=== PATIENT | female | born 1995 | race Caucasian/White ===

== ENCOUNTER → 2017-11-05 | Outpatient (CLI) | payer BC ==
[~2017-11-05] MED LIST: L-NO1TBD PO; OXYC-202 PO
--- NOTE | 2017-11-05 14:59 | Diagnostic Imaging Report ---
Left forearm at 206h. INDICATION: Fell arm pain AP and lateral views were obtained. There are no prior studies available for comparison. There is no fracture, dislocation or acute bony abnormality evident. There is ulnar minus variance of the wrist joint. The soft tissues are unremarkable. IMPRESSION: There is no evidence for an acute bony abnormality. Dictated by: Dictated on workstation # [id number]
== END ==
LOC: RAD 14:25
PROVIDERS: ATTEND Nurse Practitioner Family
DX: M79.602 Pain in left arm (principal)
CPT/HCPCS: 73090

== ENCOUNTER 2018-03-03 10:28 | Emergency (ER) | payer OTHER, BC ==
[~2018-03-03] VITALS: Ht 177.8 cm; Wt 127.0 kg
--- OUTSIDE RECORDS SUMMARY | 2018-03-03 10:34 | XMS REPORT ---
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 Problem list No authorized problems tracked for continuity of care are available for this visit. Encounters No authorized problems tracked for encounter diagnoses are available for this visit. Medications No medications recorded for this patient visit Allergies, adverse reactions, alerts Allergen Category Ingredient Status Reaction Severity Onset Azithromycin Drug Allergy Azithromycin Confirmed or Verified Amoxicillin Drug Allergy Amoxicillin Confirmed or Verified Sulfa (Sulfonamide Antibiotics) Drug Allergy Sulfa (Sulfonamide Antibiotics) Confirmed or Verified clams Food Allergy clams Confirmed or Verified Immunizations No immunizations recorded for this patient visit Relevant diagnostic tests and/or laboratory data No authorized results are available for this patient visit History of procedures No procedures recorded for this patient visit. Functional status No functional or cognitive status observations are available for this visit. Vital signs No authorized vital signs are available for this visit. Social history No Social History or smoking status observations were recorded for this visit. ( Unknown if ever smoked.) Treatment Plan No treatment plan text is available for this visit. Hospital discharge instructions No discharge instruction text is available for this visit.
--- OUTSIDE RECORDS SUMMARY | 2018-03-03 10:35 | XMS REPORT | Clinical Summary ---
Author Author Admin, PRABHA Organization [facility] Address Unknown Phone Unavailable Allergies, Adverse Reactions, Alerts Allergy Name Reaction Description Start Date Severity Status Provider ZITHROMAX Critical Active Keara Blum MD BACTRIM Critical Active Keara Blum MD AMOXICILLIN Critical Active Keara Blum MD PENICILLIN Critical Active Keara Blum MD Conditions or Problems Problem Name Problem Code Onset Date Status Entry Date Provider Comment Standard Description Annotate FAMILY HISTORY OF DIABETES V18.0 Active Keara Blum MD Family history of diabetes mellitus FAMILY HISTORY OF MIGRAINE V17.2 Active Keara Blum MD Family history of other neurological diseases COMMON MIGRAINE 346.10 Active Keara Blum MD Migraine without aura, without mention of intractable migraine, without mention of status migrainosus FAMILY HISTORY OF MELANOMA V16.8 Active Keara Blum MD Family history of other specified malignant neoplasm COUGH 786.2 Inactive Keara Blum MD Cough OTHER ABNORMAL GLUCOSE 790.29 Resolved Keara Blum MD Other abnormal glucose ALLERGIC RHINITIS 477.9 Active Keara Blum MD Allergic rhinitis, cause unspecified COUGH 786.2 Inactive Keara Blum MD Cough G E REFLUX 530.81 Resolved Keara Blum MD Esophageal reflux Sinusitis-Acute 461.9 Resolved Keara Blum MD Acute sinusitis, unspecified Other unspecified back disorders 724.9 Resolved Keara Blum MD Other unspecified back disorders UTI 599.0 Resolved Keara Blum MD Urinary tract infection, site not specified Otitis media, left 382.9 Resolved Keara Blum MD Unspecified otitis media Sinusitis-Acute 461.9 Inactive Keara Blum MD Acute sinusitis, unspecified Flank pain, right 789.09 Active Keara Blum MD Abdominal pain, other specified site; multiple sites Melena 578.1 Active Keara Blum MD Blood in stool Ovarian cyst 620.2 Active Hortensia Marr MD Other and unspecified ovarian cyst Acne 706.1 Active Hortensia Marr MD Other acne Contraceptive management V25.09 Active Hortensia Marr MD Encounter for other general counseling and advice on contraceptive management Dysuria 788.1 Active Keara Blum MD Dysuria COUGH ICD-786.2 Inactive Keara Blum MD 03/19 OTHER ABNORMAL GLUCOSE ICD-790.29 Inactive Keara Blum MD COUGH ICD-786.2 Inactive Keara Blum MD 05/16 G E REFLUX ICD-530.81 Inactive Keara Blum MD Sinusitis-Acute ICD-461.9 Inactive Keara Blum MD Other unspecified back disorders ICD-724.9 Inactive Keara Blum MD UTI ICD-599.0 Inactive Keara Blum MD Otitis media, left ICD-382.9 Inactive Keara Blum MD Sinusitis-Acute ICD-461.9 Inactive Keara Blum MD Medication List Medication Instructions Start Date Stop Date Generic Name NDC Status Provider Patient Instruction SEASONIQUE 0.15-0.03 &0.01 MG ORAL TABS one tab PO daily LEVONORGEST-ETH ESTRAD - 57273202629 Active Hortensia Marr MD Active TRI-SPRINTEC 0.18/0.215/0.25 MG-35 MCG TABS 1 po qd as directed NORGESTIM-ETH ESTRAD TRIPHASIC 71899839641 No Longer Active Hortensia Marr MD Active ACZONE 5 % EXT GEL DAPSONE 55862708554 Active Hortensia Marr MD Active FLUTICASONE PROPIONATE 50 MCG/ACT SUSP 1 puff in each nostril daily FLUTICASONE PROPIONATE 66078593664 No Longer Active Hortensia Marr MD Active PRILOSEC 20 MG CPDR 1 daily OMEPRAZOLE 40650583596 No Longer Active Hortensia Marr MD Active CEFTIN 500 MG TABS 1 bid CEFUROXIME AXETIL 73193479665 No Longer Active Keara Blum MD Active ONDANSETRON HCL 8 MG TABS 1 q 8 hours ONDANSETRON HCL 48189829756 No Longer Active Keara Blum MD Active ZIANA 1.2-0.025 % GEL apply pea size daily CLINDAMYCIN- TRETINOIN 17500687802 No Longer Active Keara Blum MD Active CEFTIN 500 MG TAB 1 po bid 10 days CEFUROXIME AXETIL 79215481093 No Longer Active Keara Blum MD Active FLUTICASONE PROPIONATE 50 MCG/ACT SUSP 1 puff in each nostril daily FLUTICASONE PROPIONATE 19108599162 No Longer Active Dawson Gresham DO Active CEFDINIR 300 MG CAPS 1 daily CEFDINIR 63928280678 No Longer Active Dawson Gresham DO Active CEFDINIR 300 MG CAPS 1 daily CEFDINIR 86293211356 No Longer Active Keara Blum MD Active ONDANSETRON HCL 8 MG TABS 1 every8 hrs prn vomiting ONDANSETRON HCL 34713716380 No Longer Active Keara Blum MD Active CLARITIN-D 24 HOUR 10-240 MG [id number] 1 po qd PRN Allergies 2013 LORATADINE-PSEUDOEPHEDRINE 30629094610 No Longer Active Keara Blum MD Active PROPRANOLOL HCL 20 MG TABS 1 bid PROPRANOLOL HCL 42514885786 No Longer Active Keara Blum MD Active PROAIR HFA 108 (90 BASE) MCG/ACT AERS 1-2 puffs 2-4 times a day as needed ALBUTEROL SULFATE 21143722989 No Longer Active Keara Blum MD Active FLOVENT HFA 110 MCG/ACT AERO 1 puff bid, rinse and spit FLUTICASONE PROPIONATE HFA 13921367352 No Longer Active Keara Blum MD Active FLUTICASONE PROPIONATE 50 MCG/ACT SUSP 1 puff in each nostril daily FLUTICASONE PROPIONATE 52617587916 No Longer Active Keara Blum MD Active ZYRTEC ALLERGY 10 MG TABS 1 tablet po daily CETIRIZINE HCL 16898668664 No Longer Active Keara Blum MD Active AZITHROMYCIN 250 MG TABS 2 pills day 1,1 pill day 2-5 AZITHROMYCIN 13826091776 No Longer Active Keara Blum MD Active ZYRTEC ALLERGY 10 MG TABS 1 tablet po daily ZYRTEC ALLERGY 10 MG TABS 2069116 CETIRIZINE HCL Inactive FLOVENT HFA 110 MCG/ACT AERO 1 puff bid, rinse and spit FLOVENT HFA 110 MCG/ACT AERO FLUTICASONE PROPIONATE HFA Inactive PROAIR HFA 108 (90 BASE) MCG/ACT AERS 1-2 puffs 2-4 times a day as needed PROAIR HFA 108 (90 BASE) MCG/ACT AERS ALBUTEROL SULFATE Inactive PROPRANOLOL HCL 20 MG TABS 1 bid PROPRANOLOL HCL 20 MG TABS 749957 PROPRANOLOL HCL Inactive CLARITIN-D 24 HOUR 10-240 MG [id number] 1 po qd PRN Allergies 2013 CLARITIN-D 24 HOUR 10-240 MG [id number] LORATADINE-PSEUDOEPHEDRINE Inactive ONDANSETRON HCL 8 MG TABS 1 every8 hrs prn vomiting ONDANSETRON HCL 8 MG TABS 988023 ONDANSETRON HCL Inactive CEFDINIR 300 MG CAPS 1 daily CEFDINIR 300 MG CAPS 952620 CEFDINIR Inactive CEFDINIR 300 MG CAPS 1 daily CEFDINIR 300 MG CAPS 804473 CEFDINIR Inactive FLUTICASONE PROPIONATE 50 MCG/ACT SUSP 1 puff in each nostril daily FLUTICASONE PROPIONATE 50 MCG/ACT SUSP 928450 FLUTICASONE PROPIONATE Inactive CEFTIN 500 MG TAB 1 po bid 10 days CEFTIN 500 MG TAB 897378 CEFUROXIME AXETIL Inactive ZIANA 1.2-0.025 % GEL apply pea size daily ZIANA 1.2-0.025 % GEL CLINDAMYCIN-TRETINOIN Inactive ONDANSETRON HCL 8 MG TABS 1 q 8 hours ONDANSETRON HCL 8 MG TABS 600676 ONDANSETRON HCL Inactive CEFTIN 500 MG TABS 1 bid CEFTIN 500 MG TABS 867956 CEFUROXIME AXETIL Inactive PRILOSEC 20 MG CPDR 1 daily PRILOSEC 20 MG CPDR 628370 OMEPRAZOLE Inactive FLUTICASONE PROPIONATE 50 MCG/ACT SUSP 1 puff in each nostril daily FLUTICASONE PROPIONATE 50 MCG/ACT SUSP 453108 FLUTICASONE PROPIONATE Inactive TRI-SPRINTEC 0.18/0.215/0.25 MG-35 MCG TABS 1 po qd as directed TRI-SPRINTEC 0.18/0.215/0.25 MG-35 MCG TABS 253897 NORGESTIM-ETH ESTRAD TRIPHASIC Inactive AZITHROMYCIN 250 MG TABS 2 pills day 1,1 pill day 2-5 AZITHROMYCIN 250 MG TABS 1544349 AZITHROMYCIN Inactive FLUTICASONE PROPIONATE 50 MCG/ACT SUSP 1 puff in each nostril daily FLUTICASONE PROPIONATE 50 MCG/ACT SUSP 623747 FLUTICASONE PROPIONATE Inactive Immunizations Vaccine Administration Date Value Standard Description influenza immunization (Flu Vax) has been administered Historical influenza virus vaccine, unspecified formulation hepatitis A immunization #2 Historical hepatitis A vaccine, unspecified formulation Human Papillomavirus vaccine (Gardasil) #3, (HPV #3) Gardasil human papilloma virus vaccine, quadrivalent Human Papillomavirus vaccine (Gardasil) #2, (HPV #2) Gardasil human papilloma virus vaccine, quadrivalent hepatitis A immunization #1 Historical hepatitis A vaccine, unspecified formulation MPSV4 (meningococcal polysaccharide vaccination) Historical meningococcal polysaccharide vaccine (MPSV4) Adacel (Tetanus, reduced Diphtheria, and acellular Pertussis Immunization) Adacel [[id number]] tetanus toxoid, reduced diphtheria toxoid, and acellular pertussis vaccine, adsorbed chicken pox immunization #2 Varicella Vax varicella virus vaccine DPT immunization #5 DTaP oral polio vaccine (OPV) #4 IPV poliovirus vaccine, unspecified formulation MMR (measles, mumps, rubella) virus immunization #2 MMR DPT immunization #4 DTaP Hemophilus influenza B immunization #4 Historical Haemophilus influenzae type b vaccine, conjugate unspecified formulation oral polio vaccine (OPV) #3 IPV poliovirus vaccine, unspecified formulation MMR (measles, mumps, rubella) virus immunization #1 MMR chicken pox immunization #1 Varicella Vax varicella virus vaccine Hemophilus influenza B immunization #3 Historical Haemophilus influenzae type b vaccine, conjugate unspecified formulation DPT immunization #3 DTaP hepatitis B vaccine #3 Historical hepatitis B vaccine, unspecified formulation Hemophilus influenza B immunization #2 Historical Haemophilus influenzae type b vaccine, conjugate unspecified formulation oral polio vaccine (OPV) #2 IPV poliovirus vaccine, unspecified formulation DPT immunization #2 DTaP Hemophilus influenza B immunization #1 Historical Haemophilus influenzae type b vaccine, conjugate unspecified formulation oral polio vaccine (OPV) #1 IPV poliovirus vaccine, unspecified formulation DPT immunization #1 DTaP hepatitis B vaccine #2 given Historical hepatitis B vaccine, unspecified formulation hepatitis B vaccine #1 given Historical hepatitis B vaccine, unspecified formulation Vital Signs Date Name Value Unit Range Description blood pressure, diastolic - 8462-4 67 mm[Hg] BP horner blood pressure, systolic - 8480-6 101 mm[Hg] BP sys pulse rate E&M - 8867-4 89 /min Heart rate temperature E&M 97.9 [degF] Body temperature weight E&M - 3141-9 233 [lb_av] Weight Measured blood pressure, diastolic - 8462-4 85 mm[Hg] BP horner blood pressure, systolic - 8480-6 126 mm[Hg] BP sys pulse rate E&M - 8867-4 93 /min Heart rate temperature E&M 98.5 [degF] Body temperature weight E&M - 3141-9 240 [lb_av] Weight Measured blood pressure, diastolic - 8462-4 68 mm[Hg] BP horner blood pressure, systolic - 8480-6 110 mm[Hg] BP sys height E&M - 8302-2 69 [in_us] Bdy height temperature E&M 99.0 [degF] Body temperature weight E&M - 3141-9 234 [lb_av] Weight Measured blood pressure, diastolic - 8462-4 60 mm[Hg] BP horner blood pressure, systolic - 8480-6 120 mm[Hg] BP sys height E&M - 8302-2 69.25 [in_us] Bdy height temperature E&M 99.7 [degF] Body temperature weight E&M - 3141-9 241.38 [lb_av] Weight Measured blood pressure, diastolic - 8462-4 83 mm[Hg] BP horner blood pressure, systolic - 8480-6 137 mm[Hg] BP sys pulse rate E&M - 8867-4 81 /min Heart rate temperature E&M 99.6 [degF] Body temperature weight E&M - 3141-9 233 [lb_av] Weight Measured Diagnostic Results Date Name Value Unit Range Description Lab Report: CBC W/DIFF, Comp. Metabolic Panel - Chemistry sodium, serum 141 mmol/L 358-447 3096/11/19 potassium, serum 4.4 mmol/L 3.5-5.2 chloride, serum 103 mmol/L 98-107 carbon dioxide, venous blood 30.5 mmol/L 21.0-32.0 blood glucose 86 mg/dL 65-110 urea nitrogen, blood 8 mg/dL 7-18 creatinine, serum 0.80 mg/dL 0.60-1.30 alanine aminotransferase (SGPT), serum 24 U/L 12-78 aspartate aminotransferase (SGOT), serum 22 U/L 15-37 calcium, serum 9.6 mg/dL 8.5-10.1 bilirubin, serum, total 0.30 mg/dL 0.00-1.00 Lab Report: CBC W/DIFF, Comp. Metabolic Panel - Hematology leukocyte count, blood 8.1 10^3/MM^3 10*3/mm3 4.6-10.2 neutrophils as percent of blood leukocytes 63.1 % 42.2-75.2 monocytes as percent of blood leukocytes 6.8 % 1.7-9.3 lymphocytes as percent of blood leukocytes 26.6 % 20.5-51.1 erythrocyte (RBC) count 4.52 10^6/MM^3 10*6/mm3 4.04-5.48 hemoglobin, blood 12.5 g/dL 12.0-16.0 hematocrit, blood 37.7 % 36.0-46.0 mean corpuscular volume, RBC 83 fL 80-97 mean corpuscular hemoglobin, RBC 27.6 pg 27.0-31.2 mean corpuscular hemoglobin concentration, RBC 33.1 G/DL % 31.8- 35.4 red blood cell distribution width 17.1 % 11.6-14.8 platelet count 239 10^3/MM^3 10*3/mm3 142-424 Lab Report: UADIP W/MICRO, AUTO - Chemistry protein, total urine random Negative mg/dL Negative RBC, urine, dipstick Negative Negative protein, total urine random Negative mg/dL Negative RBC, urine, dipstick 1+ Negative Lab Report: UADIP W/MICRO, AUTO - Urinalysis urobilinogen, urine, semiquantitative (dipstick) 0.2 Normal leukocyte esterase, urine, by dipstick Negative Negative nitrite, urine, semiquantitative Negative Negative glucose, urine, semiquantitative Negative Negative ketones, urine, by test strip Negative Negative bilirubin, urine Negative Negative bilirubin, urine Negative Negative ketones, urine, by test strip Negative Negative glucose, urine, semiquantitative Negative Negative appearance, urine Clear Clear specific gravity, urine >=1.030 1.000-1.030 pH, urine, semiquantitative 6.0 5.0-8.5 pH, urine, semiquantitative 8.0 5.0-8.5 specific gravity, urine 1.020 1.000-1.030 appearance, urine Clear Clear urine color Yellow Colorless;Lightyellow;Straw;Yellow urobilinogen, urine, semiquantitative (dipstick) 0.2 Normal leukocyte esterase, urine, by dipstick Negative Negative nitrite, urine, semiquantitative Negative Negative urate crystals, amorphous, urine, semiquantitative Large None seen urine color Yellow Colorless;Lightyellow;Straw;Yellow Lab Report: [facility] - Chemistry human chorionic gonadotropin, urine, qualitative (urine test) Negative Negative Encounters Code Encounter Date Provider Facility CPT-07788 Level 3 Est. Patient 09:47:44 SENIOR PROJECT ENGINEER Keara Blum MD [facility] CPT-12250 Level 3 Est. Patient 16:33:46 CDT Keara Blum MD [facility] CPT-54460 Level 3 Est. Patient 16:38:32 CDT Dawson Gresham DO [facility] CPT-29602 Level 3 Est. Patient 15:58:59 SENIOR PROJECT ENGINEER Keara Blum MD [facility] CPT-86525 Level 3 Est. Patient 10:44:39 SENIOR PROJECT ENGINEER Keara Blum MD [facility] CPT-02896 Level 3 Est. Patient 10:09:23 CDT Keara Blum MD [facility] CPT-95037 Level 3 Est. Patient 13:46:54 SENIOR PROJECT ENGINEER Keara Blum MD [facility] CPT-41446 Level 3 Est. Patient 16:25:27 CDT Keara Blum MD [facility] CPT-97101 Level 3 Est. Patient 10:22:54 CDT Keara Blum MD [facility] CPT-19037 Level 3 Est. Patient 16:02:28 SENIOR PROJECT ENGINEER Keara Blum MD [facility] Procedures Code Procedure Name Date Entry Date Standard Description CPT-78699 Sono pelvis non OB uterus ovaries cervix 15:52:59 CDT CPT-OV Office Visit 14:04:10 SENIOR PROJECT ENGINEER CPT-OV Office Visit 16:48:59 SENIOR PROJECT ENGINEER CPT-31070 Sono pelvis non OB uterus ovaries cervix 09:06:48 SENIOR PROJECT ENGINEER CPT-21319 Sono retroperitoneal complete kidneys and bladder 09:06: 48 SENIOR PROJECT ENGINEER CPT-50697 Abd compl w upright 15:32:02 SENIOR PROJECT ENGINEER CPT-30142 Fluzone Quadrivalent Intramuscular Suspension 0.5 ML 16: 49:56 SENIOR PROJECT ENGINEER CPT-18329 Breathing Tx 11:04:54 CDT CPT-05231 Chest 2V Frontal and Lat 10:32:02 CDT CPT-85087 Breathing Tx 10:23:54 CDT CPT-48576 EKG Trac and Interp 16:18:28 SENIOR PROJECT ENGINEER
--- OUTSIDE RECORDS SUMMARY | 2018-03-03 10:36 | XMS REPORT | Clinical Summary ---
Author Author Admin, PRABHA Organization [facility] Address Unknown Phone Unavailable Allergies, Adverse Reactions, [...] COUGH ICD-786.2 Inactive Keara Blum MD 03/19 COUGH ICD-786.2 Inactive Keara Blum MD 05/16 G E REFLUX ICD-530.81 Inactive Keara Blum MD OTHER ABNORMAL GLUCOSE ICD-790.29 Inactive Keara Blum MD Other unspecified back disorders ICD-724.9 Inactive Keara Blum MD UTI ICD-599.0 Inactive Keara Blum MD Otitis media, left ICD-382.9 Inactive Keara Blum MD Sinusitis-Acute ICD-461.9 Inactive Keara Blum MD Sinusitis-Acute ICD-461.9 Inactive Keara Blum MD Medication List Medication Instructions Start Date Stop Date Generic Name ND Status Provider Patient Instruction CEFDINIR 300 MG ORAL CAPS 1 daily CEFDINIR 67196280139 Active Keara Blum MD Active SEASONIQUE 0.15-0.03 &0.01 MG ORAL TABS one tab PO daily LEVONORGEST-ETH ESTRAD -DAY 75125726342 Active Hortensia Marr MD Active TRI-SPRINTEC 0.18/0.215/0.25 MG-35 MCG TABS 1 po qd as directed NORGESTIM-ETH ESTRAD TRIPHASIC 47337363350 No Longer Active Hortensia Marr MD Active ACZONE 5 % EXT GEL DAPSONE 65167087479 Active Hortensia Marr MD Active FLUTICASONE PROPIONATE 50 MCG/ACT SUSP 1 puff in each nostril daily FLUTICASONE PROPIONATE 91551034949 No Longer Active Hortensia Marr MD Active PRILOSEC 20 MG CPDR 1 daily OMEPRAZOLE 31037055147 No Longer Active Hortensia Marr MD Active CEFTIN 500 MG TABS 1 bid CEFUROXIME AXETIL 67563197755 No Longer Active Keara Blum MD Active ONDANSETRON HCL 8 MG TABS 1 q 8 hours ONDANSETRON HCL 47787512116 No Longer Active Keara Blum MD Active ZIANA 1.2-0.025 % GEL apply pea size daily CLINDAMYCIN- TRETINOIN 72128990890 No Longer Active Keara Blum MD Active CEFTIN 500 MG TAB 1 po bid 10 days CEFUROXIME AXETIL 83089750574 No Longer Active Keara Blum MD Active FLUTICASONE PROPIONATE 50 MCG/ACT SUSP 1 puff in each nostril daily FLUTICASONE PROPIONATE 15702494178 No Longer Active Dawson Gresham DO Active CEFDINIR 300 MG CAPS 1 daily CEFDINIR 03599443909 No Longer Active Dawson Gresham DO Active CEFDINIR 300 MG CAPS 1 daily CEFDINIR 28696284296 No Longer Active Keara Blum MD Active ONDANSETRON HCL 8 MG TABS 1 every8 hrs prn vomiting ONDANSETRON HCL 29027338353 No Longer Active Keara Blum MD Active CLARITIN-D 24 HOUR 10-240 MG [id number] 1 po qd PRN Allergies 2013 LORATADINE-PSEUDOEPHEDRINE 28510300482 No Longer Active Keara Blum MD Active PROPRANOLOL HCL 20 MG TABS 1 bid PROPRANOLOL HCL 28509611235 No Longer Active Keara Blum MD Active PROAIR HFA 108 (90 BASE) MCG/ACT AERS 1-2 puffs 2-4 times a day as needed ALBUTEROL SULFATE 99063370301 No Longer Active Keara Blum MD Active FLOVENT HFA 110 MCG/ACT AERO 1 puff bid, rinse and spit FLUTICASONE PROPIONATE HFA 76756928117 No Longer Active Keara Blum MD Active FLUTICASONE PROPIONATE 50 MCG/ACT SUSP 1 puff in each nostril daily FLUTICASONE PROPIONATE 19521926663 No Longer Active Keara Blum MD Active ZYRTEC ALLERGY 10 MG TABS 1 tablet po daily CETIRIZINE HCL 69497024072 No Longer Active Keara Blum MD Active AZITHROMYCIN 250 MG TABS 2 pills day 1,1 pill day 2-5 AZITHROMYCIN 41100854924 No Longer Active Keara Blum MD Active ZYRTEC ALLERGY 10 MG TABS 1 tablet po daily ZYRTEC ALLERGY 10 MG TABS 6081390 CETIRIZINE HCL Inactive FLOVENT HFA 110 MCG/ACT AERO 1 puff bid, rinse and spit FLOVENT HFA 110 MCG/ACT AERO FLUTICASONE PROPIONATE HFA Inactive PROAIR HFA 108 (90 BASE) MCG/ACT AERS 1-2 puffs 2-4 times a day as needed PROAIR HFA 108 (90 BASE) MCG/ACT AERS ALBUTEROL SULFATE Inactive PROPRANOLOL HCL 20 MG TABS 1 bid PROPRANOLOL HCL 20 MG TABS 549837 PROPRANOLOL HCL Inactive CLARITIN-D 24 HOUR 10-240 MG [id number] 1 po qd PRN Allergies 2013 CLARITIN-D 24 HOUR 10-240 MG [id number] LORATADINE-PSEUDOEPHEDRINE Inactive ONDANSETRON HCL 8 MG TABS 1 every8 hrs prn vomiting ONDANSETRON HCL 8 MG TABS 910135 ONDANSETRON HCL Inactive CEFDINIR 300 MG CAPS 1 daily CEFDINIR 300 MG CAPS 243522 CEFDINIR Inactive CEFDINIR 300 MG CAPS 1 daily CEFDINIR 300 MG CAPS 372457 CEFDINIR Inactive FLUTICASONE PROPIONATE 50 MCG/ACT SUSP 1 puff in each nostril daily FLUTICASONE PROPIONATE 50 MCG/ACT SUSP 859377 FLUTICASONE PROPIONATE Inactive CEFTIN 500 MG TAB 1 po bid 10 days CEFTIN 500 MG TAB 350145 CEFUROXIME AXETIL Inactive ZIANA 1.2-0.025 % GEL apply pea size daily ZIANA 1.2-0.025 % GEL CLINDAMYCIN-TRETINOIN Inactive ONDANSETRON HCL 8 MG TABS 1 q 8 hours ONDANSETRON HCL 8 MG TABS 623133 ONDANSETRON HCL Inactive CEFTIN 500 MG TABS 1 bid CEFTIN 500 MG TABS 678242 CEFUROXIME AXETIL Inactive PRILOSEC 20 MG CPDR 1 daily PRILOSEC 20 MG CPDR 888525 OMEPRAZOLE Inactive FLUTICASONE PROPIONATE 50 MCG/ACT SUSP 1 puff in each nostril daily FLUTICASONE PROPIONATE 50 MCG/ACT SUSP 834536 FLUTICASONE PROPIONATE Inactive TRI-SPRINTEC 0.18/0.215/0.25 MG-35 MCG TABS 1 po qd as directed TRI-SPRINTEC 0.18/0.215/0.25 MG-35 MCG TABS 663465 NORGESTIM-ETH ESTRAD TRIPHASIC Inactive AZITHROMYCIN 250 MG TABS 2 pills day 1,1 pill day 2-5 AZITHROMYCIN 250 MG TABS 0280627 AZITHROMYCIN Inactive FLUTICASONE PROPIONATE 50 MCG/ACT SUSP 1 puff in each nostril daily FLUTICASONE PROPIONATE 50 MCG/ACT SUSP 115809 FLUTICASONE PROPIONATE Inactive Immunizations Vaccine Administration Date [...] reduced Diphtheria, and acellular Pertussis Immunization) Adacel [[id number]] tetanus toxoid, reduced diphtheria toxoid, and acellular [...] Range Description blood pressure, diastolic - 8462-4 72 mm[Hg] BP horner blood pressure, systolic - 8480-6 118 mm[Hg] BP sys temperature E&M 98.1 [degF] Body temperature weight E&M - 3141-9 231 [lb_av] Weight Measured blood pressure, diastolic - 8462-4 67 mm[Hg] [...] Panel - Chemistry sodium, serum 141 mmol/L 774-256 6567/11/19 potassium, serum 4.4 mmol/L 3.5-5.2 chloride, serum [...] strip Negative Negative bilirubin, urine Negative Negative glucose, urine, semiquantitative Negative Negative ketones, urine, by test strip Negative Negative bilirubin, urine Negative Negative urobilinogen, urine, semiquantitative (dipstick) 0.2 Normal leukocyte esterase, urine, by dipstick Negative Negative nitrite, urine, semiquantitative Negative Negative urate crystals, amorphous, urine, semiquantitative Large None seen pH, urine, semiquantitative 8.0 5.0-8.5 specific gravity, urine 1.020 1.000-1.030 appearance, urine Clear Clear urine color Yellow Colorless;Lightyellow;Straw;Yellow appearance, urine Clear Clear specific gravity, urine >=1.030 1.000-1.030 pH, urine, semiquantitative 6.0 5.0-8.5 urine color Yellow Colorless;Lightyellow;Straw;Yellow Lab Report: [facility] [place] - Chemistry human chorionic gonadotropin, urine, qualitative (urine test) Negative Negative Encounters Code Encounter Date Provider Facility CPT-49999 Level 3 Est. Patient 15:37:57 CDT Keara Blum MD [facility] CPT-35760 Level 3 Est. Patient 09:47:44 [employer] Keara Blum MD [facility] CPT-61054 Level 3 Est. Patient 16:33:46 CDT Keara Blum MD [facility] CPT-82625 Level 3 Est. Patient 16:38:32 CDT Dawson Gresham DO [facility] CPT-56075 Level 3 Est. Patient 15:58:59 [employer]INTENANCE DIRECTOR Keara Blum MD [facility] CPT-90192 Level 3 Est. Patient 10:44:39 [employer] MAINTENANCE DIRECTOR Keara Blum MD [facility] CPT-62735 Level 3 Est. Patient 10:09:23 CDT Keara Blum MD [facility] CPT-95629 Level 3 Est. Patient 13:46:54 [employer] MAINTENANCE DIRECTOR Keara Blum MD [facility] CPT-81177 Level 3 Est. Patient 16:25:27 CDT Keara Blum MD [facility] CPT-03945 Level 3 Est. Patient 10:22:54 CDT Keara Blum MD [facility] CPT-27717 Level 3 Est. Patient 16:02:28 [employer]INTENANCE DIRECTOR Keara Blum MD [facility] Procedures Code Procedure Name Date Entry Date Standard Description CPT-22546 Sono pelvis non OB uterus ovaries cervix 15:52:59 CDT CPT-OV Office Visit 14:04:10 [employer]TE[employer] DIRECTOR CPT-OV Office Visit 16:48:59 [employer]INTENA[employer]CE DIRECTOR CPT-76160 Sono pelvis non OB uterus ovaries cervix 09:06:48 [employer]INTENA[employer]CE DIRECTOR CPT-41392 Sono retroperitoneal complete kidneys and bladder 09:06: 48 [employer] MAINTENANCE DIRECTOR CPT-68371 Abd compl w upright 15:32:02 [employer]FT MAINTENANCE DIRECTOR CPT-91335 Fluzone Quadrivalent Intramuscular Suspension 0.5 ML 16: 49:56 [employer]INTENA[employer]CE DIRECTOR CPT-70679 Breathing Tx 11:04:54 CDT CPT-40598 Chest 2V Frontal and Lat 10:32:02 CDT CPT-31528 Breathing Tx 10:23:54 CDT CPT-15980 EKG Trac and Interp 16:18:28 [employer]INTENA[employer]CE DIRECTOR
--- OUTSIDE RECORDS SUMMARY | 2018-03-03 10:37 | XMS REPORT | Clinical Summary ---
Author Author Admin, PRABHA Organization [facility] Address Unknown Phone Unavailable Allergies, Adverse [...] Inactive Keara Blum MD COUGH ICD-786.2 Inactive Keaar Blum MD 05/16 G E REFLUX ICD-530.81 Inactive Keara Blum MD Sinusitis-Acute ICD-461.9 Inactive Keara Blum MD Other unspecified back disorders ICD-724.9 Inactive Keara Blum MD UTI ICD-599.0 Inactive Keara Blum MD Otitis media, left ICD-382.9 Inactive Keara Blum MD Sinusitis-Acute ICD-461.9 Inactive Keara Blum MD Medication List Medication Instructions Start Date Stop Date Generic Name NDC Status Provider Patient Instruction CEFDINIR 300 MG ORAL CAPS 1 daily CEFDINIR 72199665207 Active Keara Blum MD Active SEASONIQUE 0.15-0.03 &0.01 MG ORAL TABS one tab PO daily LEVONORGEST-ETH ESTRAD -DAY 04778274394 Active Hortensia Marr MD Active TRI-SPRINTEC 0.18/0.215/0.25 MG-35 MCG TABS 1 po qd as directed NORGESTIM-ETH ESTRAD TRIPHASIC 77705935353 No Longer Active Hortensia Marr MD Active ACZONE 5 % EXT GEL DAPSONE 00615417451 Active Hortensia Marr MD Active FLUTICASONE PROPIONATE 50 MCG/ACT SUSP 1 puff in each nostril daily FLUTICASONE PROPIONATE 37954065992 No Longer Active Hortensia Marr MD Active PRILOSEC 20 MG CPDR 1 daily OMEPRAZOLE 48379867325 No Longer Active Hortensia Marr MD Active CEFTIN 500 MG TABS 1 bid CEFUROXIME AXETIL 78197277323 No Longer Active Keara Blum MD Active ONDANSETRON HCL 8 MG TABS 1 q 8 hours ONDANSETRON HCL 17576528341 No Longer Active Keara Blum MD Active ZIANA 1.2-0.025 % GEL apply pea size daily CLINDAMYCIN- TRETINOIN 35791858558 No Longer Active Keara Blum MD Active CEFTIN 500 MG TAB 1 po bid 10 days CEFUROXIME AXETIL 79694122565 No Longer Active eKara Blum MD Active FLUTICASONE PROPIONATE 50 MCG/ACT SUSP 1 puff in each nostril daily FLUTICASONE PROPIONATE 17194662186 No Longer Active Dawson Gresham DO Active CEFDINIR 300 MG CAPS 1 daily CEFDINIR 14948537950 No Longer Active Dawson Gresham DO Active CEFDINIR 300 MG CAPS 1 daily CEFDINIR 04062719725 No Longer Active Keara Blum MD Active ONDANSETRON HCL 8 MG TABS 1 every8 hrs prn vomiting ONDANSETRON HCL 56805606749 No Longer Active Keara Blum MD Active CLARITIN-D 24 HOUR 10-240 MG [id number] 1 po qd PRN Allergies 2013 LORATADINE-PSEUDOEPHEDRINE 55216686240 No Longer Active Keara Blum MD Active PROPRANOLOL HCL 20 MG TABS 1 bid PROPRANOLOL HCL 03919451934 No Longer Active Keara Blum MD Active PROAIR HFA 108 (90 BASE) MCG/ACT AERS 1-2 puffs 2-4 times a day as needed ALBUTEROL SULFATE 35859367213 No Longer Active Keara Blum MD Active FLOVENT HFA 110 MCG/ACT AERO 1 puff bid, rinse and spit FLUTICASONE PROPIONATE HFA 83104620546 No Longer Active Keara lBum MD Active FLUTICASONE PROPIONATE 50 MCG/ACT SUSP 1 puff in each nostril daily FLUTICASONE PROPIONATE 19790769831 No Longer Active Keara Blum MD Active ZYRTEC ALLERGY 10 MG TABS 1 tablet po daily CETIRIZINE HCL 41628346849 No Longer Active Keara Blum MD Active AZITHROMYCIN 250 MG TABS 2 pills day 1,1 pill day 2-5 AZITHROMYCIN 51344124772 No Longer Active Keara Blum MD Active ZYRTEC ALLERGY 10 MG TABS 1 tablet po daily ZYRTEC ALLERGY 10 MG TABS 7278376 CETIRIZINE HCL Inactive FLOVENT HFA 110 MCG/ACT AERO 1 puff bid, rinse and spit FLOVENT HFA 110 MCG/ACT AERO FLUTICASONE PROPIONATE HFA Inactive PROAIR HFA 108 (90 BASE) MCG/ACT AERS 1-2 puffs 2-4 times a day as needed PROAIR HFA 108 (90 BASE) MCG/ACT AERS ALBUTEROL SULFATE Inactive PROPRANOLOL HCL 20 MG TABS 1 bid PROPRANOLOL HCL 20 MG TABS 459570 PROPRANOLOL HCL Inactive CLARITIN-D 24 HOUR 10-240 MG [id number] 1 po qd PRN Allergies 2013 CLARITIN-D 24 HOUR 10-240 MG [id number] LORATADINE-PSEUDOEPHEDRINE Inactive ONDANSETRON HCL 8 MG TABS 1 every8 hrs prn vomiting ONDANSETRON HCL 8 MG TABS 979558 ONDANSETRON HCL Inactive CEFDINIR 300 MG CAPS 1 daily CEFDINIR 300 MG CAPS 439784 CEFDINIR Inactive CEFDINIR 300 MG CAPS 1 daily CEFDINIR 300 MG CAPS 256323 CEFDINIR Inactive FLUTICASONE PROPIONATE 50 MCG/ACT SUSP 1 puff in each nostril daily FLUTICASONE PROPIONATE 50 MCG/ACT SUSP 773334 FLUTICASONE PROPIONATE Inactive CEFTIN 500 MG TAB 1 po bid 10 days CEFTIN 500 MG TAB 607926 CEFUROXIME AXETIL Inactive ZIANA 1.2-0.025 % GEL apply pea size daily ZIANA 1.2-0.025 % GEL CLINDAMYCIN-TRETINOIN Inactive ONDANSETRON HCL 8 MG TABS 1 q 8 hours ONDANSETRON HCL 8 MG TABS 776341 ONDANSETRON HCL Inactive CEFTIN 500 MG TABS 1 bid CEFTIN 500 MG TABS 400234 CEFUROXIME AXETIL Inactive PRILOSEC 20 MG CPDR 1 daily PRILOSEC 20 MG CPDR 172724 OMEPRAZOLE Inactive FLUTICASONE PROPIONATE 50 MCG/ACT SUSP 1 puff in each nostril daily FLUTICASONE PROPIONATE 50 MCG/ACT SUSP 494514 FLUTICASONE PROPIONATE Inactive TRI-SPRINTEC 0.18/0.215/0.25 MG-35 MCG TABS 1 po qd as directed TRI-SPRINTEC 0.18/0.215/0.25 MG-35 MCG TABS 873745 NORGESTIM-ETH ESTRAD TRIPHASIC Inactive AZITHROMYCIN 250 MG TABS 2 pills day 1,1 pill day 2-5 AZITHROMYCIN 250 MG TABS 5223687 AZITHROMYCIN Inactive FLUTICASONE PROPIONATE 50 MCG/ACT SUSP 1 puff in each nostril daily FLUTICASONE PROPIONATE 50 MCG/ACT SUSP 089410 FLUTICASONE PROPIONATE Inactive Immunizations Vaccine Administration Date [...] reduced Diphtheria, and acellular Pertussis Immunization) Adacel [APC716] tetanus toxoid, reduced diphtheria toxoid, and acellular [...] Panel - Chemistry sodium, serum 141 mmol/L 012-768 1644/11/19 potassium, serum 4.4 mmol/L 3.5-5.2 chloride, serum [...] Large None seen urine color Yellow Colorless;Lightyellow;Straw;Yellow appearance, urine Clear Clear specific gravity, urine >=1.030 1.000-1.030 pH, urine, semiquantitative 6.0 5.0-8.5 glucose, urine, semiquantitative Negative Negative ketones, urine, by test strip Negative Negative bilirubin, urine Negative Negative urine color Yellow Colorless;Lightyellow;Straw;Yellow appearance, urine Clear Clear specific gravity, urine 1.020 1.000-1.030 pH, urine, semiquantitative 8.0 5.0-8.5 Lab Report: [facility] [place] Chemistry human chorionic gonadotropin, urine, qualitative (urine test) Negative Negative Encounters Code Encounter Date Provider Facility CPT-56586 Level 3 Est. Patient 15:37:57 CDT Keara Blum MD [facility] CPT-09179 Level 3 Est. Patient 09:47:44 [employer] Keara Blum MD [facility] CPT-51617 Level 3 Est. Patient 16:33:46 CDT Keara Blum MD [facility] CPT-48032 Level 3 Est. Patient 16:38:32 CDT Dawson Gresham DO [facility] CPT-48235 Level 3 Est. Patient 15:58:59 [employer] Keara Blum MD [facility] CPT-80063 Level 3 Est. Patient 10:44:39 [employer] Keara Blum MD [facility] CPT-65758 Level 3 Est. Patient 10:09:23 CDT Keara Blum MD [facility] CPT-98622 Level 3 Est. Patient 13:46:54 [employer] Keara Blum MD [facility] CPT-99362 Level 3 Est. Patient 16:25:27 CDT Keara Blum MD [facility] CPT-19304 Level 3 Est. Patient 10:22:54 CDT Keara Blum MD [facility] CPT-82194 Level 3 Est. Patient 16:02:28 [employer] Keara Blum MD [facility] Procedures Code Procedure Name Date Entry Date Standard Description CPT-75601 Sono pelvis non OB uterus ovaries cervix 15:52:59 CDT CPT-OV Office Visit 14:04:10 [employer] CPT-OV Office Visit 16:48:59 [employer] CPT-36066 Sono pelvis non OB uterus ovaries cervix 09:06:48 [employer] CPT-64040 Sono retroperitoneal complete kidneys and bladder 09:06: 48 [employer] CPT-77666 Abd compl w upright 15:32:02 [employer] CPT-78525 Fluzone Quadrivalent Intramuscular Suspension 0.5 ML 16: 49:56 [employer] CPT-43020 Breathing Tx 11:04:54 CDT CPT-04757 Chest 2V Frontal and Lat 10:32:02 CDT CPT-88392 Breathing Tx 10:23:54 CDT CPT-79288 EKG Trac and Interp 16:18:28 [employer]
--- OUTSIDE RECORDS SUMMARY | 2018-03-03 10:37 | XMS REPORT | Clinical Summary ---
Author Author Admin, PRABHA Organization [facility] Address Unknown Phone Unavailable Allergies, Adverse [...] Acute sinusitis, unspecified Flank pain, right 789.09 Resolved Keara Blum MD Abdominal pain, other specified site; multiple sites Melena 578.1 Active Keara Blum MD Blood in stool Ovarian cyst 620.2 Active Hortensia Marr MD Other and unspecified ovarian cyst Acne 706.1 Active Hortensia Marr MD Other acne Contraceptive management V25.09 Active Hortensia Marr MD Encounter for other general counseling and advice on contraceptive management Dysuria 788.1 Resolved Keara Blum MD Dysuria COUGH ICD-786.2 Inactive [...] MD Sinusitis-Acute ICD-461.9 Inactive Keara Blum MD Flank pain, right ICD-789.09 Inactive Keara Blum MD Dysuria ICD-788.1 Inactive Keara Blum MD Medication List Medication Instructions Start Date Stop Date Generic Name NDC Status Provider Patient Instruction ALLERGY RELIEF D 10-240 MG ORAL [id number] 1 daily LORATADINE- PSEUDOEPHEDRINE 05333093986 Active Keara Blum MD Active CEFDINIR 300 MG ORAL CAPS 1 daily CEFDINIR 85127749608 No Longer Active Keara Blum MD Active ONDANSETRON HCL 8 MG TABS 1 q 8 hours prn vomiting ONDANSETRON HCL 94096882667 Active Keara Blum MD Active SEASONIQUE 0.15-0.03 &0.01 MG ORAL TABS one tab PO daily LEVONORGEST-ETH ESTRAD -DAY 59655329580 Active Hortensia Marr MD Active TRI-SPRINTEC 0.18/0.215/0.25 MG-35 MCG TABS 1 po qd as directed NORGESTIM-ETH ESTRAD TRIPHASIC 55234829403 No Longer Active Hortensia Marr MD Active ACZONE 5 % EXT GEL DAPSONE 98319592826 Active Hortensia Marr MD Active FLUTICASONE PROPIONATE 50 MCG/ACT SUSP 1 puff in each nostril daily FLUTICASONE PROPIONATE 27335099512 No Longer Active Hortensia Marr MD Active PRILOSEC 20 MG CPDR 1 daily OMEPRAZOLE 91611744850 No Longer Active Hortensia Marr MD Active CEFTIN 500 MG TABS 1 bid CEFUROXIME AXETIL 86932726965 No Longer Active Keara Blum MD Active ONDANSETRON HCL 8 MG TABS 1 q 8 hours ONDANSETRON HCL 94050845100 No Longer Active Keara Blum MD Active ZIANA 1.2-0.025 % GEL apply pea size daily CLINDAMYCIN- TRETINOIN 42272553505 No Longer Active Keara Blum MD Active CEFTIN 500 MG TAB 1 po bid 10 days CEFUROXIME AXETIL 71172386777 No Longer Active Keara Blum MD Active FLUTICASONE PROPIONATE 50 MCG/ACT SUSP 1 puff in each nostril daily FLUTICASONE PROPIONATE 75953995958 No Longer Active Dawson Gresham DO Active CEFDINIR 300 MG CAPS 1 daily CEFDINIR 38649127635 No Longer Active Dawson Gresham DO Active CEFDINIR 300 MG CAPS 1 daily CEFDINIR 22732534934 No Longer Active Keara Blum MD Active ONDANSETRON HCL 8 MG TABS 1 every8 hrs prn vomiting ONDANSETRON HCL 49693297705 No Longer Active Keara Blum MD Active CLARITIN-D 24 HOUR 10-240 MG [id number] 1 po qd PRN Allergies 2013 LORATADINE-PSEUDOEPHEDRINE 95773319814 No Longer Active Keara Blum MD Active PROPRANOLOL HCL 20 MG TABS 1 bid PROPRANOLOL HCL 92990504483 No Longer Active Keara Blum MD Active PROAIR HFA 108 (90 BASE) MCG/ACT AERS 1-2 puffs 2-4 times a day as needed ALBUTEROL SULFATE 60534995926 No Longer Active Keara Blum MD Active FLOVENT HFA 110 MCG/ACT AERO 1 puff bid, rinse and spit FLUTICASONE PROPIONATE HFA 22603638635 No Longer Active Keara Blum MD Active FLUTICASONE PROPIONATE 50 MCG/ACT SUSP 1 puff in each nostril daily FLUTICASONE PROPIONATE 64935852573 No Longer Active Keara Blum MD Active ZYRTEC ALLERGY 10 MG TABS 1 tablet po daily CETIRIZINE HCL 57686117169 No Longer Active Keara Blum MD Active AZITHROMYCIN 250 MG TABS 2 pills day 1,1 pill day 2-5 AZITHROMYCIN 73656269066 No Longer Active Keara Blum MD Active ZYRTEC ALLERGY 10 MG TABS 1 tablet po daily ZYRTEC ALLERGY 10 MG TABS 7463754 CETIRIZINE HCL Inactive FLOVENT HFA 110 MCG/ACT AERO 1 puff bid, rinse and spit FLOVENT HFA 110 MCG/ACT AERO FLUTICASONE PROPIONATE HFA Inactive PROAIR HFA 108 (90 BASE) MCG/ACT AERS 1-2 puffs 2-4 times a day as needed PROAIR HFA 108 (90 BASE) MCG/ACT AERS ALBUTEROL SULFATE Inactive PROPRANOLOL HCL 20 MG TABS 1 bid PROPRANOLOL HCL 20 MG TABS 493028 PROPRANOLOL HCL Inactive CLARITIN-D 24 HOUR 10-240 MG [id number] 1 po qd PRN Allergies 2013 CLARITIN-D 24 HOUR 10-240 MG [id number] LORATADINE-PSEUDOEPHEDRINE Inactive ONDANSETRON HCL 8 MG TABS 1 every8 hrs prn vomiting ONDANSETRON HCL 8 MG TABS 714982 ONDANSETRON HCL Inactive CEFDINIR 300 MG CAPS 1 daily CEFDINIR 300 MG CAPS 20021229 CEFDINIR Inactive CEFDINIR 300 MG CAPS 1 daily CEFDINIR 300 MG CAPS 20021229 CEFDINIR Inactive FLUTICASONE PROPIONATE 50 MCG/ACT SUSP 1 puff in each nostril daily FLUTICASONE PROPIONATE 50 MCG/ACT SUSP 472560 FLUTICASONE PROPIONATE Inactive CEFTIN 500 MG TAB 1 po bid 10 days CEFTIN 500 MG TAB 355673 CEFUROXIME AXETIL Inactive ZIANA 1.2-0.025 % GEL apply pea size daily ZIANA 1.2-0.025 % GEL CLINDAMYCIN-TRETINOIN Inactive ONDANSETRON HCL 8 MG TABS 1 q 8 hours ONDANSETRON HCL 8 MG TABS 124288 ONDANSETRON HCL Inactive CEFTIN 500 MG TABS 1 bid CEFTIN 500 MG TABS 761769 CEFUROXIME AXETIL Inactive PRILOSEC 20 MG CPDR 1 daily PRILOSEC 20 MG CPDR 915717 OMEPRAZOLE Inactive FLUTICASONE PROPIONATE 50 MCG/ACT SUSP 1 puff in each nostril daily FLUTICASONE PROPIONATE 50 MCG/ACT SUSP 218502 FLUTICASONE PROPIONATE Inactive TRI-SPRINTEC 0.18/0.215/0.25 MG-35 MCG TABS 1 po qd as directed TRI-SPRINTEC 0.18/0.215/0.25 MG-35 MCG TABS 148430 NORGESTIM-ETH ESTRAD TRIPHASIC Inactive CEFDINIR 300 MG ORAL CAPS 1 daily CEFDINIR 300 MG ORAL CAPS 415396 CEFDINIR Inactive AZITHROMYCIN 250 MG TABS 2 pills day 1,1 pill day 2-5 AZITHROMYCIN 250 MG TABS 9555162 AZITHROMYCIN Inactive FLUTICASONE PROPIONATE 50 MCG/ACT SUSP 1 puff in each nostril daily FLUTICASONE PROPIONATE 50 MCG/ACT SUSP 149834 FLUTICASONE PROPIONATE Inactive Immunizations Vaccine Administration Date [...] reduced Diphtheria, and acellular Pertussis Immunization) Adacel [LIV367] tetanus toxoid, reduced diphtheria toxoid, and acellular [...] Range Description blood pressure, diastolic - 8462-4 70 mm[Hg] BP horner blood pressure, systolic - 8480-6 125 mm[Hg] BP sys temperature E&M 97.8 [degF] Body temperature weight E&M - 3141-9 231 [lb_av] Weight Measured blood pressure, diastolic - 8462-4 72 mm[Hg] [...] E&M - 3141-9 241.38 [lb_av] Weight Measured Diagnostic Results Date Name Value Unit Range Description Lab Report: CBC W/DIFF, Comp. Metabolic Panel - Chemistry sodium, serum 141 mmol/L 977-964 4296/11/19 potassium, serum 4.4 mmol/L 3.5-5.2 chloride, serum [...] pH, urine, semiquantitative 8.0 5.0-8.5 [facility] Report: [facility] - Chemistry human chorionic gonadotropin, urine, qualitative (urine test) Negative Negative Encounters Code Encounter Date Provider Facility CPT-76346 Level 3 Est. Patient 14:18:37 CDT Keara Blum MD [facility]-79637 Level 3 Est. Patient 15:37:57 CDT Keara Blum MD [facility]-83652 Level 3 Est. Patient 09:47:44 ASSISTANT PLANT CONTROL OPERATOR Keara Blum MD [facility]-47394 Level 3 Est. Patient 16:33:46 CDT Keara Blum MD [facility] CPT-58603 Level 3 Est. Patient 16:38:32 CDT Dawson Gresham DO [facility] CPT-17247 Level 3 Est. Patient 15:58:59 ASSISTANT PLANT CONTROL OPERATOR Keara Blum MD [facility]-63598 Level 3 Est. Patient 10:44:39 ASSISTANT PLANT CONTROL OPERATOR Keara Blum MD [facility] CPT-32853 Level 3 Est. Patient 10:09:23 CDT Keara Blum MD [facility]-27974 Level 3 Est. Patient 13:46:54 ASSISTANT PLANT CONTROL OPERATOR Keara Blum MD [facility] CPT-03790 Level 3 Est. Patient 16:25:27 CDT Keara Blum MD [facility] CPT-24835 Level 3 Est. Patient 10:22:54 CDT Keara Blum MD [facility] CPT-41084 Level 3 Est. Patient 16:02:28 ASSISTANT PLANT CONTROL OPERATOR Keara Blum MD [facility] Procedures Code Procedure Name Date Entry Date Standard Description CPT-56186 Sono pelvis non OB uterus ovaries cervix 15:52:59 CDT CPT-OV Office Visit 14:04:10 ASSISTANT PLANT CONTROL OPERATOR CPT-OV Office Visit 16:48:59 ASSISTANT PLANT CONTROL OPERATOR CPT-50869 Sono pelvis non OB uterus ovaries cervix 09:06:48 ASSISTANT PLANT CONTROL OPERATOR CPT-70536 Sono retroperitoneal complete kidneys and bladder 09:06: 48 ASSISTANT PLANT CONTROL OPERATOR CPT-75785 Abd compl w upright 15:32:02 ASSISTANT PLANT CONTROL OPERATOR CPT-85687 Fluzone Quadrivalent Intramuscular Suspension 0.5 ML 16: 49:56 ASSISTANT PLANT CONTROL OPERATOR CPT-53295 Breathing Tx 11:04:54 CDT CPT-34971 Chest 2V Frontal and Lat 10:32:02 CDT CPT-60606 Breathing Tx 10:23:54 CDT CPT-35446 EKG Trac and Interp 16:18:28 ASSISTANT PLANT CONTROL OPERATOR
--- OUTSIDE RECORDS SUMMARY | 2018-03-03 10:38 | XMS REPORT ---
Author Author [facility] Medical Staff Organization [facility] Address [address], [place] [address] Phone [phone] Care Team Providers Care Batch Unit Treater Name Role Phone REILLY PARRA, RAMON PP [phone] Summary purpose TRANSITION OF CARE AUTO GENERATION [...]
--- OUTSIDE RECORDS SUMMARY | 2018-03-03 10:38 | XMS REPORT | Clinical Summary ---
Author Author Admin, PRABHA Organization [facility] Address Unknown Phone Unavailable Allergies, Adverse [...] E REFLUX ICD-530.81 Inactive Keara Blum MD Other unspecified back [...] one tab PO daily LEVONORGEST-ETH ESTRAD - 17011045104 Active Hortensia Marr MD Active TRI-SPRINTEC 0.18/0.215/0.25 MG-35 MCG TABS 1 po qd as directed NORGESTIM-ETH ESTRAD TRIPHASIC 05250816494 No Longer Active Hortensia Marr MD Active ACZONE 5 % EXT GEL DAPSONE 94788665582 Active Hortensia Marr MD Active FLUTICASONE PROPIONATE 50 MCG/ACT SUSP 1 puff in each nostril daily FLUTICASONE PROPIONATE 76535014160 No Longer Active Hortensia Marr MD Active PRILOSEC 20 MG CPDR 1 daily OMEPRAZOLE 49173099025 No Longer Active Hortensia Marr MD Active CEFTIN 500 MG TABS 1 bid CEFUROXIME AXETIL 49045531661 No Longer Active Keara Blum MD Active ONDANSETRON HCL 8 MG TABS 1 q 8 hours ONDANSETRON HCL 82557204919 No Longer Active Keara Blum MD Active ZIANA 1.2-0.025 % GEL apply pea size daily CLINDAMYCIN- TRETINOIN 43701569169 No Longer Active Keara Blum MD Active CEFTIN 500 MG TAB 1 po bid 10 days CEFUROXIME AXETIL 71797541854 No Longer Active Keara Blum MD Active FLUTICASONE PROPIONATE 50 MCG/ACT SUSP 1 puff in each nostril daily FLUTICASONE PROPIONATE 08963833237 No Longer Active Dawson Gresham DO Active CEFDINIR 300 MG CAPS 1 daily CEFDINIR 64372739230 No Longer Active Dawson Gresham DO Active CEFDINIR 300 MG CAPS 1 daily CEFDINIR 45259399161 No Longer Active Keara Blum MD Active ONDANSETRON HCL 8 MG TABS 1 every8 hrs prn vomiting ONDANSETRON HCL 39823650035 No Longer Active Keara Blum MD Active CLARITIN-D 24 HOUR 10-240 MG [id number] 1 po qd PRN Allergies 2013 LORATADINE-PSEUDOEPHEDRINE 83712261202 No Longer Active Keara Blum MD Active PROPRANOLOL HCL 20 MG TABS 1 bid PROPRANOLOL HCL 52182297783 No Longer Active Keara Blum MD Active PROAIR HFA 108 (90 BASE) MCG/ACT AERS 1-2 puffs 2-4 times a day as needed ALBUTEROL SULFATE 95886466544 No Longer Active Keara Blum MD Active FLOVENT HFA 110 MCG/ACT AERO 1 puff bid, rinse and spit FLUTICASONE PROPIONATE HFA 45045558819 No Longer Active Keara Blum MD Active FLUTICASONE PROPIONATE 50 MCG/ACT SUSP 1 puff in each nostril daily FLUTICASONE PROPIONATE 32279550666 No Longer Active Keara Blum MD Active ZYRTEC ALLERGY 10 MG TABS 1 tablet po daily CETIRIZINE HCL 97044487532 No Longer Active Keara Blum MD Active AZITHROMYCIN 250 MG TABS 2 pills day 1,1 pill day 2-5 AZITHROMYCIN 72351792271 No Longer Active Keara Blum MD Active ZYRTEC ALLERGY 10 MG TABS 1 tablet po daily ZYRTEC ALLERGY 10 MG TABS 4133036 CETIRIZINE HCL Inactive FLOVENT HFA 110 MCG/ACT AERO 1 puff bid, rinse and spit FLOVENT HFA 110 MCG/ACT AERO FLUTICASONE PROPIONATE HFA Inactive PROAIR HFA 108 (90 BASE) MCG/ACT AERS 1-2 puffs 2-4 times a day as needed PROAIR HFA 108 (90 BASE) MCG/ACT AERS ALBUTEROL SULFATE Inactive PROPRANOLOL HCL 20 MG TABS 1 bid PROPRANOLOL HCL 20 MG TABS 419281 PROPRANOLOL HCL Inactive CLARITIN-D 24 HOUR 10-240 MG [id number] 1 po qd PRN Allergies 2013 CLARITIN-D 24 HOUR 10-240 MG [id number] LORATADINE-PSEUDOEPHEDRINE Inactive ONDANSETRON HCL 8 MG TABS 1 every8 hrs prn vomiting ONDANSETRON HCL 8 MG TABS 890878 ONDANSETRON HCL Inactive CEFDINIR 300 MG CAPS 1 daily CEFDINIR 300 MG CAPS 300634 CEFDINIR Inactive CEFDINIR 300 MG CAPS 1 daily CEFDINIR 300 MG CAPS 940422 CEFDINIR Inactive FLUTICASONE PROPIONATE 50 MCG/ACT SUSP 1 puff in each nostril daily FLUTICASONE PROPIONATE 50 MCG/ACT SUSP 042873 FLUTICASONE PROPIONATE Inactive CEFTIN 500 MG TAB 1 po bid 10 days CEFTIN 500 MG TAB 354277 CEFUROXIME AXETIL Inactive ZIANA 1.2-0.025 % GEL apply pea size daily ZIANA 1.2-0.025 % GEL CLINDAMYCIN-TRETINOIN Inactive ONDANSETRON HCL 8 MG TABS 1 q 8 hours ONDANSETRON HCL 8 MG TABS 865172 ONDANSETRON HCL Inactive CEFTIN 500 MG TABS 1 bid CEFTIN 500 MG TABS 333922 CEFUROXIME AXETIL Inactive PRILOSEC 20 MG CPDR 1 daily PRILOSEC 20 MG CPDR 552851 OMEPRAZOLE Inactive FLUTICASONE PROPIONATE 50 MCG/ACT SUSP 1 puff in each nostril daily FLUTICASONE PROPIONATE 50 MCG/ACT SUSP 580271 FLUTICASONE PROPIONATE Inactive TRI-SPRINTEC 0.18/0.215/0.25 MG-35 MCG TABS 1 po qd as directed TRI-SPRINTEC 0.18/0.215/0.25 MG-35 MCG TABS 350398 NORGESTIM-ETH ESTRAD TRIPHASIC Inactive AZITHROMYCIN 250 MG TABS 2 pills day 1,1 pill day 2-5 AZITHROMYCIN 250 MG TABS 8283671 AZITHROMYCIN Inactive FLUTICASONE PROPIONATE 50 MCG/ACT SUSP 1 puff in each nostril daily FLUTICASONE PROPIONATE 50 MCG/ACT SUSP 539057 FLUTICASONE PROPIONATE Inactive Immunizations Vaccine Administration Date [...] reduced Diphtheria, and acellular Pertussis Immunization) Adacel [BRT830] tetanus toxoid, reduced diphtheria toxoid, and acellular [...] Panel - Chemistry sodium, serum 141 mmol/L 280-208 6945/11/19 potassium, serum 4.4 mmol/L 3.5-5.2 chloride, serum [...] CBC W/DIFF, Comp. Metabolic Panel - Hematology neutrophils as percent of blood leukocytes 63.1 % 42.2-75.2 monocytes as percent of blood leukocytes 6.8 % 1.7-9.3 lymphocytes as percent of blood leukocytes 26.6 % 20.5-51.1 erythrocyte (RBC) count 4.52 10^6/MM^3 10*6/mm3 4.04-5.48 hemoglobin, blood 12.5 g/dL 12.0-16.0 leukocyte count, blood 8.1 10^3/MM^3 10*3/mm3 4.6-10.2 hematocrit, blood 37.7 % 36.0-46.0 mean corpuscular volume, RBC 83 fL 80-97 mean corpuscular hemoglobin, RBC 27.6 pg 27.0-31.2 mean corpuscular hemoglobin concentration, RBC 33.1 G/DL % 31.8- 35.4 red blood cell distribution width 17.1 % 11.6-14.8 platelet count 239 10^3/MM^3 10*3/mm3 142-424 Lab Report: [facility] W/MICRO, AUTO - Chemistry protein, total urine random Negative mg/dL Negative RBC, urine, dipstick 1+ Negative protein, total urine random Negative mg/dL Negative RBC, urine, dipstick Negative Negative Lab Report: [facility] W/MICRO, AUTO - Urinalysis bilirubin, urine Negative Negative ketones, urine, by test strip Negative Negative glucose, urine, semiquantitative Negative Negative urine color Yellow Colorless;Lightyellow;Straw;Yellow nitrite, urine, semiquantitative Negative Negative appearance, urine Clear Clear specific gravity, urine >=1.030 1.000-1.030 pH, urine, semiquantitative 6.0 5.0-8.5 pH, urine, semiquantitative 8.0 5.0-8.5 specific gravity, urine 1.020 1.000-1.030 appearance, urine Clear Clear urine color Yellow Colorless;Lightyellow;Straw;Yellow leukocyte esterase, urine, by dipstick Negative Negative nitrite, urine, semiquantitative Negative Negative urate crystals, amorphous, urine, semiquantitative Large None seen urobilinogen, urine, semiquantitative (dipstick) 0.2 Normal urobilinogen, urine, semiquantitative (dipstick) 0.2 Normal leukocyte esterase, urine, by dipstick Negative Negative glucose, urine, semiquantitative Negative Negative ketones, urine, by test strip Negative Negative bilirubin, urine Negative Negative Lab Report: [facility] [place] - Chemistry human chorionic gonadotropin, urine, qualitative (urine test) Negative Negative Encounters Code Encounter Date Provider Facility CPT-64623 Level 3 Est. Patient 09:47:44 KNITTER HELPER Keara Blum MD [facility] CPT-02537 Level 3 Est. Patient 16:33:46 CDT Keara Blum MD [facility] CPT-24928 Level 3 Est. Patient 16:38:32 CDT Dawson Gresham DO [facility] CPT-73477 Level 3 Est. Patient 15:58:59 DILIA Blum MD [facility] CPT-04665 Level 3 Est. Patient 10:44:39 DILIA Blum MD [facility] CPT-79422 Level 3 Est. Patient 10:09:23 CDT Keara Blum MD [facility] CPT-76577 Level 3 Est. Patient 13:46:54 KNITTER HELPER eKara Blum MD [facility] CPT-44964 Level 3 Est. Patient 16:25:27 CDT Keara Blum MD [facility] CPT-75231 Level 3 Est. Patient 10:22:54 CDT Keara Blum MD [facility] CPT-62452 Level 3 Est. Patient 16:02:28 KNITTER HELPER Keara Blum MD [facility] Procedures Code Procedure Name Date Entry Date Standard Description CPT-90382 Sono pelvis non OB uterus ovaries cervix 15:52:59 CDT CPT-OV Office Visit 14:04:10 KNITTER HELPER CPT-OV Office Visit 16:48:59 KNITTER HELPER CPT-38215 Sono pelvis non OB uterus ovaries cervix 09:06:48 KNITTER HELPER CPT-36659 Sono retroperitoneal complete kidneys and bladder 09:06: 48 KNITTER HELPER CPT-39211 Abd compl w upright 15:32:02 KNITTER HELPER CPT-24619 Fluzone Quadrivalent Intramuscular Suspension 0.5 ML 16: 49:56 KNITTER HELPER CPT-80988 Breathing Tx 11:04:54 CDT CPT-25713 Chest 2V Frontal and Lat 10:32:02 CDT CPT-42613 Breathing Tx 10:23:54 CDT CPT-28148 EKG Trac and Interp 16:18:28 KNITTER HELPER
--- OUTSIDE RECORDS SUMMARY | 2018-03-03 10:39 | XMS REPORT ---
Author Author Olivia Rajan [facility] Address [address] [place], [place] [address] Care Team Providers Care Coverer Name Role Phone Olivia Rajan PCP Unavailable Allergies and Adverse Reactions Name Reaction Notes Bactrim PENICILLINS Zithromax Plan of Treatment Planned Activity Comments Planned Date Planned Time Plan/Goal URINE CULTURE/COLONY COUNT 12/10/2015 12:00 AM Medications Active Name Start Date Estimated Completion Date SIG Comments Seasonique 0.15 mg-30 mcg (84)/10 mcg (7) oral tablets,dose pack,3 month take 1 tablet by oral route once daily Problem List Not available. Vital Signs Date Time BP-Sys(mm[Hg] BP-Katherin(mm[Hg]) HR(bpm) RR(rpm) Temp WT HT HC BMI BSA BMI Percentile O2 Sat(%) 12/10/2015 6:43:00 PM 120 mmHg 68 mmHg 80 bpm 99.3 F 246 lbs 69 in 36.33 kg/m2 2.33 m2 98.1 % 100 % Social History Name Description Comments Tobacco Never smoker History of Procedures Not available. Results Summary Data and Description Results 12/10/2015 7:04 PM Appearance Ur clear Bilirub Ur Ql Strip negative Color Ur yellow Glucose SerPl-mCnc 0.0 mg/dLHgb Ur Ql Strip negative Ketones Ur Ql Strip negative Nitrite Ur Ql Strip negative pH SerPl-LsCnc 6.0 Prot Ur Ql Strip negative Sp Gr Ur Qn 1.020 WBC Est Ur Ql Strip negative History Of Immunizations Not available. History of Past Illness Name Date of Onset Comments endometriosis Dysuria Dec 10 2015 6:51PM Urinary Frequency Dec 10 2015 6:51PM Payers Insurance Name Company Name Plan Name Plan Number Policy Number Policy Group Number Start Date [employer]BS [employer] [facility] [id number] N/A History of Encounters Visit Date Visit Type Provider 12/10/2015 Office visit Olivia Rajan [employer]
--- OUTSIDE RECORDS SUMMARY | 2018-03-03 10:39 | XMS REPORT | Clinical Summary ---
Author Author Admin, PRABHA Organization [facility] Address Unknown Phone Unavailable Allergies, Adverse Reactions, [...] sinusitis, unspecified Flank pain, right 789.09 Active eKara Blum MD Abdominal pain, other specified site; [...] 300 MG ORAL CAPS 1 daily CEFDINIR 69252807206 Active Keara Blum MD Active SEASONIQUE 0.15-0.03 &0.01 MG ORAL TABS one tab PO daily LEVONORGEST-ETH ESTRAD -DAY 73897063723 Active Hortensia Marr MD Active TRI-SPRINTEC 0.18/0.215/0.25 MG-35 MCG TABS 1 po qd as directed NORGESTIM-ETH ESTRAD TRIPHASIC 54937511629 No Longer Active Hortensia Marr MD Active ACZONE 5 % EXT GEL DAPSONE 11266374203 Active Hortensia Marr MD Active FLUTICASONE PROPIONATE 50 MCG/ACT SUSP 1 puff in each nostril daily FLUTICASONE PROPIONATE 42653809593 No Longer Active Hortensia Marr MD Active PRILOSEC 20 MG CPDR 1 daily OMEPRAZOLE 28032274093 No Longer Active Hortensia Marr MD Active CEFTIN 500 MG TABS 1 bid CEFUROXIME AXETIL 94037556606 No Longer Active Keara Blum MD Active ONDANSETRON HCL 8 MG TABS 1 q 8 hours ONDANSETRON HCL 79579739726 No Longer Active Keara Blum MD Active ZIANA 1.2-0.025 % GEL apply pea size daily CLINDAMYCIN- TRETINOIN 23160123322 No Longer Active Keara Blum MD Active CEFTIN 500 MG TAB 1 po bid 10 days CEFUROXIME AXETIL 01210931904 No Longer Active Keara Blum MD Active FLUTICASONE PROPIONATE 50 MCG/ACT SUSP 1 puff in each nostril daily FLUTICASONE PROPIONATE 60125300089 No Longer Active Dawson Gresham DO Active CEFDINIR 300 MG CAPS 1 daily CEFDINIR 20371813868 No Longer Active Dawson Gresham DO Active CEFDINIR 300 MG CAPS 1 daily CEFDINIR 72716662815 No Longer Active Keara Blum MD Active ONDANSETRON HCL 8 MG TABS 1 every8 hrs prn vomiting ONDANSETRON HCL 87354793618 No Longer Active Keara Blum MD Active CLARITIN-D 24 HOUR 10-240 MG [id number] 1 po qd PRN Allergies 2013 LORATADINE-PSEUDOEPHEDRINE 18639700100 No Longer Active Keara Blum MD Active PROPRANOLOL HCL 20 MG TABS 1 bid PROPRANOLOL HCL 13582450374 No Longer Active Keara Blum MD Active PROAIR HFA 108 (90 BASE) MCG/ACT AERS 1-2 puffs 2-4 times a day as needed ALBUTEROL SULFATE 99468163700 No Longer Active Keara Blum MD Active FLOVENT HFA 110 MCG/ACT AERO 1 puff bid, rinse and spit FLUTICASONE PROPIONATE HFA 75661681306 No Longer Active Keara Blum MD Active FLUTICASONE PROPIONATE 50 MCG/ACT SUSP 1 puff in each nostril daily FLUTICASONE PROPIONATE 58449059568 No Longer Active Keara Blum MD Active ZYRTEC ALLERGY 10 MG TABS 1 tablet po daily CETIRIZINE HCL 46391347253 No Longer Active Keara Blum MD Active AZITHROMYCIN 250 MG TABS 2 pills day 1,1 pill day 2-5 AZITHROMYCIN 63732324745 No Longer Active Keara Blum MD Active ZYRTEC ALLERGY 10 MG TABS 1 tablet po daily ZYRTEC ALLERGY 10 MG TABS 4243305 CETIRIZINE HCL Inactive FLOVENT HFA 110 MCG/ACT AERO 1 puff bid, rinse and spit FLOVENT HFA 110 MCG/ACT AERO FLUTICASONE PROPIONATE HFA Inactive PROAIR HFA 108 (90 BASE) MCG/ACT AERS 1-2 puffs 2-4 times a day as needed PROAIR HFA 108 (90 BASE) MCG/ACT AERS ALBUTEROL SULFATE Inactive PROPRANOLOL HCL 20 MG TABS 1 bid PROPRANOLOL HCL 20 MG TABS 246637 PROPRANOLOL HCL Inactive CLARITIN-D 24 HOUR 10-240 MG [id number] 1 po qd PRN Allergies 2013 CLARITIN-D 24 HOUR 10-240 MG [id number] LORATADINE-PSEUDOEPHEDRINE Inactive ONDANSETRON HCL 8 MG TABS 1 every8 hrs prn vomiting ONDANSETRON HCL 8 MG TABS 823758 ONDANSETRON HCL Inactive CEFDINIR 300 MG CAPS 1 daily CEFDINIR 300 MG CAPS 679333 CEFDINIR Inactive CEFDINIR 300 MG CAPS 1 daily CEFDINIR 300 MG CAPS 598328 CEFDINIR Inactive FLUTICASONE PROPIONATE 50 MCG/ACT SUSP 1 puff in each nostril daily FLUTICASONE PROPIONATE 50 MCG/ACT SUSP 699582 FLUTICASONE PROPIONATE Inactive CEFTIN 500 MG TAB 1 po bid 10 days CEFTIN 500 MG TAB 332326 CEFUROXIME AXETIL Inactive ZIANA 1.2-0.025 % GEL apply pea size daily ZIANA 1.2-0.025 % GEL CLINDAMYCIN-TRETINOIN Inactive ONDANSETRON HCL 8 MG TABS 1 q 8 hours ONDANSETRON HCL 8 MG TABS 943505 ONDANSETRON HCL Inactive CEFTIN 500 MG TABS 1 bid CEFTIN 500 MG TABS 766601 CEFUROXIME AXETIL Inactive PRILOSEC 20 MG CPDR 1 daily PRILOSEC 20 MG CPDR 205221 OMEPRAZOLE Inactive FLUTICASONE PROPIONATE 50 MCG/ACT SUSP 1 puff in each nostril daily FLUTICASONE PROPIONATE 50 MCG/ACT SUSP 444535 FLUTICASONE PROPIONATE Inactive TRI-SPRINTEC 0.18/0.215/0.25 MG-35 MCG TABS 1 po qd as directed TRI-SPRINTEC 0.18/0.215/0.25 MG-35 MCG TABS 794762 NORGESTIM-ETH ESTRAD TRIPHASIC Inactive AZITHROMYCIN 250 MG TABS 2 pills day 1,1 pill day 2-5 AZITHROMYCIN 250 MG TABS 7768074 AZITHROMYCIN Inactive FLUTICASONE PROPIONATE 50 MCG/ACT SUSP 1 puff in each nostril daily FLUTICASONE PROPIONATE 50 MCG/ACT SUSP 659941 FLUTICASONE PROPIONATE Inactive Immunizations Vaccine Administration Date [...] reduced Diphtheria, and acellular Pertussis Immunization) Adacel [[id number]] tetanus toxoid, reduced diphtheria toxoid, and acellular [...] Panel - Chemistry sodium, serum 141 mmol/L 283-101 0203/11/19 potassium, serum 4.4 mmol/L 3.5-5.2 chloride, serum [...] pH, urine, semiquantitative 8.0 5.0-8.5 Lab Report: [facility] – [place] - Chemistry human chorionic gonadotropin, urine, qualitative (urine test) Negative Negative Encounters Code Encounter Date Provider Facility CPT-37199 Level 3 Est. Patient 15:37:57 CDT Keara Blum MD [facility] CPT-74114 Level 3 Est. Patient 09:47:44 SUSTAINABLE DEVELOPMENT POLICY ANALYST Keara Blum MD [facility] CPT-88610 Level 3 Est. Patient 16:33:46 CDT Keara Blum MD [facility] CPT-38960 Level 3 Est. Patient 16:38:32 CDT Dawson Gresham DO [facility] CPT-09094 Level 3 Est. Patient 15:58:59 SUSTAINABLE DEVELOPMENT POLICY ANALYST Keara Blum MD [facility] CPT-18989 Level 3 Est. Patient 10:44:39 SUSTAINABLE DEVELOPMENT POLICY ANALYST Keara Blum MD [facility] CPT-85388 Level 3 Est. Patient 10:09:23 CDT Keara Blum MD [facility] CPT-21886 Level 3 Est. Patient 13:46:54 SUSTAINABLE DEVELOPMENT POLICY ANALYST Keara Blum MD [facility] CPT-15755 Level 3 Est. Patient 16:25:27 CDT Keara Blum MD [facility] CPT-96743 Level 3 Est. Patient 10:22:54 CDT Keara Blum MD [facility] CPT-79300 Level 3 Est. Patient 16:02:28 SUSTAINABLE DEVELOPMENT POLICY ANALYST Keara Blum MD [facility] Procedures Code Procedure Name Date Entry Date Standard Description CPT-56241 Sono pelvis non OB uterus ovaries cervix 15:52:59 CDT CPT-OV Office Visit 14:04:10 SUSTAINABLE DEVELOPMENT POLICY ANALYST CPT-OV Office Visit 16:48:59 SUSTAINABLE DEVELOPMENT POLICY ANALYST CPT-97676 Sono pelvis non OB uterus ovaries cervix 09:06:48 SUSTAINABLE DEVELOPMENT POLICY ANALYST CPT-20956 Sono retroperitoneal complete kidneys and bladder 09:06: 48 SUSTAINABLE DEVELOPMENT POLICY ANALYST CPT-51940 Abd compl w upright 15:32:02 SUSTAINABLE DEVELOPMENT POLICY ANALYST CPT-60595 Fluzone Quadrivalent Intramuscular Suspension 0.5 ML 16: 49:56 SUSTAINABLE DEVELOPMENT POLICY ANALYST CPT-07742 Breathing Tx 11:04:54 CDT CPT-68468 Chest 2V Frontal and Lat 10:32:02 CDT CPT-19969 Breathing Tx 10:23:54 CDT CPT-87991 EKG Trac and Interp 16:18:28 SUSTAINABLE DEVELOPMENT POLICY ANALYST
--- OUTSIDE RECORDS SUMMARY | 2018-03-03 10:40 | XMS REPORT | Clinical Summary ---
Author Author Admin, PRABHA Organization [facility] Address Unknown Phone Unavailable Allergies, Adverse Reactions, [...] one tab PO daily LEVONORGEST-ETH ESTRAD - 69279989102 Active Hortensia Marr MD Active TRI-SPRINTEC 0.18/0.215/0.25 MG-35 MCG TABS 1 po qd as directed NORGESTIM-ETH ESTRAD TRIPHASIC 00256044952 No Longer Active Hortensia Marr MD Active ACZONE 5 % EXT GEL DAPSONE 60357669688 Active Hortensia Marr MD Active FLUTICASONE PROPIONATE 50 MCG/ACT SUSP 1 puff in each nostril daily FLUTICASONE PROPIONATE 04755444137 No Longer Active Hortensia Marr MD Active PRILOSEC 20 MG CPDR 1 daily OMEPRAZOLE 66762953644 No Longer Active Hortensia Marr MD Active CEFTIN 500 MG TABS 1 bid CEFUROXIME AXETIL 17979909500 No Longer Active Keara Blum MD Active ONDANSETRON HCL 8 MG TABS 1 q 8 hours ONDANSETRON HCL 85494537724 No Longer Active Keara Blum MD Active ZIANA 1.2-0.025 % GEL apply pea size daily CLINDAMYCIN- TRETINOIN 31494782754 No Longer Active Keara Blum MD Active CEFTIN 500 MG TAB 1 po bid 10 days CEFUROXIME AXETIL 04061236222 No Longer Active Keara Blum MD Active FLUTICASONE PROPIONATE 50 MCG/ACT SUSP 1 puff in each nostril daily FLUTICASONE PROPIONATE 77660877123 No Longer Active Dawson Gresham DO Active CEFDINIR 300 MG CAPS 1 daily CEFDINIR 32773209744 No Longer Active Dawson Gresham DO Active CEFDINIR 300 MG CAPS 1 daily CEFDINIR 69678038347 No Longer Active Keara Blum MD Active ONDANSETRON HCL 8 MG TABS 1 every8 hrs prn vomiting ONDANSETRON HCL 66269406957 No Longer Active Keara Blum MD Active CLARITIN-D 24 HOUR 10-240 MG [id number] 1 po qd PRN Allergies 2013 LORATADINE-PSEUDOEPHEDRINE 47514302609 No Longer Active Keara Blum MD Active PROPRANOLOL HCL 20 MG TABS 1 bid PROPRANOLOL HCL 14228063542 No Longer Active Keara Blum MD Active PROAIR HFA 108 (90 BASE) MCG/ACT AERS 1-2 puffs 2-4 times a day as needed ALBUTEROL SULFATE 85474503887 No Longer Active Keara Blum MD Active FLOVENT HFA 110 MCG/ACT AERO 1 puff bid, rinse and spit FLUTICASONE PROPIONATE HFA 96568369816 No Longer Active Keara Blum MD Active FLUTICASONE PROPIONATE 50 MCG/ACT SUSP 1 puff in each nostril daily FLUTICASONE PROPIONATE 40469859009 No Longer Active Keara Blum MD Active ZYRTEC ALLERGY 10 MG TABS 1 tablet po daily CETIRIZINE HCL 08389570417 No Longer Active Keara Blum MD Active AZITHROMYCIN 250 MG TABS 2 pills day 1,1 pill day 2-5 AZITHROMYCIN 57349373438 No Longer Active Keara Blum MD Active ZYRTEC ALLERGY 10 MG TABS 1 tablet po daily ZYRTEC ALLERGY 10 MG TABS 8607937 CETIRIZINE HCL Inactive FLOVENT HFA 110 MCG/ACT AERO 1 puff bid, rinse and spit FLOVENT HFA 110 MCG/ACT AERO FLUTICASONE PROPIONATE HFA Inactive PROAIR HFA 108 (90 BASE) MCG/ACT AERS 1-2 puffs 2-4 times a day as needed PROAIR HFA 108 (90 BASE) MCG/ACT AERS ALBUTEROL SULFATE Inactive PROPRANOLOL HCL 20 MG TABS 1 bid PROPRANOLOL HCL 20 MG TABS 055018 PROPRANOLOL HCL Inactive CLARITIN-D 24 HOUR 10-240 MG [id number] 1 po qd PRN Allergies 2013 CLARITIN-D 24 HOUR 10-240 MG [id number] LORATADINE-PSEUDOEPHEDRINE Inactive ONDANSETRON HCL 8 MG TABS 1 every8 hrs prn vomiting ONDANSETRON HCL 8 MG TABS 466206 ONDANSETRON HCL Inactive CEFDINIR 300 MG CAPS 1 daily CEFDINIR 300 MG CAPS 947917 CEFDINIR Inactive CEFDINIR 300 MG CAPS 1 daily CEFDINIR 300 MG CAPS 938547 CEFDINIR Inactive FLUTICASONE PROPIONATE 50 MCG/ACT SUSP 1 puff in each nostril daily FLUTICASONE PROPIONATE 50 MCG/ACT SUSP 283694 FLUTICASONE PROPIONATE Inactive CEFTIN 500 MG TAB 1 po bid 10 days CEFTIN 500 MG TAB 612817 CEFUROXIME AXETIL Inactive ZIANA 1.2-0.025 % GEL apply pea size daily ZIANA 1.2-0.025 % GEL CLINDAMYCIN-TRETINOIN Inactive ONDANSETRON HCL 8 MG TABS 1 q 8 hours ONDANSETRON HCL 8 MG TABS 675916 ONDANSETRON HCL Inactive CEFTIN 500 MG TABS 1 bid CEFTIN 500 MG TABS 048784 CEFUROXIME AXETIL Inactive PRILOSEC 20 MG CPDR 1 daily PRILOSEC 20 MG CPDR 343166 OMEPRAZOLE Inactive FLUTICASONE PROPIONATE 50 MCG/ACT SUSP 1 puff in each nostril daily FLUTICASONE PROPIONATE 50 MCG/ACT SUSP 598651 FLUTICASONE PROPIONATE Inactive TRI-SPRINTEC 0.18/0.215/0.25 MG-35 MCG TABS 1 po qd as directed TRI-SPRINTEC 0.18/0.215/0.25 MG-35 MCG TABS 075843 NORGESTIM-ETH ESTRAD TRIPHASIC Inactive AZITHROMYCIN 250 MG TABS 2 pills day 1,1 pill day 2-5 AZITHROMYCIN 250 MG TABS 8217673 AZITHROMYCIN Inactive FLUTICASONE PROPIONATE 50 MCG/ACT SUSP 1 puff in each nostril daily FLUTICASONE PROPIONATE 50 MCG/ACT SUSP 320203 FLUTICASONE PROPIONATE Inactive Immunizations Vaccine Administration Date [...] reduced Diphtheria, and acellular Pertussis Immunization) Adacel [[id number]] tetanus toxoid, reduced diphtheria toxoid, and acellular [...] Panel - Chemistry sodium, serum 141 mmol/L 656-050 4474/11/19 potassium, serum 4.4 mmol/L 3.5-5.2 chloride, serum [...] pH, urine, semiquantitative 8.0 5.0-8.5 Lab Report: [facility] [place] - Chemistry human chorionic gonadotropin, urine, qualitative (urine test) Negative Negative Encounters Code Encounter Date Provider Facility CPT-41792 Level 3 Est. Patient 15:37:57 CDT Keara Blum MD [facility] CPT-54360 Level 3 Est. Patient 09:47:44 HORSE BUYER Keara Blum MD [facility] CPT-25030 Level 3 Est. Patient 16:33:46 CDT Keara Blum MD [facility] CPT-81104 Level 3 Est. Patient 16:38:32 CDT Dawson Gresham DO [facility] CPT-46923 Level 3 Est. Patient 15:58:59 HORSE BUYER Keara Blum MD [facility] CPT-29463 Level 3 Est. Patient 10:44:39 HORSE BUYER Keara Blum MD [facility] CPT-44592 Level 3 Est. Patient 10:09:23 CDT Keara Blum MD [facility] CPT-48564 Level 3 Est. Patient 13:46:54 HORSE BUYER Keara Blum MD [facility] CPT-15296 Level 3 Est. Patient 16:25:27 CDT Keara Blum MD [facility] CPT-73536 Level 3 Est. Patient 10:22:54 CDT Keara Blum MD [facility] CPT-87067 Level 3 Est. Patient 16:02:28 HORSE BUYER Keara Blum MD [facility] Procedures Code Procedure Name Date Entry Date Standard Description CPT-26272 Sono pelvis non OB uterus ovaries cervix 15:52:59 CDT CPT-OV Office Visit 14:04:10 HORSE BUYER CPT-OV Office Visit 16:48:59 HORSE BUYER CPT-05959 Sono pelvis non OB uterus ovaries cervix 09:06:48 HORSE BUYER CPT-08813 Sono retroperitoneal complete kidneys and bladder 09:06: 48 HORSE BUYER CPT-30328 Abd compl w upright 15:32:02 HORSE BUYER CPT-22678 Fluzone Quadrivalent Intramuscular Suspension 0.5 ML 16: 49:56 HORSE BUYER CPT-69890 Breathing Tx 11:04:54 CDT CPT-26499 Chest 2V Frontal and Lat 10:32:02 CDT CPT-18776 Breathing Tx 10:23:54 CDT CPT-62119 EKG Trac and Interp 16:18:28 HORSE BUYER
--- OUTSIDE RECORDS SUMMARY | 2018-03-03 10:40 | XMS REPORT | Clinical Summary ---
Author Author Admin, PRABHA Organization [facility] Address Unknown Phone Unavailable Allergies, Adverse [...] 300 MG ORAL CAPS 1 daily CEFDINIR 20460295947 Active Keara Blum MD Active SEASONIQUE 0.15-0.03 &0.01 MG ORAL TABS one tab PO daily LEVONORGEST-ETH ESTRAD -DAY 24627703633 Active Hortensia Marr MD Active TRI-SPRINTEC 0.18/0.215/0.25 MG-35 MCG TABS 1 po qd as directed NORGESTIM-ETH ESTRAD TRIPHASIC 14179058430 No Longer Active Hortensia Marr MD Active ACZONE 5 % EXT GEL DAPSONE 76769764228 Active Hortensia Marr MD Active FLUTICASONE PROPIONATE 50 MCG/ACT SUSP 1 puff in each nostril daily FLUTICASONE PROPIONATE 89734022397 No Longer Active Hortensia Marr MD Active PRILOSEC 20 MG CPDR 1 daily OMEPRAZOLE 19575211356 No Longer Active Hortensia Marr MD Active CEFTIN 500 MG TABS 1 bid CEFUROXIME AXETIL 03527422702 No Longer Active Keara Blum MD Active ONDANSETRON HCL 8 MG TABS 1 q 8 hours ONDANSETRON HCL 92952426149 No Longer Active Keara Blum MD Active ZIANA 1.2-0.025 % GEL apply pea size daily CLINDAMYCIN- TRETINOIN 27687774497 No Longer Active Keara Blum MD Active CEFTIN 500 MG TAB 1 po bid 10 days CEFUROXIME AXETIL 60251542790 No Longer Active Keara Blum MD Active FLUTICASONE PROPIONATE 50 MCG/ACT SUSP 1 puff in each nostril daily FLUTICASONE PROPIONATE 34020120520 No Longer Active Dawson Gresham DO Active CEFDINIR 300 MG CAPS 1 daily CEFDINIR 74029748513 No Longer Active Dawson Gresham DO Active CEFDINIR 300 MG CAPS 1 daily CEFDINIR 96498270144 No Longer Active Keara Bulm MD Active ONDANSETRON HCL 8 MG TABS 1 every8 hrs prn vomiting ONDANSETRON HCL 09993537009 No Longer Active Keara Blum MD Active CLARITIN-D 24 HOUR 10-240 MG [id number] 1 po qd PRN Allergies 2013 LORATADINE-PSEUDOEPHEDRINE 77086541359 No Longer Active Keara Blum MD Active PROPRANOLOL HCL 20 MG TABS 1 bid PROPRANOLOL HCL 54346533649 No Longer Active Keara Blum MD Active PROAIR HFA 108 (90 BASE) MCG/ACT AERS 1-2 puffs 2-4 times a day as needed ALBUTEROL SULFATE 52863977300 No Longer Active Keara Blum MD Active FLOVENT HFA 110 MCG/ACT AERO 1 puff bid, rinse and spit FLUTICASONE PROPIONATE HFA 93200091051 No Longer Active Keara Blum MD Active FLUTICASONE PROPIONATE 50 MCG/ACT SUSP 1 puff in each nostril daily FLUTICASONE PROPIONATE 60751233789 No Longer Active Keara Blum MD Active ZYRTEC ALLERGY 10 MG TABS 1 tablet po daily CETIRIZINE HCL 33693002940 No Longer Active Keara Blum MD Active AZITHROMYCIN 250 MG TABS 2 pills day 1,1 pill day 2-5 AZITHROMYCIN 58527202371 No Longer Active Keara Blum MD Active ZYRTEC ALLERGY 10 MG TABS 1 tablet po daily ZYRTEC ALLERGY 10 MG TABS 6152605 CETIRIZINE HCL Inactive FLOVENT HFA 110 MCG/ACT AERO 1 puff bid, rinse and spit FLOVENT HFA 110 MCG/ACT AERO FLUTICASONE PROPIONATE HFA Inactive PROAIR HFA 108 (90 BASE) MCG/ACT AERS 1-2 puffs 2-4 times a day as needed PROAIR HFA 108 (90 BASE) MCG/ACT AERS ALBUTEROL SULFATE Inactive PROPRANOLOL HCL 20 MG TABS 1 bid PROPRANOLOL HCL 20 MG TABS 479419 PROPRANOLOL HCL Inactive CLARITIN-D 24 HOUR 10-240 MG [id number] 1 po qd PRN Allergies 2013 CLARITIN-D 24 HOUR 10-240 MG [id number] LORATADINE-PSEUDOEPHEDRINE Inactive ONDANSETRON HCL 8 MG TABS 1 every8 hrs prn vomiting ONDANSETRON HCL 8 MG TABS 761052 ONDANSETRON HCL Inactive CEFDINIR 300 MG CAPS 1 daily CEFDINIR 300 MG CAPS 534259 CEFDINIR Inactive CEFDINIR 300 MG CAPS 1 daily CEFDINIR 300 MG CAPS 084104 CEFDINIR Inactive FLUTICASONE PROPIONATE 50 MCG/ACT SUSP 1 puff in each nostril daily FLUTICASONE PROPIONATE 50 MCG/ACT SUSP 833347 FLUTICASONE PROPIONATE Inactive CEFTIN 500 MG TAB 1 po bid 10 days CEFTIN 500 MG TAB 768230 CEFUROXIME AXETIL Inactive ZIANA 1.2-0.025 % GEL apply pea size daily ZIANA 1.2-0.025 % GEL CLINDAMYCIN-TRETINOIN Inactive ONDANSETRON HCL 8 MG TABS 1 q 8 hours ONDANSETRON HCL 8 MG TABS 278110 ONDANSETRON HCL Inactive CEFTIN 500 MG TABS 1 bid CEFTIN 500 MG TABS 521788 CEFUROXIME AXETIL Inactive PRILOSEC 20 MG CPDR 1 daily PRILOSEC 20 MG CPDR 560390 OMEPRAZOLE Inactive FLUTICASONE PROPIONATE 50 MCG/ACT SUSP 1 puff in each nostril daily FLUTICASONE PROPIONATE 50 MCG/ACT SUSP 202341 FLUTICASONE PROPIONATE Inactive TRI-SPRINTEC 0.18/0.215/0.25 MG-35 MCG TABS 1 po qd as directed TRI-SPRINTEC 0.18/0.215/0.25 MG-35 MCG TABS 567060 NORGESTIM-ETH ESTRAD TRIPHASIC Inactive AZITHROMYCIN 250 MG TABS 2 pills day 1,1 pill day 2-5 AZITHROMYCIN 250 MG TABS 6650119 AZITHROMYCIN Inactive FLUTICASONE PROPIONATE 50 MCG/ACT SUSP 1 puff in each nostril daily FLUTICASONE PROPIONATE 50 MCG/ACT SUSP 314007 FLUTICASONE PROPIONATE Inactive Immunizations Vaccine Administration Date [...] reduced Diphtheria, and acellular Pertussis Immunization) Adacel [[id number]] tetanus toxoid, reduced diphtheria toxoid, and acellular [...] immunization #1 Varicella Vax varicella virus vaccine hepatitis B vaccine #3 Historical hepatitis B vaccine, unspecified formulation DPT immunization #3 DTaP Hemophilus influenza B immunization #3 Historical Haemophilus influenzae type b vaccine, conjugate unspecified formulation DPT immunization #2 DTaP Hemophilus influenza B immunization #2 Historical Haemophilus influenzae type b vaccine, conjugate unspecified formulation oral polio vaccine (OPV) #2 IPV poliovirus vaccine, unspecified formulation hepatitis B vaccine #2 given Historical hepatitis B vaccine, unspecified formulation DPT immunization #1 DTaP Hemophilus influenza B immunization #1 Historical Haemophilus influenzae type b vaccine, conjugate unspecified formulation oral polio vaccine (OPV) #1 IPV poliovirus vaccine, unspecified formulation hepatitis B vaccine #1 [...] Panel - Chemistry sodium, serum 141 mmol/L 143-782 6869/11/19 potassium, serum 4.4 mmol/L 3.5-5.2 chloride, serum [...] pH, urine, semiquantitative 8.0 5.0-8.5 Lab Report: [facility] [place] - Chemistry human chorionic gonadotropin, urine, qualitative (urine test) Negative Negative Encounters Code Encounter Date Provider Facility CPT-97584 Level 3 Est. Patient 15:37:57 CDT Keara Blum MD [facility] CPT-60756 Level 3 Est. Patient 09:47:44 CASHIER TICKET SELLING Keara Blum MD [facility] CPT-56456 Level 3 Est. Patient 16:33:46 CDT Keara Blum MD [facility] CPT-38839 Level 3 Est. Patient 16:38:32 CDT Dawson Gresham DO [facility] CPT-87324 Level 3 Est. Patient 15:58:59 CASHIER TICKET SELLING Keara Blum MD [facility] CPT-80384 Level 3 Est. Patient 10:44:39 CASHIER TICKET SELLING Keara Blum MD [facility] CPT-95045 Level 3 Est. Patient 10:09:23 CDT Keara Blum MD [facility] CPT-39118 Level 3 Est. Patient 13:46:54 CASHIER TICKET SELLING Keara Blum MD [facility] CPT-25404 Level 3 Est. Patient 16:25:27 CDT Keara Blum MD [facility] CPT-93513 Level 3 Est. Patient 10:22:54 CDT Keara Blum MD [facility] CPT-48833 Level 3 Est. Patient 16:02:28 CASHIER TICKET SELLING Keara Blum MD [facility] Procedures Code Procedure Name Date Entry Date Standard Description CPT-22215 Sono pelvis non OB uterus ovaries cervix 15:52:59 CDT CPT-OV Office Visit 14:04:10 CASHIER TICKET SELLING CPT-OV Office Visit 16:48:59 CASHIER TICKET SELLING CPT-55979 Sono pelvis non OB uterus ovaries cervix 09:06:48 CASHIER TICKET SELLING CPT-94174 Sono retroperitoneal complete kidneys and bladder 09:06: 48 CASHIER [employer]ICKET SE[employer]ING CPT-09191 Abd compl w upright 15:32:02 CASHIER TICKET SELLING CPT-80103 Fluzone Quadrivalent Intramuscular Suspension 0.5 ML 16: 49:56 CASHIER TICKET SELLING CPT-12300 Breathing Tx 11:04:54 CDT CPT-57754 Chest 2V Frontal and Lat 10:32:02 CDT CPT-43862 Breathing Tx 10:23:54 CDT CPT-08975 EKG Trac and Interp 16:18:28 CASHIER TICKET SELLING
--- OUTSIDE RECORDS SUMMARY | 2018-03-03 10:41 | XMS REPORT | Clinical Summary ---
Author Author Admin, PRABHA Organization [facility] Address Unknown Phone Unavailable Allergies, Adverse [...] Dysuria 788.1 Resolved Keara Blum MD Dysuria Back pain 724.5 Active Keara Blum MD Backache, unspecified COUGH ICD-786.2 Inactive Keara Blum MD 03/19 [...] Instruction ALLERGY RELIEF D 10-240 MG ORAL [id number] 1 daily LORATADINE- PSEUDOEPHEDRINE 62406483831 Active Keara Blum MD Active CEFDINIR 300 MG ORAL CAPS 1 daily CEFDINIR 50528781728 No Longer Active Keara Blum MD Active ONDANSETRON HCL 8 MG TABS 1 q 8 hours prn vomiting ONDANSETRON HCL 60182880374 Active Keara Blum MD Active SEASONIQUE 0.15-0.03 &0.01 MG ORAL TABS one tab PO daily LEVONORGEST-ETH ESTRAD - 61583531015 Active Hortensia Marr MD Active TRI-SPRINTEC 0.18/0.215/0.25 MG-35 MCG TABS 1 po qd as directed NORGESTIM-ETH ESTRAD TRIPHASIC 95431406917 No Longer Active Hortensia Marr MD Active ACZONE 5 % EXT GEL DAPSONE 64347365796 Active Hortensia Marr MD Active FLUTICASONE PROPIONATE 50 MCG/ACT SUSP 1 puff in each nostril daily FLUTICASONE PROPIONATE 87366586023 No Longer Active Hortensia Marr MD Active PRILOSEC 20 MG CPDR 1 daily OMEPRAZOLE 93838914171 No Longer Active Hortensia Marr MD Active CEFTIN 500 MG TABS 1 bid CEFUROXIME AXETIL 35050377631 No Longer Active Keara Blum MD Active ONDANSETRON HCL 8 MG TABS 1 q 8 hours ONDANSETRON HCL 54653947595 No Longer Active Keara Blum MD Active ZIANA 1.2-0.025 % GEL apply pea size daily CLINDAMYCIN- TRETINOIN 99194309654 No Longer Active Keara Blum MD Active CEFTIN 500 MG TAB 1 po bid 10 days CEFUROXIME AXETIL 01360798159 No Longer Active Keara Blum MD Active FLUTICASONE PROPIONATE 50 MCG/ACT SUSP 1 puff in each nostril daily FLUTICASONE PROPIONATE 75419385233 No Longer Active Dawson Gresham DO Active CEFDINIR 300 MG CAPS 1 daily CEFDINIR 22734996841 No Longer Active Dawson Gresham DO Active CEFDINIR 300 MG CAPS 1 daily CEFDINIR 30604526915 No Longer Active Keara Blum MD Active ONDANSETRON HCL 8 MG TABS 1 every8 hrs prn vomiting ONDANSETRON HCL 93391948972 No Longer Active Keara Blum MD Active CLARITIN-D 24 HOUR 10-240 MG [id number] 1 po qd PRN Allergies 2013 LORATADINE-PSEUDOEPHEDRINE 10643636107 No Longer Active Keara Blum MD Active PROPRANOLOL HCL 20 MG TABS 1 bid PROPRANOLOL HCL 60252631851 No Longer Active Keara Blum MD Active PROAIR HFA 108 (90 BASE) MCG/ACT AERS 1-2 puffs 2-4 times a day as needed ALBUTEROL SULFATE 34885852482 No Longer Active Keara Blum MD Active FLOVENT HFA 110 MCG/ACT AERO 1 puff bid, rinse and spit FLUTICASONE PROPIONATE HFA 06817604841 No Longer Active Keara Blum MD Active FLUTICASONE PROPIONATE 50 MCG/ACT SUSP 1 puff in each nostril daily FLUTICASONE PROPIONATE 38476789653 No Longer Active Keara Blum MD Active ZYRTEC ALLERGY 10 MG TABS 1 tablet po daily CETIRIZINE HCL 60112367087 No Longer Active Keara Blum MD Active AZITHROMYCIN 250 MG TABS 2 pills day 1,1 pill day 2-5 AZITHROMYCIN 15995645647 No Longer Active Keara Blum MD Active ZYRTEC ALLERGY 10 MG TABS 1 tablet po daily ZYRTEC ALLERGY 10 MG TABS 3190406 CETIRIZINE HCL Inactive FLOVENT HFA 110 MCG/ACT AERO 1 puff bid, rinse and spit FLOVENT HFA 110 MCG/ACT AERO FLUTICASONE PROPIONATE HFA Inactive PROAIR HFA 108 (90 BASE) MCG/ACT AERS 1-2 puffs 2-4 times a day as needed PROAIR HFA 108 (90 BASE) MCG/ACT AERS ALBUTEROL SULFATE Inactive PROPRANOLOL HCL 20 MG TABS 1 bid PROPRANOLOL HCL 20 MG TABS 471340 PROPRANOLOL HCL Inactive CLARITIN-D 24 HOUR 10-240 MG [id number] 1 po qd PRN Allergies 2013 CLARITIN-D 24 HOUR 10-240 MG [id number] LORATADINE-PSEUDOEPHEDRINE Inactive ONDANSETRON HCL 8 MG TABS 1 every8 hrs prn vomiting ONDANSETRON HCL 8 MG TABS 386250 ONDANSETRON HCL Inactive CEFDINIR 300 MG CAPS 1 daily CEFDINIR 300 MG CAPS 20021229 CEFDINIR Inactive CEFDINIR 300 MG CAPS 1 daily CEFDINIR 300 MG CAPS 20021229 CEFDINIR Inactive FLUTICASONE PROPIONATE 50 MCG/ACT SUSP 1 puff in each nostril daily FLUTICASONE PROPIONATE 50 MCG/ACT SUSP 675111 FLUTICASONE PROPIONATE Inactive CEFTIN 500 MG TAB 1 po bid 10 days CEFTIN 500 MG TAB 967013 CEFUROXIME AXETIL Inactive ZIANA 1.2-0.025 % GEL apply pea size daily ZIANA 1.2-0.025 % GEL CLINDAMYCIN-TRETINOIN Inactive ONDANSETRON HCL 8 MG TABS 1 q 8 hours ONDANSETRON HCL 8 MG TABS 905469 ONDANSETRON HCL Inactive CEFTIN 500 MG TABS 1 bid CEFTIN 500 MG TABS 281916 CEFUROXIME AXETIL Inactive PRILOSEC 20 MG CPDR 1 daily PRILOSEC 20 MG CPDR 110115 OMEPRAZOLE Inactive FLUTICASONE PROPIONATE 50 MCG/ACT SUSP 1 puff in each nostril daily FLUTICASONE PROPIONATE 50 MCG/ACT SUSP 843705 FLUTICASONE PROPIONATE Inactive TRI-SPRINTEC 0.18/0.215/0.25 MG-35 MCG TABS 1 po qd as directed TRI-SPRINTEC 0.18/0.215/0.25 MG-35 MCG TABS 914467 NORGESTIM-ETH ESTRAD TRIPHASIC Inactive CEFDINIR 300 MG ORAL CAPS 1 daily CEFDINIR 300 MG ORAL CAPS 920789 CEFDINIR Inactive AZITHROMYCIN 250 MG TABS 2 pills day 1,1 pill day 2-5 AZITHROMYCIN 250 MG TABS 4638148 AZITHROMYCIN Inactive FLUTICASONE PROPIONATE 50 MCG/ACT SUSP 1 puff in each nostril daily FLUTICASONE PROPIONATE 50 MCG/ACT SUSP 457900 FLUTICASONE PROPIONATE Inactive Immunizations Vaccine Administration Date [...] reduced Diphtheria, and acellular Pertussis Immunization) Adacel [[id number]] tetanus toxoid, reduced diphtheria toxoid, and acellular [...] BP horner blood pressure, systolic - 8480-6 114 mm[Hg] BP sys temperature E&M 98.7 [degF] Body temperature weight E&M - 3141-9 232 [lb_av] Weight Measured blood pressure, diastolic - 8462-4 70 mm[Hg] [...] E&M - 3141-9 240 [lb_av] Weight Measured Diagnostic Results Date Name Value Unit Range Description Lab Report: UADIP W/MICRO, AUTO - Chemistry [...] >=1.030 1.000-1.030 pH, urine, semiquantitative 6.0 5.0-8.5 Encounters Code Encounter Date Provider Facility CPT-70965 Level 3 Est. Patient 14:18:37 CDT Keara Blum MD [facility] CPT-30192 Level 3 Est. Patient 15:37:57 CDT Keara Blum MD [facility] CPT-56684 Level 3 Est. Patient 09:47:44 DAY TREATMENT CLINICIAN/ART THERAPIST Keara Blum MD [facility] CPT-40208 Level 3 Est. Patient 16:33:46 CDT Keara Blum MD [facility] CPT-19034 Level 3 Est. Patient 16:38:32 CDT Dawson Gresham DO [facility] CPT-59302 Level 3 Est. Patient 15:58:59 DAY TREATMENT CLINICIAN/ART THERAPIST Keara Blum MD [facility] CPT-70850 Level 3 Est. Patient 10:44:39 DILIA Blum MD [facility] CPT-68866 Level 3 Est. Patient 10:09:23 CDT Keara Blum MD [facility] CPT-06786 Level 3 Est. Patient 13:46:54 DAY TREATMENT CLINICIAN/ART THERAPIST Keara Blum MD [facility] CPT-70464 Level 3 Est. Patient 16:25:27 CDT Keara Blum MD [facility] CPT-98244 Level 3 Est. Patient 10:22:54 CDT Keara Blum MD [facility] CPT-32709 Level 3 Est. Patient 16:02:28 DAY TREATMENT CLINICIAN/ART THERAPIST Keara Blum MD [facility] Procedures Code Procedure Name Date Entry Date Standard Description CPT-83094 No Charge Offi Visit 11:22:56 DAY TREATMENT CLINICIAN/ART THERAPIST CPT-57228 Sono pelvis non OB uterus ovaries cervix 15:52:59 CDT CPT-OV Office Visit 14:04:10 DAY TREATMENT CLINICIAN/ART THERAPIST CPT-OV Office Visit 16:48:59 DAY TREATMENT CLINICIAN/ART THERAPIST CPT-48561 Sono pelvis non OB uterus ovaries cervix 09:06:48 DAY TREATMENT CLINICIAN/ART THERAPIST CPT-38982 Sono retroperitoneal complete kidneys and bladder 09:06: 48 DAY TREATMENT CLINICIAN/ART THERAPIST CPT-80249 Abd compl w upright 15:32:02 DAY TREATMENT CLINICIAN/ART THERAPIST CPT-91528 Fluzone Quadrivalent Intramuscular Suspension 0.5 ML 16: 49:56 DAY TREATMENT CLINICIAN/ART THERAPIST CPT-88214 Breathing Tx 11:04:54 CDT CPT-00017 Chest 2V Frontal and Lat 10:32:02 CDT CPT-44450 Breathing Tx 10:23:54 CDT CPT-72463 EKG Trac and Interp 16:18:28 DAY TREATMENT CLINICIAN/ART THERAPIST
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
[2018-03-03] MEDS ORDERED: BUSP10TA95 (12:08)
[2018-03-03] MEDS ORDERED: CEFD300C3 (12:08)
[2018-03-03] MEDS ORDERED: SERT100T8 (12:08)
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
[2018-03-03 13:10] VITALS: BP 140/82
[2018-03-03] MEDS ORDERED: METH-313 PO (13:12)
== END 2018-03-03 13:10 | disposition home or self-care (01) ==
LOC: EDUNIT# 10:28 → ER 10:31
DX: S16.1XXA Strain of muscle, fascia and tendon at neck level, initial encounter (principal); S43.402A Unspecified sprain of left shoulder joint, initial encounter; R40.2142 Coma scale, eyes open, spontaneous, at arrival to emergency department; R40.2252 Coma scale, best verbal response, oriented, at arrival to emergency department; R40.2362 Coma scale, best motor response, obeys commands, at arrival to emergency department; Z87.42 Personal history of other diseases of the female genital tract; Z88.0 Allergy status to penicillin; Z88.1 Allergy status to other antibiotic agents; Z88.2 Allergy status to sulfonamides; V43.62XA Car passenger injured in collision with other type car in traffic accident, initial encounter; Y92.411 Interstate highway as the place of occurrence of the external cause
CPT/HCPCS: 72040; 73030; 84703

== ENCOUNTER → 2018-04-10 | Outpatient (CLI) | payer OTHER, BC ==
[~2018-04-10] MED LIST changes: +BUSP10TA95; +CEFD300C3; +METH-313 PO; +SERT100T8
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
== END ==
LOC: RAD 07:38
PROVIDERS: ATTEND Orthopaedic Surgery
DX: M25.512 Pain in left shoulder (principal); V89.2XXA Person injured in unspecified motor-vehicle accident, traffic, initial encounter
CPT/HCPCS: 73221

== ENCOUNTER 2018-12-19 13:43 | Outpatient (RCR) | payer BC, OTHER ==
[~2018-12-19 13:43] MED LIST changes: -OXYC-202 PO; +OXYC1TAB12 PO
== END 2019-01-21 11:41 | disposition home or self-care (01) ==
DX: Z47.89 Encounter for other orthopedic aftercare (principal); Z98.890 Other specified postprocedural states

== ENCOUNTER → 2020-04-29 | Outpatient (CLI) | payer BC | LOC: LABNPT 06:46 | PROVIDERS: ATTEND Family Medicine | DX: R50.9 Fever, unspecified (principal); R05 Cough; Z53.8 Procedure and treatment not carried out for other reasons ==

== ENCOUNTER → 2020-05-01 | Outpatient (CLI) | payer BC ==
[~2020-05-01] MED LIST changes: +DOXY100T2; +LEVO500T80
[2020-05-01 14:34] LABS: HEMOGLOBIN 14.2 G/DL (11.5-16.0); MEAN PLATELET VOLUME 12.1 FL (7.4-10.4); RED CELL DISTRIBUTION WIDTH 15.7 % (10.0-14.5); WHITE BLOOD COUNT 22.2 10^3/uL (4.3-11.0)
[2020-05-01 14:56] LABS: ALANINE AMINOTRANSFERASE 28 U/L (0-55); ALBUMIN 4.7 GM/DL (3.2-4.5); ALKALINE PHOSPHATASE 125 U/L (40-136); BILIRUBIN,TOTAL 0.3 MG/DL (0.1-1.0); BUN/CREATININE RATIO 16; CALCIUM 10.1 MG/DL (8.5-10.1); CARBON DIOXIDE 18 MMOL/L (21-32); CHLORIDE 106 MMOL/L (98-107); CREATININE SERUM 0.81 MG/DL (0.60-1.30); GFR ESTIMATED > 60; GLUCOSE 88 MG/DL (70-105); POTASSIUM 3.5 MMOL/L (3.6-5.0); SODIUM 142 MMOL/L (135-145); TOTAL PROTEIN 8.1 GM/DL (6.4-8.2)
--- NOTE | 2020-05-01 15:17 | Diagnostic Imaging Report ---
INDICATION: Cough and fever. EXAMINATION: Two views of the chest were obtained. TIME OF EXAM: 2:37 p.m. COMPARISON: No prior studies are available for comparison. FINDINGS: The heart size is normal. The pulmonary vascularity is unremarkable. The lungs are clear. No infiltrate, effusion or pneumothorax is detected. IMPRESSION: No acute cardiopulmonary process is detected. Dictated by: Dictated on workstation # [id number]
== END ==
LOC: RAD 13:38
PROVIDERS: ATTEND Nurse Practitioner Family
DX: R05 Cough (principal); R50.9 Fever, unspecified; R10.9 Unspecified abdominal pain; Z20.828 Contact with and (suspected) exposure to other viral communicable diseases
CPT/HCPCS: 36415; 71046; 80053; 85027; 86769

== ENCOUNTER 2020-05-02 15:36 | Emergency (ER) | payer BC ==
[~2020-05-02] VITALS: Ht 180 cm; Wt 153.0 kg
[~2020-05-02 15:36] MED LIST changes: -DOXY100T2; -LEVO500T80
--- OUTSIDE RECORDS SUMMARY | 2020-05-02 15:42 | XMS REPORT | Encounter Summary ---
Author Author [facility] Organization [facility] Address Unknown Phone Unavailable Care Team Providers Care Auto Refinisher Name Role Phone No Pcp, Na PCP Unavailable Encounter Details Care Team Description Date Type Department Maday Diallo MD [address] [place], [place] [id number] 11/11/2019 [facility] [address] [id number] Social History Date Tobacco Use Types Packs/Day Years Used Never Smoker 0 0 Smokeless Tobacco: Never Used Comments: Never used Drinks/Week oz/Week Comments Alcohol Use I don t drink because it makes nerve pain worse. Not Currently Alcohol Habits Answer Date Recorded How often do you have a drink containing alcohol? Never 11/30/2018 How many drinks containing alcohol do you have on No t asked a typical day when you are drinking? How often do you have six or more drinks on one Not asked occasion? Sex Assigned at Date Recorded Female Industry Job Start Date Occupation Not on file Not on file Not on file Travel End Travel History Travel Start No recent travel history available. documented as of this encounter Functional Status Date of Assessment Functional Status Response 11/11/2019 Does the patient have a hearing impairment: No 11/11/2019 Does the patient have a visual impairment: No 08/28/2019 Does the patient have impaired ambulation: No 08/28/2019 Does the patient have an activity of daily living Ye s (ADL) impairment: 08/28/2019 Does the patient have an instrumental activity of No daily living (IADL) impairment: Date of Assessment Cognitive Status Response 08/28/2019 Does the patient have a cognitive impairment: No documented as of this encounter Medications at Time of Discharge Start Date End Date Medication Sig Dispensed Refills cetirizine (ZYRTEC) 10 mg 10 mg daily. 0 tablet medroxyPROGESTERone Inject 150 mg 0 (contraceptive) into the (DEPO-PROVERA) syringe muscle every 90 days. 11/18/2018 04/22/2020 buPROPion (WELLBUTRIN) 75 TK 1 T PO QAM 1 mg tablet 04/22/2020 fluticasone (FLONASE) 50 daily. 0 mcg/actuation nasal spray 03/04/2019 01/22/2020 meloxicam (MOBIC) 15 mg Take one 30 tablet 1 tablet tablet by mouth daily. 04/22/2020 sertraline HCl (ZOLOFT Take 150 mg 0 PO) by mouth. 06/24/2019 01/22/2020 traMADol (ULTRAM) 50 mg Take one 15 tablet 0 tablet tablet by mouth every 6 hours as needed for Pain. documented as of this encounter Plan of Treatment Not on filedocumented as of this encounter Procedures Comments Procedure Name Priority Date/Time Associated Diag nosis C SPINE 3 VIEWS OR LESS Routine 11/11/2019 Cervic al spine pain 3:13 PM LICENSED AUDIOLOGIST documented in this encounter Results * C SPINE 3 VIEWS OR LESS (11/11/2019 3:13 PM LICENSED AUDIOLOGIST) Specimen Impressions Performed At Findings/impression: [facility] 1. Normal cervical spine however bradley ot evaluate alignment of C7-T1 on the lateral view due to the overlying shoul ders. 2. No acute vertebral body fracture i s seen. 3. Disc spaces are maintained. The fa cet and uncovertebral joints are well-maintained. Approved by Sharif Walker MD on 2019 4:20 PM By my electronic signature, I attest th at I have personally reviewed the images for this examination and formulated the interpretations and opinions expressed in this report Finalized by Mainor Valencia M.D. on 2019 6:03 PM. Dictated by Sharif Walker MD on 11/11/2019 3:33 PM. Narrative Performed At C SPINE 3 VIEWS OR LESS [facility] CLINICAL HISTORY: Female, 23 years old. Cervical spine pain. COMPARISON: None Procedure Note Interface, Radiant Results - 11/11/2019 6:06 PM LICENSED AUDIOLOGIST C SPINE 3 VIEWS OR LESS CLINICAL HISTORY: Female, 23 years old. Cervical spine pain. COMPARISON: None IMPRESSION Findings/impression: 1. Normal cervical spine however cannot evaluate alignment of C7-T1 on the lateral view due to the overlying shoulders. 2. No acute vertebral body fracture is seen. 3. Disc spaces are maintained. The face t and uncovertebral joints are well-maintained. Approved by Sharif Walker MD on 11/11/2019 4:20 PM By my electronic signature, I attest that I have personally reviewed the images for this examination and formulated the interpretations and opinions expressed in this report Finalized by Mainor Valencia M.D. on 11/11/2019 6:03 PM. Dictated by Sharif Walker MD on 11/11/2019 3:33 PM. Performing Organization Address City/State/Zipcode Ph one Number [facility] documented in this encounter Visit Diagnoses Diagnosis Cervical spine pain Cervicalgia documented in this encounter
--- OUTSIDE RECORDS SUMMARY | 2020-05-02 15:42 | XMS REPORT | Encounter Summary ---
Author Author [facility] Organization [facility] Address Unknown Phone Unavailable Care Team Providers Care Screener Operator Name Role Phone No Pcp, Na PCP Unavailable Encounter Details Care Team Description Date Type Department Maday Diallo MD [address] [facility] [place] [address] Cervical spine pain (Primary Dx) 11/06/2019 Orders Only [facility] [address] [id number] Social History Date Tobacco Use Types Packs/Day Years Used Never Smoker Smokeless Tobacco: Never Used Drinks/Week oz/Week Comments Alcohol Use occasionally Yes Alcohol Habits Answer Date Recorded How often [...] Status Date of Assessment Functional Status Response 08/28/2019 Does the patient have a hearing impairment: No 08/28/2019 Does the patient have a visual impairment: [...] impairment: No documented as of this encounter Plan of Treatment Not on filedocumented as of this encounter Results * C SPINE 3 VIEWS OR LESS (11/11/2019 3:13 PM SHOE LASTER) Specimen Impressions Performed At Findings/impression: [facility] [...] Interface, Radiant Results - 11/11/2019 6:06 PM SHOE LASTER C SPINE 3 VIEWS OR LESS CLINICAL [...]
--- OUTSIDE RECORDS SUMMARY | 2020-05-02 15:42 | XMS REPORT | Encounter Summary ---
Author Author [facility] Organization [facility] Address Unknown Phone Unavailable Care Team Providers Care Survey And Mapping Technician Name Role Phone No Pcp, Na PCP Unavailable Encounter Details Care Team Description Date Type Department 12/12/2019 Travel Social History Date Tobacco Use Types Packs/Day [...] occasion? Sex Assigned at Date Recorded Female 12/12/2019 8:56 AM CDT Industry Job Start Date Occupation Not on file Not on file Not on file Travel End Travel History Travel Start No recent travel history available. Date Recorded COVID-19 Exposure Response 12/12/2019 8:36 AM CDT In the last month, have you been in contact with No / Unsure someone who was confirmed or suspected to have Coronavirus / COVID-19? documented as of this encounter Functional Status [...] Not on filedocumented as of this encounter Visit Diagnoses Not on filedocumented in this encounter
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
--- OUTSIDE RECORDS SUMMARY | 2020-05-02 15:42 | XMS REPORT | Encounter Summary ---
Author Author [facility] Organization [facility] Address Unknown Phone Unavailable Care Team Providers Care Retail Area Manager Name Role Phone No Pcp, Na PCP Unavailable Reason for Visit * Reason Comments Follow Up Encounter Details Care Team Description Date Type Department Lolita Darling MD [address] [facility] [address] [place] [address] [phone] Injury of brachial plexus, subsequent en counter (Primary Dx) 04/22/2020 Office Visit [facility] [address] [facility] [address] [place] [address] Social History Date Tobacco Use Types Packs/Day [...] impairment: No documented as of this encounter Progress Notes * Lolita Darling MD - 04/22/2020 11:00 AM CDT Obtained patient's verbal consent to treat them and their agreement to [facility] policy and NPP via this telehealth visit during the Coronavirus [facility] Emergency SUBJECTIVE: Valerie Little is seen today via telehealth. Valerie has had some unusua l symptoms of numbness on her face in addition to numbness on the left side of h er body. She had the brachial plexus injury back in 2018. We did a release of the ulnar nerve around her elbow with the thought that there was some compressio n there as demonstrated in the electrodiagnostic studies. Unfortunately, at thi s point it does not seem like this has changed her overall outcome at this point . PHYSICAL EXAMINATION: On remote examination, there is no evidence of any clawi ng. She has good musculature, good intrinsic function. It did not appear to me that there was any type of atrophy in her intrinsic muscles. PLAN: I am not sure there is anything further to offer with respect to peripher al nerve procedures. She has some symptoms which are probably consistent with a significant stretch injury back in 2018. She can return to see us p.r.n. Total time 15 minutes. Estimated counseling time 15 minutes. Counseled patient regarding symptoms. Dictated by Lolita Darling MD and transcribed via [employer] Therapist. Copied and p asted into O2 by Tashi Link, 04/27/2020 2:43 PM documented in this encounter Plan of Treatment Not on filedocumented as of this encounter Visit Diagnoses Diagnosis Injury of brachial plexus, subsequent e ncounter documented in this encounter
--- OUTSIDE RECORDS SUMMARY | 2020-05-02 15:42 | XMS REPORT | Encounter Summary ---
Author Author [facility] Organization [facility] Address Unknown Phone Unavailable Care Team Providers Care Chemistry Teacher Name Role Phone No Pcp, Na PCP Unavailable Reason for Visit * Reason Comments Follow-up Phone Call Encounter Details Care Team Description Date Type Department Lolita Darling MD [address] [facility] [address] [place], [place] [id number] Follow-up Phone Call 04/28/2020 Telephone [facility] [address] [place] [address] Social History Date Tobacco Use Types [...] impairment: No documented as of this encounter Miscellaneous Notes * Telephone Encounter - Cait Thibodeaux RN - 04/28/2020 11:55 AM CDT Received message from patient regarding "caving in" area on top of left shoulder and neck which she just noticed after her tele health appointment with Dr. Darling. She was worried about neurological problem or atrophy of that muscle. Lizeth JIMENEZ reviewed pictures, she stated atrophy after 7 days would be almost unheard of, and recommended patient watch it over the next couple months. Patient verbal ized understanding. documented in this encounter Plan of Treatment Not on filedocumented as of this encounter Visit Diagnoses Not on filedocumented in this encounter
--- OUTSIDE RECORDS SUMMARY | 2020-05-02 15:42 | XMS REPORT | Encounter Summary ---
Author Author [facility] Organization [facility] Address Unknown Phone Unavailable Care Team Providers Care Building Maintenance Custodian Name Role Phone No Pcp, Na PCP Unavailable Reason for Referral * Radiology Services (Routine) Referred By Contact Referred To Contact Status Reason Specialty Diagnoses / Procedures Maday Diallo MD [address] [place] [address] Wp Mri [address] [place] [address] No Auth Needed Radiology Diagnoses Neck pain P rocedures MRI C-SPINE WO CONTRAST Reason for Visit * Radiology Services (Routine) Referred By Contact Referred To Contact Status Reason Specialty Diagnoses / Procedures Maday Diallo MD [address] [place] [address] Wp Mri [address] [place] [address] No Auth Needed Radiology Diagnoses Neck pain P rocedures MRI C-SPINE WO CONTRAST Encounter Details Care Team Description Date Type Department Maday Diallo MD [address] [place] [address] [phone] 12/12/2019 [facility] [address] [place] [address] Social History Date Tobacco Use Types Packs/Day [...] / COVID-19? documented as of this encounter Last Filed Vital Signs Reading Time Taken Comments Vital Sign - - Blood Pressure - - Pulse 36.6 C (97.8 F) 12/12/2019 8:00 AM CDT Temperature - - Respiratory Rate - - Oxygen Saturation - - Inhaled Oxygen Concentration - - Weight - - Height - - Body Mass Index documented in this encounter Functional Status Date of Assessment [...] Procedure Name Priority Date/Time Associated Diag nosis MRI C-SPINE WO CONTRAST Routine 12/12/2019 Neck p ain 11:20 AM CDT documented in this encounter Results * MRI C-SPINE WO CONTRAST (12/12/2019 11:20 AM CDT) Specimen Impressions Performed At 1. Ofwa-cu-ivrgppnc narrowing of left C7-T1 neural foramen. The MRI of the [facility] cervical spine is otherwise unremarkabl e. There are no extruded discs. 2. 1 cm right-sided and 8 mm left-rasheeda ed thyroid cyst or nodule. Thyroid ultrasound examination could be perform ed for further characterization if clinically warranted. Finalized by Mainor Valencia M.D. on 2019 11:31 AM. Dictated by Mainor Valencia M.D. on 12/12/2019 10:50 AM. Narrative Performed At MRI of the cervical spine without contrast. [facility] Clinical Indication: Neck pain 6 weeks or more.. Technique: Sagittal T1-weighted, T2-frederick ghted and STIR images were acquired through the cervical spine. Axial T2 st ar weighted gradient recall and axial thin section 3-D T2-weighted images wer e acquired through the cervical spine. Comparison: X-ray November 11, 2019. There is normal alignment of the cervic al spine which is similar to prior upright x-ray. The intervertebral discs are unremarkable. The craniocervical junction is unremarkable. The facet arleen nts are unremarkable. The cervical spinal cord is normal. The central spinal canal and bilateral neural foramen are patent from C2-C3 through the C6-C7 level. C7-T1: There is obir-sz-rjyouaov left n eural foraminal stenosis from mild degenerative changes. The right neural foramen is patent. The central spinal canal is patent. There is prominent/thickened normal osmani earing adipose tissue posterior to the cervical spine. Soft tissues about the cervical spine are unremarkable. There is a 1 cm right-sided thyroid cys t or nodule and an 8 mm diameter left-sided thyroid cyst or nodule. Thyr oid ultrasound examination could be performed for further characterization if clinically warranted. Procedure Note Interface, Radiant Results - 12/12/2019 11:34 AM CDT MRI of the cervical spine without contrast. Clinical Indication: Neck pain 6 weeks or more.. Technique: Sagittal T1-weighted, T2-weighted and STIR images were acquired through the cervical spine. Axial T2 star weighted gradient recall and axial thin section 3-D T2-weighted images were acquired through the cervical spine. Comparison: X-ray November 11, 2019. There is normal alignment of the cervical spine which is similar to prior upright x-ray. The intervertebral discs are unremarkable. The craniocervical junction is unremarkable. The facet joints are unremarkable. The cervical spinal cord is normal. The central spinal canal and bilateral neural foramen are patent from C2-C3 through the C6-C7 level. C7-T1: There is stce-px-xkiqbnxb left neural foraminal stenosis from mild degenerative changes. The right neural foramen is patent. The central spinal canal is patent. There is prominent/thickened normal appearing adipose tissue posterior to the cervical spine. Soft tissues about the cervical spine are unremarkable. There is a 1 cm right-sided thyroid cyst or nodule and an 8 mm diameter left- sided thyroid cyst or nodule. Thyroid ultrasound examination could be performed for further characterization if clinically warranted. IMPRESSION 1. Maqi-gw-edflzurg narrowing of left C 7-T1 neural foramen. The MRI of the cervical spine is otherwise unremarkable. There are no extruded discs. 2. 1 cm right-sided and 8 mm left-sided thyroid cyst or nodule. Thyroid ultrasound examination could be performed for further characterization if clinically warranted. Finalized by Mainor Valencia M.D. on 12/12/2019 11:31 AM. Dictated by Mainor Valencia M.D. on 12/12/2019 10:50 AM. Performing Organization Address City/State/Zipcode Ph one Number [facility] documented in this encounter Visit Diagnoses Diagnosis Neck pain Cervicalgia documented in this encounter
--- OUTSIDE RECORDS SUMMARY | 2020-05-02 15:42 | XMS REPORT | Encounter Summary ---
Author Author [facility] Organization [facility] Address Unknown Phone Unavailable Care Team Providers Care Roving Weight Gauger Name Role Phone No Pcp, Na PCP Unavailable Reason for Visit * Reason Comments Pre-Visit Planning Encounter Details Care Team Description Date Type Department Maday Diallo MD [address] [place] [address] Pre-Visit Planning 11/06/2019 Telephone [facility] [address] [address] Social History Date Tobacco Use [...] encounter Miscellaneous Notes * Telephone Encounter - Jasmin Eli - 11/06/2019 10:12 AM AIRPORT CONTROL OPERATOR Pre Visit Planning- New Patient Records received: No Orders have been NA Patient active in [id number]. No appointment reminder sent. . Completed questionnai re online Left voicemail message. to inform patient the date and time of upcoming appoint ment and also ask to arrived 30 minutes early prior to their appointment time. A sked to bring images that was done and taken outside [facility] to their appointment. In form patient that there will be an X-ray taken on the day of their appointment. Updated chart: Not assessed ORT CONTROL OPERATOR documented in this encounter Plan of Treatment Not on filedocumented as of this encounter Visit Diagnoses Not on filedocumented in this encounter
--- OUTSIDE RECORDS SUMMARY | 2020-05-02 15:42 | XMS REPORT | Encounter Summary ---
Author Author [facility] Organization [facility] Address Unknown Phone Unavailable Care Team Providers Care Restoration Officer Name Role Phone No Pcp, Na PCP Unavailable Reason for Visit * Reason Comments Follow-up Phone Call Encounter Details Care Team Description Date Type Department Lolita Darling MD [address] [facility] [address] [place], [place] [id number] Follow-up Phone Call 12/18/2019 Telephone [facility] [address] [place] [address] Social History Date Tobacco Use [...] Telephone Encounter - Cait Thibodeaux RN - 12/18/2019 2:58 PM CDT Received message from patient stating she is still having shoulder pain and ulna r nerve symptoms such as clawing of little and ring finger. Discussed with jenaro vasquez that she may come to clinic for follow up appointment with Dr. Darling as she is concerned she still has a brachial plexus injury. Unfortunately at this time on ly emergent appointments are being scheduled due to COVID-19. Patient will be co ntacted when appointments are allowed to be made in the future. Valerie verbalized understanding. documented in this encounter Plan of Treatment Not on filedocumented as of this encounter Visit Diagnoses Not on filedocumented in this encounter
--- OUTSIDE RECORDS SUMMARY | 2020-05-02 15:42 | XMS REPORT | Encounter Summary ---
Author Author [facility] Organization [facility] Address Unknown Phone Unavailable Care Team Providers Care Quality Systems Engineer Name Role Phone No Pcp, Na PCP Unavailable Reason for Visit * Reason Comments Follow Up pt here for MRI follow up Pain Pain Pain Encounter Details Care Team Description Date Type Department Maday Diallo MD [address] [facility] [place] [address] Neck pain (Primary Dx); Left arm pain 12/12/2019 Office Visit [facility] [address] [address] Social History Date Tobacco Use [...] Signs Reading Time Taken Comments Vital Sign 147/80 12/12/2019 11:34 AM CDT Blood Pressure 99 12/12/2019 11:34 AM CDT Pulse - - Temperature - - Respiratory Rate 98% 12/12/2019 11:34 AM CDT Oxygen Saturation - - Inhaled Oxygen Concentration 154.7 kg (341 lb) 12/12/2019 11:34 AM CDT Weight 176.9 cm (5' 9.65") 12/12/2019 11:34 AM CDT Height 49.42 12/12/2019 11:34 AM CDT Body Mass Index documented in this encounter [...] as of this encounter Progress Notes * Maday Diallo MD - 12/12/2019 11:45 AM CDT SPINE CENTER CLINIC NOTE HISTORY: She returns today in follow up of her neck and left arm pain. In the interim she has had an MRI completed and presents today to review those results. She feels her arm pain has not changed. She feels she has lost dexterity in h er left hand. PHYSICAL EXAMINATION: Motor examination of the upper extremities is full includ ing deltoids, triceps, biceps, wrist extensors, and hand intrinsics. Sensation diminished distally in the ulnar distribution of the left hand, intact distally on the right. No pain with manipulation of the elbow joint. Palpable radial pu lses. Reflexes normal and reactive at the triceps, biceps, and radialis. Negat verona Burke's sign. Negative Spurling's sign. DIAGNOSTIC STUDIES: MRI scan of the cervical spine reveals well hydrated discs. No area of central stenosis or disc protrusion. IMPRESSION: Neck and left arm pain. PLAN: I have reviewed her MRI results with her. She was reassured that she leahy s not show a disc protrusion or any significant bulging. There is not a surgery that I would have to offer her based on her findings. She could follow up with Dr. Darling for guidance regarding her brachial plexus. She was encouraged to leidy ashantiin an exercise program as instructed in therapy. She will follow up with any changes, problems, concerns or questions. Review of Systems Current Outpatient Medications: buPROPion (WELLBUTRIN) 75 mg tablet, TK 1 T PO QAM, Disp: , Rfl: 1 cetirizine (ZYRTEC) 10 mg tablet, 10 mg daily., Disp: , Rfl: fluticasone (FLONASE) 50 mcg/actuation nasal spray, daily., Disp: , Rfl: medroxyPROGESTERone (contraceptive) (DEPO-PROVERA) syringe, Inject 150 mg i nto the muscle every 90 days., Disp: , Rfl: meloxicam (MOBIC) 15 mg tablet, Take one tablet by mouth daily., Disp: 30 t ablet, Rfl: 1 sertraline HCl (ZOLOFT PO), Take 150 mg by mouth., Disp: , Rfl: traMADol (ULTRAM) 50 mg tablet, Take one tablet by mouth every 6 hours as n eeded for Pain., Disp: 15 tablet, Rfl: 0 Current Facility-Administered Medications: promethazine (PHENERGAN) injection 6.25 mg, 6.25 mg, Intravenous, Q10 MIN P RN, Vivek Max MD, 6.25 mg at 04/25/19 1105 Allergies Allergen Reactions Hydrocodone-Acetaminophen RASH, ITCHING and HALLUCINATIONS Pcn [Penicillins] HIVES Sulfa (Sulfonamide Antibiotics) HIVES Zithromax [Azithromycin] HIVES Cortisone ITCHING Physical Exam Vitals: 12/12/19 1134 BP: (!) 147/80 Pulse: 99 SpO2: 98% Weight: (!) 154.7 kg (341 lb) Height: 176.9 cm (69.65") PainSc: Six Oswestry Total Score:: (P) 20 Pain Score: Six Body mass index is 49.42 kg/m. In the presence of Dr. Diallo, I am taking down these notes, berna Lau. 12/12/19 @ 11:50 am documented in this encounter Plan of Treatment Not on filedocumented as of this encounter Visit Diagnoses Diagnosis Neck pain Cervicalgia Left arm pain Pain in limb documented in this encounter
--- OUTSIDE RECORDS SUMMARY | 2020-05-02 15:42 | XMS REPORT | Clinical Summary ---
Author Author [facility] Organization [facility] Address Unknown Phone Unavailable Care Team Providers Care Digital Marketing Executive Name Role Phone No Pcp, Na PCP Unavailable Source Comments Some departments are not documenting in the electronic medical record. If you d o not see the information that you expected, contact Release of Information in [facility] Health Information Management department at [phone] for further assistan ce in locating additional records.[facility] Allergies Comments Active Allergy Reactions Severity Noted Date Cortisone ITCHING Low 11/14/2018 Hydrocodone-Acetaminophen RASH, High 03/26 ITCHING, HALLUCINATION S Penicillins HIVES Medium 05/16/2018 Sulfa (Sulfonamide HIVES Medium 05/16/2018 Antibiotics) Azithromycin HIVES Medium 04/25/2019 Medications End Date Status Medication Sig Dispensed Refills Start Date Active cetirizine (ZYRTEC) 10 mg 10 mg daily. 0 tablet Active medroxyPROGESTERone Inject 150 mg 0 (contraceptive) into the (DEPO-PROVERA) syringe muscle every 90 days. 04/22/2020 Discontinued sertraline HCl (ZOLOFT Take 150 mg 0 PO) by mouth. 04/22/2020 Discontinued fluticasone (FLONASE) 50 daily. 0 mcg/actuation nasal spray 04/22/2020 Discontinued buPROPion (WELLBUTRIN) 75 TK 1 T PO QAM 1 10/27 4/201 mg tablet 9 Status Hospital, Clinic, or Ordered Dose Route Frequency Start End Date Other Facility Date Administered Medication Discontinued promethazine (PHENERGAN) 6.25 mg IV EVERY 10 MIN PRN injection 6.25 mg 19 0 Active Problems Problem Noted Date S/P shoulder surgery 07/17/2019 Brachial plexus injury 03/12/2019 Left facial numbness 11/30/2018 Cubital tunnel syndrome on left 09/24/2018 Bicipital tendonitis of left shoulder 05/18/2018 Encounters Care Team Description Date Type Specialty Lolita Darling MD Follow-up Phone Call 04/28/2020 Telephone Orthopedic Surgery Lolita Darling MD Injury of brachial plexus, subsequent en counter (Primary Dx) 04/22/2020 Office Visit Sports Medicine Telehealth from Last 3 Months Family History Medical History Relation Name Comments Cancer Maternal Grandfather Cancer Maternal Grandma Breast cancer Grandmother Cancer Mother Hue Melanoma Diabetes Mother Hue Type 2 Relation Name Status Comments Father Alive Maternal Grandfather Maternal Grandmother Grandma Mother Hue Alive Social History Date Tobacco Use Types Packs/Day [...] Travel Start No recent travel history available. Last Filed Vital Signs Reading Time Taken Comments Vital Sign 147/80 12/12/2019 11:34 AM CDT Blood Pressure 99 12/12/2019 11:34 AM CDT Pulse 36.6 C (97.8 F) 12/12/2019 8:00 AM CDT Temperature 16 08/28/2019 11:04 AM CHEF CONCIERGE Respiratory Rate 98% 12/12/2019 11:34 AM CDT Oxygen Saturation - - Inhaled Oxygen Concentration 154.7 kg (341 lb) 12/12/2019 11:34 AM CDT Weight 176.9 cm (5' 9.65") 12/12/2019 11:34 AM CDT Height 49.42 12/12/2019 11:34 AM CDT Body Mass Index Plan of Treatment Health Maintenance Due Date Last Done Comments HIV SCREENING 2012 DTAP/TDAP VACCINES (1 - 12/18/2015 Tdap) HEPATITIS C SCREENING 12/18/2015 PHYSICAL (COMPREHENSIVE) 12/18/2015 EXAM CERVICAL CANCER SCREENING 2018 INFLUENZA VACCINE 06/25/2020 06/20/2019, 07/12/2013, 07/10/2012, Additional history exists HPV VACCINES Completed 07/10/2012, 12/29/2011, 11/11/2011 MENINGOCOCCAL VACCINE Aged Out No longer eligib le based on patient's age to (ACWY,Menactra) complete this topic Implants Device Identifier Shelf Expiration Date Model / Serial / L ot Implanted Type Area Manufactur er 11/22/2020 / [id number] / [id number] Suture [employer], [employer], Biocomposite Implanted: Qty: 1 on 04/25/2019 by Sharif Cancino MD at [facility] C Results Not on filefrom Last 3 Months Insurance Type Payer Benefit Subscriber ID Effective Phone Address Plan / Dates Group PPO BCBS [facility] xxxxxxxxxxxx 2017-P [facility] resent BLUE [id number] Valerie Little Third Self [address] [employer] (Home) [place] [address] Liability Advance Directives Patient Supervisor Operations Explanation Type Date Recorded Advance Directive/DPOA
--- OUTSIDE RECORDS SUMMARY | 2020-05-02 15:42 | XMS REPORT ---
Discharge Summary 2.1 Created on: OSMAR DODD : 1995 Sex: Female Author Author [facility] Organization Unknown Address [address] [place], [place] [id number] Care Team Providers Care Gravity Prospecting Operator Helper Name Role Phone ROGER MORENO MD Attending MARSHALL ZULUAGA DO [employer] Functional Status No Data Found Immunization Immunization Date Status Additional Notes Cod e Code System OPV 04/02/1999 Completed 02 CVX MMR 12/18/1998 Completed 03 CVX MMR 01/15/2003 Completed 03 CVX Hep B, adolescent or pediatric 1997 Completed 08 CVX IPV 02/20/1998 Completed 10 CVX IPV 05/01/1998 Completed 10 CVX IPV 01/15/2003 Completed 10 CVX influenza, split (incl. purified surface antigen) 07/27 Completed 15 CVX influenza, whole 07/08/2011 Completed 16 CVX influenza, whole 07/10/2012 Completed 16 CVX influenza, whole 07/12/2013 Completed 16 CVX DTaP 02/20/1998 Completed 20 CVX DTaP 05/01/1998 Completed 20 CVX DTaP 06/19/1998 Completed 20 CVX DTaP 04/02/1999 Completed 20 CVX DTaP 01/15/2003 Completed 20 CVX varicella 12/18/1998 Completed 21 CVX varicella 05/07/2015 Completed 21 CVX Hep B, adolescent/high risk infant 05/01/1998 Comple roberto 42 CVX Hep B, adolescent/high risk infant 04/02/1999 Comple roberto 42 CVX Hib (PRP-OMP) 05/01/1998 Completed 49 CVX Hib (PRP-OMP) 04/02/1999 Completed 49 CVX Hib-Hep B 02/20/1998 Completed 51 CVX Hib-Hep B 06/19/1998 Completed 51 CVX HPV, quadrivalent 11/11/2011 Completed 6 2 CVX HPV, quadrivalent 12/29/2011 Completed 6 2 CVX HPV, quadrivalent 07/10/2012 Completed 6 2 CVX Hep A, ped/adol, 2 dose 12/29/2011 Completed 83 CVX Hep A, ped/adol, 2 dose 07/10/2012 Completed 83 CVX Tdap 05/07/2009 Completed 115 CVX Meningococcal MCV4O 11/11/2011 Completed 136 CVX Influenza, seasonal, injectable 06/23/2010 Completed 141 CVX influenza, injectable, quadrivalent 06/15/2016 Compl eted 158 CVX Mental Status No Data Found Results FOOT 3 VIEWS - Completed: 08/19/2017 19: 45 LOINC: EXAMINATION:FOOT 3 VIEWSREASON FOR EXAM: fell off steps, felt "pop" metatarsals;Pain COMPARISON:None available.TECHNIQUE: AP, oblique and lateral views of the right foot were obtained. FINDINGS:No fracture, dislocation or acute bony abnormality is seen. The bony mineralization and alignment are normal. The joint spaces are well preserved. This is a skeletally immature patient..IMPRESSION:Negative three view right foot.Reviewed and Electronically Signed by: Vipin Gore MD DABRSigned Date/Time: 08/21/2017 8:27 AMJob ID#: [id number] Social History Type Status Start Date End Date Code Co de System Smoking History Never smoker (Never Smoked) [id number] SNOMED-CT Vital Signs No Data Found Assessment No Data Found Hospital Discharge Instructions Should you have any questions prior to discharge, please contact a member of your healthcare team. If you have left the hospital and have any questions, please contact your primary care physician. Reason For Referral No Data Found Hospital Course You were admitted to [facility] on 08/19/2017 18:18 with a principal diagnosis of Pain in right ankle and joints of right foot You were discharged from [facility] on 08/19/2017 20:10 Medications No Data Found Procedures No Data Found Implants No Data Found Problems No Data Found Allergies No Data Found Plan of Treatment No Data Found Encounters No Data Found Goals No Data Found Discharge Medications No Data Found Discharge Diagnosis Discharge Diagnosis Diagnosis Code Start Date Pain in right ankle and joints of right foot [id number] 08/19/2017 Health Concerns Section No Data Found
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
--- OUTSIDE RECORDS SUMMARY | 2020-05-02 15:42 | XMS REPORT | Encounter Summary ---
Author Author [facility] Organization [facility] Address Unknown Phone Unavailable Care Team Providers Care Maintenance Electrician Name Role Phone No Pcp, Na PCP Unavailable Encounter Details Care Team Description Date Type Department 01/22/2020 Travel Social History Date Tobacco Use Types [...]
--- OUTSIDE RECORDS SUMMARY | 2020-05-02 15:43 | XMS REPORT | Clinical Summary ---
Author Author Mario, Valerie Villegas Organization [facility] Address Unknown Phone Unavailable Allergies, Adverse Reactions, Alerts Allergy Name Reaction Description Start Date Severity Status Pr ovider ZITHROMAX Critical Active Keara Mireles and BACTRIM Critical Active Keara Mireles and AMOXICILLIN Critical Active Keara almonte MD PENICILLIN Critical Active Keara Mireles and Conditions or Problems Problem Name Problem Code Onset Date Status Entry Date Provider Comment Standard Description Annotate FAMILY HISTORY OF DIABETES V18.0 Active Keara Rivera MD Family history of diabetes mellitus FAMILY HISTORY OF MIGRAINE V17.2 Active Keara Rivera MD Family history of other neurological diseases COMMON MIGRAINE 346.10 Active Keara Blum MD Migraine without aura, without mention of intractable migraine, without mention of status migrainosus FAMILY HISTORY OF MELANOMA V16.8 Active Keara Rivera MD Family history of other specified malignant neoplasm COUGH 786.2 Inactive Keara Blum MD Cough OTHER ABNORMAL GLUCOSE 790.29 Resolved Agusto Blum MD Other abnormal glucose ALLERGIC RHINITIS 477.9 Active Keara kelly MD Allergic rhinitis, cause unspecified COUGH 786.2 Inactive Keara Blum MD Cough G E REFLUX 530.81 Resolved Keara Blum MD Esophageal reflux Sinusitis-Acute 461.9 Resolved Keara Blum MD Acute sinusitis, unspecified Other unspecified back disorders 724.9 Resolved 201 01/02/08 Keara Blum MD Other unspecified back disorders UTI 599.0 Resolved Keara Blum MD Urinary tract infection, site not specified Otitis media, left 382.9 Resolved Keara Campa Unspecified otitis media Sinusitis-Acute 461.9 Inactive Keara Blum MD Acute sinusitis, unspecified Flank pain, right 789.09 Active Keara kelly MD Abdominal pain, other specified site; multiple sites COUGH ICD-786.2 Inactive Keara Blum MD 20 08/30/25 OTHER ABNORMAL GLUCOSE ICD-790.29 Inactive Agusto Blum MD COUGH ICD-786.2 Inactive Keara Blum MD 20 09/01/22 G E REFLUX ICD-530.81 Inactive Keara kelly MD Sinusitis-Acute ICD-461.9 Inactive Keara kumar MD Other unspecified back disorders ICD-724.9 [place] [facility]ive Keara Blum MD UTI ICD-599.0 Inactive Keara Blum MD 20 08/06/08 Otitis media, left ICD-382.9 Inactive Keara Blum MD Sinusitis-Acute ICD-461.9 Inactive Keara kumar MD Medication List Medication Instructions Start Date Stop Date Generic Name NDC Status Provider Patient Instruction CEFTIN 500 MG TABS 1 bid CEFUROXIME AXETIL 5 9941067380 No Longer Active Keara Blum MD Active FLUTICASONE PROPIONATE 50 MCG/ACT SUSP 1 puff in each nostril [place] FLUTICASONE PROPIONATE 24467651312 Active Keara Blum MD Active ONDANSETRON HCL 8 MG TABS 1 q 8 hours ONDANSETR ON HCL 12431356883 No Longer Active Keara Blum MD Active ZIANA 1.2-0.025 % GEL apply pea size daily CLIN DAMYCIN-TRETINOIN 94793088373 No Longer Active Keara Blum MD Active CEFTIN 500 MG TAB 1 po bid 10 days CEFUROXIME A XETIL 57194081199 No Longer Active Keara Blum MD Active FLUTICASONE PROPIONATE 50 MCG/ACT SUSP 1 puff in each nostril [place] FLUTICASONE PROPIONATE 86878406217 No Longer Active Dawson Gresham DO Active CEFDINIR 300 MG CAPS 1 daily CEFDINIR 6683486 3010 No Longer Active Dawson Gresham DO Active CEFDINIR 300 MG CAPS 1 daily CEFDINIR 2335266 3010 No Longer Active Keara Blum MD Active ONDANSETRON HCL 8 MG TABS 1 every8 hrs prn vomiting 20 08/10/08 ONDANSETRON HCL 64586810036 No Longer Active Keara Blum MD Active CLARITIN-D 24 HOUR 10-240 MG [id number] 1 po qd PRN Allergies 201 12/01/26 LORATADINE-PSEUDOEPHEDRINE 89725435894 No Longer Active Danielle Blum MD Active PROPRANOLOL HCL 20 MG TABS 1 bid PROPRANOL OL HCL 10830680255 No Longer Active Keara Blum MD Active PROAIR HFA 108 (90 BASE) MCG/ACT AERS 1-2 puffs 2-4 times a day as needed ALBUTEROL SULFATE 87027797776 No Longer Active Keara Blum MD Active PRILOSEC 20 MG CPDR 1 daily OMEPRAZOLE 23082445234 Ac tive Keara Blum MD Active FLOVENT HFA 110 MCG/ACT AERO 1 puff bid, rinse and spit FLUTICASONE PROPIONATE HFA 78145205210 No Longer Active Keara Blum MD Active FLUTICASONE PROPIONATE 50 MCG/ACT SUSP 1 puff in each nostril [place] FLUTICASONE PROPIONATE 31412305350 No Longer Active Keara Blum MD Active ZYRTEC ALLERGY 10 MG TABS 1 tablet po daily CET IRIZINE HCL 45159151858 No Longer Active Keara Blum MD Active AZITHROMYCIN 250 MG TABS 2 pills day 1,1 pill day 2-5 AZITHROMYCIN 18602187055 No Longer Active Keara Blum MD Act [place] ZYRTEC ALLERGY 10 MG TABS 1 tablet po daily ZYRTEC ALLERGY 10 MG TABS 5456388 CETIRIZINE HCL Inactive FLOVENT HFA 110 MCG/ACT AERO 1 puff bid, rinse and spit FLOVENT HFA 110 MCG/ACT AERO FLUTICASONE PROPIONATE HFA [place] ctive PROAIR HFA 108 (90 BASE) MCG/ACT AERS 1-2 puffs 2-4 times a day as needed PROAIR HFA 108 (90 BASE) MCG/ACT AERS ALB UTEROL SULFATE Inactive PROPRANOLOL HCL 20 MG TABS 1 bid P ROPRANOLOL HCL 20 MG TABS 449514 PROPRANOLOL HCL Inactive CLARITIN-D 24 HOUR 10-240 MG [id number] 1 po qd PRN Allergies 201 12/01/26 CLARITIN-D 24 HOUR 10-240 MG [id number] LORATADIN E-PSEUDOEPHEDRINE Inactive ONDANSETRON HCL 8 MG TABS 1 every8 hrs prn vomiting 20 08/10/08 ONDANSETRON HCL 8 MG TABS 617064 ONDANSETRON HCL Inactive CEFDINIR 300 MG CAPS 1 daily CEFDINIR 300 MG C APS 20021229 CEFDINIR Inactive CEFDINIR 300 MG CAPS 1 daily CEFDINIR 300 MG C APS 20021229 CEFDINIR Inactive FLUTICASONE PROPIONATE 50 MCG/ACT SUSP 1 puff in each nostril [place] FLUTICASONE PROPIONATE 50 MCG/ACT SUSP 639178 FLUTICASO NE PROPIONATE Inactive CEFTIN 500 MG TAB 1 po bid 10 days CEFTIN 500 M G TAB 615048 CEFUROXIME AXETIL Inactive ZIANA 1.2-0.025 % GEL apply pea size daily ZIANA 1.2-0.025 % GEL CLINDAMYCIN-TRETINOIN Inactive ONDANSETRON HCL 8 MG TABS 1 q 8 hours ON DANSETRON HCL 8 MG TABS 509562 ONDANSETRON HCL Inactive CEFTIN 500 MG TABS 1 bid CEFTIN 500 MG TABS 667493 CEFUROXIME AXETIL Inactive AZITHROMYCIN 250 MG TABS 2 pills day 1,1 pill day 2-5 AZITHROMYCIN 250 MG TABS 2014972 AZITHROMYCIN Inactive FLUTICASONE PROPIONATE 50 MCG/ACT SUSP 1 puff in each nostril [place] FLUTICASONE PROPIONATE 50 MCG/ACT SUSP 187343 FLUTICASO NE PROPIONATE Inactive Immunizations Vaccine Administration Date Value Standard George cription influenza immunization (Flu Vax) has been administered 6 Historical influenza virus vaccine, unspecified formulation hepatitis A immunization #2 Historical hepa titis A vaccine, unspecified formulation Human Papillomavirus vaccine (Gardasil) #3, (HPV #3) Gardasil human papilloma virus vaccine, quadrivalent Human Papillomavirus vaccine (Gardasil) #2, (HPV #2) Gardasil human papilloma virus vaccine, quadrivalent hepatitis A immunization #1 Historical hepa titis A vaccine, unspecified formulation MPSV4 (meningococcal polysaccharide vaccination) Historical meningococcal polysaccharide vaccine (MPSV4) Adacel immunization Adacel [NLE794] tetanus toxo id, reduced diphtheria toxoid, and acellular pertussis vaccine, adsorbed chicken pox immunization #2 Varicella Vax vari kathy virus vaccine DPT immunization #5 DTaP oral polio vaccine (OPV) #4 IPV garcia ovirus vaccine, unspecified formulation MMR virus immunization #2 MMR DPT immunization #4 DTaP Hemophilus influenza B immunization #4 Historica l Haemophilus influenzae type b vaccine, conjugate unspecified formulation oral polio vaccine (OPV) #3 IPV garcia ovirus vaccine, unspecified formulation MMR virus immunization #1 MMR chicken pox immunization #1 Varicella Vax vari kathy virus vaccine Hemophilus influenza B immunization #3 Historica l Haemophilus influenzae type b vaccine, conjugate unspecified formulation DPT immunization #3 DTaP hepatitis B vaccine #3 Historical hepatitis B vaccine, unspecified formulation Hemophilus influenza B immunization #2 Historica l Haemophilus influenzae type b vaccine, conjugate unspecified formulation oral polio vaccine (OPV) #2 IPV garcia ovirus vaccine, unspecified formulation DPT immunization #2 DTaP Hemophilus influenza B immunization #1 Historica l Haemophilus influenzae type b vaccine, conjugate unspecified formulation oral polio vaccine (OPV) #1 IPV garcia ovirus vaccine, unspecified formulation DPT immunization #1 DTaP hepatitis B vaccine #2 Historical hepatitis B vaccine, unspecified formulation hepatitis B vaccine #1 Historical hepatitis B vaccine, unspecified formulation Vital Signs Date Name Value Unit Range Description blood pressure, diastolic 68 mm[Hg] BP horner blood pressure, systolic 110 mm[Hg] BP sys height E&M 69 [in_us] Bdy height temperature E&M 99.0 [degF] Body temp erature weight E&M 234 [lb_av] Weight Measure d blood pressure, diastolic 60 mm[Hg] BP horner blood pressure, systolic 120 mm[Hg] BP sys height E&M 69.25 [in_us] Bdy height temperature E&M 99.7 [degF] Body temp erature weight E&M 241.38 [lb_av] Weight Measure d blood pressure, diastolic 83 mm[Hg] BP horner blood pressure, systolic 137 mm[Hg] BP sys pulse rate E&M 81 /min Heart rate temperature E&M 99.6 [degF] Body temp erature weight E&M 233 [lb_av] Weight Measure d blood pressure, diastolic 78 mm[Hg] BP horner blood pressure, systolic 120 mm[Hg] BP sys temperature E&M 98.6 [degF] Body temp erature weight E&M 209 [lb_av] Weight Measure d blood pressure, diastolic 72 mm[Hg] BP horner blood pressure, systolic 122 mm[Hg] BP sys height E&M 69.25 [in_us] Bdy height temperature E&M 96.5 [degF] Body temp erature weight E&M 212 [lb_av] Weight Measure d Diagnostic Results Date Name Value Unit Range Description Lab Report: CBC W/DIFF, Comp. Metabolic Panel - Chemistry sodium, serum 141 mmol/L 053-593 6364/11/19 potassium, serum 4.4 mmol/L 3.5-5.2 chloride, serum 103 mmol/L 98-107 carbon dioxide, venous blood 30.5 mmol/L 21.0-32 .0 blood glucose 86 mg/dL 65-110 urea nitrogen, blood 8 mg/dL 7-18 creatinine, serum 0.80 mg/dL 0.60-1.30 alanine aminotransferase (SGPT), serum 24 U/L 12-78 aspartate aminotransferase (SGOT), serum 22 U/L 15-37 calcium, serum 9.6 mg/dL 8.5-10.1 bilirubin, serum, total 0.30 mg/dL 0.00-1.00 Lab Report: CBC W/DIFF, Comp. Metabolic Panel - Hematology platelet count 239 10^3/MM^3 10*3/mm3 398-964 9872/11/19 leukocyte count, blood 8.1 10^3/MM^3 10*3/mm3 4.6-10.2 neutrophils as percent of blood leukocytes 63.1 % 42.2-75.2 monocytes as percent of blood leukocytes 6.8 % 1.7-9.3 lymphocytes as percent of blood leukocytes 26.6 % 20.5-51.1 erythrocyte (RBC) count 4.52 10^6/MM^3 10*6/mm3 4.04-5.4 8 hemoglobin, blood 12.5 g/dL 12.0-16.0 hematocrit, blood 37.7 % 36.0-46.0 mean corpuscular volume, RBC 83 fL 80-97 mean corpuscular hemoglobin, RBC 27.6 pg 27. 0-31.2 mean corpuscular hemoglobin concentration, RBC 33.1 G/DL % 31.8-35.4 red blood cell distribution width 17.1 % 11 .6-14.8 Lab Report: UADIP W/MICRO, AUTO - Chemis try protein, total urine random Trace mg/dL Negative RBC, urine, dipstick Negative Negative protein, total urine random Negative mg/dL Negative RBC, urine, dipstick Negative Negative Lab Report: UADIP W/MICRO, AUTO - Urinal ysis urobilinogen, urine, semiquantitative (dipstick) 0.2 Normal leukocyte esterase, urine, by dipstick Negative Negative nitrite, urine, semiquantitative Negative Neg ative urate crystals, amorphous, urine, semiquantitative Large None seen glucose, urine, semiquantitative Negative Neg ative bilirubin, urine Negative Negative ketones, urine, by test strip Trace Negati ve glucose, urine, semiquantitative Negative Neg ative urine color Yellow Colorless;Lightyellow;St raw;Yellow ketones, urine, by test strip Negative Negati ve bilirubin, urine Negative Negative leukocyte esterase, urine, by dipstick Negative Negative nitrite, urine, semiquantitative Negative Neg ative urate crystals, amorphous, urine, semiquantitative Few None seen urobilinogen, urine, semiquantitative (dipstick) 0.2 Normal appearance, urine Clear Clear specific gravity, urine 1.020 1.000-1.030 pH, urine, semiquantitative 8.0 5.0-8.5 pH, urine, semiquantitative 6.5 5.0-8.5 specific gravity, urine 1.025 1.000-1.030 appearance, urine Clear Clear urine color Yellow Colorless;Lightyellow;St raw;Yellow Lab Report: [facility] [place] Chemistry human chorionic gonadotropin , urine, qualitative (urine test) Negative Negative Encounters Code Encounter Date Provider Facility CPT-69447 Level 3 Est. Patient 09:47:44 WEB SITE DEVELOPER Keara Abreu MD [facility] CPT-24981 Level 3 Est. Patient 16:33:46 CDT Keara Abreu MD [facility] CPT-84987 Level 3 Est. Patient 16:38:32 CDT Dawson breen DO [facility] CPT-37439 Level 3 Est. Patient 15:58:59 WEB SITE DEVELOPER Keara Abreu MD [facility] CPT-15432 Level 3 Est. Patient 10:44:39 WEB SITE DEVELOPER Keara Abreu MD [facility] CPT-03673 Level 3 Est. Patient 10:09:23 CDT Keara Abreu MD [facility] CPT-61483 Level 3 Est. Patient 13:46:54 WEB SITE DEVELOPER Keara Abreu MD [facility] CPT-86290 Level 3 Est. Patient 16:25:27 CDT Keara Abreu MD [facility] CPT-80668 Level 3 Est. Patient 10:22:54 CDT Keara Abreu MD [facility] CPT-85326 Level 3 Est. Patient 16:02:28 WEB SITE DEVELOPER Keara Abreu MD [facility] Procedures Code Procedure Name Date Entry Date Standard Desc ription CPT-85177 Sono pelvis non OB uterus ovaries cervix 09:06:48 WEB SITE DEVELOPER CPT-34084 Sono retroperitoneal complete kidneys an d bladder 09:06:48 WEB SITE DEVELOPER CPT-94391 Abd compl w upright 15:32:02 WEB SITE DEVELOPER CPT-48929 Fluzone Quadrivalent Intramuscular Suspe nsion 0.5 ML 16:49:56 WEB SITE DEVELOPER CPT-18897 Breathing Tx 11:04:54 CDT CPT-77344 Chest 2V Frontal and Lat 10:32:02 CDT 03/19 CPT-70247 Breathing Tx 10:23:54 CDT CPT-72383 EKG Trac and Interp 16:18:28 WEB SITE DEVELOPER
--- OUTSIDE RECORDS SUMMARY | 2020-05-02 15:44 | XMS REPORT | Clinical Summary ---
Author Author Mario, Valerie Villegas Organization [facility] Address Unknown Phone Unavailable Allergies, Adverse Reactions, [...] Active Keara Blum MD Blood in stool COUGH ICD-786.2 Inactive Keara Blum MD 20 08/30/25 OTHER ABNORMAL GLUCOSE ICD-790.29 Inactive Agusto Blum MD COUGH ICD-786.2 Inactive eKara Blum MD 20 09/01/22 G E REFLUX ICD-530.81 Inactive Keara kelly MD Sinusitis-Acute ICD-461.9 Inactive Keara kumar MD Other unspecified back disorders ICD-724.9 [place] ctive Keara Blum MD UTI ICD-599.0 Inactive Keara Blum MD 20 08/06/08 Otitis media, left ICD-382.9 Inactive Keara Blum MD Sinusitis-Acute ICD-461.9 Inactive Keara kumar MD Medication List Medication Instructions Start Date Stop Date Generic Name NDC Status Provider Patient Instruction CEFTIN 500 MG TABS 1 bid CEFUROXIME AXETIL 5 9688758639 No Longer Active Keara Blum MD Active FLUTICASONE PROPIONATE 50 MCG/ACT SUSP 1 puff in each nostril [place] FLUTICASONE PROPIONATE 04094977814 Active Keara Blum MD Active ONDANSETRON HCL 8 MG TABS 1 q 8 hours ONDANSETR ON HCL 61044745810 No Longer Active Keara Blum MD Active ZIANA 1.2-0.025 % GEL apply pea size daily CLIN DAMYCIN-TRETINOIN 13756649671 No Longer Active Keara Blum MD Active CEFTIN 500 MG TAB 1 po bid 10 days CEFUROXIME A XETIL 40242824612 No Longer Active Keara Blum MD Active FLUTICASONE PROPIONATE 50 MCG/ACT SUSP 1 puff in each nostril da [facility] FLUTICASONE PROPIONATE 26683840380 No Longer Active Dawson Gresham DO Active CEFDINIR 300 MG CAPS 1 daily CEFDINIR 2232491 3010 No Longer Active Dawson Gresham DO Active CEFDINIR 300 MG CAPS 1 daily CEFDINIR 9970534 3010 No Longer Active Keara Blum MD Active ONDANSETRON HCL 8 MG TABS 1 every8 hrs prn vomiting 20 08/10/08 ONDANSETRON HCL 78727574356 No Longer Active Keara Blum MD Active CLARITIN-D 24 HOUR 10-240 MG [id number] 1 po qd PRN Allergies 201 12/01/26 LORATADINE-PSEUDOEPHEDRINE 08030996662 No Longer Active Danielle Blum MD Active PROPRANOLOL HCL 20 MG TABS 1 bid PROPRANOL OL HCL 79728084145 No Longer Active Keara Blum MD Active PROAIR HFA 108 (90 BASE) MCG/ACT AERS 1-2 puffs 2-4 times a day as needed ALBUTEROL SULFATE 49395144691 No Longer Active Keara Blum MD Active PRILOSEC 20 MG CPDR 1 daily OMEPRAZOLE 55636772763 Ac tive Keara Blum MD Active FLOVENT HFA 110 MCG/ACT AERO 1 puff bid, rinse and spit FLUTICASONE PROPIONATE HFA 64874109097 No Longer Active Keara Blum MD Active FLUTICASONE PROPIONATE 50 MCG/ACT SUSP 1 puff in each nostril [place] FLUTICASONE PROPIONATE 42506021322 No Longer Active Keara Blum MD Active ZYRTEC ALLERGY 10 MG TABS 1 tablet po daily CET IRIZINE HCL 70419828253 No Longer Active Keara Blum MD Active AZITHROMYCIN 250 MG TABS 2 pills day 1,1 pill day 2-5 AZITHROMYCIN 87280287055 No Longer Active Keara Blum MD Act [place] ZYRTEC ALLERGY 10 MG TABS 1 tablet po daily ZYRTEC ALLERGY 10 MG TABS 3407521 CETIRIZINE HCL Inactive FLOVENT HFA 110 MCG/ACT AERO 1 puff bid, rinse and spit FLOVENT HFA 110 MCG/ACT AERO FLUTICASONE PROPIONATE HFA [place] ctive PROAIR HFA 108 (90 BASE) MCG/ACT AERS 1-2 puffs 2-4 times a day as needed PROAIR HFA 108 (90 BASE) MCG/ACT AERS ALB UTEROL SULFATE Inactive PROPRANOLOL HCL 20 MG TABS 1 bid P ROPRANOLOL HCL 20 MG TABS 411007 PROPRANOLOL HCL Inactive CLARITIN-D 24 HOUR 10-240 MG [id number] 1 po qd PRN Allergies 201 12/01/26 CLARITIN-D 24 HOUR 10-240 MG [id number] LORATADIN E-PSEUDOEPHEDRINE Inactive ONDANSETRON HCL 8 MG TABS 1 every8 hrs prn vomiting 20 08/10/08 ONDANSETRON HCL 8 MG TABS 855898 ONDANSETRON HCL Inactive CEFDINIR 300 MG CAPS 1 daily CEFDINIR 300 MG C APS 20021229 CEFDINIR Inactive CEFDINIR 300 MG CAPS 1 daily CEFDINIR 300 MG C APS 20021229 CEFDINIR Inactive FLUTICASONE PROPIONATE 50 MCG/ACT SUSP 1 puff in each nostril [place] FLUTICASONE PROPIONATE 50 MCG/ACT SUSP 839499 FLUTICASO NE PROPIONATE Inactive CEFTIN 500 MG TAB 1 po bid 10 days CEFTIN 500 M G TAB 843715 CEFUROXIME AXETIL Inactive ZIANA 1.2-0.025 % GEL apply pea size daily ZIANA 1.2-0.025 % GEL CLINDAMYCIN-TRETINOIN Inactive ONDANSETRON HCL 8 MG TABS 1 q 8 hours ON DANSETRON HCL 8 MG TABS 921239 ONDANSETRON HCL Inactive CEFTIN 500 MG TABS 1 bid CEFTIN 500 MG TABS 804736 CEFUROXIME AXETIL Inactive AZITHROMYCIN 250 MG TABS 2 pills day 1,1 pill day 2-5 AZITHROMYCIN 250 MG TABS 1541044 AZITHROMYCIN Inactive FLUTICASONE PROPIONATE 50 MCG/ACT SUSP 1 puff in each nostril [place] FLUTICASONE PROPIONATE 50 MCG/ACT SUSP 109970 FLUTICASO NE PROPIONATE Inactive Immunizations Vaccine Administration [...] meningococcal polysaccharide vaccine (MPSV4) Adacel immunization Adacel [[id number]] tetanus toxo id, reduced diphtheria toxoid, and [...] #1 Varicella Vax vari kathy virus vaccine hepatitis B vaccine #3 Historical hepatitis B vaccine, unspecified formulation DPT immunization #3 DTaP Hemophilus influenza B immunization #3 Historica l Haemophilus influenzae type b vaccine, conjugate unspecified formulation DPT immunization #2 DTaP Hemophilus influenza B immunization #2 Historica l Haemophilus influenzae type b vaccine, conjugate unspecified formulation oral polio vaccine (OPV) #2 IPV garcia ovirus vaccine, unspecified formulation hepatitis B vaccine #2 Historical hepatitis B vaccine, unspecified formulation DPT immunization #1 DTaP Hemophilus influenza B immunization #1 Historica l Haemophilus influenzae type b vaccine, conjugate unspecified formulation oral polio vaccine (OPV) #1 IPV garcia ovirus vaccine, unspecified formulation hepatitis B vaccine #1 [...] Panel - Chemistry sodium, serum 141 mmol/L 270-426 3962/11/19 potassium, serum 4.4 mmol/L 3.5-5.2 chloride, serum [...] cell distribution width 17.1 % 11 .6-14.8 platelet count 239 10^3/MM^3 10*3/mm3 142-424 Lab Report: UADIP W/MICRO, AUTO - Chemis try protein, total urine random Negative mg/dL Negative RBC, urine, dipstick Negative Negative protein, total urine random Trace mg/dL Negative RBC, urine, dipstick Negative Negative Lab Report: UADIP W/MICRO, AUTO - Urinal ysis urobilinogen, urine, semiquantitative (dipstick) 0.2 Normal leukocyte esterase, urine, by dipstick Negative Negative nitrite, urine, semiquantitative Negative Neg ative urate crystals, amorphous, urine, semiquantitative Few None seen urine color Yellow Colorless;Lightyellow;St raw;Yellow appearance, urine Clear Clear specific gravity, urine 1.020 1.000-1.030 pH, urine, semiquantitative 8.0 5.0-8.5 glucose, urine, semiquantitative Negative Neg ative ketones, urine, by test strip Trace Negati ve bilirubin, urine Negative Negative urine color Yellow Colorless;Lightyellow;St raw;Yellow appearance, urine Clear Clear specific gravity, urine 1.025 1.000-1.030 pH, urine, semiquantitative 6.5 5.0-8.5 urobilinogen, urine, semiquantitative (dipstick) 0.2 Normal leukocyte esterase, urine, by dipstick Negative Negative nitrite, urine, semiquantitative Negative Neg ative urate crystals, amorphous, urine, semiquantitative Large None seen glucose, urine, semiquantitative Negative Neg ative ketones, urine, by test strip Negative Negati ve bilirubin, urine Negative Negative Lab Report: [facility] - Chemistry human chorionic gonadotropin , urine, qualitative (urine test) Negative Negative Encounters Code Encounter Date Provider Facility CPT-48803 Level 3 Est. Patient 09:47:44 [employer] Keara Abreu MD [facility] CPT-98890 Level 3 Est. Patient 16:33:46 CDT Keara Abreu MD [facility] CPT-21781 Level 3 Est. Patient 16:38:32 CDT Dawson breen DO [facility] CPT-47084 Level 3 Est. Patient 15:58:59 [employer] Keara Abreu MD [facility] CPT-07055 Level 3 Est. Patient 10:44:39 [employer] Keara Abreu MD [facility] CPT-16541 Level 3 Est. Patient 10:09:23 CDT Keara Abreu MD [facility] CPT-41142 Level 3 Est. Patient 13:46:54 [employer] Keara Abreu MD [facility] CPT-21312 Level 3 Est. Patient 16:25:27 CDT Keara Abreu MD [facility] CPT-53148 Level 3 Est. Patient 10:22:54 CDT Keara Abreu MD [facility] CPT-69686 Level 3 Est. Patient 16:02:28 [employer] Keraa Abreu MD [facility] Procedures Code Procedure Name Date Entry Date Standard Desc ription CPT-21608 Sono pelvis non OB uterus ovaries cervix 09:06:48 [employer] CPT-96478 Sono retroperitoneal complete kidneys an d bladder 09:06:48 [employer] CPT-69792 Abd compl w upright 15:32:02 [employer] CPT-04826 Fluzone Quadrivalent Intramuscular Suspe nsion 0.5 ML 16:49:56 [employer] CPT-94748 Breathing Tx 11:04:54 CDT CPT-66248 Chest 2V Frontal and Lat 10:32:02 CDT 03/19 CPT-77312 Breathing Tx 10:23:54 CDT CPT-06041 EKG Trac and Interp 16:18:28 [employer]
--- OUTSIDE RECORDS SUMMARY | 2020-05-02 15:44 | XMS REPORT | Clinical Summary ---
Author Author Mario, Valerie Villegas Organization [facility] Address Unknown Phone Unavailable Allergies, Adverse [...] Blum MD Cough OTHER ABNORMAL GLUCOSE 790.29 Active Keara Blum MD Other abnormal glucose ALLERGIC RHINITIS 477.9 Active Keara kelly MD Allergic rhinitis, cause unspecified COUGH 786.2 Inactive Keara Blum MD Cough G E REFLUX 530.81 Active Keara Blum MD Esophageal reflux Sinusitis-Acute 461.9 Resolved Keara Blum MD Acute sinusitis, unspecified Other unspecified back disorders 724.9 Active 201 12/24/26 Keara Blum MD Other unspecified back disorders UTI 599.0 Active Keara Blum MD Urinary tract infection, site not specified Otitis media, left 382.9 Active Dawson Gresham DO Unspecified otitis media COUGH ICD-786.2 Inactive Keara Blum MD 20 08/30/25 COUGH ICD-786.2 Inactive Keara Blum MD 20 09/01/22 Sinusitis-Acute ICD-461.9 Inactive Keara kumar MD Medication List Medication Instructions Start Date Stop Date Generic Name NDC Status Provider Patient Instruction CEFTIN 500 MG TAB 1 po bid 10 days CEFUROXIME AXE TIL 51082566369 Active Dawson Gresham DO Active FLUTICASONE PROPIONATE 50 MCG/ACT SUSP 1 puff in each nostril [place] FLUTICASONE PROPIONATE 47901333441 No Longer Active Dawson Gresham DO Active CEFDINIR 300 MG CAPS 1 daily CEFDINIR 5406126 3010 No Longer Active Dawson Gresham DO Active ONDANSETRON HCL 8 MG TABS 1 q 8 hours ONDANSETRON HCL 74870049016 Active Keara Blum MD Active ZIANA 1.2-0.025 % GEL apply pea size daily CLIN DAMYCIN-TRETINOIN 26222297049 Active Keara Blum MD Active CEFDINIR 300 MG CAPS 1 daily CEFDINIR 8395193 3010 No Longer Active Keara Blum MD Active ONDANSETRON HCL 8 MG TABS 1 every8 hrs prn vomiting 20 08/10/08 ONDANSETRON HCL 52217055362 No Longer Active Keara Blum MD Active CLARITIN-D 24 HOUR 10-240 MG [id number] 1 po qd PRN Allergies 201 12/01/26 LORATADINE-PSEUDOEPHEDRINE 05531751833 No Longer Active Danielle Blum MD Active PROPRANOLOL HCL 20 MG TABS 1 bid PROPRANOL OL HCL 32986444113 No Longer Active Keara Blum MD Active PROAIR HFA 108 (90 BASE) MCG/ACT AERS 1-2 puffs 2-4 times a day as needed ALBUTEROL SULFATE 85471205593 No Longer Active Keara Blum MD Active PRILOSEC 20 MG CPDR 1 daily OMEPRAZOLE 75546679211 Ac tive Keara Blum MD Active FLOVENT HFA 110 MCG/ACT AERO 1 puff bid, rinse and spit FLUTICASONE PROPIONATE HFA 24119786619 No Longer Active Keara Blum MD Active FLUTICASONE PROPIONATE 50 MCG/ACT SUSP 1 puff in each nostril [place] FLUTICASONE PROPIONATE 67928584296 No Longer Active Keara Blum MD Active ZYRTEC ALLERGY 10 MG TABS 1 tablet po daily CET IRIZINE HCL 16801104005 No Longer Active Keara Blum MD Active AZITHROMYCIN 250 MG TABS 2 pills day 1,1 pill day 2-5 AZITHROMYCIN 38651921824 No Longer Active Keara Blum MD Act [place] ZYRTEC ALLERGY 10 MG TABS 1 tablet po daily ZYRTEC ALLERGY 10 MG TABS 5072758 CETIRIZINE HCL Inactive FLOVENT HFA 110 MCG/ACT AERO 1 puff bid, rinse and spit FLOVENT HFA 110 MCG/ACT AERO FLUTICASONE PROPIONATE HFA [place] ctive PROAIR HFA 108 (90 BASE) MCG/ACT AERS 1-2 puffs 2-4 times a day as needed PROAIR HFA 108 (90 BASE) MCG/ACT AERS ALB UTEROL SULFATE Inactive PROPRANOLOL HCL 20 MG TABS 1 bid P ROPRANOLOL HCL 20 MG TABS 146539 PROPRANOLOL HCL Inactive CLARITIN-D 24 HOUR 10-240 MG [id number] 1 po qd PRN Allergies 201 12/01/26 CLARITIN-D 24 HOUR 10-240 MG [id number] LORATADIN E-PSEUDOEPHEDRINE Inactive ONDANSETRON HCL 8 MG TABS 1 every8 hrs prn vomiting 20 08/10/08 ONDANSETRON HCL 8 MG TABS 905621 ONDANSETRON HCL Inactive CEFDINIR 300 MG CAPS 1 daily CEFDINIR 300 MG C APS 20021229 CEFDINIR Inactive CEFDINIR 300 MG CAPS 1 daily CEFDINIR 300 MG C APS 20021229 CEFDINIR Inactive FLUTICASONE PROPIONATE 50 MCG/ACT SUSP 1 puff in each nostril [place] FLUTICASONE PROPIONATE 50 MCG/ACT SUSP 753432 FLUTICASO NE PROPIONATE Inactive AZITHROMYCIN 250 MG TABS 2 pills day 1,1 pill day 2-5 AZITHROMYCIN 250 MG TABS 8397197 AZITHROMYCIN Inactive FLUTICASONE PROPIONATE 50 MCG/ACT SUSP 1 puff in each nostril [place] FLUTICASONE PROPIONATE 50 MCG/ACT SUSP 570031 FLUTICASO NE PROPIONATE Inactive Immunizations Vaccine Administration [...] (MPSV4) Adacel (Tetanus, reduced Diphtheria, and acellular Per tussis Immunization) Adacel [SOR125] tetanus toxoid, reduced diph theria toxoid, and acellular pertussis vaccine, adsorbed chicken pox immunization #2 Varicella Vax vari kathy virus vaccine DPT immunization #5 DTaP oral polio vaccine (OPV) #4 IPV garcia ovirus vaccine, unspecified formulation MMR (measles, mumps, rubella) virus immunization #2 MMR DPT immunization #4 DTaP Hemophilus influenza B immunization #4 Historica l Haemophilus influenzae type b vaccine, conjugate unspecified formulation oral polio vaccine (OPV) #3 IPV garcia ovirus vaccine, unspecified formulation MMR (measles, mumps, rubella) [...] formulation hepatitis B vaccine #2 given Historical hep atitis B vaccine, unspecified formulation DPT immunization #1 DTaP Hemophilus influenza B immunization #1 Historica l Haemophilus influenzae type b vaccine, conjugate unspecified formulation oral polio vaccine (OPV) #1 IPV garcia ovirus vaccine, unspecified formulation hepatitis B vaccine #1 given Historical hep atitis B vaccine, unspecified formulation Vital Signs Date Name Value Unit Range Description blood pressure, diastolic - 8462-4 83 mm[Hg] BP horner blood pressure, systolic - 8480-6 137 mm[Hg] BP sys pulse rate E&M - 8867-4 81 /min H eart rate temperature E&M 99.6 [degF] Body temp erature weight E&M - 3141-9 233 [lb_av] Weigh t Measured blood pressure, diastolic - 8462-4 78 mm[Hg] BP horner blood pressure, systolic - 8480-6 120 mm[Hg] BP sys temperature E&M 98.6 [degF] Body temp erature weight E&M - 3141-9 209 [lb_av] Weigh t Measured blood pressure, diastolic - 8462-4 72 mm[Hg] BP horner blood pressure, systolic - 8480-6 122 mm[Hg] BP sys height E&M - 8302-2 69.25 [in_us] Bdy h eight temperature E&M 96.5 [degF] Body temp erature weight E&M - 3141-9 212 [lb_av] Weigh t Measured blood pressure, diastolic - 8462-4 70 mm[Hg] BP horner blood pressure, systolic - 8480-6 112 mm[Hg] BP sys height E&M - 8302-2 69.25 [in_us] Bdy h eight temperature E&M 98.9 [degF] Body temp erature weight E&M - 3141-9 218 [lb_av] Weigh t Measured Diagnostic Results Date Name Value Unit Range Description Lab Report: UADIP W/MICRO, AUTO - Chemis try protein, total urine random Trace mg/dL Negative RBC, urine, dipstick Negative Negative Lab Report: UADIP W/MICRO, AUTO - Urinal ysis urobilinogen, urine, semiquantitative (dipstick) 0.2 Normal leukocyte esterase, urine, by dipstick Negative Negative nitrite, urine, semiquantitative Negative Neg ative urate crystals, amorphous, urine, semiquantitative Few None seen glucose, urine, semiquantitative Negative Neg ative ketones, urine, by test strip Trace Negati ve bilirubin, urine Negative Negative urine color Yellow Colorless;Lightyellow;St raw;Yellow appearance, urine Clear Clear specific gravity, urine 1.025 1.000-1.030 pH, urine, semiquantitative 6.5 5.0-8.5 Encounters Code Encounter Date Provider Facility CPT-04138 Level 3 Est. Patient 16:38:32 CDT Dawson breen DO [facility] CPT-99758 Level 3 Est. Patient 15:58:59 [employer] Keara Abreu MD [facility] CPT-11315 Level 3 Est. Patient 10:44:39 [employer] Keara Abreu MD [facility] CPT-14962 Level 3 Est. Patient 10:09:23 CDT Keara Abreu MD [facility] CPT-20738 Level 3 Est. Patient 13:46:54 [employer] TENDER Keara Abreu MD [facility] CPT-03908 Level 3 Est. Patient 16:25:27 CDT Keara Abreu MD [facility] CPT-70184 Level 3 Est. Patient 10:22:54 CDT Keara Abreu MD [facility] CPT-22567 Level 3 Est. Patient 16:02:28 [employer]ER Keara Abreu MD [facility] Procedures Code Procedure Name Date Entry Date Standard Desc ription CPT-85485 Breathing Tx 11:04:54 CDT CPT-10246 Chest 2V Frontal and Lat 10:32:02 CDT 03/19 CPT-99597 Breathing Tx 10:23:54 CDT CPT-45537 EKG Trac and Interp 16:18:28 [employer]
--- OUTSIDE RECORDS SUMMARY | 2020-05-02 15:44 | XMS REPORT | Clinical Summary ---
Author Author Mario, Valerie Villegas Organization [facility] Address Unknown Phone Unavailable Allergies, Adverse [...] unspecified Flank pain, right 789.09 Active Keara klely MD Abdominal pain, other specified site; multiple sites COUGH ICD-786.2 Inactive Keara Blum MD 20 08/30/25 OTHER ABNORMAL GLUCOSE ICD-790.29 Inactive Agusto Blum MD COUGH ICD-786.2 Inactive Keara Blum MD 20 09/01/22 G E REFLUX ICD-530.81 Inactive Keara kelly MD Sinusitis-Acute ICD-461.9 Inactive Keara kumar MD Other unspecified back disorders ICD-724.9 [place] ctive Keara Blum MD UTI ICD-599.0 Inactive Keara Blum MD 20 08/06/08 Otitis media, left ICD-382.9 Inactive Keara Blum MD Sinusitis-Acute ICD-461.9 Inactive Keara kumar MD Medication List Medication Instructions Start Date Stop Date Generic Name NDC Status Provider Patient Instruction CEFTIN 500 MG TABS 1 bid CEFUROXIME AXETIL 5 3292739039 No Longer Active Keara Blum MD Active FLUTICASONE PROPIONATE 50 MCG/ACT SUSP 1 puff in each nostril [place] FLUTICASONE PROPIONATE 67866575308 Active Keara Blum MD Active ONDANSETRON HCL 8 MG TABS 1 q 8 hours ONDANSETR ON HCL 16736270994 No Longer Active Keara Blum MD Active ZIANA 1.2-0.025 % GEL apply pea size daily CLIN DAMYCIN-TRETINOIN 76011010202 No Longer Active Keara Blum MD Active CEFTIN 500 MG TAB 1 po bid 10 days CEFUROXIME A XETIL 33445838255 No Longer Active Keara Blum MD Active FLUTICASONE PROPIONATE 50 MCG/ACT SUSP 1 puff in each nostril [place] FLUTICASONE PROPIONATE 72942670104 No Longer Active Dawson Gresham DO Active CEFDINIR 300 MG CAPS 1 daily CEFDINIR 0222372 3010 No Longer Active Dawson Gresham DO Active CEFDINIR 300 MG CAPS 1 daily CEFDINIR 2402176 3010 No Longer Active Keara Blum MD Active ONDANSETRON HCL 8 MG TABS 1 every8 hrs prn vomiting 20 08/10/08 ONDANSETRON HCL 00840628381 No Longer Active Keara Blum MD Active CLARITIN-D 24 HOUR 10-240 MG [id number] 1 po qd PRN Allergies 201 12/01/26 LORATADINE-PSEUDOEPHEDRINE 48325459052 No Longer Active Danielle Blum MD Active PROPRANOLOL HCL 20 MG TABS 1 bid PROPRANOL OL HCL 88672057451 No Longer Active Keara Blum MD Active PROAIR HFA 108 (90 BASE) MCG/ACT AERS 1-2 puffs 2-4 times a day as needed ALBUTEROL SULFATE 27419175026 No Longer Active Keara Blum MD Active PRILOSEC 20 MG CPDR 1 daily OMEPRAZOLE 08006350116 Ac tive Keara Blum MD Active FLOVENT HFA 110 MCG/ACT AERO 1 puff bid, rinse and spit FLUTICASONE PROPIONATE HFA 96761841005 No Longer Active Keara Blum MD Active FLUTICASONE PROPIONATE 50 MCG/ACT SUSP 1 puff in each nostril [place] FLUTICASONE PROPIONATE 37188108705 No Longer Active Keara Blum MD Active ZYRTEC ALLERGY 10 MG TABS 1 tablet po daily CET IRIZINE HCL 51774320634 No Longer Active Keara Blum MD Active AZITHROMYCIN 250 MG TABS 2 pills day 1,1 pill day 2-5 AZITHROMYCIN 74508192532 No Longer Active Keara Blum MD Act [place] ZYRTEC ALLERGY 10 MG TABS 1 tablet po daily ZYRTEC ALLERGY 10 MG TABS 0303885 CETIRIZINE HCL Inactive FLOVENT HFA 110 MCG/ACT AERO 1 puff bid, rinse and spit FLOVENT HFA 110 MCG/ACT AERO FLUTICASONE PROPIONATE HFA [place] ctive PROAIR HFA 108 (90 BASE) MCG/ACT AERS 1-2 puffs 2-4 times a day as needed PROAIR HFA 108 (90 BASE) MCG/ACT AERS ALB UTEROL SULFATE Inactive PROPRANOLOL HCL 20 MG TABS 1 bid P ROPRANOLOL HCL 20 MG TABS 673679 PROPRANOLOL HCL Inactive CLARITIN-D 24 HOUR 10-240 MG [id number] 1 po qd PRN Allergies 201 12/01/26 CLARITIN-D 24 HOUR 10-240 MG [id number] LORATADIN E-PSEUDOEPHEDRINE Inactive ONDANSETRON HCL 8 MG TABS 1 every8 hrs prn vomiting 20 08/10/08 ONDANSETRON HCL 8 MG TABS 560634 ONDANSETRON HCL Inactive CEFDINIR 300 MG CAPS 1 daily CEFDINIR 300 MG C APS 20021229 CEFDINIR Inactive CEFDINIR 300 MG CAPS 1 daily CEFDINIR 300 MG C APS 20021229 CEFDINIR Inactive FLUTICASONE PROPIONATE 50 MCG/ACT SUSP 1 puff in each nostril [place] FLUTICASONE PROPIONATE 50 MCG/ACT SUSP 156204 FLUTICASO NE PROPIONATE Inactive CEFTIN 500 MG TAB 1 po bid 10 days CEFTIN 500 M G TAB 375348 CEFUROXIME AXETIL Inactive ZIANA 1.2-0.025 % GEL apply pea size daily ZIANA 1.2-0.025 % GEL CLINDAMYCIN-TRETINOIN Inactive ONDANSETRON HCL 8 MG TABS 1 q 8 hours ON DANSETRON HCL 8 MG TABS 122745 ONDANSETRON HCL Inactive CEFTIN 500 MG TABS 1 bid CEFTIN 500 MG TABS 073534 CEFUROXIME AXETIL Inactive AZITHROMYCIN 250 MG TABS 2 pills day 1,1 pill day 2-5 AZITHROMYCIN 250 MG TABS 9239304 AZITHROMYCIN Inactive FLUTICASONE PROPIONATE 50 MCG/ACT SUSP 1 puff in each nostril [place] FLUTICASONE PROPIONATE 50 MCG/ACT SUSP 152082 FLUTICASO NE PROPIONATE Inactive Immunizations Vaccine Administration [...] meningococcal polysaccharide vaccine (MPSV4) Adacel immunization Adacel [ZJR450] tetanus toxo id, reduced diphtheria toxoid, and [...] Panel - Chemistry sodium, serum 141 mmol/L 698-687 2507/11/19 potassium, serum 4.4 mmol/L 3.5-5.2 chloride, serum [...] ve bilirubin, urine Negative Negative Lab Report: [facility] [place] Chemistry human chorionic gonadotropin , urine, qualitative (urine test) Negative Negative Encounters Code Encounter Date Provider Facility CPT-64789 Level 3 Est. 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 Patient 16:33:46 CDT Keara Abreu MD [facility] CPT-25500 Level 3 Est. Patient 16:38:32 CDT Dawson breen DO [facility] CPT-17216 Level 3 Est. Patient 15:58:59 TRACK LINER OPERATOR Keara Abreu MD [facility] CPT-57579 Level 3 Est. Patient 10:44:39 TRACK LINER OPERATOR Keara Abreu MD [facility] CPT-80817 Level 3 Est. Patient 10:09:23 CDT Keara Abreu MD [facility] CPT-11726 Level 3 Est. Patient 13:46:54 TRACK LINER OPERATOR Keara Abreu MD [facility] CPT-67406 Level 3 Est. Patient 16:25:27 CDT Keara Abreu MD [facility] CPT-73548 Level 3 Est. Patient 10:22:54 CDT Keara Abreu MD [facility] CPT-65395 Level 3 Est. Patient 16:02:28 TRACK LINER OPERATOR Keara Abreu MD [facility] Procedures Code Procedure Name Date Entry Date Standard Desc ription CPT-94682 Breathing Tx 11:04:54 CDT CPT-78898 Chest 2V Frontal and Lat 10:32:02 CDT 03/19 CPT-10321 Breathing Tx 10:23:54 CDT CPT-32247 EKG Trac and Interp 16:18:28 TRACK LINER OPERATOR
--- OUTSIDE RECORDS SUMMARY | 2020-05-02 15:44 | XMS REPORT | Clinical Summary ---
Author Author Mario, Valerie Villegas Organization [facility] Address Unknown Phone Unavailable Allergies, Adverse Reactions, [...] Agusto Blum MD COUGH ICD-786.2 Inactive Keara Bulm MD 20 09/01/22 G E REFLUX ICD-530.81 Inactive Keara kelly MD Sinusitis-Acute ICD-461.9 Inactive Keara kumar MD Other unspecified back disorders ICD-724.9 [place] [address]ive Keara Blum MD UTI ICD-599.0 Inactive Keara Blum MD 20 08/06/08 Otitis media, left ICD-382.9 Inactive Keara Blum MD Sinusitis-Acute ICD-461.9 Inactive Keara kumar MD Medication List Medication Instructions Start Date Stop Date Generic Name NDC Status Provider Patient Instruction CEFTIN 500 MG TABS 1 bid CEFUROXIME AXETIL 5 [id number] No Longer Active Keara Blum MD Active FLUTICASONE PROPIONATE 50 MCG/ACT SUSP 1 puff in each nostril da blaine FLUTICASONE PROPIONATE 55664987245 Active Keara Blum MD Active ONDANSETRON HCL 8 MG TABS 1 q 8 hours ONDANSETR ON HCL 77621702618 No Longer Active Keara Blum MD Active ZIANA 1.2-0.025 % GEL apply pea size daily CLIN DAMYCIN-TRETINOIN 09950907061 No Longer Active Keara Blum MD Active CEFTIN 500 MG TAB 1 po bid 10 days CEFUROXIME A XETIL 87337299331 No Longer Active Keara Blum MD Active FLUTICASONE PROPIONATE 50 MCG/ACT SUSP 1 puff in each nostril [place] blaine FLUTICASONE PROPIONATE 91594261180 No Longer Active Dawson Gresham DO Active CEFDINIR 300 MG CAPS 1 daily CEFDINIR 9189041 3010 No Longer Active Dawson Gresham DO Active CEFDINIR 300 MG CAPS 1 daily CEFDINIR 5965630 3010 No Longer Active Keara Blum MD Active ONDANSETRON HCL 8 MG TABS 1 every8 hrs prn vomiting 20 08/10/08 ONDANSETRON HCL 02039808084 No Longer Active Keara Blum MD Active CLARITIN-D 24 HOUR 10-240 MG [id number] 1 po qd PRN Allergies 201 12/01/26 LORATADINE-PSEUDOEPHEDRINE 03135374862 No Longer Active Danielle Blum MD Active PROPRANOLOL HCL 20 MG TABS 1 bid PROPRANOL OL HCL 41221654769 No Longer Active Keara Blum MD Active PROAIR HFA 108 (90 BASE) MCG/ACT AERS 1-2 puffs 2-4 times a day as needed ALBUTEROL SULFATE 54390928582 No Longer Active Keara Blum MD Active PRILOSEC 20 MG CPDR 1 daily OMEPRAZOLE 14768458899 Ac tive Keara Blum MD Active FLOVENT HFA 110 MCG/ACT AERO 1 puff bid, rinse and spit FLUTICASONE PROPIONATE HFA 51844152226 No Longer Active Keara Blum MD Active FLUTICASONE PROPIONATE 50 MCG/ACT SUSP 1 puff in each nostril [place] FLUTICASONE PROPIONATE 89978322714 No Longer Active Keara Blum MD Active ZYRTEC ALLERGY 10 MG TABS 1 tablet po daily CET IRIZINE HCL 77103520333 No Longer Active Keara Blum MD Active AZITHROMYCIN 250 MG TABS 2 pills day 1,1 pill day 2-5 AZITHROMYCIN 00001809250 No Longer Active Keara Blum MD Act verona ZYRTEC ALLERGY 10 MG TABS 1 tablet po daily ZYRTEC ALLERGY 10 MG TABS 0816540 CETIRIZINE HCL Inactive FLOVENT HFA 110 MCG/ACT AERO 1 puff bid, rinse and spit FLOVENT HFA 110 MCG/ACT AERO FLUTICASONE PROPIONATE HFA [place] ctive PROAIR HFA 108 (90 BASE) MCG/ACT AERS 1-2 puffs 2-4 times a day as needed PROAIR HFA 108 (90 BASE) MCG/ACT AERS ALB UTEROL SULFATE Inactive PROPRANOLOL HCL 20 MG TABS 1 bid P ROPRANOLOL HCL 20 MG TABS 916458 PROPRANOLOL HCL Inactive CLARITIN-D 24 HOUR 10-240 MG [id number] 1 po qd PRN Allergies 201 12/01/26 CLARITIN-D 24 HOUR 10-240 MG [id number] LORATADIN E-PSEUDOEPHEDRINE Inactive ONDANSETRON HCL 8 MG TABS 1 every8 hrs prn vomiting 20 08/10/08 ONDANSETRON HCL 8 MG TABS 596418 ONDANSETRON HCL Inactive CEFDINIR 300 MG CAPS 1 daily CEFDINIR 300 MG C APS 20021229 CEFDINIR Inactive CEFDINIR 300 MG CAPS 1 daily CEFDINIR 300 MG C APS 20021229 CEFDINIR Inactive FLUTICASONE PROPIONATE 50 MCG/ACT SUSP 1 puff in each nostril [place] FLUTICASONE PROPIONATE 50 MCG/ACT SUSP 694820 FLUTICASO NE PROPIONATE Inactive CEFTIN 500 MG TAB 1 po bid 10 days CEFTIN 500 M G TAB 151268 CEFUROXIME AXETIL Inactive ZIANA 1.2-0.025 % GEL apply pea size daily ZIANA 1.2-0.025 % GEL CLINDAMYCIN-TRETINOIN Inactive ONDANSETRON HCL 8 MG TABS 1 q 8 hours ON DANSETRON HCL 8 MG TABS 038904 ONDANSETRON HCL Inactive CEFTIN 500 MG TABS 1 bid CEFTIN 500 MG TABS 313402 CEFUROXIME AXETIL Inactive AZITHROMYCIN 250 MG TABS 2 pills day 1,1 pill day 2-5 AZITHROMYCIN 250 MG TABS 9481342 AZITHROMYCIN Inactive FLUTICASONE PROPIONATE 50 MCG/ACT SUSP 1 puff in each nostril [place] FLUTICASONE PROPIONATE 50 MCG/ACT SUSP 991626 FLUTICASO NE PROPIONATE Inactive Immunizations Vaccine Administration [...] meningococcal polysaccharide vaccine (MPSV4) Adacel immunization Adacel [[id number]] tetanus toxo id, reduced diphtheria toxoid, and [...] Panel - Chemistry sodium, serum 141 mmol/L 329-259 3877/11/19 potassium, serum 4.4 mmol/L 3.5-5.2 chloride, serum [...] ve bilirubin, urine Negative Negative Lab Report: [facility] [place] human chorionic gonadotropin , urine, qualitative (urine test) Negative Negative Encounters Code Encounter Date Provider Facility CPT-83280 Level 3 Est. Patient 09:47:44 OXIDIZED FINISH PLATER Keara Abreu MD [facility] CPT-99931 Level 3 Est. Patient 16:33:46 CDT Keara Abreu MD [facility] CPT-46660 Level 3 Est. Patient 16:38:32 CDT Dawson breen DO [facility] CPT-99707 Level 3 Est. Patient 15:58:59 OXIDIZED FINISH PLATER Keara Abreu MD [facility] CPT-89172 Level 3 Est. Patient 10:44:39 OXIDIZED FINISH PLATER Keara Abreu MD [facility] CPT-83305 Level 3 Est. Patient 10:09:23 CDT Keara Abreu MD [facility] CPT-57490 Level 3 Est. Patient 13:46:54 OXIDIZED FINISH PLATER Keara Abreu MD [facility] CPT-74424 Level 3 Est. Patient 16:25:27 CDT Keara Abreu MD [facility] CPT-97778 Level 3 Est. Patient 10:22:54 CDT Keara Abreu MD [facility] CPT-63697 Level 3 Est. Patient 16:02:28 OXIDIZED FINISH PLATER Keara Abreu MD [facility] Procedures Code Procedure Name Date Entry Date Standard Desc ription CPT-51477 Fluzone Quadrivalent Intramuscular Suspe nsion 0.5 ML 16:49:56 OXIDIZED FINISH PLATER CPT-00740 Breathing Tx 11:04:54 CDT CPT-39927 Chest 2V Frontal and Lat 10:32:02 CDT 03/19 CPT-76984 Breathing Tx 10:23:54 CDT CPT-70121 EKG Trac and Interp 16:18:28 OXIDIZED FINISH PLATER
--- OUTSIDE RECORDS SUMMARY | 2020-05-02 15:44 | XMS REPORT | Clinical Summary ---
Author Author Mario, Valerie Villegas Organization [facility] Address Unknown Phone Unavailable Allergies, Adverse Reactions, [...] kumar MD Other unspecified back disorders ICD-724.9 [place] ctive Keara Blum MD UTI ICD-599.0 Inactive Keara Blum MD 20 08/06/08 Otitis media, left ICD-382.9 Inactive Keara Blum MD Sinusitis-Acute ICD-461.9 Inactive Keara kumar MD Medication List Medication Instructions Start Date Stop Date Generic Name NDC Status Provider Patient Instruction CEFTIN 500 MG TABS 1 bid CEFUROXIME AXETIL 5 9563374771 No Longer Active Keara Blum MD Active FLUTICASONE PROPIONATE 50 MCG/ACT SUSP 1 puff in each nostril [place] FLUTICASONE PROPIONATE 40995386748 Active Keara Blum MD Active ONDANSETRON HCL 8 MG TABS 1 q 8 hours ONDANSETR ON HCL 74060948415 No Longer Active Keara Blum MD Active ZIANA 1.2-0.025 % GEL apply pea size daily CLIN DAMYCIN-TRETINOIN 16607709024 No Longer Active Keara Blum MD Active CEFTIN 500 MG TAB 1 po bid 10 days CEFUROXIME A XETIL 59940317069 No Longer Active Keara Blum MD Active FLUTICASONE PROPIONATE 50 MCG/ACT SUSP 1 puff in each nostril [place] FLUTICASONE PROPIONATE 27865100708 No Longer Active Dawson Gresham DO Active CEFDINIR 300 MG CAPS 1 daily CEFDINIR 0050337 3010 No Longer Active Dawson Gresham DO Active CEFDINIR 300 MG CAPS 1 daily CEFDINIR 2345290 3010 No Longer Active Keara Blum MD Active ONDANSETRON HCL 8 MG TABS 1 every8 hrs prn vomiting 20 08/10/08 ONDANSETRON HCL 13790364788 No Longer Active Keara Blum MD Active CLARITIN-D 24 HOUR 10-240 MG [id number] 1 po qd PRN Allergies 201 12/01/26 LORATADINE-PSEUDOEPHEDRINE 18049001495 No Longer Active Danielle Blum MD Active PROPRANOLOL HCL 20 MG TABS 1 bid PROPRANOL OL HCL 27493954558 No Longer Active Keara Blum MD Active PROAIR HFA 108 (90 BASE) MCG/ACT AERS 1-2 puffs 2-4 times a day as needed ALBUTEROL SULFATE 62106395502 No Longer Active Keara Blum MD Active PRILOSEC 20 MG CPDR 1 daily OMEPRAZOLE 32994276720 Ac tive Keara Blum MD Active FLOVENT HFA 110 MCG/ACT AERO 1 puff bid, rinse and spit FLUTICASONE PROPIONATE HFA 45728610528 No Longer Active Keara Blum MD Active FLUTICASONE PROPIONATE 50 MCG/ACT SUSP 1 puff in each nostril [place] FLUTICASONE PROPIONATE 12280749368 No Longer Active Keara Blum MD Active ZYRTEC ALLERGY 10 MG TABS 1 tablet po daily CET IRIZINE HCL 98035751529 No Longer Active Keara Blum MD Active AZITHROMYCIN 250 MG TABS 2 pills day 1,1 pill day 2-5 AZITHROMYCIN 32958969440 No Longer Active Keara Blum MD Act [place] ZYRTEC ALLERGY 10 MG TABS 1 tablet po daily ZYRTEC ALLERGY 10 MG TABS 5987710 CETIRIZINE HCL Inactive FLOVENT HFA 110 MCG/ACT AERO 1 puff bid, rinse and spit FLOVENT HFA 110 MCG/ACT AERO FLUTICASONE PROPIONATE HFA [place] ctive PROAIR HFA 108 (90 BASE) MCG/ACT AERS 1-2 puffs 2-4 times a day as needed PROAIR HFA 108 (90 BASE) MCG/ACT AERS ALB UTEROL SULFATE Inactive PROPRANOLOL HCL 20 MG TABS 1 bid P ROPRANOLOL HCL 20 MG TABS 581871 PROPRANOLOL HCL Inactive CLARITIN-D 24 HOUR 10-240 MG [id number] 1 po qd PRN Allergies 201 12/01/26 CLARITIN-D 24 HOUR 10-240 MG [id number] LORATADIN E-PSEUDOEPHEDRINE Inactive ONDANSETRON HCL 8 MG TABS 1 every8 hrs prn vomiting 20 08/10/08 ONDANSETRON HCL 8 MG TABS 635001 ONDANSETRON HCL Inactive CEFDINIR 300 MG CAPS 1 daily CEFDINIR 300 MG C APS 20021229 CEFDINIR Inactive CEFDINIR 300 MG CAPS 1 daily CEFDINIR 300 MG C APS 20021229 CEFDINIR Inactive FLUTICASONE PROPIONATE 50 MCG/ACT SUSP 1 puff in each nostril [place] FLUTICASONE PROPIONATE 50 MCG/ACT SUSP 819322 FLUTICASO NE PROPIONATE Inactive CEFTIN 500 MG TAB 1 po bid 10 days CEFTIN 500 M G TAB 746684 CEFUROXIME AXETIL Inactive ZIANA 1.2-0.025 % GEL apply pea size daily ZIANA 1.2-0.025 % GEL CLINDAMYCIN-TRETINOIN Inactive ONDANSETRON HCL 8 MG TABS 1 q 8 hours ON DANSETRON HCL 8 MG TABS 407345 ONDANSETRON HCL Inactive CEFTIN 500 MG TABS 1 bid CEFTIN 500 MG TABS 730263 CEFUROXIME AXETIL Inactive AZITHROMYCIN 250 MG TABS 2 pills day 1,1 pill day 2-5 AZITHROMYCIN 250 MG TABS 7547881 AZITHROMYCIN Inactive FLUTICASONE PROPIONATE 50 MCG/ACT SUSP 1 puff in each nostril [place] FLUTICASONE PROPIONATE 50 MCG/ACT SUSP 301446 FLUTICASO NE PROPIONATE Inactive Immunizations Vaccine Administration [...] meningococcal polysaccharide vaccine (MPSV4) Adacel immunization Adacel [[id number]] tetanus toxo id, reduced diphtheria toxoid, and [...] Panel - Chemistry sodium, serum 141 mmol/L 578-836 4639/11/19 potassium, serum 4.4 mmol/L 3.5-5.2 chloride, serum [...] ve bilirubin, urine Negative Negative Lab Report: [facility] [place] Chemistry human chorionic gonadotropin , urine, qualitative (urine test) Negative Negative Encounters Code Encounter Date Provider Facility CPT-35567 Level 3 Est. Patient 09:47:44 HANGERSMITH Keara Abreu MD [facility] CPT-47049 Level 3 Est. Patient 16:33:46 CDT Keara Abreu MD [facility] CPT-97099 Level 3 Est. Patient 16:38:32 CDT Dawson breen DO [facility] CPT-92453 Level 3 Est. Patient 15:58:59 HANGERSMITH Keara Abreu MD [facility] CPT-12863 Level 3 Est. Patient 10:44:39 HANGERSMITH Keara Abreu MD [facility] CPT-67819 Level 3 Est. Patient 10:09:23 CDT Keara Abreu MD [facility] CPT-22996 Level 3 Est. Patient 13:46:54 HANGERSMITH Keara Abreu MD [facility] CPT-37176 Level 3 Est. Patient 16:25:27 CDT Keara Abreu MD [facility] CPT-24775 Level 3 Est. Patient 10:22:54 CDT Keara Abreu MD [facility] CPT-80666 Level 3 Est. Patient 16:02:28 HANGERSMITH Keara Abreu MD [facility] Procedures Code Procedure Name Date Entry Date Standard Desc ription CPT-27110 Fluzone Quadrivalent Intramuscular Suspe nsion 0.5 ML 16:49:56 HANGERSMITH CPT-24554 Breathing Tx 11:04:54 CDT CPT-84224 Chest 2V Frontal and Lat 10:32:02 CDT 03/19 CPT-79522 Breathing Tx 10:23:54 CDT CPT-12762 EKG Trac and Interp 16:18:28 HANGERSMITH
--- OUTSIDE RECORDS SUMMARY | 2020-05-02 15:45 | XMS REPORT | Clinical Summary ---
Author Author Mario, Valerie Villegas Organization [facility] Address Unknown Phone Unavailable Allergies, Adverse [...] MD Esophageal reflux Sinusitis-Acute 461.9 Resolved Keara Bulm MD Acute sinusitis, unspecified Other unspecified back [...] cyst Acne 706.1 Active Hortensia Marr MD O ther acne Contraceptive management V25.09 Active Hortensia higgins MD Encounter for other general counseling and advice on contraceptive management COUGH ICD-786.2 Inactive Keara Blum MD 20 [...] one tab PO daily LEVONORGEST-ETH ESTRAD - 95606494586 Active Hortensia Marr MD Active TRI-SPRINTEC 0.18/0.215/0.25 MG-35 MCG TABS 1 po qd as directed NORGESTIM-ETH ESTRAD TRIPHASIC 97639681155 No Longer Active Hortensia Marr MD Active ACZONE 5 % EXT GEL DAPSONE 45201596416 Active Agustina Marr MD Active FLUTICASONE PROPIONATE 50 MCG/ACT SUSP 1 puff in each nostril [place] FLUTICASONE PROPIONATE 05414262604 No Longer Active Hortensia Marr MD Active PRILOSEC 20 MG CPDR 1 daily OMEPRAZOLE 3130298 3614 No Longer Active Hortensia Marr MD Active CEFTIN 500 MG TABS 1 bid CEFUROXIME AXETIL 5 9089544474 No Longer Active Keara Blum MD Active ONDANSETRON HCL 8 MG TABS 1 q 8 hours ONDANSETR ON HCL 87097238803 No Longer Active Keara Blum MD Active ZIANA 1.2-0.025 % GEL apply pea size daily CLIN DAMYCIN-TRETINOIN 36994800694 No Longer Active Keara Blum MD Active CEFTIN 500 MG TAB 1 po bid 10 days CEFUROXIME A XETIL 90013387636 No Longer Active Keara Blum MD Active FLUTICASONE PROPIONATE 50 MCG/ACT SUSP 1 puff in each nostril [place] FLUTICASONE PROPIONATE 32739658653 No Longer Active Dawson Gresham DO Active CEFDINIR 300 MG CAPS 1 daily CEFDINIR 0819621 3010 No Longer Active Dawson Gresham DO Active CEFDINIR 300 MG CAPS 1 daily CEFDINIR 5956967 3010 No Longer Active Keara Blum MD Active ONDANSETRON HCL 8 MG TABS 1 every8 hrs prn vomiting 20 08/10/08 ONDANSETRON HCL 60338257880 No Longer Active Keara Blum MD Active CLARITIN-D 24 HOUR 10-240 MG [id number] 1 po qd PRN Allergies 201 12/01/26 LORATADINE-PSEUDOEPHEDRINE 35943729679 No Longer Active Danielle Blum MD Active PROPRANOLOL HCL 20 MG TABS 1 bid PROPRANOL OL HCL 77004039651 No Longer Active Keara Blum MD Active PROAIR HFA 108 (90 BASE) MCG/ACT AERS 1-2 puffs 2-4 times a day as needed ALBUTEROL SULFATE 89279369333 No Longer Active Keara Blum MD Active FLOVENT HFA 110 MCG/ACT AERO 1 puff bid, rinse and spit FLUTICASONE PROPIONATE HFA 87666701782 No Longer Active Keara Blum MD Active FLUTICASONE PROPIONATE 50 MCG/ACT SUSP 1 puff in each nostril [place] FLUTICASONE PROPIONATE 21616333457 No Longer Active Keara Blum MD Active ZYRTEC ALLERGY 10 MG TABS 1 tablet po daily CET IRIZINE HCL 87283729334 No Longer Active Keara Blum MD Active AZITHROMYCIN 250 MG TABS 2 pills day 1,1 pill day 2-5 AZITHROMYCIN 19552732304 No Longer Active Keara Blum MD Act [place] ZYRTEC ALLERGY 10 MG TABS 1 tablet po daily ZYRTEC ALLERGY 10 MG TABS 3604292 CETIRIZINE HCL Inactive FLOVENT HFA 110 MCG/ACT AERO 1 puff bid, rinse and spit FLOVENT HFA 110 MCG/ACT AERO FLUTICASONE PROPIONATE HFA [place] ctive PROAIR HFA 108 (90 BASE) MCG/ACT AERS 1-2 puffs 2-4 times a day as needed PROAIR HFA 108 (90 BASE) MCG/ACT AERS ALB UTEROL SULFATE Inactive PROPRANOLOL HCL 20 MG TABS 1 bid P ROPRANOLOL HCL 20 MG TABS 487225 PROPRANOLOL HCL Inactive CLARITIN-D 24 HOUR 10-240 MG [id number] 1 po qd PRN Allergies 201 12/01/26 CLARITIN-D 24 HOUR 10-240 MG [id number] LORATADIN E-PSEUDOEPHEDRINE Inactive ONDANSETRON HCL 8 MG TABS 1 every8 hrs prn vomiting 20 08/10/08 ONDANSETRON HCL 8 MG TABS 040498 ONDANSETRON HCL Inactive CEFDINIR 300 MG CAPS 1 daily CEFDINIR 300 MG C APS 474894 CEFDINIR Inactive CEFDINIR 300 MG CAPS 1 daily CEFDINIR 300 MG C APS 380506 CEFDINIR Inactive FLUTICASONE PROPIONATE 50 MCG/ACT SUSP 1 puff in each nostril [place] FLUTICASONE PROPIONATE 50 MCG/ACT SUSP 454149 FLUTICASO NE PROPIONATE Inactive CEFTIN 500 MG TAB 1 po bid 10 days CEFTIN 500 M G TAB 234293 CEFUROXIME AXETIL Inactive ZIANA 1.2-0.025 % GEL apply pea size daily ZIANA 1.2-0.025 % GEL CLINDAMYCIN-TRETINOIN Inactive ONDANSETRON HCL 8 MG TABS 1 q 8 hours ON DANSETRON HCL 8 MG TABS 052613 ONDANSETRON HCL Inactive CEFTIN 500 MG TABS 1 bid CEFTIN 500 MG TABS 191551 CEFUROXIME AXETIL Inactive PRILOSEC 20 MG CPDR 1 daily PRILOSEC 20 MG CPD R 466010 OMEPRAZOLE Inactive FLUTICASONE PROPIONATE 50 MCG/ACT SUSP 1 puff in each nostril [place] FLUTICASONE PROPIONATE 50 MCG/ACT SUSP 540019 FLUTICASO NE PROPIONATE Inactive TRI-SPRINTEC 0.18/0.215/0.25 MG-35 MCG TABS 1 po qd as directed TRI-SPRINTEC 0.18/0.215/0.25 MG-35 MCG TABS 823519 NORGESTIM-ETH ESTRAD TRIPHASIC Inactive AZITHROMYCIN 250 MG TABS 2 pills day 1,1 pill day 2-5 AZITHROMYCIN 250 MG TABS 3299511 AZITHROMYCIN Inactive FLUTICASONE PROPIONATE 50 MCG/ACT SUSP 1 puff in each nostril [place] FLUTICASONE PROPIONATE 50 MCG/ACT SUSP 238978 FLUTICASO NE PROPIONATE Inactive Immunizations Vaccine Administration [...] Diphtheria, and acellular Per tussis Immunization) Adacel [[id number]] tetanus toxoid, reduced diph theria toxoid, and [...] DTaP hepatitis B vaccine #2 given Historical hep atitis B vaccine, unspecified formulation hepatitis B vaccine #1 given Historical hep atitis B vaccine, unspecified formulation Vital Signs Date Name Value Unit Range Description blood pressure, diastolic - 8462-4 85 mm[Hg] BP horner blood pressure, systolic - 8480-6 126 mm[Hg] BP sys pulse rate E&M - 8867-4 93 /min H eart rate temperature E&M 98.5 [degF] Body temp erature weight E&M - 3141-9 240 [lb_av] Weigh t Measured blood pressure, diastolic - 8462-4 68 mm[Hg] BP horner blood pressure, systolic - 8480-6 110 mm[Hg] BP sys height E&M - 8302-2 69 [in_us] Bdy h eight temperature E&M 99.0 [degF] Body temp erature weight E&M - 3141-9 234 [lb_av] Weigh t Measured blood pressure, diastolic - 8462-4 60 mm[Hg] BP horner blood pressure, systolic - 8480-6 120 mm[Hg] BP sys height E&M - 8302-2 69.25 [in_us] Bdy h eight temperature E&M 99.7 [degF] Body temp erature weight E&M - 3141-9 241.38 [lb_av] Weigh t Measured blood pressure, diastolic - 8462-4 83 mm[Hg] BP horner blood pressure, systolic - 8480-6 137 mm[Hg] BP sys pulse rate E&M - 8867-4 81 /min H eart rate temperature E&M 99.6 [degF] Body temp erature weight E&M - 3141-9 233 [lb_av] Weigh t Measured Diagnostic Results Date Name Value Unit Range Description Lab Report: CBC W/DIFF, Comp. Metabolic Panel - Chemistry sodium, serum 141 mmol/L 413-522 8691/11/19 potassium, serum 4.4 mmol/L 3.5-5.2 chloride, serum [...] Negative nitrite, urine, semiquantitative Negative Neg ative glucose, urine, semiquantitative Negative Neg ative ketones, urine, by test strip Negative Negati ve bilirubin, urine Negative Negative glucose, urine, semiquantitative Negative Neg ative ketones, urine, by test strip Negative Negati ve bilirubin, urine Negative Negative urobilinogen, urine, semiquantitative (dipstick) 0.2 Normal leukocyte esterase, urine, by dipstick Negative Negative nitrite, urine, semiquantitative Negative Neg ative urate crystals, amorphous, urine, semiquantitative Large None seen pH, urine, semiquantitative 8.0 5.0-8.5 specific gravity, urine 1.020 1.000-1.030 appearance, urine Clear Clear urine color Yellow Colorless;Lightyellow;St raw;Yellow appearance, urine Clear Clear specific gravity, urine >=1.030 1.000-1.030 pH, urine, semiquantitative 6.0 5.0-8.5 urine color Yellow Colorless;Lightyellow;St raw;Yellow Lab Report: [facility] [place] human chorionic gonadotropin , urine, qualitative (urine test) Negative Negative Encounters Code Encounter Date Provider Facility CPT-78504 Level 3 Est. Patient 09:47:44 HOUSE CARPENTER HELPER Keara Abreu MD [facility] CPT-15055 Level 3 Est. Patient 16:33:46 CDT Keara Abreu MD [facility] CPT-94245 Level 3 Est. Patient 16:38:32 CDT Dawson breen DO [facility] CPT-34076 Level 3 Est. Patient 15:58:59 HOUSE CARPENTER HELPER Keara Abreu MD [facility] CPT-21865 Level 3 Est. Patient 10:44:39 HOUSE CARPENTER HELPER Keara Abreu MD [facility] CPT-83497 Level 3 Est. Patient 10:09:23 CDT Keara Abreu MD [facility] CPT-19124 Level 3 Est. Patient 13:46:54 HOUSE CARPENTER HELPER Keara Abreu MD [facility] CPT-97122 Level 3 Est. Patient 16:25:27 CDT Keara Abreu MD [facility] CPT-02908 Level 3 Est. Patient 10:22:54 CDT Keara Abreu MD [facility] CPT-25871 Level 3 Est. Patient 16:02:28 HOUSE CARPENTER HELPER Keara Abreu MD [facility] Procedures Code Procedure Name Date Entry Date Standard Desc ription CPT-OV Office Visit 14:04:10 HOUSE CARPENTER HELPER CPT-OV Office Visit 16:48:59 HOUSE CARPENTER HELPER CPT-68697 Sono pelvis non OB uterus ovaries cervix 09:06:48 HOUSE CARPENTER HELPER CPT-63860 Sono retroperitoneal complete kidneys an d bladder 09:06:48 HOUSE CARPENTER HELPER CPT-41282 Abd compl w upright 15:32:02 HOUSE CARPENTER HELPER CPT-09556 Fluzone Quadrivalent Intramuscular Suspe nsion 0.5 ML 16:49:56 HOUSE CARPENTER HELPER CPT-34357 Breathing Tx 11:04:54 CDT CPT-50104 Chest 2V Frontal and Lat 10:32:02 CDT 03/19 CPT-85320 Breathing Tx 10:23:54 CDT CPT-99906 EKG Trac and Interp 16:18:28 HOUSE CARPENTER HELPER
--- OUTSIDE RECORDS SUMMARY | 2020-05-02 15:45 | XMS REPORT | Clinical Summary ---
Author Author Mario, Valerie Villegas Organization [facility] Address Unknown Phone Unavailable Allergies, Adverse Reactions, [...] kumar MD Other unspecified back disorders ICD-724.9 [place] ctive Keara Blum MD UTI ICD-599.0 Inactive Keara Blum MD 20 08/06/08 Otitis media, left ICD-382.9 Inactive Keara Blum MD Sinusitis-Acute ICD-461.9 Inactive Keara kumar MD Medication List Medication Instructions Start Date Stop Date Generic Name NDC Status Provider Patient Instruction CEFTIN 500 MG TABS 1 bid CEFUROXIME AXETIL 5 [id number] No Longer Active Keara Blum MD Active FLUTICASONE PROPIONATE 50 MCG/ACT SUSP 1 puff in each nostril da blaine FLUTICASONE PROPIONATE 31427549875 Active Keara Bulm MD Active ONDANSETRON HCL 8 MG TABS 1 q 8 hours ONDANSETR ON HCL 19776022248 No Longer Active Keara Blum MD Active ZIANA 1.2-0.025 % GEL apply pea size daily CLIN DAMYCIN-TRETINOIN 17503239022 No Longer Active Keara Blum MD Active CEFTIN 500 MG TAB 1 po bid 10 days CEFUROXIME A XETIL 87151634853 No Longer Active Keara Blum MD Active FLUTICASONE PROPIONATE 50 MCG/ACT SUSP 1 puff in each nostril da blaine FLUTICASONE PROPIONATE 33078285603 No Longer Active Dawson Gresham DO Active CEFDINIR 300 MG CAPS 1 daily CEFDINIR 8713849 3010 No Longer Active Dawson Gresham DO Active CEFDINIR 300 MG CAPS 1 daily CEFDINIR 4249106 3010 No Longer Active Keara Blum MD Active ONDANSETRON HCL 8 MG TABS 1 every8 hrs prn vomiting 20 08/10/08 ONDANSETRON HCL 71118698939 No Longer Active Keara Blum MD Active CLARITIN-D 24 HOUR 10-240 MG [id number] 1 po qd PRN Allergies 201 12/01/26 LORATADINE-PSEUDOEPHEDRINE 38337430832 No Longer Active Danielle Blum MD Active PROPRANOLOL HCL 20 MG TABS 1 bid PROPRANOL OL HCL 11913666520 No Longer Active Kaera Blum MD Active PROAIR HFA 108 (90 BASE) MCG/ACT AERS 1-2 puffs 2-4 times a day as needed ALBUTEROL SULFATE 69930009668 No Longer Active Keara Blum MD Active PRILOSEC 20 MG CPDR 1 daily OMEPRAZOLE 79028996908 Ac tive Keara Blum MD Active FLOVENT HFA 110 MCG/ACT AERO 1 puff bid, rinse and spit FLUTICASONE PROPIONATE HFA 22386022863 No Longer Active Keara Blum MD Active FLUTICASONE PROPIONATE 50 MCG/ACT SUSP 1 puff in each nostril [place] blaine FLUTICASONE PROPIONATE 96741254135 No Longer Active Keara Blum MD Active ZYRTEC ALLERGY 10 MG TABS 1 tablet po daily CET IRIZINE HCL 51490459466 No Longer Active Keara Blum MD Active AZITHROMYCIN 250 MG TABS 2 pills day 1,1 pill day 2-5 AZITHROMYCIN 54036544261 No Longer Active Keara Blum MD Act verona ZYRTEC ALLERGY 10 MG TABS 1 tablet po daily ZYRTEC ALLERGY 10 MG TABS 4189710 CETIRIZINE HCL Inactive FLOVENT HFA 110 MCG/ACT AERO 1 puff bid, rinse and spit FLOVENT HFA 110 MCG/ACT AERO FLUTICASONE PROPIONATE HFA [place] ctive PROAIR HFA 108 (90 BASE) MCG/ACT AERS 1-2 puffs 2-4 times a day as needed PROAIR HFA 108 (90 BASE) MCG/ACT AERS ALB UTEROL SULFATE Inactive PROPRANOLOL HCL 20 MG TABS 1 bid P ROPRANOLOL HCL 20 MG TABS 828867 PROPRANOLOL HCL Inactive CLARITIN-D 24 HOUR 10-240 MG [id number] 1 po qd PRN Allergies 201 12/01/26 CLARITIN-D 24 HOUR 10-240 MG [id number] LORATADIN E-PSEUDOEPHEDRINE Inactive ONDANSETRON HCL 8 MG TABS 1 every8 hrs prn vomiting 20 08/10/08 ONDANSETRON HCL 8 MG TABS 900954 ONDANSETRON HCL Inactive CEFDINIR 300 MG CAPS 1 daily CEFDINIR 300 MG C APS 20021229 CEFDINIR Inactive CEFDINIR 300 MG CAPS 1 daily CEFDINIR 300 MG C APS 20021229 CEFDINIR Inactive FLUTICASONE PROPIONATE 50 MCG/ACT SUSP 1 puff in each nostril [place] blaine FLUTICASONE PROPIONATE 50 MCG/ACT SUSP 436201 FLUTICASO NE PROPIONATE Inactive CEFTIN 500 MG TAB 1 po bid 10 days CEFTIN 500 M G TAB 361652 CEFUROXIME AXETIL Inactive ZIANA 1.2-0.025 % GEL apply pea size daily ZIANA 1.2-0.025 % GEL CLINDAMYCIN-TRETINOIN Inactive ONDANSETRON HCL 8 MG TABS 1 q 8 hours ON DANSETRON HCL 8 MG TABS 879999 ONDANSETRON HCL Inactive CEFTIN 500 MG TABS 1 bid CEFTIN 500 MG TABS 124947 CEFUROXIME AXETIL Inactive AZITHROMYCIN 250 MG TABS 2 pills day 1,1 pill day 2-5 AZITHROMYCIN 250 MG TABS 6684271 AZITHROMYCIN Inactive FLUTICASONE PROPIONATE 50 MCG/ACT SUSP 1 puff in each nostril [place] bl[place] FLUTICASONE PROPIONATE 50 MCG/ACT SUSP 359826 FLUTICASO NE PROPIONATE Inactive Immunizations Vaccine Administration [...] meningococcal polysaccharide vaccine (MPSV4) Adacel immunization Adacel [[id number]] tetanus toxo id, reduced diphtheria toxoid, and [...] Panel - Chemistry sodium, serum 141 mmol/L 922-678 8326/11/19 potassium, serum 4.4 mmol/L 3.5-5.2 chloride, serum [...] bilirubin, urine Negative Negative Lab Report: [facility] [place] human chorionic gonadotropin , urine, qualitative (urine test) Negative Negative Encounters Code Encounter Date Provider Facility CPT-23543 Level 3 Est. 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 Patient 16:33:46 CDT Keara Abreu MD [facility] CPT-33589 Level 3 Est. Patient 16:38:32 CDT Dawson breen DO [facility] CPT-94589 Level 3 Est. Patient 15:58:59 [employer] Keara Abreu MD [facility] CPT-96002 Level 3 Est. Patient 10:44:39 [employer] Keara Abreu MD [facility] CPT-71081 Level 3 Est. Patient 10:09:23 CDT Keara Abreu MD [facility] CPT-22355 Level 3 Est. Patient 13:46:54 [employer] Keara Abreu MD [facility] CPT-31400 Level 3 Est. Patient 16:25:27 CDT Keara Abreu MD [facility] CPT-88523 Level 3 Est. Patient 10:22:54 CDT Keara Abreu MD [facility] CPT-21029 Level 3 Est. Patient 16:02:28 [employer] Keara Abreu MD [facility] Procedures Code Procedure Name Date Entry Date Standard Desc ription CPT-30637 Sono pelvis non OB uterus ovaries cervix 09:06:48 [employer] CPT-60188 Sono retroperitoneal complete kidneys an d bladder 09:06:48 [employer] CPT-79544 Abd compl w upright 15:32:02 [employer] CPT-06807 Fluzone Quadrivalent Intramuscular Suspe nsion 0.5 ML 16:49:56 [employer] CPT-98246 Breathing Tx 11:04:54 CDT CPT-75969 Chest 2V Frontal and Lat 10:32:02 CDT 03/19 CPT-44071 Breathing Tx 10:23:54 CDT CPT-64442 EKG Trac and Interp 16:18:28 [employer]
--- OUTSIDE RECORDS SUMMARY | 2020-05-02 15:45 | XMS REPORT | Clinical Summary ---
Author Author Mario, Valerie Villegas Organization [facility] Address Unknown Phone Unavailable Allergies, Adverse [...] one tab PO daily LEVONORGEST-ETH ESTRAD - 15885919996 Active Hortensia Marr MD Active TRI-SPRINTEC 0.18/0.215/0.25 MG-35 MCG TABS 1 po qd as directed NORGESTIM-ETH ESTRAD TRIPHASIC 55700295656 No Longer Active Hortensia Marr MD Active ACZONE 5 % EXT GEL DAPSONE 86844122715 Active Agustina Marr MD Active FLUTICASONE PROPIONATE 50 MCG/ACT SUSP 1 puff in each nostril [place] blaine FLUTICASONE PROPIONATE 23864008829 No Longer Active Hortensia Marr MD Active PRILOSEC 20 MG CPDR 1 daily OMEPRAZOLE 6856129 3614 No Longer Active Hortensia Marr MD Active CEFTIN 500 MG TABS 1 bid CEFUROXIME AXETIL 5 4401826957 No Longer Active Keara Blum MD Active ONDANSETRON HCL 8 MG TABS 1 q 8 hours ONDANSETR ON HCL 11203075911 No Longer Active Keara Blum MD Active ZIANA 1.2-0.025 % GEL apply pea size daily CLIN DAMYCIN-TRETINOIN 28613018408 No Longer Active Keara Blum MD Active CEFTIN 500 MG TAB 1 po bid 10 days CEFUROXIME A XETIL 27182259182 No Longer Active Keara Blum MD Active FLUTICASONE PROPIONATE 50 MCG/ACT SUSP 1 puff in each nostril da blaine FLUTICASONE PROPIONATE 03464674371 No Longer Active Dawson Gresham DO Active CEFDINIR 300 MG CAPS 1 daily CEFDINIR 9584351 3010 No Longer Active Dawson Gresham DO Active CEFDINIR 300 MG CAPS 1 daily CEFDINIR 3277514 3010 No Longer Active Keara Blum MD Active ONDANSETRON HCL 8 MG TABS 1 every8 hrs prn vomiting 20 08/10/08 ONDANSETRON HCL 08289873733 No Longer Active Keara Blum MD Active CLARITIN-D 24 HOUR 10-240 MG [id number] 1 po qd PRN Allergies 201 12/01/26 LORATADINE-PSEUDOEPHEDRINE 08665658126 No Longer Active Danielle Blum MD Active PROPRANOLOL HCL 20 MG TABS 1 bid PROPRANOL OL HCL 92769447051 No Longer Active Keara Blum MD Active PROAIR HFA 108 (90 BASE) MCG/ACT AERS 1-2 puffs 2-4 times a day as needed ALBUTEROL SULFATE 17123339400 No Longer Active Keara Blum MD Active FLOVENT HFA 110 MCG/ACT AERO 1 puff bid, rinse and spit FLUTICASONE PROPIONATE HFA 61710670976 No Longer Active Keara Blum MD Active FLUTICASONE PROPIONATE 50 MCG/ACT SUSP 1 puff in each nostril da blaine FLUTICASONE PROPIONATE 88990749252 No Longer Active Keara Blum MD Active ZYRTEC ALLERGY 10 MG TABS 1 tablet po daily CET IRIZINE HCL 53007482285 No Longer Active Keara Blum MD Active AZITHROMYCIN 250 MG TABS 2 pills day 1,1 pill day 2-5 AZITHROMYCIN 73432401331 No Longer Active Keara Blum MD Act verona ZYRTEC ALLERGY 10 MG TABS 1 tablet po daily ZYRTEC ALLERGY 10 MG TABS 6557988 CETIRIZINE HCL Inactive FLOVENT HFA 110 MCG/ACT AERO 1 puff bid, rinse and spit FLOVENT HFA 110 MCG/ACT AERO FLUTICASONE PROPIONATE HFA [place] ctive PROAIR HFA 108 (90 BASE) MCG/ACT AERS 1-2 puffs 2-4 times a day as needed PROAIR HFA 108 (90 BASE) MCG/ACT AERS ALB UTEROL SULFATE Inactive PROPRANOLOL HCL 20 MG TABS 1 bid P ROPRANOLOL HCL 20 MG TABS 473135 PROPRANOLOL HCL Inactive CLARITIN-D 24 HOUR 10-240 MG [id number] 1 po qd PRN Allergies 201 12/01/26 CLARITIN-D 24 HOUR 10-240 MG [id number] LORATADIN E-PSEUDOEPHEDRINE Inactive ONDANSETRON HCL 8 MG TABS 1 every8 hrs prn vomiting 20 08/10/08 ONDANSETRON HCL 8 MG TABS 176478 ONDANSETRON HCL Inactive CEFDINIR 300 MG CAPS 1 daily CEFDINIR 300 MG C APS 487901 CEFDINIR Inactive CEFDINIR 300 MG CAPS 1 daily CEFDINIR 300 MG C APS 20021229 CEFDINIR Inactive FLUTICASONE PROPIONATE 50 MCG/ACT SUSP 1 puff in each nostril [place] bl[place] FLUTICASONE PROPIONATE 50 MCG/ACT SUSP 687781 FLUTICASO NE PROPIONATE Inactive CEFTIN 500 MG TAB 1 po bid 10 days CEFTIN 500 M G TAB 373780 CEFUROXIME AXETIL Inactive ZIANA 1.2-0.025 % GEL apply pea size daily ZIANA 1.2-0.025 % GEL CLINDAMYCIN-TRETINOIN Inactive ONDANSETRON HCL 8 MG TABS 1 q 8 hours ON DANSETRON HCL 8 MG TABS 753176 ONDANSETRON HCL Inactive CEFTIN 500 MG TABS 1 bid CEFTIN 500 MG TABS 211646 CEFUROXIME AXETIL Inactive PRILOSEC 20 MG CPDR 1 daily PRILOSEC 20 MG CPD R 035161 OMEPRAZOLE Inactive FLUTICASONE PROPIONATE 50 MCG/ACT SUSP 1 puff in each nostril da blaine FLUTICASONE PROPIONATE 50 MCG/ACT SUSP 486262 FLUTICASO NE PROPIONATE Inactive TRI-SPRINTEC 0.18/0.215/0.25 MG-35 MCG TABS 1 po qd as directed TRI-SPRINTEC 0.18/0.215/0.25 MG-35 MCG TABS 197643 NORGESTIM-ETH ESTRAD TRIPHASIC Inactive AZITHROMYCIN 250 MG TABS 2 pills day 1,1 pill day 2-5 AZITHROMYCIN 250 MG TABS 0382102 AZITHROMYCIN Inactive FLUTICASONE PROPIONATE 50 MCG/ACT SUSP 1 puff in each nostril da blaine FLUTICASONE PROPIONATE 50 MCG/ACT SUSP 825535 FLUTICASO NE PROPIONATE Inactive Immunizations Vaccine Administration [...] Diphtheria, and acellular Per tussis Immunization) Adacel [XFL677] tetanus toxoid, reduced diph theria toxoid, and [...] Panel - Chemistry sodium, serum 141 mmol/L 974-763 0073/11/19 potassium, serum 4.4 mmol/L 3.5-5.2 chloride, serum [...] semiquantitative Large None seen urine color Yellow Colorless;Lightyellow;St raw;Yellow appearance, urine Clear Clear specific gravity, urine >=1.030 1.000-1.030 pH, urine, semiquantitative 6.0 5.0-8.5 glucose, urine, semiquantitative Negative Neg ative ketones, urine, by test strip Negative Negati ve bilirubin, urine Negative Negative urine color Yellow Colorless;Lightyellow;St raw;Yellow appearance, urine Clear Clear specific gravity, urine 1.020 1.000-1.030 pH, urine, semiquantitative 8.0 5.0-8.5 Lab Report: [facility] – [place] - Chemistry human chorionic gonadotropin , urine, qualitative (urine test) Negative Negative Encounters Code Encounter Date Provider Facility CPT-07566 Level 3 Est. Patient 09:47:44 STOCK TRADER Keara Abreu MD [facility] CPT-28490 Level 3 Est. Patient 16:33:46 CDT Keara Abreu MD [facility] CPT-91574 Level 3 Est. Patient 16:38:32 CDT Dawson breen DO [facility] CPT-50584 Level 3 Est. Patient 15:58:59 STOCK TRADER Keara Abreu MD [facility] CPT-94398 Level 3 Est. Patient 10:44:39 STOCK TRADER Keara Abreu MD [facility] CPT-92060 Level 3 Est. Patient 10:09:23 CDT Keara Abreu MD [facility] CPT-56241 Level 3 Est. Patient 13:46:54 STOCK TRADER Keara Abreu MD [facility] CPT-53973 Level 3 Est. Patient 16:25:27 CDT Keara Abreu MD [facility] CPT-85576 Level 3 Est. Patient 10:22:54 CDT Keara Abreu MD [facility] CPT-45468 Level 3 Est. Patient 16:02:28 STOCK TRADER Keara Abreu MD [facility] Procedures Code Procedure Name Date Entry Date Standard Desc ription CPT-OV Office Visit 14:04:10 STOCK TRADER CPT-OV Office Visit 16:48:59 STOCK TRADER CPT-96724 Sono pelvis non OB uterus ovaries cervix 09:06:48 STOCK TRADER CPT-17796 Sono retroperitoneal complete kidneys an d bladder 09:06:48 STOCK TRADER CPT-60664 Abd compl w upright 15:32:02 STOCK TRADER CPT-19486 Fluzone Quadrivalent Intramuscular Suspe nsion 0.5 ML 16:49:56 STOCK TRADER CPT-12304 Breathing Tx 11:04:54 CDT CPT-85665 Chest 2V Frontal and Lat 10:32:02 CDT 03/19 CPT-22749 Breathing Tx 10:23:54 CDT CPT-21082 EKG Trac and Interp 16:18:28 STOCK TRADER
--- OUTSIDE RECORDS SUMMARY | 2020-05-02 15:45 | XMS REPORT | Clinical Summary ---
Author Author Mario, Valerie Villegas Organization [facility] Address Unknown Phone Unavailable Allergies, Adverse Reactions, [...] one tab PO daily LEVONORGEST-ETH ESTRAD - 28863887419 Active Hortensia Marr MD Active TRI-SPRINTEC 0.18/0.215/0.25 MG-35 MCG TABS 1 po qd as directed NORGESTIM-ETH ESTRAD TRIPHASIC 40890373861 No Longer Active Hortensia Marr MD Active ACZONE 5 % EXT GEL DAPSONE 93243995052 Active Agustina Marr MD Active FLUTICASONE PROPIONATE 50 MCG/ACT SUSP 1 puff in each nostril [place] FLUTICASONE PROPIONATE 29183329731 No Longer Active Hortensia Marr MD Active PRILOSEC 20 MG CPDR 1 daily OMEPRAZOLE 1398583 3614 No Longer Active Hortensia Marr MD Active CEFTIN 500 MG TABS 1 bid CEFUROXIME AXETIL 5 9620936519 No Longer Active Keara Blum MD Active ONDANSETRON HCL 8 MG TABS 1 q 8 hours ONDANSETR ON HCL 44838805531 No Longer Active Keara Blum MD Active ZIANA 1.2-0.025 % GEL apply pea size daily CLIN DAMYCIN-TRETINOIN 09344176881 No Longer Active Keara Blum MD Active CEFTIN 500 MG TAB 1 po bid 10 days CEFUROXIME A XETIL 71371419602 No Longer Active Keara Blum MD Active FLUTICASONE PROPIONATE 50 MCG/ACT SUSP 1 puff in each nostril [place] FLUTICASONE PROPIONATE 98710927670 No Longer Active Dawson Gresham DO Active CEFDINIR 300 MG CAPS 1 daily CEFDINIR 8850964 3010 No Longer Active Dawson Gresham DO Active CEFDINIR 300 MG CAPS 1 daily CEFDINIR 5109687 3010 No Longer Active Keara Blum MD Active ONDANSETRON HCL 8 MG TABS 1 every8 hrs prn vomiting 20 08/10/08 ONDANSETRON HCL 54485788569 No Longer Active Keara Blum MD Active CLARITIN-D 24 HOUR 10-240 MG [id number] 1 po qd PRN Allergies 201 12/01/26 LORATADINE-PSEUDOEPHEDRINE 37711225663 No Longer Active Danielle Blum MD Active PROPRANOLOL HCL 20 MG TABS 1 bid PROPRANOL OL HCL 91488004350 No Longer Active Keara Blum MD Active PROAIR HFA 108 (90 BASE) MCG/ACT AERS 1-2 puffs 2-4 times a day as needed ALBUTEROL SULFATE 45051112998 No Longer Active Keara Blum MD Active FLOVENT HFA 110 MCG/ACT AERO 1 puff bid, rinse and spit FLUTICASONE PROPIONATE HFA 35151565179 No Longer Active Keara Blum MD Active FLUTICASONE PROPIONATE 50 MCG/ACT SUSP 1 puff in each nostril [place] FLUTICASONE PROPIONATE 45084116534 No Longer Active Keara Blum MD Active ZYRTEC ALLERGY 10 MG TABS 1 tablet po daily CET IRIZINE HCL 36518437935 No Longer Active Keara Blum MD Active AZITHROMYCIN 250 MG TABS 2 pills day 1,1 pill day 2-5 AZITHROMYCIN 54374571368 No Longer Active Keara Blum MD Act verona ZYRTEC ALLERGY 10 MG TABS 1 tablet po daily ZYRTEC ALLERGY 10 MG TABS 7001446 CETIRIZINE HCL Inactive FLOVENT HFA 110 MCG/ACT AERO 1 puff bid, rinse and spit FLOVENT HFA 110 MCG/ACT AERO FLUTICASONE PROPIONATE HFA [place] ctive PROAIR HFA 108 (90 BASE) MCG/ACT AERS 1-2 puffs 2-4 times a day as needed PROAIR HFA 108 (90 BASE) MCG/ACT AERS ALB UTEROL SULFATE Inactive PROPRANOLOL HCL 20 MG TABS 1 bid P ROPRANOLOL HCL 20 MG TABS 573190 PROPRANOLOL HCL Inactive CLARITIN-D 24 HOUR 10-240 MG [id number] 1 po qd PRN Allergies 201 12/01/26 CLARITIN-D 24 HOUR 10-240 MG [id number] LORATADIN E-PSEUDOEPHEDRINE Inactive ONDANSETRON HCL 8 MG TABS 1 every8 hrs prn vomiting 20 08/10/08 ONDANSETRON HCL 8 MG TABS 870575 ONDANSETRON HCL Inactive CEFDINIR 300 MG CAPS 1 daily CEFDINIR 300 MG C APS 742818 CEFDINIR Inactive CEFDINIR 300 MG CAPS 1 daily CEFDINIR 300 MG C APS 20021229 CEFDINIR Inactive FLUTICASONE PROPIONATE 50 MCG/ACT SUSP 1 puff in each nostril [place] FLUTICASONE PROPIONATE 50 MCG/ACT SUSP 532364 FLUTICASO NE PROPIONATE Inactive CEFTIN 500 MG TAB 1 po bid 10 days CEFTIN 500 M G TAB 814041 CEFUROXIME AXETIL Inactive ZIANA 1.2-0.025 % GEL apply pea size daily ZIANA 1.2-0.025 % GEL CLINDAMYCIN-TRETINOIN Inactive ONDANSETRON HCL 8 MG TABS 1 q 8 hours ON DANSETRON HCL 8 MG TABS 821464 ONDANSETRON HCL Inactive CEFTIN 500 MG TABS 1 bid CEFTIN 500 MG TABS 203564 CEFUROXIME AXETIL Inactive PRILOSEC 20 MG CPDR 1 daily PRILOSEC 20 MG CPD R 535203 OMEPRAZOLE Inactive FLUTICASONE PROPIONATE 50 MCG/ACT SUSP 1 puff in each nostril [place] FLUTICASONE PROPIONATE 50 MCG/ACT SUSP 109846 FLUTICASO NE PROPIONATE Inactive TRI-SPRINTEC 0.18/0.215/0.25 MG-35 MCG TABS 1 po qd as directed TRI-SPRINTEC 0.18/0.215/0.25 MG-35 MCG TABS 508902 NORGESTIM-ETH ESTRAD TRIPHASIC Inactive AZITHROMYCIN 250 MG TABS 2 pills day 1,1 pill day 2-5 AZITHROMYCIN 250 MG TABS 7480690 AZITHROMYCIN Inactive FLUTICASONE PROPIONATE 50 MCG/ACT SUSP 1 puff in each nostril da bl[place] FLUTICASONE PROPIONATE 50 MCG/ACT SUSP 397800 FLUTICASO NE PROPIONATE Inactive Immunizations Vaccine Administration [...] Diphtheria, and acellular Per tussis Immunization) Adacel [EEZ716] tetanus toxoid, reduced diph theria toxoid, and [...] Panel - Chemistry sodium, serum 141 mmol/L 944-768 9506/11/19 potassium, serum 4.4 mmol/L 3.5-5.2 chloride, serum [...] pH, urine, semiquantitative 8.0 5.0-8.5 Lab Report: [facility] [place] Chemistry human chorionic gonadotropin , urine, qualitative (urine test) Negative Negative Encounters Code Encounter Date Provider Facility CPT-32740 Level 3 Est. Patient 09:47:44 REVENUE FIELD AUDITOR Keara Abreu MD [facility] CPT-44005 Level 3 Est. Patient 16:33:46 CDT Keara Abreu MD [facility] CPT-12369 Level 3 Est. Patient 16:38:32 CDT Dawson breen DO [facility] CPT-93170 Level 3 Est. Patient 15:58:59 REVENUE FIELD AUDITOR Keara Abreu MD [facility] CPT-59900 Level 3 Est. Patient 10:44:39 REVENUE FIELD AUDITOR Keara Abreu MD [facility] CPT-62732 Level 3 Est. Patient 10:09:23 CDT Keara Abreu MD [facility] CPT-96507 Level 3 Est. Patient 13:46:54 REVENUE FIELD AUDITOR Keara Abreu MD [facility] CPT-75003 Level 3 Est. Patient 16:25:27 CDT Keara Abreu MD [facility] CPT-25105 Level 3 Est. Patient 10:22:54 CDT Keara Abreu MD [facility] CPT-17624 Level 3 Est. Patient 16:02:28 REVENUE FIELD AUDITOR Keara Abreu MD [facility] Procedures Code Procedure Name Date Entry Date Standard Desc ription CPT-OV Office Visit 14:04:10 REVENUE FIELD AUDITOR CPT-OV Office Visit 16:48:59 REVENUE FIELD AUDITOR CPT-09320 Sono pelvis non OB uterus ovaries cervix 09:06:48 REVENUE FIELD AUDITOR CPT-75917 Sono retroperitoneal complete kidneys an d bladder 09:06:48 REVENUE FIELD AUDITOR CPT-58497 Abd compl w upright 15:32:02 REVENUE FIELD AUDITOR CPT-16188 Fluzone Quadrivalent Intramuscular Suspe nsion 0.5 ML 16:49:56 REVENUE FIELD AUDITOR CPT-79651 Breathing Tx 11:04:54 CDT CPT-41257 Chest 2V Frontal and Lat 10:32:02 CDT 03/19 CPT-21201 Breathing Tx 10:23:54 CDT CPT-51692 EKG Trac and Interp 16:18:28 REVENUE FIELD AUDITOR
--- OUTSIDE RECORDS SUMMARY | 2020-05-02 15:45 | XMS REPORT | Clinical Summary ---
Author Author Mario, Valerie Villegas Organization [facility] Address Unknown Phone Unavailable Allergies, Adverse [...] Dysuria COUGH ICD-786.2 Inactive Keara Blum MD 20 08/30/25 OTHER ABNORMAL GLUCOSE ICD-790.29 Inactive Agusto Blum MD COUGH ICD-786.2 Inactive Keara Blum MD 20 09/01/22 G E REFLUX ICD-530.81 Inactive Keara kelly MD Sinusitis-Acute ICD-461.9 Inactive Keara kumar MD Other unspecified back disorders ICD-724.9 [place] Keara Blum MD UTI ICD-599.0 Inactive Keara Blum MD 20 08/06/08 Otitis media, left ICD-382.9 Inactive Keara Blum MD Sinusitis-Acute ICD-461.9 Inactive Keara kumar MD Medication List Medication Instructions Start Date Stop Date Generic Name NDC Status Provider Patient Instruction SEASONIQUE 0.15-0.03 &0.01 MG ORAL TABS one tab PO daily LEVONORGEST-ETH ESTRAD -DAY 11307122905 Active Hortensia Marr MD Active TRI-SPRINTEC 0.18/0.215/0.25 MG-35 MCG TABS 1 po qd as directed NORGESTIM-ETH ESTRAD TRIPHASIC 61033271026 No Longer Active Hortensia Marr MD Active ACZONE 5 % EXT GEL DAPSONE 03373244457 Active Agustina Marr MD Active FLUTICASONE PROPIONATE 50 MCG/ACT SUSP 1 puff in each nostril [place] FLUTICASONE PROPIONATE 64770893597 No Longer Active Hortensia Marr MD Active PRILOSEC 20 MG CPDR 1 daily OMEPRAZOLE 4805095 3614 No Longer Active Hortensia Marr MD Active CEFTIN 500 MG TABS 1 bid CEFUROXIME AXETIL 5 2366123583 No Longer Active Keara Blum MD Active ONDANSETRON HCL 8 MG TABS 1 q 8 hours ONDANSETR ON HCL 78082239914 No Longer Active Keara Blum MD Active ZIANA 1.2-0.025 % GEL apply pea size daily CLIN DAMYCIN-TRETINOIN 87445273017 No Longer Active Keara Blum MD Active CEFTIN 500 MG TAB 1 po bid 10 days CEFUROXIME A XETIL 55745332623 No Longer Active Keara Blum MD Active FLUTICASONE PROPIONATE 50 MCG/ACT SUSP 1 puff in each nostril [place] FLUTICASONE PROPIONATE 49456140860 No Longer Active Dawson Gresham DO Active CEFDINIR 300 MG CAPS 1 daily CEFDINIR 8681005 3010 No Longer Active Dawson Gresham DO Active CEFDINIR 300 MG CAPS 1 daily CEFDINIR 9511464 3010 No Longer Active Keara Blum MD Active ONDANSETRON HCL 8 MG TABS 1 every8 hrs prn vomiting 20 08/10/08 ONDANSETRON HCL 28770465618 No Longer Active Keara Blum MD Active CLARITIN-D 24 HOUR 10-240 MG [id number] 1 po qd PRN Allergies 201 12/01/26 LORATADINE-PSEUDOEPHEDRINE 49531058003 No Longer Active Danielle Blum MD Active PROPRANOLOL HCL 20 MG TABS 1 bid PROPRANOL OL HCL 02532862320 No Longer Active Keara Blum MD Active PROAIR HFA 108 (90 BASE) MCG/ACT AERS 1-2 puffs 2-4 times a day as needed ALBUTEROL SULFATE 41526664907 No Longer Active Keara Blum MD Active FLOVENT HFA 110 MCG/ACT AERO 1 puff bid, rinse and spit FLUTICASONE PROPIONATE HFA 52208319513 No Longer Active Keara Blum MD Active FLUTICASONE PROPIONATE 50 MCG/ACT SUSP 1 puff in each nostril [place] FLUTICASONE PROPIONATE 52152974221 No Longer Active Keara Blum MD Active ZYRTEC ALLERGY 10 MG TABS 1 tablet po daily CET IRIZINE HCL 25044305184 No Longer Active Keara Blum MD Active AZITHROMYCIN 250 MG TABS 2 pills day 1,1 pill day 2-5 AZITHROMYCIN 21252149870 No Longer Active Keara Blum MD Act [place] ZYRTEC ALLERGY 10 MG TABS 1 tablet po daily ZYRTEC ALLERGY 10 MG TABS 5909735 CETIRIZINE HCL Inactive FLOVENT HFA 110 MCG/ACT AERO 1 puff bid, rinse and spit FLOVENT HFA 110 MCG/ACT AERO FLUTICASONE PROPIONATE HFA [place] ctive PROAIR HFA 108 (90 BASE) MCG/ACT AERS 1-2 puffs 2-4 times a day as needed PROAIR HFA 108 (90 BASE) MCG/ACT AERS ALB UTEROL SULFATE Inactive PROPRANOLOL HCL 20 MG TABS 1 bid P ROPRANOLOL HCL 20 MG TABS 792928 PROPRANOLOL HCL Inactive CLARITIN-D 24 HOUR 10-240 MG [id number] 1 po qd PRN Allergies 201 12/01/26 CLARITIN-D 24 HOUR 10-240 MG [id number] LORATADIN E-PSEUDOEPHEDRINE Inactive ONDANSETRON HCL 8 MG TABS 1 every8 hrs prn vomiting 20 08/10/08 ONDANSETRON HCL 8 MG TABS 128307 ONDANSETRON HCL Inactive CEFDINIR 300 MG CAPS 1 daily CEFDINIR 300 MG C APS 20021229 CEFDINIR Inactive CEFDINIR 300 MG CAPS 1 daily CEFDINIR 300 MG C APS 20021229 CEFDINIR Inactive FLUTICASONE PROPIONATE 50 MCG/ACT SUSP 1 puff in each nostril [place] FLUTICASONE PROPIONATE 50 MCG/ACT SUSP 997249 FLUTICASO NE PROPIONATE Inactive CEFTIN 500 MG TAB 1 po bid 10 days CEFTIN 500 M G TAB 766112 CEFUROXIME AXETIL Inactive ZIANA 1.2-0.025 % GEL apply pea size daily ZIANA 1.2-0.025 % GEL CLINDAMYCIN-TRETINOIN Inactive ONDANSETRON HCL 8 MG TABS 1 q 8 hours ON DANSETRON HCL 8 MG TABS 355666 ONDANSETRON HCL Inactive CEFTIN 500 MG TABS 1 bid CEFTIN 500 MG TABS 757278 CEFUROXIME AXETIL Inactive PRILOSEC 20 MG CPDR 1 daily PRILOSEC 20 MG CPD R 485424 OMEPRAZOLE Inactive FLUTICASONE PROPIONATE 50 MCG/ACT SUSP 1 puff in each nostril [place] FLUTICASONE PROPIONATE 50 MCG/ACT SUSP 672732 FLUTICASO NE PROPIONATE Inactive TRI-SPRINTEC 0.18/0.215/0.25 MG-35 MCG TABS 1 po qd as directed TRI-SPRINTEC 0.18/0.215/0.25 MG-35 MCG TABS 391452 NORGESTIM-ETH ESTRAD TRIPHASIC Inactive AZITHROMYCIN 250 MG TABS 2 pills day 1,1 pill day 2-5 AZITHROMYCIN 250 MG TABS 6391028 AZITHROMYCIN Inactive FLUTICASONE PROPIONATE 50 MCG/ACT SUSP 1 puff in each nostril [place] FLUTICASONE PROPIONATE 50 MCG/ACT SUSP 351497 FLUTICASO NE PROPIONATE Inactive Immunizations Vaccine Administration [...] Diphtheria, and acellular Per tussis Immunization) Adacel [[id number]] tetanus toxoid, reduced diph theria toxoid, and [...] Panel - Chemistry sodium, serum 141 mmol/L 921-445 4038/11/19 potassium, serum 4.4 mmol/L 3.5-5.2 chloride, serum [...] pH, urine, semiquantitative 8.0 5.0-8.5 Lab Report: [facility] [place] - Chemistry human chorionic gonadotropin , urine, qualitative (urine test) Negative Negative Encounters Code Encounter Date Provider Facility CPT-50594 Level 3 Est. Patient 09:47:44 CEMENTER HAND Keara Abreu MD [facility] CPT-99078 Level 3 Est. Patient 16:33:46 CDT Keara Abreu MD [facility] CPT-70830 Level 3 Est. Patient 16:38:32 CDT Dawson breen DO [facility] CPT-84610 Level 3 Est. Patient 15:58:59 CEMENTER HAND Keara Abreu MD [facility] CPT-00936 Level 3 Est. Patient 10:44:39 CEMENTER HAND Keara Abreu MD [facility] CPT-33579 Level 3 Est. Patient 10:09:23 CDT Keara Abreu MD [facility] CPT-68811 Level 3 Est. Patient 13:46:54 CEMENTER HAND Keara Abreu MD [facility] CPT-08840 Level 3 Est. Patient 16:25:27 CDT Keara Abreu MD [facility] CPT-63863 Level 3 Est. Patient 10:22:54 CDT Keara Abreu MD [facility] CPT-98823 Level 3 Est. Patient 16:02:28 CEMENTER HAND Keara Abreu MD [facility] Procedures Code Procedure Name Date Entry Date Standard Desc ription CPT-00118 Sono pelvis non OB uterus ovaries cervix 15:52:59 CDT CPT-OV Office Visit 14:04:10 CEMENTER HAND CPT-OV Office Visit 16:48:59 CEMENTER HAND CPT-81839 Sono pelvis non OB uterus ovaries cervix 09:06:48 CEMENTER HAND CPT-32146 Sono retroperitoneal complete kidneys an d bladder 09:06:48 CEMENTER HAND CPT-41536 Abd compl w upright 15:32:02 CEMENTER HAND CPT-00365 Fluzone Quadrivalent Intramuscular Suspe nsion 0.5 ML 16:49:56 CEMENTER HAND CPT-03349 Breathing Tx 11:04:54 CDT CPT-57177 Chest 2V Frontal and Lat 10:32:02 CDT 03/19 CPT-04164 Breathing Tx 10:23:54 CDT CPT-69783 EKG Trac and Interp 16:18:28 CEMENTER HAND
--- OUTSIDE RECORDS SUMMARY | 2020-05-02 15:46 | XMS REPORT | Clinical Summary ---
Author Author Mario, Valerie Villegas Organization [facility] Address Unknown Phone Unavailable Allergies, Adverse [...] unspecified back disorders UTI 599.0 Resolved Keara lBum MD Urinary tract infection, site not specified [...] kumar MD Other unspecified back disorders ICD-724.9 [place] ctive Keara Blum MD UTI ICD-599.0 Inactive Keara Blum MD 20 08/06/08 Otitis media, left ICD-382.9 Inactive Keara Blum MD Sinusitis-Acute ICD-461.9 Inactive Keara kumar MD Medication List Medication Instructions Start Date Stop Date Generic Name NDC Status Provider Patient Instruction CEFTIN 500 MG TABS 1 bid CEFUROXIME AXETIL 5 5394181312 No Longer Active Keara Blum MD Active FLUTICASONE PROPIONATE 50 MCG/ACT SUSP 1 puff in each nostril [place] FLUTICASONE PROPIONATE 13350388206 Active Keara Blum MD Active ONDANSETRON HCL 8 MG TABS 1 q 8 hours ONDANSETR ON HCL 45186938562 No Longer Active Keara Blum MD Active ZIANA 1.2-0.025 % GEL apply pea size daily CLIN DAMYCIN-TRETINOIN 98128294107 No Longer Active Keara Blum MD Active CEFTIN 500 MG TAB 1 po bid 10 days CEFUROXIME A XETIL 15273497089 No Longer Active Keara Blum MD Active FLUTICASONE PROPIONATE 50 MCG/ACT SUSP 1 puff in each nostril [place] FLUTICASONE PROPIONATE 98824083374 No Longer Active Dawson Gresham DO Active CEFDINIR 300 MG CAPS 1 daily CEFDINIR 5321778 3010 No Longer Active Dawson Gresham DO Active CEFDINIR 300 MG CAPS 1 daily CEFDINIR 4069865 3010 No Longer Active Keara Blum MD Active ONDANSETRON HCL 8 MG TABS 1 every8 hrs prn vomiting 20 08/10/08 ONDANSETRON HCL 47049352487 No Longer Active Keara Blum MD Active CLARITIN-D 24 HOUR 10-240 MG [id number] 1 po qd PRN Allergies 201 12/01/26 LORATADINE-PSEUDOEPHEDRINE 93391914100 No Longer Active Danielle Blum MD Active PROPRANOLOL HCL 20 MG TABS 1 bid PROPRANOL OL HCL 35293129980 No Longer Active Keara Blum MD Active PROAIR HFA 108 (90 BASE) MCG/ACT AERS 1-2 puffs 2-4 times a day as needed ALBUTEROL SULFATE 92036756768 No Longer Active Keara Blum MD Active PRILOSEC 20 MG CPDR 1 daily OMEPRAZOLE 92275670294 Ac tive Keara Blum MD Active FLOVENT HFA 110 MCG/ACT AERO 1 puff bid, rinse and spit FLUTICASONE PROPIONATE HFA 77984925764 No Longer Active Keara Blum MD Active FLUTICASONE PROPIONATE 50 MCG/ACT SUSP 1 puff in each nostril [place] FLUTICASONE PROPIONATE 41522798351 No Longer Active Keara Blum MD Active ZYRTEC ALLERGY 10 MG TABS 1 tablet po daily CET IRIZINE HCL 86558461215 No Longer Active Keara Blum MD Active AZITHROMYCIN 250 MG TABS 2 pills day 1,1 pill day 2-5 AZITHROMYCIN 95102811112 No Longer Active Keara Blum MD Act [place] ZYRTEC ALLERGY 10 MG TABS 1 tablet po daily ZYRTEC ALLERGY 10 MG TABS 1900821 CETIRIZINE HCL Inactive FLOVENT HFA 110 MCG/ACT AERO 1 puff bid, rinse and spit FLOVENT HFA 110 MCG/ACT AERO FLUTICASONE PROPIONATE HFA [place] ctive PROAIR HFA 108 (90 BASE) MCG/ACT AERS 1-2 puffs 2-4 times a day as needed PROAIR HFA 108 (90 BASE) MCG/ACT AERS ALB UTEROL SULFATE Inactive PROPRANOLOL HCL 20 MG TABS 1 bid P ROPRANOLOL HCL 20 MG TABS 744207 PROPRANOLOL HCL Inactive CLARITIN-D 24 HOUR 10-240 MG [id number] 1 po qd PRN Allergies 201 12/01/26 CLARITIN-D 24 HOUR 10-240 MG [id number] LORATADIN E-PSEUDOEPHEDRINE Inactive ONDANSETRON HCL 8 MG TABS 1 every8 hrs prn vomiting 20 08/10/08 ONDANSETRON HCL 8 MG TABS 031975 ONDANSETRON HCL Inactive CEFDINIR 300 MG CAPS 1 daily CEFDINIR 300 MG C APS 20021229 CEFDINIR Inactive CEFDINIR 300 MG CAPS 1 daily CEFDINIR 300 MG C APS 20021229 CEFDINIR Inactive FLUTICASONE PROPIONATE 50 MCG/ACT SUSP 1 puff in each nostril [place] FLUTICASONE PROPIONATE 50 MCG/ACT SUSP 931344 FLUTICASO NE PROPIONATE Inactive CEFTIN 500 MG TAB 1 po bid 10 days CEFTIN 500 M G TAB 653082 CEFUROXIME AXETIL Inactive ZIANA 1.2-0.025 % GEL apply pea size daily ZIANA 1.2-0.025 % GEL CLINDAMYCIN-TRETINOIN Inactive ONDANSETRON HCL 8 MG TABS 1 q 8 hours ON DANSETRON HCL 8 MG TABS 785512 ONDANSETRON HCL Inactive CEFTIN 500 MG TABS 1 bid CEFTIN 500 MG TABS 439701 CEFUROXIME AXETIL Inactive AZITHROMYCIN 250 MG TABS 2 pills day 1,1 pill day 2-5 AZITHROMYCIN 250 MG TABS 6669744 AZITHROMYCIN Inactive FLUTICASONE PROPIONATE 50 MCG/ACT SUSP 1 puff in each nostril [place] FLUTICASONE PROPIONATE 50 MCG/ACT SUSP 498726 FLUTICASO NE PROPIONATE Inactive Immunizations Vaccine Administration [...] meningococcal polysaccharide vaccine (MPSV4) Adacel immunization Adacel [[id number]] tetanus toxo id, reduced diphtheria toxoid, and [...] 1.025 1.000-1.030 pH, urine, semiquantitative 6.5 5.0-8.5 Lab Report: [facility] – [place] - Chemistry human chorionic gonadotropin , urine, qualitative (urine test) Negative Negative Encounters Code Encounter Date Provider Facility CPT-19642 Level 3 Est. Patient 09:47:44 BLIND HOOKER Keara Abreu MD [facility] CPT-18312 Level 3 Est. Patient 16:33:46 CDT Keara Abreu MD [facility] CPT-80467 Level 3 Est. Patient 16:38:32 CDT Dawson breen DO [facility] CPT-83781 Level 3 Est. Patient 15:58:59 BLIND HOOKER Keara Abreu MD [facility] CPT-06617 Level 3 Est. Patient 10:44:39 BLIND HOOKER Keara Abreu MD [facility] CPT-17716 Level 3 Est. Patient 10:09:23 CDT Keara Abreu MD [facility] CPT-95200 Level 3 Est. Patient 13:46:54 BLIND HOOKER Keara Abreu MD [facility] CPT-67187 Level 3 Est. Patient 16:25:27 CDT Keara Abreu MD [facility] CPT-55986 Level 3 Est. Patient 10:22:54 CDT Keara Abreu MD [facility] CPT-82772 Level 3 Est. Patient 16:02:28 BLIND HOOKER Keara Abreu MD [facility] Procedures Code Procedure Name Date Entry Date Standard Desc ription CPT-29300 Breathing Tx 11:04:54 CDT CPT-53391 Chest 2V Frontal and Lat 10:32:02 CDT 03/19 CPT-22268 Breathing Tx 10:23:54 CDT CPT-45074 EKG Trac and Interp 16:18:28 BLIND HOOKER
--- OUTSIDE RECORDS SUMMARY | 2020-05-02 15:46 | XMS REPORT | Clinical Summary ---
[...] MD Esophageal reflux Sinusitis-Acute 461.9 Resolved Keara Blmu MD Acute sinusitis, unspecified Other unspecified back [...] one tab PO daily LEVONORGEST-ETH ESTRAD - 70826571181 Active Hortensia Marr MD Active TRI-SPRINTEC 0.18/0.215/0.25 MG-35 MCG TABS 1 po qd as directed NORGESTIM-ETH ESTRAD TRIPHASIC 60512493233 No Longer Active Hortensia Marr MD Active ACZONE 5 % EXT GEL DAPSONE 58842539873 Active Agustina Marr MD Active FLUTICASONE PROPIONATE 50 MCG/ACT SUSP 1 puff in each nostril [place] FLUTICASONE PROPIONATE 65127781531 No Longer Active Hortensia Marr MD Active PRILOSEC 20 MG CPDR 1 daily OMEPRAZOLE 5063224 3614 No Longer Active Hortensia Marr MD Active CEFTIN 500 MG TABS 1 bid CEFUROXIME AXETIL 5 8260956640 No Longer Active Keara Blum MD Active ONDANSETRON HCL 8 MG TABS 1 q 8 hours ONDANSETR ON HCL 64216035277 No Longer Active Keara Blum MD Active ZIANA 1.2-0.025 % GEL apply pea size daily CLIN DAMYCIN-TRETINOIN 74798494490 No Longer Active Keara Blum MD Active CEFTIN 500 MG TAB 1 po bid 10 days CEFUROXIME A XETIL 62844221330 No Longer Active Keara Blum MD Active FLUTICASONE PROPIONATE 50 MCG/ACT SUSP 1 puff in each nostril [place] FLUTICASONE PROPIONATE 46318301303 No Longer Active Dawson Gresham DO Active CEFDINIR 300 MG CAPS 1 daily CEFDINIR 5066978 3010 No Longer Active Dawson Gresham DO Active CEFDINIR 300 MG CAPS 1 daily CEFDINIR 8679944 3010 No Longer Active Keara Blum MD Active ONDANSETRON HCL 8 MG TABS 1 every8 hrs prn vomiting 20 08/10/08 ONDANSETRON HCL 40481837379 No Longer Active Keara Blum MD Active CLARITIN-D 24 HOUR 10-240 MG [id number] 1 po qd PRN Allergies 201 12/01/26 LORATADINE-PSEUDOEPHEDRINE 02976025904 No Longer Active Danielle Blum MD Active PROPRANOLOL HCL 20 MG TABS 1 bid PROPRANOL OL HCL 53195328146 No Longer Active Keara Blum MD Active PROAIR HFA 108 (90 BASE) MCG/ACT AERS 1-2 puffs 2-4 times a day as needed ALBUTEROL SULFATE 10586739364 No Longer Active Keara Blum MD Active FLOVENT HFA 110 MCG/ACT AERO 1 puff bid, rinse and spit FLUTICASONE PROPIONATE HFA 14237749350 No Longer Active Keara Blum MD Active FLUTICASONE PROPIONATE 50 MCG/ACT SUSP 1 puff in each nostril [place] FLUTICASONE PROPIONATE 88207413765 No Longer Active Keara Blum MD Active ZYRTEC ALLERGY 10 MG TABS 1 tablet po daily CET IRIZINE HCL 71805688529 No Longer Active Keara Blum MD Active AZITHROMYCIN 250 MG TABS 2 pills day 1,1 pill day 2-5 AZITHROMYCIN 70690956713 No Longer Active Keara Blum MD Act [place] ZYRTEC ALLERGY 10 MG TABS 1 tablet po daily ZYRTEC ALLERGY 10 MG TABS 1715556 CETIRIZINE HCL Inactive FLOVENT HFA 110 MCG/ACT AERO 1 puff bid, rinse and spit FLOVENT HFA 110 MCG/ACT AERO FLUTICASONE PROPIONATE HFA [place] ctive PROAIR HFA 108 (90 BASE) MCG/ACT AERS 1-2 puffs 2-4 times a day as needed PROAIR HFA 108 (90 BASE) MCG/ACT AERS ALB UTEROL SULFATE Inactive PROPRANOLOL HCL 20 MG TABS 1 bid P ROPRANOLOL HCL 20 MG TABS 814434 PROPRANOLOL HCL Inactive CLARITIN-D 24 HOUR 10-240 MG [id number] 1 po qd PRN Allergies 201 12/01/26 CLARITIN-D 24 HOUR 10-240 MG [id number] LORATADIN E-PSEUDOEPHEDRINE Inactive ONDANSETRON HCL 8 MG TABS 1 every8 hrs prn vomiting 20 08/10/08 ONDANSETRON HCL 8 MG TABS 348240 ONDANSETRON HCL Inactive CEFDINIR 300 MG CAPS 1 daily CEFDINIR 300 MG C APS 134126 CEFDINIR Inactive CEFDINIR 300 MG CAPS 1 daily CEFDINIR 300 MG C APS 20021229 CEFDINIR Inactive FLUTICASONE PROPIONATE 50 MCG/ACT SUSP 1 puff in each nostril [place] FLUTICASONE PROPIONATE 50 MCG/ACT SUSP 337331 FLUTICASO NE PROPIONATE Inactive CEFTIN 500 MG TAB 1 po bid 10 days CEFTIN 500 M G TAB 651690 CEFUROXIME AXETIL Inactive ZIANA 1.2-0.025 % GEL apply pea size daily ZIANA 1.2-0.025 % GEL CLINDAMYCIN-TRETINOIN Inactive ONDANSETRON HCL 8 MG TABS 1 q 8 hours ON DANSETRON HCL 8 MG TABS 884875 ONDANSETRON HCL Inactive CEFTIN 500 MG TABS 1 bid CEFTIN 500 MG TABS 819121 CEFUROXIME AXETIL Inactive PRILOSEC 20 MG CPDR 1 daily PRILOSEC 20 MG CPD R 587369 OMEPRAZOLE Inactive FLUTICASONE PROPIONATE 50 MCG/ACT SUSP 1 puff in each nostril [place] FLUTICASONE PROPIONATE 50 MCG/ACT SUSP 438030 FLUTICASO NE PROPIONATE Inactive TRI-SPRINTEC 0.18/0.215/0.25 MG-35 MCG TABS 1 po qd as directed TRI-SPRINTEC 0.18/0.215/0.25 MG-35 MCG TABS 971073 NORGESTIM-ETH ESTRAD TRIPHASIC Inactive AZITHROMYCIN 250 MG TABS 2 pills day 1,1 pill day 2-5 AZITHROMYCIN 250 MG TABS 9647311 AZITHROMYCIN Inactive FLUTICASONE PROPIONATE 50 MCG/ACT SUSP 1 puff in each nostril [place] FLUTICASONE PROPIONATE 50 MCG/ACT SUSP 487922 FLUTICASO NE PROPIONATE Inactive Immunizations Vaccine Administration [...] Diphtheria, and acellular Per tussis Immunization) Adacel [[id number]] tetanus toxoid, reduced diph theria toxoid, and [...] Panel - Chemistry sodium, serum 141 mmol/L 414-613 3307/11/19 potassium, serum 4.4 mmol/L 3.5-5.2 chloride, serum [...] pH, urine, semiquantitative 8.0 5.0-8.5 Lab Report: [facility] – [place] - Chemistry human chorionic gonadotropin , urine, qualitative (urine test) Negative Negative Encounters Code Encounter Date Provider Facility CPT-60384 Level 3 Est. Patient 09:47:44 ASSISTANCE SPECIALIST Keara Abreu MD [facility] CPT-36370 Level 3 Est. Patient 16:33:46 CDT Keara Abreu MD [facility] CPT-20734 Level 3 Est. Patient 16:38:32 CDT Dawson breen DO [facility] CPT-95994 Level 3 Est. Patient 15:58:59 ASSISTANCE SPECIALIST Keara Abreu MD [facility] CPT-14683 Level 3 Est. Patient 10:44:39 ASSISTANCE SPECIALIST Keara Abreu MD [facility] CPT-03038 Level 3 Est. Patient 10:09:23 CDT Keara Abreu MD [facility] CPT-82406 Level 3 Est. Patient 13:46:54 ASSISTANCE SPECIALIST Keara Abreu MD [facility] CPT-94498 Level 3 Est. Patient 16:25:27 CDT Keara Abreu MD [facility] CPT-49201 Level 3 Est. Patient 10:22:54 CDT Keara Abreu MD [facility] CPT-99360 Level 3 Est. Patient 16:02:28 ASSISTANCE SPECIALIST Keara Abreu MD [facility] Procedures Code Procedure Name Date Entry Date Standard Desc ription CPT-90465 Sono pelvis non OB uterus ovaries cervix 15:52:59 CDT CPT-OV Office Visit 14:04:10 ASSISTANCE SPECIALIST CPT-OV Office Visit 16:48:59 ASSISTANCE SPECIALIST CPT-38019 Sono pelvis non OB uterus ovaries cervix 09:06:48 ASSISTANCE SPECIALIST CPT-69406 Sono retroperitoneal complete kidneys an d bladder 09:06:48 ASSISTANCE SPECIALIST CPT-26564 Abd compl w upright 15:32:02 ASSISTANCE SPECIALIST CPT-59135 Fluzone Quadrivalent Intramuscular Suspe nsion 0.5 ML 16:49:56 ASSISTANCE SPECIALIST CPT-07457 Breathing Tx 11:04:54 CDT CPT-97582 Chest 2V Frontal and Lat 10:32:02 CDT 03/19 CPT-94060 Breathing Tx 10:23:54 CDT CPT-82306 EKG Trac and Interp 16:18:28 ASSISTANCE SPECIALIST
--- OUTSIDE RECORDS SUMMARY | 2020-05-02 15:46 | XMS REPORT | Clinical Summary ---
Author Author Mario, Valerie Villegas Organization [facility] Address Unknown Phone Allergies, Adverse Reactions, Alerts Allergy Name Reaction [...] MD Urinary tract infection, site not specified COUGH ICD-786.2 Inactive Keara Blum MD 20 08/30/25 COUGH ICD-786.2 Inactive Keara Blum MD 20 09/01/22 Sinusitis-Acute ICD-461.9 Inactive Keara kumar MD Medication List Medication Instructions Start Date Stop Date Generic Name NDC Status Provider Patient Instruction ONDANSETRON HCL 8 MG TABS 1 q 8 hours ONDANSETRON HCL 88697756404 Active Keara Blum MD Active ZIANA 1.2-0.025 % GEL apply pea size daily CLIN DAMYCIN-TRETINOIN 88999276990 Active Keara Blum MD Active CEFDINIR 300 MG CAPS 1 daily CEFDINIR 60156042602 Act verona Keara Blum MD Active CEFDINIR 300 MG CAPS 1 daily CEFDINIR 6360935 3010 No Longer Active Keara Blum MD Active FLUTICASONE PROPIONATE 50 MCG/ACT SUSP 1 puff in each nostril da blaine FLUTICASONE PROPIONATE 37792938019 Active Keara Blum MD Active ONDANSETRON HCL 8 MG TABS 1 every8 hrs prn vomiting 20 08/10/08 ONDANSETRON HCL 65377474366 No Longer Active Keara Blum MD Active CLARITIN-D 24 HOUR 10-240 MG [id number] 1 po qd PRN Allergies 201 12/01/26 LORATADINE-PSEUDOEPHEDRINE 65452708310 No Longer Active Danielle Blum MD Active PROPRANOLOL HCL 20 MG TABS 1 bid PROPRANOL OL HCL 50887606659 No Longer Active Keara Blum MD Active PROAIR HFA 108 (90 BASE) MCG/ACT AERS 1-2 puffs 2-4 times a day as needed ALBUTEROL SULFATE 62572381265 No Longer Active Keara Blum MD Active PRILOSEC 20 MG CPDR 1 daily OMEPRAZOLE 14643541337 Ac tive Keara Blum MD Active FLOVENT HFA 110 MCG/ACT AERO 1 puff bid, rinse and spit FLUTICASONE PROPIONATE HFA 74425552147 No Longer Active Keara Blum MD Active FLUTICASONE PROPIONATE 50 MCG/ACT SUSP 1 puff in each nostril da blaine FLUTICASONE PROPIONATE 40415572702 No Longer Active Keara Blum MD Active ZYRTEC ALLERGY 10 MG TABS 1 tablet po daily CET IRIZINE HCL 28449852923 No Longer Active Keara Blum MD Active AZITHROMYCIN 250 MG TABS 2 pills day 1,1 pill day 2-5 AZITHROMYCIN 91581308775 No Longer Active Keara Blum MD Act verona ZYRTEC ALLERGY 10 MG TABS 1 tablet po daily ZYRTEC ALLERGY 10 MG TABS 1577551 CETIRIZINE HCL Inactive FLOVENT HFA 110 MCG/ACT AERO 1 puff bid, rinse and spit FLOVENT HFA 110 MCG/ACT AERO FLUTICASONE PROPIONATE HFA Marysol ctive PROAIR HFA 108 (90 BASE) MCG/ACT AERS 1-2 puffs 2-4 times a day as needed PROAIR HFA 108 (90 BASE) MCG/ACT AERS ALB UTEROL SULFATE Inactive PROPRANOLOL HCL 20 MG TABS 1 bid P ROPRANOLOL HCL 20 MG TABS 322491 PROPRANOLOL HCL Inactive CLARITIN-D 24 HOUR 10-240 MG [id number] 1 po qd PRN Allergies 201 12/01/26 CLARITIN-D 24 HOUR 10-240 MG [id number] LORATADIN E-PSEUDOEPHEDRINE Inactive ONDANSETRON HCL 8 MG TABS 1 every8 hrs prn vomiting 20 08/10/08 ONDANSETRON HCL 8 MG TABS 831222 ONDANSETRON HCL Inactive CEFDINIR 300 MG CAPS 1 daily CEFDINIR 300 MG C APS 246728 CEFDINIR Inactive AZITHROMYCIN 250 MG TABS 2 pills day 1,1 pill day 2-5 AZITHROMYCIN 250 MG TABS 6934391 AZITHROMYCIN Inactive FLUTICASONE PROPIONATE 50 MCG/ACT SUSP 1 puff in each nostril da blaine FLUTICASONE PROPIONATE 50 MCG/ACT SUSP 784344 FLUTICASO NE PROPIONATE Inactive Immunizations Vaccine Administration [...] meningococcal polysaccharide vaccine (MPSV4) Adacel immunization Adacel [[id number]] tetanus toxo id, reduced diphtheria toxoid, and [...] Value Unit Range Description blood pressure, diastolic 78 mm[Hg] BP horner blood pressure, systolic 120 mm[Hg] BP sys temperature E&M 98.6 [degF] Body temp erature weight E&M 209 [lb_av] Weight Measure d blood pressure, diastolic 72 mm[Hg] BP horner blood pressure, systolic 122 mm[Hg] BP sys height E&M 69.25 [in_us] Bdy height temperature E&M 96.5 [degF] Body temp erature weight E&M 212 [lb_av] Weight Measure d blood pressure, diastolic 70 mm[Hg] BP horner blood pressure, systolic 112 mm[Hg] BP sys height E&M 69.25 [in_us] Bdy height temperature E&M 98.9 [degF] Body temp erature weight E&M 218 [lb_av] Weight Measure d Diagnostic Results Date [...] 5.0-8.5 Encounters Code Encounter Date Provider Facility CPT-28750 Level 3 Est. Patient 15:58:59 [employer] Keara Abreu MD [facility] CPT-88868 Level 3 Est. Patient 10:44:39 [employer] Keara Abreu MD [facility] CPT-16690 Level 3 Est. Patient 10:09:23 CDT Keara Abreu MD [facility] CPT-83649 Level 3 Est. Patient 13:46:54 DILIA Abreu MD [facility] CPT-47503 Level 3 Est. Patient 16:25:27 CDT Keara Abreu MD [facility] CPT-53159 Level 3 Est. Patient 10:22:54 CDT Keara Abreu MD [facility] CPT-27714 Level 3 Est. Patient 16:02:28 DILIA Abreu MD [facility] Procedures Code Procedure Name Date Entry Date Standard Desc ription CPT-23579 Breathing Tx 11:04:54 CDT CPT-56117 Chest 2V Frontal and Lat 10:32:02 CDT 03/19 CPT-64095 Breathing Tx 10:23:54 CDT CPT-56062 EKG Trac and Interp 16:18:28 [employer]
--- OUTSIDE RECORDS SUMMARY | 2020-05-02 15:46 | XMS REPORT | Clinical Summary ---
Author Author Mario, Valerie Villegas Organization [facility] Address Unknown Phone Unavailable Allergies, Adverse Reactions, [...] back disorders 724.9 Resolved 201 01/02/08 Keara Blmu MD Other unspecified back disorders UTI 599.0 Resolved Keara Blum MD Urinary tract infection, site not specified Otitis media, left 382.9 Resolved Keara Campa Unspecified otitis media Sinusitis-Acute 461.9 Active Keara Blum MD Acute sinusitis, unspecified COUGH ICD-786.2 Inactive Keara Blum MD 20 08/30/25 OTHER ABNORMAL GLUCOSE ICD-790.29 Inactive Agusto Blum MD COUGH ICD-786.2 Inactive Keara Blum MD 20 09/01/22 G E REFLUX ICD-530.81 Inactive Keara kelly MD Sinusitis-Acute ICD-461.9 Inactive Keara kumar MD Other unspecified back disorders ICD-724.9 Gamaliel ctive Keara Blum MD UTI ICD-599.0 Inactive Keara Blum MD 20 08/06/08 Otitis media, left ICD-382.9 Inactive Keara Blum MD Medication List Medication Instructions Start Date Stop Date Generic Name NDC Status Provider Patient Instruction CEFTIN 500 MG TABS 1 bid CEFUROXIME AXETIL 53449151 210 Active Keara Blum MD Active FLUTICASONE PROPIONATE 50 MCG/ACT SUSP 1 puff in each nostril da blaine FLUTICASONE PROPIONATE 95151541941 Active Keara Blum MD Active ONDANSETRON HCL 8 MG TABS 1 q 8 hours ONDANSETR ON HCL 88129645719 No Longer Active Keara Blum MD Active ZIANA 1.2-0.025 % GEL apply pea size daily CLIN DAMYCIN-TRETINOIN 57098215275 No Longer Active Keara Blum MD Active CEFTIN 500 MG TAB 1 po bid 10 days CEFUROXIME A XETIL 53694737962 No Longer Active Keara Blum MD Active FLUTICASONE PROPIONATE 50 MCG/ACT SUSP 1 puff in each nostril da blaine FLUTICASONE PROPIONATE 99666843863 No Longer Active Dawson Gresham DO Active CEFDINIR 300 MG CAPS 1 daily CEFDINIR 2505710 3010 No Longer Active Dawson Gresham DO Active CEFDINIR 300 MG CAPS 1 daily CEFDINIR 7187781 3010 No Longer Active Keara Blum MD Active ONDANSETRON HCL 8 MG TABS 1 every8 hrs prn vomiting 20 08/10/08 ONDANSETRON HCL 76142345207 No Longer Active Keara Blum MD Active CLARITIN-D 24 HOUR 10-240 MG [id number] 1 po qd PRN Allergies 201 12/01/26 LORATADINE-PSEUDOEPHEDRINE 81474753142 No Longer Active Danielle Blum MD Active PROPRANOLOL HCL 20 MG TABS 1 bid PROPRANOL OL HCL 37085556371 No Longer Active Keara Blum MD Active PROAIR HFA 108 (90 BASE) MCG/ACT AERS 1-2 puffs 2-4 times a day as needed ALBUTEROL SULFATE 77341764256 No Longer Active Keara Blum MD Active PRILOSEC 20 MG CPDR 1 daily OMEPRAZOLE 17608638868 Ac tive Keara Blum MD Active FLOVENT HFA 110 MCG/ACT AERO 1 puff bid, rinse and spit FLUTICASONE PROPIONATE HFA 40052751018 No Longer Active Keara Blum MD Active FLUTICASONE PROPIONATE 50 MCG/ACT SUSP 1 puff in each nostril da blaine FLUTICASONE PROPIONATE 94158041711 No Longer Active Keara Blum MD Active ZYRTEC ALLERGY 10 MG TABS 1 tablet po daily CET IRIZINE HCL 27017642165 No Longer Active Keara Blum MD Active AZITHROMYCIN 250 MG TABS 2 pills day 1,1 pill day 2-5 AZITHROMYCIN 75653372200 No Longer Active Keara Blum MD Act verona ZYRTEC ALLERGY 10 MG TABS 1 tablet po daily ZYRTEC ALLERGY 10 MG TABS 3241068 CETIRIZINE HCL Inactive FLOVENT HFA 110 MCG/ACT AERO 1 puff bid, rinse and spit FLOVENT HFA 110 MCG/ACT AERO FLUTICASONE PROPIONATE HFA Gamaliel ctive PROAIR HFA 108 (90 BASE) MCG/ACT AERS 1-2 puffs 2-4 times a day as needed PROAIR HFA 108 (90 BASE) MCG/ACT AERS ALB UTEROL SULFATE Inactive PROPRANOLOL HCL 20 MG TABS 1 bid P ROPRANOLOL HCL 20 MG TABS 912318 PROPRANOLOL HCL Inactive CLARITIN-D 24 HOUR 10-240 MG [id number] 1 po qd PRN Allergies 201 12/01/26 CLARITIN-D 24 HOUR 10-240 MG [id number] LORATADIN E-PSEUDOEPHEDRINE Inactive ONDANSETRON HCL 8 MG TABS 1 every8 hrs prn vomiting 20 08/10/08 ONDANSETRON HCL 8 MG TABS 774510 ONDANSETRON HCL Inactive CEFDINIR 300 MG CAPS 1 daily CEFDINIR 300 MG C APS 20021229 CEFDINIR Inactive CEFDINIR 300 MG CAPS 1 daily CEFDINIR 300 MG C APS 20021229 CEFDINIR Inactive FLUTICASONE PROPIONATE 50 MCG/ACT SUSP 1 puff in each nostril da blaine FLUTICASONE PROPIONATE 50 MCG/ACT SUSP 411687 FLUTICASO NE PROPIONATE Inactive CEFTIN 500 MG TAB 1 po bid 10 days CEFTIN 500 M G TAB 417846 CEFUROXIME AXETIL Inactive ZIANA 1.2-0.025 % GEL apply pea size daily ZIANA 1.2-0.025 % GEL CLINDAMYCIN-TRETINOIN Inactive ONDANSETRON HCL 8 MG TABS 1 q 8 hours ON DANSETRON HCL 8 MG TABS 996415 ONDANSETRON HCL Inactive AZITHROMYCIN 250 MG TABS 2 pills day 1,1 pill day 2-5 AZITHROMYCIN 250 MG TABS 1457747 AZITHROMYCIN Inactive FLUTICASONE PROPIONATE 50 MCG/ACT SUSP 1 puff in each nostril da blaine FLUTICASONE PROPIONATE 50 MCG/ACT SUSP 139798 FLUTICASO NE PROPIONATE Inactive Immunizations Vaccine Administration [...] Diphtheria, and acellular Per tussis Immunization) Adacel [[id number]] tetanus toxoid, reduced diph theria toxoid, and [...] Range Description blood pressure, diastolic - 8462-4 60 mm[Hg] [...] 5.0-8.5 Encounters Code Encounter Date Provider Facility CPT-78041 Level 3 Est. Patient 16:33:46 CDT Keara Abreu MD [facility] CPT-68337 Level 3 Est. Patient 16:38:32 CDT Dawson breen DO [facility] CPT-90947 Level 3 Est. Patient 15:58:59 TELEPHONE ADVICE NURSE Keara Abreu MD [facility] CPT-62524 Level 3 Est. Patient 10:44:39 TELEPHONE ADVICE NURSE Keara Abreu MD [facility] CPT-54023 Level 3 Est. Patient 10:09:23 CDT Keara Abreu MD [facility] CPT-63937 Level 3 Est. Patient 13:46:54 TELEPHONE ADVICE NURSE Keara Abreu MD [facility] CPT-67360 Level 3 Est. Patient 16:25:27 CDT Keara Abreu MD [facility] CPT-86112 Level 3 Est. Patient 10:22:54 CDT Keara Abreu MD [facility] CPT-99441 Level 3 Est. Patient 16:02:28 TELEPHONE ADVICE NURSE Keara Abreu MD [facility] Procedures Code Procedure Name Date Entry Date Standard Desc ription CPT-88810 Breathing Tx 11:04:54 CDT CPT-58330 Chest 2V Frontal and Lat 10:32:02 CDT 03/19 CPT-41976 Breathing Tx 10:23:54 CDT CPT-61487 EKG Trac and Interp 16:18:28 TELEPHONE ADVICE NURSE
--- OUTSIDE RECORDS SUMMARY | 2020-05-02 15:46 | XMS REPORT | Clinical Summary ---
Author Author Mario, Valerie Villegas Organization [facility] Address Unknown Phone Unavailable Allergies, Adverse Reactions, [...] abnormal glucose ALLERGIC RHINITIS 477.9 Active Keara eklly MD Allergic rhinitis, cause unspecified COUGH 786.2 [...] kumar MD Other unspecified back disorders ICD-724.9 Mayrsol ctive Keara Blum MD UTI ICD-599.0 Inactive Keara Blum MD 20 08/06/08 Otitis media, left ICD-382.9 Inactive Keara Blum MD Sinusitis-Acute ICD-461.9 Inactive Keara kumar MD Medication List Medication Instructions Start Date Stop Date Generic Name NDC Status Provider Patient Instruction SEASONIQUE 0.15-0.03 &0.01 MG ORAL TABS one tab PO daily LEVONORGEST-ETH ESTRAD - 62704157694 Active Hortensia Marr MD Active TRI-SPRINTEC 0.18/0.215/0.25 MG-35 MCG TABS 1 po qd as directed NORGESTIM-ETH ESTRAD TRIPHASIC 39815499425 No Longer Active Hortensia Marr MD Active ACZONE 5 % EXT GEL DAPSONE 38690681712 Active Agustina Marr MD Active FLUTICASONE PROPIONATE 50 MCG/ACT SUSP 1 puff in each nostril da blaine FLUTICASONE PROPIONATE 04615804556 No Longer Active Hortensia Marr MD Active PRILOSEC 20 MG CPDR 1 daily OMEPRAZOLE 7571538 3614 No Longer Active Hortensia Marr MD Active CEFTIN 500 MG TABS 1 bid CEFUROXIME AXETIL 5 9351301692 No Longer Active Keara Blum MD Active ONDANSETRON HCL 8 MG TABS 1 q 8 hours ONDANSETR ON HCL 28404567346 No Longer Active Keara Blum MD Active ZIANA 1.2-0.025 % GEL apply pea size daily CLIN DAMYCIN-TRETINOIN 49008513032 No Longer Active Keara Blum MD Active CEFTIN 500 MG TAB 1 po bid 10 days CEFUROXIME A XETIL 00310157422 No Longer Active Keara Blum MD Active FLUTICASONE PROPIONATE 50 MCG/ACT SUSP 1 puff in each nostril da blaine FLUTICASONE PROPIONATE 20903638138 No Longer Active Dawson Gresham DO Active CEFDINIR 300 MG CAPS 1 daily CEFDINIR 1596386 3010 No Longer Active Dawson Gresham DO Active CEFDINIR 300 MG CAPS 1 daily CEFDINIR 0709717 3010 No Longer Active Keara Blum MD Active ONDANSETRON HCL 8 MG TABS 1 every8 hrs prn vomiting 20 08/10/08 ONDANSETRON HCL 56227545031 No Longer Active Keara Blum MD Active CLARITIN-D 24 HOUR 10-240 MG [id number] 1 po qd PRN Allergies 201 12/01/26 LORATADINE-PSEUDOEPHEDRINE 73878635347 No Longer Active Danielle Blum MD Active PROPRANOLOL HCL 20 MG TABS 1 bid PROPRANOL OL HCL 57845058458 No Longer Active Keara Blum MD Active PROAIR HFA 108 (90 BASE) MCG/ACT AERS 1-2 puffs 2-4 times a day as needed ALBUTEROL SULFATE 98624727143 No Longer Active Keara Blum MD Active FLOVENT HFA 110 MCG/ACT AERO 1 puff bid, rinse and spit FLUTICASONE PROPIONATE HFA 64250953752 No Longer Active Keara Blum MD Active FLUTICASONE PROPIONATE 50 MCG/ACT SUSP 1 puff in each nostril da blaine FLUTICASONE PROPIONATE 27604642920 No Longer Active Keara Blum MD Active ZYRTEC ALLERGY 10 MG TABS 1 tablet po daily CET IRIZINE HCL 96676824521 No Longer Active Keara Blum MD Active AZITHROMYCIN 250 MG TABS 2 pills day 1,1 pill day 2-5 AZITHROMYCIN 99108123634 No Longer Active Keara Blum MD Act verona ZYRTEC ALLERGY 10 MG TABS 1 tablet po daily ZYRTEC ALLERGY 10 MG TABS 5623100 CETIRIZINE HCL Inactive FLOVENT HFA 110 MCG/ACT AERO 1 puff bid, rinse and spit FLOVENT HFA 110 MCG/ACT AERO FLUTICASONE PROPIONATE HFA Marysol ctive PROAIR HFA 108 (90 BASE) MCG/ACT AERS 1-2 puffs 2-4 times a day as needed PROAIR HFA 108 (90 BASE) MCG/ACT AERS ALB UTEROL SULFATE Inactive PROPRANOLOL HCL 20 MG TABS 1 bid P ROPRANOLOL HCL 20 MG TABS 047406 PROPRANOLOL HCL Inactive CLARITIN-D 24 HOUR 10-240 MG [id number] 1 po qd PRN Allergies 201 12/01/26 CLARITIN-D 24 HOUR 10-240 MG [id number] LORATADIN E-PSEUDOEPHEDRINE Inactive ONDANSETRON HCL 8 MG TABS 1 every8 hrs prn vomiting 20 08/10/08 ONDANSETRON HCL 8 MG TABS 278928 ONDANSETRON HCL Inactive CEFDINIR 300 MG CAPS 1 daily CEFDINIR 300 MG C APS 934752 CEFDINIR Inactive CEFDINIR 300 MG CAPS 1 daily CEFDINIR 300 MG C APS 200204 CEFDINIR Inactive FLUTICASONE PROPIONATE 50 MCG/ACT SUSP 1 puff in each nostril da blaine FLUTICASONE PROPIONATE 50 MCG/ACT SUSP 045773 FLUTICASO NE PROPIONATE Inactive CEFTIN 500 MG TAB 1 po bid 10 days CEFTIN 500 M G TAB 389130 CEFUROXIME AXETIL Inactive ZIANA 1.2-0.025 % GEL apply pea size daily ZIANA 1.2-0.025 % GEL CLINDAMYCIN-TRETINOIN Inactive ONDANSETRON HCL 8 MG TABS 1 q 8 hours ON DANSETRON HCL 8 MG TABS 750548 ONDANSETRON HCL Inactive CEFTIN 500 MG TABS 1 bid CEFTIN 500 MG TABS 413300 CEFUROXIME AXETIL Inactive PRILOSEC 20 MG CPDR 1 daily PRILOSEC 20 MG CPD R 851821 OMEPRAZOLE Inactive FLUTICASONE PROPIONATE 50 MCG/ACT SUSP 1 puff in each nostril da blaine FLUTICASONE PROPIONATE 50 MCG/ACT SUSP 238531 FLUTICASO NE PROPIONATE Inactive TRI-SPRINTEC 0.18/0.215/0.25 MG-35 MCG TABS 1 po qd as directed TRI-SPRINTEC 0.18/0.215/0.25 MG-35 MCG TABS 018947 NORGESTIM-ETH ESTRAD TRIPHASIC Inactive AZITHROMYCIN 250 MG TABS 2 pills day 1,1 pill day 2-5 AZITHROMYCIN 250 MG TABS 1240660 AZITHROMYCIN Inactive FLUTICASONE PROPIONATE 50 MCG/ACT SUSP 1 puff in each nostril da blaine FLUTICASONE PROPIONATE 50 MCG/ACT SUSP 705224 FLUTICASO NE PROPIONATE Inactive Immunizations Vaccine Administration [...] Diphtheria, and acellular Per tussis Immunization) Adacel [[id number]] tetanus toxoid, reduced diph theria toxoid, and [...] Panel - Chemistry sodium, serum 141 mmol/L 840-731 5780/11/19 potassium, serum 4.4 mmol/L 3.5-5.2 chloride, serum [...] Report: UADIP W/MICRO, AUTO - Chemis try RBC, urine, dipstick Negative Negative protein, total urine random Negative mg/dL Negative Lab Report: UADIP W/MICRO, AUTO - Urinal ysis pH, urine, semiquantitative 8.0 5.0-8.5 specific gravity, urine 1.020 1.000-1.030 appearance, urine Clear Clear urine color Yellow Colorless;Lightyellow;St raw;Yellow urobilinogen, urine, semiquantitative (dipstick) 0.2 Normal leukocyte esterase, urine, by dipstick Negative Negative nitrite, urine, semiquantitative Negative Neg ative urate crystals, amorphous, urine, semiquantitative Large None seen glucose, urine, semiquantitative Negative Neg ative ketones, urine, by test strip Negative Negati ve bilirubin, urine Negative Negative Lab Report: [facility] [place] - Chemistry human chorionic gonadotropin , urine, qualitative (urine test) Negative Negative Encounters Code Encounter Date Provider Facility CPT-27609 Level 3 Est. Patient 09:47:44 [employer] Keara Abreu MD [facility] CPT-06402 Level 3 Est. Patient 16:33:46 CDT Keara Abreu MD [facility] CPT-95751 Level 3 Est. Patient 16:38:32 CDT Dawson breen DO [facility] CPT-45277 Level 3 Est. Patient 15:58:59 [employer]ER Keara Abreu MD [facility] CPT-51146 Level 3 Est. Patient 10:44:39 WO[employer]ER Keara Abreu MD [facility] CPT-34155 Level 3 Est. Patient 10:09:23 CDT Keara Abreu MD [facility] CPT-66000 Level 3 Est. Patient 13:46:54 WO[employer]ER Keara Abreu MD [facility] CPT-66196 Level 3 Est. Patient 16:25:27 CDT Keara Abreu MD [facility] CPT-32446 Level 3 Est. Patient 10:22:54 CDT Keara Abreu MD [facility] CPT-83340 Level 3 Est. Patient 16:02:28 WO[employer]ER Keara Abreu MD [facility] Procedures Code Procedure Name Date Entry Date Standard Desc ription CPT-OV Office Visit 14:04:10 WO[employer]ER CPT-OV Office Visit 16:48:59 [employer] CPT-96504 Sono pelvis non OB uterus ovaries cervix 09:06:48 [employer] CPT-16615 Sono retroperitoneal complete kidneys an d bladder 09:06:48 [employer] CPT-89418 Abd compl w upright 15:32:02 [employer] CPT-86837 Fluzone Quadrivalent Intramuscular Suspe nsion 0.5 ML 16:49:56 [employer] CPT-12265 Breathing Tx 11:04:54 CDT CPT-52720 Chest 2V Frontal and Lat 10:32:02 CDT 03/19 CPT-69152 Breathing Tx 10:23:54 CDT CPT-11496 EKG Trac and Interp 16:18:28 [employer]ER
--- OUTSIDE RECORDS SUMMARY | 2020-05-02 15:47 | XMS REPORT | Clinical Summary ---
Author Author Mario, Valerie Villegas Organization [facility] Address Unknown Phone Unavailable Allergies, [...] kumar MD Other unspecified back disorders ICD-724.9 [place] ctive Keara Blum MD UTI ICD-599.0 Inactive Keara Blum MD 20 08/06/08 Otitis media, left ICD-382.9 Inactive Keara Blum MD Sinusitis-Acute ICD-461.9 Inactive Keara kumar MD Medication List Medication Instructions Start Date Stop Date Generic Name NDC Status Provider Patient Instruction CEFTIN 500 MG TABS 1 bid CEFUROXIME AXETIL 5 [id number] No Longer Active Keara Blum MD Active FLUTICASONE PROPIONATE 50 MCG/ACT SUSP 1 puff in each nostril [place] FLUTICASONE PROPIONATE 71874219819 Active Keara Blum MD Active ONDANSETRON HCL 8 MG TABS 1 q 8 hours ONDANSETR ON HCL 71569479843 No Longer Active Keara Blum MD Active ZIANA 1.2-0.025 % GEL apply pea size daily CLIN DAMYCIN-TRETINOIN 38074488002 No Longer Active Keara Blum MD Active CEFTIN 500 MG TAB 1 po bid 10 days CEFUROXIME A XETIL 99396796124 No Longer Active Keara Blum MD Active FLUTICASONE PROPIONATE 50 MCG/ACT SUSP 1 puff in each nostril [place] FLUTICASONE PROPIONATE 66491091222 No Longer Active Dawson Gresham DO Active CEFDINIR 300 MG CAPS 1 daily CEFDINIR 6256557 3010 No Longer Active Dawson Gresham DO Active CEFDINIR 300 MG CAPS 1 daily CEFDINIR 5414204 3010 No Longer Active Keara Blum MD Active ONDANSETRON HCL 8 MG TABS 1 every8 hrs prn vomiting 20 08/10/08 ONDANSETRON HCL 10081666533 No Longer Active Keara Blum MD Active CLARITIN-D 24 HOUR 10-240 MG [id number] 1 po qd PRN Allergies 201 12/01/26 LORATADINE-PSEUDOEPHEDRINE 66482284189 No Longer Active Danielle Blum MD Active PROPRANOLOL HCL 20 MG TABS 1 bid PROPRANOL OL HCL 00456459282 No Longer Active Keara Blum MD Active PROAIR HFA 108 (90 BASE) MCG/ACT AERS 1-2 puffs 2-4 times a day as needed ALBUTEROL SULFATE 55995736500 No Longer Active Keara Blum MD Active PRILOSEC 20 MG CPDR 1 daily OMEPRAZOLE 01476634938 Ac tive Keara Blum MD Active FLOVENT HFA 110 MCG/ACT AERO 1 puff bid, rinse and spit FLUTICASONE PROPIONATE HFA 13062380662 No Longer Active Keara Blum MD Active FLUTICASONE PROPIONATE 50 MCG/ACT SUSP 1 puff in each nostril [place] FLUTICASONE PROPIONATE 39522400407 No Longer Active Keara Blum MD Active ZYRTEC ALLERGY 10 MG TABS 1 tablet po daily CET IRIZINE HCL 64779889154 No Longer Active Keara Blum MD Active AZITHROMYCIN 250 MG TABS 2 pills day 1,1 pill day 2-5 AZITHROMYCIN 21351240450 No Longer Active Keara Blum MD Act [place] ZYRTEC ALLERGY 10 MG TABS 1 tablet po daily ZYRTEC ALLERGY 10 MG TABS 1206820 CETIRIZINE HCL Inactive FLOVENT HFA 110 MCG/ACT AERO 1 puff bid, rinse and spit FLOVENT HFA 110 MCG/ACT AERO FLUTICASONE PROPIONATE HFA [place] ctive PROAIR HFA 108 (90 BASE) MCG/ACT AERS 1-2 puffs 2-4 times a day as needed PROAIR HFA 108 (90 BASE) MCG/ACT AERS ALB UTEROL SULFATE Inactive PROPRANOLOL HCL 20 MG TABS 1 bid P ROPRANOLOL HCL 20 MG TABS 938037 PROPRANOLOL HCL Inactive CLARITIN-D 24 HOUR 10-240 MG [id number] 1 po qd PRN Allergies 201 12/01/26 CLARITIN-D 24 HOUR 10-240 MG [id number] LORATADIN E-PSEUDOEPHEDRINE Inactive ONDANSETRON HCL 8 MG TABS 1 every8 hrs prn vomiting 20 08/10/08 ONDANSETRON HCL 8 MG TABS 351441 ONDANSETRON HCL Inactive CEFDINIR 300 MG CAPS 1 daily CEFDINIR 300 MG C APS 20021229 CEFDINIR Inactive CEFDINIR 300 MG CAPS 1 daily CEFDINIR 300 MG C APS 20021229 CEFDINIR Inactive FLUTICASONE PROPIONATE 50 MCG/ACT SUSP 1 puff in each nostril [place] FLUTICASONE PROPIONATE 50 MCG/ACT SUSP 329647 FLUTICASO NE PROPIONATE Inactive CEFTIN 500 MG TAB 1 po bid 10 days CEFTIN 500 M G TAB 574485 CEFUROXIME AXETIL Inactive ZIANA 1.2-0.025 % GEL apply pea size daily ZIANA 1.2-0.025 % GEL CLINDAMYCIN-TRETINOIN Inactive ONDANSETRON HCL 8 MG TABS 1 q 8 hours ON DANSETRON HCL 8 MG TABS 104784 ONDANSETRON HCL Inactive CEFTIN 500 MG TABS 1 bid CEFTIN 500 MG TABS 707020 CEFUROXIME AXETIL Inactive AZITHROMYCIN 250 MG TABS 2 pills day 1,1 pill day 2-5 AZITHROMYCIN 250 MG TABS 0693114 AZITHROMYCIN Inactive FLUTICASONE PROPIONATE 50 MCG/ACT SUSP 1 puff in each nostril [place] FLUTICASONE PROPIONATE 50 MCG/ACT SUSP 849722 FLUTICASO NE PROPIONATE Inactive Immunizations Vaccine Administration [...] meningococcal polysaccharide vaccine (MPSV4) Adacel immunization Adacel [[id number]] tetanus toxo id, reduced diphtheria toxoid, and [...] Panel - Chemistry sodium, serum 141 mmol/L 990-256 3756/11/19 potassium, serum 4.4 mmol/L 3.5-5.2 chloride, serum [...] - Hematology platelet count 239 10^3/MM^3 10*3/mm3 661-285 1857/11/19 leukocyte count, blood 8.1 10^3/MM^3 10*3/mm3 4.6-10.2 [...] Clear Clear urine color Yellow Colorless;Lightyellow;St raw;Yellow glucose, urine, semiquantitative Negative Neg ative ketones, urine, by test strip Trace Negati ve bilirubin, urine Negative Negative Lab Report: [facility] [place] - Chemistry human chorionic gonadotropin , urine, qualitative (urine test) Negative Negative Encounters Code Encounter Date Provider Facility CPT-38387 Level 3 Est. Patient 09:47:44 OUTFITTER CABIN [facility] CPT-66123 Level 3 Est. Patient 16:33:46 CDT Keara Abreu MD [facility] CPT-25780 Level 3 Est. Patient 16:38:32 CDT Dawson breen DO [facility] CPT-91293 Level 3 Est. Patient 15:58:59 OUTFITTER CABIN Keara Abreu MD [facility] CPT-84985 Level 3 Est. Patient 10:44:39 OUTFITTER CABIN Keara Abreu MD [facility] CPT-68358 Level 3 Est. Patient 10:09:23 CDT Keara A[facility]u [facility] CPT-41681 Level 3 Est. Patient 13:46:54 OUTFITTER CABIN Keara Abreu MD [facility] CPT-61428 Level 3 Est. Patient 16:25:27 CDT Keara Abreu MD [facility] CPT-65717 Level 3 Est. Patient 10:22:54 CDT Keara Abreu MD [facility] CPT-11042 Level 3 Est. Patient 16:02:28 OUTFITTER CABIN Keara Abreu MD [facility] Procedures Code Procedure Name Date Entry Date Standard Desc ription CPT-02396 Abd compl w upright 15:32:02 OUTFITTER CABIN CPT-78985 Fluzone Quadrivalent Intramuscular Suspe nsion 0.5 ML 16:49:56 OUTFITTER CABIN CPT-72214 Breathing Tx 11:04:54 CDT CPT-49262 Chest 2V Frontal and Lat 10:32:02 CDT 03/19 CPT-03516 Breathing Tx 10:23:54 CDT CPT-61971 EKG Trac and Interp 16:18:28 OUTFITTER CABIN
--- OUTSIDE RECORDS SUMMARY | 2020-05-02 15:47 | XMS REPORT | Clinical Summary ---
Author Author Mario, Valerie Villegas Organization [facility] Address Unknown Phone Unavailable Allergies, [...] 09/01/22 G E REFLUX ICD-530.81 Inactive Keara eklly MD Sinusitis-Acute ICD-461.9 Inactive Keara kumar MD Other unspecified back disorders ICD-724.9 [place] ctive Keara Blum MD UTI ICD-599.0 Inactive Keara Blum MD 20 08/06/08 Otitis media, left ICD-382.9 Inactive Keara Blum MD Sinusitis-Acute ICD-461.9 Inactive Keara kumar MD Medication List Medication Instructions Start Date Stop Date Generic Name NDC Status Provider Patient Instruction CEFTIN 500 MG TABS 1 bid CEFUROXIME AXETIL 5 8188602674 No Longer Active Keara Blum MD Active FLUTICASONE PROPIONATE 50 MCG/ACT SUSP 1 puff in each nostril [place] FLUTICASONE PROPIONATE 66144822750 Active Keara Blum MD Active ONDANSETRON HCL 8 MG TABS 1 q 8 hours ONDANSETR ON HCL 04907758972 No Longer Active Keara Blum MD Active ZIANA 1.2-0.025 % GEL apply pea size daily CLIN DAMYCIN-TRETINOIN 76676800369 No Longer Active Keara Blum MD Active CEFTIN 500 MG TAB 1 po bid 10 days CEFUROXIME A XETIL 86062186898 No Longer Active Keara Blum MD Active FLUTICASONE PROPIONATE 50 MCG/ACT SUSP 1 puff in each nostril da [facility] FLUTICASONE PROPIONATE 44416175104 No Longer Active Dawson Gresham DO Active CEFDINIR 300 MG CAPS 1 daily CEFDINIR 4593603 3010 No Longer Active Dawson Gresham DO Active CEFDINIR 300 MG CAPS 1 daily CEFDINIR 7956860 3010 No Longer Active Keara Blum MD Active ONDANSETRON HCL 8 MG TABS 1 every8 hrs prn vomiting 20 08/10/08 ONDANSETRON HCL 49815737678 No Longer Active Keara Blum MD Active CLARITIN-D 24 HOUR 10-240 MG [id number] 1 po qd PRN Allergies 201 12/01/26 LORATADINE-PSEUDOEPHEDRINE 92433901746 No Longer Active Danielle Blum MD Active PROPRANOLOL HCL 20 MG TABS 1 bid PROPRANOL OL HCL 58445913487 No Longer Active Keara Blum MD Active PROAIR HFA 108 (90 BASE) MCG/ACT AERS 1-2 puffs 2-4 times a day as needed ALBUTEROL SULFATE 35335542036 No Longer Active Keara Blum MD Active PRILOSEC 20 MG CPDR 1 daily OMEPRAZOLE 77144928899 Ac tive Keara Blum MD Active FLOVENT HFA 110 MCG/ACT AERO 1 puff bid, rinse and spit FLUTICASONE PROPIONATE HFA 38706413617 No Longer Active Keara Blum MD Active FLUTICASONE PROPIONATE 50 MCG/ACT SUSP 1 puff in each nostril [place] FLUTICASONE PROPIONATE 39694460154 No Longer Active Keara Blum MD Active ZYRTEC ALLERGY 10 MG TABS 1 tablet po daily CET IRIZINE HCL 39652459065 No Longer Active Keara Blum MD Active AZITHROMYCIN 250 MG TABS 2 pills day 1,1 pill day 2-5 AZITHROMYCIN 15901153591 No Longer Active Keara Blum MD Act [place] ZYRTEC ALLERGY 10 MG TABS 1 tablet po daily ZYRTEC ALLERGY 10 MG TABS 6491415 CETIRIZINE HCL Inactive FLOVENT HFA 110 MCG/ACT AERO 1 puff bid, rinse and spit FLOVENT HFA 110 MCG/ACT AERO FLUTICASONE PROPIONATE HFA [place] ctive PROAIR HFA 108 (90 BASE) MCG/ACT AERS 1-2 puffs 2-4 times a day as needed PROAIR HFA 108 (90 BASE) MCG/ACT AERS ALB UTEROL SULFATE Inactive PROPRANOLOL HCL 20 MG TABS 1 bid P ROPRANOLOL HCL 20 MG TABS 294157 PROPRANOLOL HCL Inactive CLARITIN-D 24 HOUR 10-240 MG [id number] 1 po qd PRN Allergies 201 12/01/26 CLARITIN-D 24 HOUR 10-240 MG [id number] LORATADIN E-PSEUDOEPHEDRINE Inactive ONDANSETRON HCL 8 MG TABS 1 every8 hrs prn vomiting 20 08/10/08 ONDANSETRON HCL 8 MG TABS 736761 ONDANSETRON HCL Inactive CEFDINIR 300 MG CAPS 1 daily CEFDINIR 300 MG C APS 20021229 CEFDINIR Inactive CEFDINIR 300 MG CAPS 1 daily CEFDINIR 300 MG C APS 20021229 CEFDINIR Inactive FLUTICASONE PROPIONATE 50 MCG/ACT SUSP 1 puff in each nostril [place] FLUTICASONE PROPIONATE 50 MCG/ACT SUSP 117938 FLUTICASO NE PROPIONATE Inactive CEFTIN 500 MG TAB 1 po bid 10 days CEFTIN 500 M G TAB 205532 CEFUROXIME AXETIL Inactive ZIANA 1.2-0.025 % GEL apply pea size daily ZIANA 1.2-0.025 % GEL CLINDAMYCIN-TRETINOIN Inactive ONDANSETRON HCL 8 MG TABS 1 q 8 hours ON DANSETRON HCL 8 MG TABS 519459 ONDANSETRON HCL Inactive CEFTIN 500 MG TABS 1 bid CEFTIN 500 MG TABS 282849 CEFUROXIME AXETIL Inactive AZITHROMYCIN 250 MG TABS 2 pills day 1,1 pill day 2-5 AZITHROMYCIN 250 MG TABS 6986057 AZITHROMYCIN Inactive FLUTICASONE PROPIONATE 50 MCG/ACT SUSP 1 puff in each nostril [place] FLUTICASONE PROPIONATE 50 MCG/ACT SUSP 685787 FLUTICASO NE PROPIONATE Inactive Immunizations Vaccine Administration [...] Diphtheria, and acellular Per tussis Immunization) Adacel [[id number]] tetanus toxoid, reduced diph theria toxoid, and [...] Range Description blood pressure, diastolic - 8462-4 68 mm[Hg] [...] - 3141-9 212 [lb_av] Weigh t Measured Diagnostic Results Date Name Value Unit Range Description Lab Report: CBC W/DIFF, Comp. Metabolic Panel - Chemistry sodium, serum 141 mmol/L 473-188 4955/11/19 potassium, serum 4.4 mmol/L 3.5-5.2 chloride, serum [...] ve bilirubin, urine Negative Negative Lab Report: [place] - Chemistry human chorionic gonadotropin , urine, qualitative (urine test) Negative Negative Encounters Code Encounter Date Provider Facility CPT-41491 Level 3 Est. Patient 09:47:44 EMPLOYEE PLACEMENT SPECIALIST Keara Abreu MD [facility] CPT-31918 Level 3 Est. Patient 16:33:46 CDT Keara Abreu MD [facility] CPT-93241 Level 3 Est. Patient 16:38:32 CDT Dawson breen DO [facility] CPT-42163 Level 3 Est. Patient 15:58:59 EMPLOYEE PLACEMENT SPECIALIST Keara Abreu MD [facility] CPT-46249 Level 3 Est. Patient 10:44:39 EMPLOYEE PLACEMENT SPECIALIST Keara Abreu MD [facility] CPT-50358 Level 3 Est. Patient 10:09:23 CDT Keara Abreu MD [facility] CPT-83383 Level 3 Est. Patient 13:46:54 EMPLOYEE PLACEMENT SPECIALIST Keara Abreu MD [facility] CPT-01485 Level 3 Est. Patient 16:25:27 CDT Keara Abreu MD [facility] CPT-46053 Level 3 Est. Patient 10:22:54 CDT Keara Abreu MD [facility] CPT-43874 Level 3 Est. Patient 16:02:28 EMPLOYEE PLACEMENT SPECIALIST Keara Abreu MD [facility] Procedures Code Procedure Name Date Entry Date Standard Desc ription CPT-98145 Sono pelvis non OB uterus ovaries cervix 09:06:48 EMPLOYEE PLACEMENT SPECIALIST CPT-32853 Sono retroperitoneal complete kidneys an d bladder 09:06:48 EMPLOYEE PLACEMENT SPECIALIST CPT-49893 Abd compl w upright 15:32:02 EMPLOYEE PLACEMENT SPECIALIST CPT-42509 Fluzone Quadrivalent Intramuscular Suspe nsion 0.5 ML 16:49:56 EMPLOYEE PLACEMENT SPECIALIST CPT-02036 Breathing Tx 11:04:54 CDT CPT-66745 Chest 2V Frontal and Lat 10:32:02 CDT 03/19 CPT-16748 Breathing Tx 10:23:54 CDT CPT-82574 EKG Trac and Interp 16:18:28 EMPLOYEE PLACEMENT SPECIALIST
--- OUTSIDE RECORDS SUMMARY | 2020-05-02 15:47 | XMS REPORT | Clinical Summary ---
Author Author Mario, Valerie Villegas Organization [facility] Address Unknown Phone Allergies, Adverse Reactions, Alerts [...] TABS 1 q 8 hours ONDANSETRON HCL 10836019344 Active Keara Blum MD Active ZIANA 1.2-0.025 % GEL apply pea size daily CLIN DAMYCIN-TRETINOIN 74626606651 Active Keara Blum MD Active CEFDINIR 300 MG CAPS 1 daily CEFDINIR 80719881302 Act verona Keara Blum MD Active CEFDINIR 300 MG CAPS 1 daily CEFDINIR 9734561 3010 No Longer Active Keara Blum MD Active FLUTICASONE PROPIONATE 50 MCG/ACT SUSP 1 puff in each nostril [place] FLUTICASONE PROPIONATE 99525011656 Active Keara Blum MD Active ONDANSETRON HCL 8 MG TABS 1 every8 hrs prn vomiting 20 08/10/08 ONDANSETRON HCL 28842159206 No Longer Active Keara Blum MD Active CLARITIN-D 24 HOUR 10-240 MG [id number] 1 po qd PRN Allergies 201 12/01/26 LORATADINE-PSEUDOEPHEDRINE 54865394655 No Longer Active Danielle Bulm MD Active PROPRANOLOL HCL 20 MG TABS 1 bid PROPRANOL OL HCL 93087786733 No Longer Active Keara Blum MD Active PROAIR HFA 108 (90 BASE) MCG/ACT AERS 1-2 puffs 2-4 times a day as needed ALBUTEROL SULFATE 28636787725 No Longer Active Keara Blum MD Active PRILOSEC 20 MG CPDR 1 daily OMEPRAZOLE 05577973541 Ac tive Keara Blum MD Active FLOVENT HFA 110 MCG/ACT AERO 1 puff bid, rinse and spit FLUTICASONE PROPIONATE HFA 57376253018 No Longer Active Keara Blum MD Active FLUTICASONE PROPIONATE 50 MCG/ACT SUSP 1 puff in each nostril [place] FLUTICASONE PROPIONATE 93088905584 No Longer Active Keara Blum MD Active ZYRTEC ALLERGY 10 MG TABS 1 tablet po daily CET IRIZINE HCL 24036111251 No Longer Active Keara Blum MD Active AZITHROMYCIN 250 MG TABS 2 pills day 1,1 pill day 2-5 AZITHROMYCIN 30349199139 No Longer Active Keara Blum MD Act [place] ZYRTEC ALLERGY 10 MG TABS 1 tablet po daily ZYRTEC ALLERGY 10 MG TABS 3042948 CETIRIZINE HCL Inactive FLOVENT HFA 110 MCG/ACT AERO 1 puff bid, rinse and spit FLOVENT HFA 110 MCG/ACT AERO FLUTICASONE PROPIONATE HFA [place] ctive PROAIR HFA 108 (90 BASE) MCG/ACT AERS 1-2 puffs 2-4 times a day as needed PROAIR HFA 108 (90 BASE) MCG/ACT AERS ALB UTEROL SULFATE Inactive PROPRANOLOL HCL 20 MG TABS 1 bid P ROPRANOLOL HCL 20 MG TABS 160322 PROPRANOLOL HCL Inactive CLARITIN-D 24 HOUR 10-240 MG [id number] 1 po qd PRN Allergies 201 12/01/26 CLARITIN-D 24 HOUR 10-240 MG [id number] LORATADIN E-PSEUDOEPHEDRINE Inactive ONDANSETRON HCL 8 MG TABS 1 every8 hrs prn vomiting 20 08/10/08 ONDANSETRON HCL 8 MG TABS 835809 ONDANSETRON HCL Inactive CEFDINIR 300 MG CAPS 1 daily CEFDINIR 300 MG C APS 258546 CEFDINIR Inactive AZITHROMYCIN 250 MG TABS 2 pills day 1,1 pill day 2-5 AZITHROMYCIN 250 MG TABS 2767031 AZITHROMYCIN Inactive FLUTICASONE PROPIONATE 50 MCG/ACT SUSP 1 puff in each nostril [place] FLUTICASONE PROPIONATE 50 MCG/ACT SUSP 496891 FLUTICASO NE PROPIONATE Inactive Immunizations Vaccine Administration [...] meningococcal polysaccharide vaccine (MPSV4) Adacel immunization Adacel [[id number]] tetanus toxo id, reduced diphtheria toxoid, and [...] 5.0-8.5 Encounters Code Encounter Date Provider Facility CPT-64721 Level 3 Est. Patient 15:58:59 CHINESE INSTRUCTOR Keara Abreu MD [facility] CPT-56877 Level 3 Est. Patient 10:44:39 CHINESE INSTRUCTOR Keara Abreu MD [facility] CPT-00919 Level 3 Est. Patient 10:09:23 CDT Keara Abreu MD [facility] CPT-73544 Level 3 Est. Patient 13:46:54 CHINESE INSTRUCTOR Keara Abreu MD [facility] CPT-82639 Level 3 Est. Patient 16:25:27 CDT Keara Abreu MD [facility] CPT-36855 Level 3 Est. Patient 10:22:54 CDT Keara Abreu MD [facility] CPT-14108 Level 3 Est. Patient 16:02:28 CHINESE INSTRUCTOR Keara Abreu MD [facility] Procedures Code Procedure Name Date Entry Date Standard Desc ription CPT-76896 Breathing Tx 11:04:54 CDT CPT-86821 Chest 2V Frontal and Lat 10:32:02 CDT 03/19 CPT-86765 Breathing Tx 10:23:54 CDT CPT-26375 EKG Trac and Interp 16:18:28 CHINESE INSTRUCTOR
--- OUTSIDE RECORDS SUMMARY | 2020-05-02 15:47 | XMS REPORT | Clinical Summary ---
Author Author Mario, Valerie Villegas Organization [facility] Address Unknown Phone Unavailable Allergies, Adverse [...] MD Sinusitis-Acute ICD-461.9 Inactive Keara kumar MD OTHER ABNORMAL GLUCOSE ICD-790.29 Inactive Agusto Blum MD Medication List Medication Instructions Start Date Stop Date Generic Name NDC Status Provider Patient Instruction CEFTIN 500 MG TABS 1 bid CEFUROXIME AXETIL 5 9743597419 No Longer Active Keara Blum MD Active FLUTICASONE PROPIONATE 50 MCG/ACT SUSP 1 puff in each nostril [place] FLUTICASONE PROPIONATE 66318525917 Active Keara Blum MD Active ONDANSETRON HCL 8 MG TABS 1 q 8 hours ONDANSETR ON HCL 32906691128 No Longer Active Keara Blum MD Active ZIANA 1.2-0.025 % GEL apply pea size daily CLIN DAMYCIN-TRETINOIN 47141165192 No Longer Active Keara Blum MD Active CEFTIN 500 MG TAB 1 po bid 10 days CEFUROXIME A XETIL 64766833988 No Longer Active Keara Blum MD Active FLUTICASONE PROPIONATE 50 MCG/ACT SUSP 1 puff in each nostril [place] FLUTICASONE PROPIONATE 08025305362 No Longer Active Dawson Gresham DO Active CEFDINIR 300 MG CAPS 1 daily CEFDINIR 0709420 3010 No Longer Active Dawson Gresham DO Active CEFDINIR 300 MG CAPS 1 daily CEFDINIR 6074492 3010 No Longer Active Keara Blum MD Active ONDANSETRON HCL 8 MG TABS 1 every8 hrs prn vomiting 20 08/10/08 ONDANSETRON HCL 19076780057 No Longer Active Keara Blum MD Active CLARITIN-D 24 HOUR 10-240 MG [id number] 1 po qd PRN Allergies 201 12/01/26 LORATADINE-PSEUDOEPHEDRINE 03131071585 No Longer Active Danielle Blum MD Active PROPRANOLOL HCL 20 MG TABS 1 bid PROPRANOL OL HCL 95554851777 No Longer Active Keara Blum MD Active PROAIR HFA 108 (90 BASE) MCG/ACT AERS 1-2 puffs 2-4 times a day as needed ALBUTEROL SULFATE 05118715138 No Longer Active Keara Blum MD Active PRILOSEC 20 MG CPDR 1 daily OMEPRAZOLE 62569585466 Ac tive Keara Blum MD Active FLOVENT HFA 110 MCG/ACT AERO 1 puff bid, rinse and spit FLUTICASONE PROPIONATE HFA 80320967439 No Longer Active Keara Blum MD Active FLUTICASONE PROPIONATE 50 MCG/ACT SUSP 1 puff in each nostril [place] FLUTICASONE PROPIONATE 93642196096 No Longer Active Keara Blum MD Active ZYRTEC ALLERGY 10 MG TABS 1 tablet po daily CET IRIZINE HCL 12861345872 No Longer Active Keara Blum MD Active AZITHROMYCIN 250 MG TABS 2 pills day 1,1 pill day 2-5 AZITHROMYCIN 03652425519 No Longer Active Keara Blum MD Act [place] ZYRTEC ALLERGY 10 MG TABS 1 tablet po daily ZYRTEC ALLERGY 10 MG TABS 5825737 CETIRIZINE HCL Inactive FLOVENT HFA 110 MCG/ACT AERO 1 puff bid, rinse and spit FLOVENT HFA 110 MCG/ACT AERO FLUTICASONE PROPIONATE HFA [place] ctive PROAIR HFA 108 (90 BASE) MCG/ACT AERS 1-2 puffs 2-4 times a day as needed PROAIR HFA 108 (90 BASE) MCG/ACT AERS ALB UTEROL SULFATE Inactive PROPRANOLOL HCL 20 MG TABS 1 bid P ROPRANOLOL HCL 20 MG TABS 350333 PROPRANOLOL HCL Inactive CLARITIN-D 24 HOUR 10-240 MG [id number] 1 po qd PRN Allergies 201 12/01/26 CLARITIN-D 24 HOUR 10-240 MG [id number] LORATADIN E-PSEUDOEPHEDRINE Inactive ONDANSETRON HCL 8 MG TABS 1 every8 hrs prn vomiting 20 08/10/08 ONDANSETRON HCL 8 MG TABS 631046 ONDANSETRON HCL Inactive CEFDINIR 300 MG CAPS 1 daily CEFDINIR 300 MG C APS 20021229 CEFDINIR Inactive CEFDINIR 300 MG CAPS 1 daily CEFDINIR 300 MG C APS 20021229 CEFDINIR Inactive FLUTICASONE PROPIONATE 50 MCG/ACT SUSP 1 puff in each nostril [place] FLUTICASONE PROPIONATE 50 MCG/ACT SUSP 697683 FLUTICASO NE PROPIONATE Inactive CEFTIN 500 MG TAB 1 po bid 10 days CEFTIN 500 M G TAB 963901 CEFUROXIME AXETIL Inactive ZIANA 1.2-0.025 % GEL apply pea size daily ZIANA 1.2-0.025 % GEL CLINDAMYCIN-TRETINOIN Inactive ONDANSETRON HCL 8 MG TABS 1 q 8 hours ON DANSETRON HCL 8 MG TABS 015941 ONDANSETRON HCL Inactive CEFTIN 500 MG TABS 1 bid CEFTIN 500 MG TABS 768606 CEFUROXIME AXETIL Inactive AZITHROMYCIN 250 MG TABS 2 pills day 1,1 pill day 2-5 AZITHROMYCIN 250 MG TABS 4462548 AZITHROMYCIN Inactive FLUTICASONE PROPIONATE 50 MCG/ACT SUSP 1 puff in each nostril [place] FLUTICASONE PROPIONATE 50 MCG/ACT SUSP 270365 FLUTICASO NE PROPIONATE Inactive Immunizations Vaccine Administration [...] meningococcal polysaccharide vaccine (MPSV4) Adacel immunization Adacel [[id number]] tetanus toxo id, reduced diphtheria toxoid, and [...] Panel - Chemistry sodium, serum 141 mmol/L 370-572 9500/11/19 potassium, serum 4.4 mmol/L 3.5-5.2 chloride, serum [...] ve bilirubin, urine Negative Negative Lab Report: [facility] [place] - Chemistry human chorionic gonadotropin , urine, qualitative (urine test) Negative Negative Encounters Code Encounter Date Provider Facility CPT-89600 Level 3 Est. Patient 09:47:44 SENIOR SQL DEVELOPER Keara Abreu MD [facility] CPT-42965 Level 3 Est. Patient 16:33:46 CDT Keara Abreu MD [facility] CPT-15077 Level 3 Est. Patient 16:38:32 CDT Dawson breen DO [facility] CPT-73618 Level 3 Est. Patient 15:58:59 SENIOR SQL DEVELOPER Keara Abreu MD [facility] CPT-87279 Level 3 Est. Patient 10:44:39 SENIOR SQL DEVELOPER Keara Abreu MD [facility] CPT-52818 Level 3 Est. Patient 10:09:23 CDT Keara Abreu MD [facility] CPT-59799 Level 3 Est. Patient 13:46:54 SENIOR SQL DEVELOPER Keara Abreu MD [facility] CPT-04949 Level 3 Est. Patient 16:25:27 CDT Keara Abreu MD [facility] CPT-65880 Level 3 Est. Patient 10:22:54 CDT Keara Abreu MD [facility] CPT-81904 Level 3 Est. Patient 16:02:28 SENIOR SQL DEVELOPER Keara Abreu MD [facility] Procedures Code Procedure Name Date Entry Date Standard Desc ription CPT-00997 Abd compl w upright 15:32:02 SENIOR SQL DEVELOPER CPT-44572 Fluzone Quadrivalent Intramuscular Suspe nsion 0.5 ML 16:49:56 SENIOR SQL DEVELOPER CPT-48751 Breathing Tx 11:04:54 CDT CPT-08868 Chest 2V Frontal and Lat 10:32:02 CDT 03/19 CPT-07265 Breathing Tx 10:23:54 CDT CPT-63964 EKG Trac and Interp 16:18:28 SENIOR SQL DEVELOPER
--- OUTSIDE RECORDS SUMMARY | 2020-05-02 15:47 | XMS REPORT | Clinical Summary ---
Author Author Mario, Valerie Villegas Organization [facility] Address Unknown Phone Allergies, Adverse Reactions, Alerts [...] back disorders 724.9 Active 201 12/24/26 Keara lBum MD Other unspecified back disorders UTI 599.0 [...] po bid 10 days CEFUROXIME AXE TIL 00662261660 Active Dawson Gresham DO Active FLUTICASONE PROPIONATE 50 MCG/ACT SUSP 1 puff in each nostril [place] FLUTICASONE PROPIONATE 80924048804 No Longer Active Dawson Gresham DO Active CEFDINIR 300 MG CAPS 1 daily CEFDINIR 2091316 3010 No Longer Active Dawson Gresham DO Active ONDANSETRON HCL 8 MG TABS 1 q 8 hours ONDANSETRON HCL 18961646158 Active Keara Blum MD Active ZIANA 1.2-0.025 % GEL apply pea size daily CLIN DAMYCIN-TRETINOIN 29032705523 Active Keara Blum MD Active CEFDINIR 300 MG CAPS 1 daily CEFDINIR 9996682 3010 No Longer Active Keara Blum MD Active ONDANSETRON HCL 8 MG TABS 1 every8 hrs prn vomiting 20 08/10/08 ONDANSETRON HCL 35860797186 No Longer Active Keara Blum MD Active CLARITIN-D 24 HOUR 10-240 MG [id number] 1 po qd PRN Allergies 201 12/01/26 LORATADINE-PSEUDOEPHEDRINE 91145117557 No Longer Active Danielle Blum MD Active PROPRANOLOL HCL 20 MG TABS 1 bid PROPRANOL OL HCL 56800056266 No Longer Active Keara Blum MD Active PROAIR HFA 108 (90 BASE) MCG/ACT AERS 1-2 puffs 2-4 times a day as needed ALBUTEROL SULFATE 88479431560 No Longer Active Keara Blum MD Active PRILOSEC 20 MG CPDR 1 daily OMEPRAZOLE 83398918256 Ac tive Keara Blum MD Active FLOVENT HFA 110 MCG/ACT AERO 1 puff bid, rinse and spit FLUTICASONE PROPIONATE HFA 54599244590 No Longer Active Keara Blum MD Active FLUTICASONE PROPIONATE 50 MCG/ACT SUSP 1 puff in each nostril [place] FLUTICASONE PROPIONATE 81135343791 No Longer Active Keara Blum MD Active ZYRTEC ALLERGY 10 MG TABS 1 tablet po daily CET IRIZINE HCL 33930164789 No Longer Active Keara Blum MD Active AZITHROMYCIN 250 MG TABS 2 pills day 1,1 pill day 2-5 AZITHROMYCIN 68439049392 No Longer Active Keara Blum MD Act ver[place] ZYRTEC ALLERGY 10 MG TABS 1 tablet po daily ZYRTEC ALLERGY 10 MG TABS 3108198 CETIRIZINE HCL Inactive FLOVENT HFA 110 MCG/ACT AERO 1 puff bid, rinse and spit FLOVENT HFA 110 MCG/ACT AERO FLUTICASONE PROPIONATE HFA [place] ctive PROAIR HFA 108 (90 BASE) MCG/ACT AERS 1-2 puffs 2-4 times a day as needed PROAIR HFA 108 (90 BASE) MCG/ACT AERS ALB UTEROL SULFATE Inactive PROPRANOLOL HCL 20 MG TABS 1 bid P ROPRANOLOL HCL 20 MG TABS 862921 PROPRANOLOL HCL Inactive CLARITIN-D 24 HOUR 10-240 MG [id number] 1 po qd PRN Allergies 201 12/01/26 CLARITIN-D 24 HOUR 10-240 MG [id number] LORATADIN E-PSEUDOEPHEDRINE Inactive ONDANSETRON HCL 8 MG TABS 1 every8 hrs prn vomiting 20 08/10/08 ONDANSETRON HCL 8 MG TABS 947845 ONDANSETRON HCL Inactive CEFDINIR 300 MG CAPS 1 daily CEFDINIR 300 MG C APS 20021229 CEFDINIR Inactive CEFDINIR 300 MG CAPS 1 daily CEFDINIR 300 MG C APS 20021229 CEFDINIR Inactive FLUTICASONE PROPIONATE 50 MCG/ACT SUSP 1 puff in each nostril [place] FLUTICASONE PROPIONATE 50 MCG/ACT SUSP 519442 FLUTICASO NE PROPIONATE Inactive AZITHROMYCIN 250 MG TABS 2 pills day 1,1 pill day 2-5 AZITHROMYCIN 250 MG TABS 4919391 AZITHROMYCIN Inactive FLUTICASONE PROPIONATE 50 MCG/ACT SUSP 1 puff in each nostril [place] FLUTICASONE PROPIONATE 50 MCG/ACT SUSP 364327 FLUTICASO NE PROPIONATE Inactive Immunizations Vaccine Administration [...] Diphtheria, and acellular Per tussis Immunization) Adacel [[id number]] tetanus toxoid, reduced diph theria toxoid, and [...] 5.0-8.5 Encounters Code Encounter Date Provider Facility CPT-32035 Level 3 Est. Patient 16:38:32 CDT Dawson breen DO [facility] CPT-98173 Level 3 Est. Patient 15:58:59 VENEER MATCHER Keara Abreu MD [facility] CPT-03934 Level 3 Est. Patient 10:44:39 VENEER MATCHER Keara Abreu MD [facility] CPT-26306 Level 3 Est. Patient 10:09:23 CDT Keara Abreu MD [facility] CPT-40960 Level 3 Est. Patient 13:46:54 VENEER MATCHER Keara Abreu MD [facility] CPT-88244 Level 3 Est. Patient 16:25:27 CDT Keara Abreu MD [facility] CPT-09829 Level 3 Est. Patient 10:22:54 CDT Keara Abreu MD [facility] CPT-95558 Level 3 Est. Patient 16:02:28 VENEER MATCHER Keara Abreu MD [facility] Procedures Code Procedure Name Date Entry Date Standard Desc ription CPT-27567 Breathing Tx 11:04:54 CDT CPT-32546 Chest 2V Frontal and Lat 10:32:02 CDT 03/19 CPT-13687 Breathing Tx 10:23:54 CDT CPT-63552 EKG Trac and Interp 16:18:28 VENEER MATCHER
--- OUTSIDE RECORDS SUMMARY | 2020-05-02 15:47 | XMS REPORT | Clinical Summary ---
Author Author Mario, Valerie Villegas Organization [facility] Address Unknown Phone Unavailable Allergies, Adverse Reactions, [...] MG TABS 1 bid CEFUROXIME AXETIL 5 7067367567 No Longer Active Keara Blum MD Active FLUTICASONE PROPIONATE 50 MCG/ACT SUSP 1 puff in each nostril [place] FLUTICASONE PROPIONATE 02052863904 Active Keara Blum MD Active ONDANSETRON HCL 8 MG TABS 1 q 8 hours ONDANSETR ON HCL 57068048726 No Longer Active Keara Blum MD Active ZIANA 1.2-0.025 % GEL apply pea size daily CLIN DAMYCIN-TRETINOIN 41017578122 No Longer Active Keara Blum MD Active CEFTIN 500 MG TAB 1 po bid 10 days CEFUROXIME A XETIL 13434826973 No Longer Active Keara Blum MD Active FLUTICASONE PROPIONATE 50 MCG/ACT SUSP 1 puff in each nostril da avera [facility] FLUTICASONE PROPIONATE 20340843299 No Longer Active Dawson Gresham DO Active CEFDINIR 300 MG CAPS 1 daily CEFDINIR 8707822 3010 No Longer Active Dawson Gresham DO Active CEFDINIR 300 MG CAPS 1 daily CEFDINIR 6664119 3010 No Longer Active Keara Blum MD Active ONDANSETRON HCL 8 MG TABS 1 every8 hrs prn vomiting 20 08/10/08 ONDANSETRON HCL 90024173997 No Longer Active Keara Blum MD Active CLARITIN-D 24 HOUR 10-240 MG [id number] 1 po qd PRN Allergies 201 12/01/26 LORATADINE-PSEUDOEPHEDRINE 52259246385 No Longer Active Danielle Blum MD Active PROPRANOLOL HCL 20 MG TABS 1 bid PROPRANOL OL HCL 98131094099 No Longer Active Keraa Blum MD Active PROAIR HFA 108 (90 BASE) MCG/ACT AERS 1-2 puffs 2-4 times a day as needed ALBUTEROL SULFATE 20921536551 No Longer Active Keara Blum MD Active PRILOSEC 20 MG CPDR 1 daily OMEPRAZOLE 21748007348 Ac tive Keara Blum MD Active FLOVENT HFA 110 MCG/ACT AERO 1 puff bid, rinse and spit FLUTICASONE PROPIONATE HFA 06535284591 No Longer Active Keara Blum MD Active FLUTICASONE PROPIONATE 50 MCG/ACT SUSP 1 puff in each nostril [place] FLUTICASONE PROPIONATE 60122562593 No Longer Active Keara Blum MD Active ZYRTEC ALLERGY 10 MG TABS 1 tablet po daily CET IRIZINE HCL 68299587852 No Longer Active Keara Blum MD Active AZITHROMYCIN 250 MG TABS 2 pills day 1,1 pill day 2-5 AZITHROMYCIN 01497465939 No Longer Active Keara Blum MD Act [place] ZYRTEC ALLERGY 10 MG TABS 1 tablet po daily ZYRTEC ALLERGY 10 MG TABS 2991057 CETIRIZINE HCL Inactive FLOVENT HFA 110 MCG/ACT AERO 1 puff bid, rinse and spit FLOVENT HFA 110 MCG/ACT AERO FLUTICASONE PROPIONATE HFA [place] ctive PROAIR HFA 108 (90 BASE) MCG/ACT AERS 1-2 puffs 2-4 times a day as needed PROAIR HFA 108 (90 BASE) MCG/ACT AERS ALB UTEROL SULFATE Inactive PROPRANOLOL HCL 20 MG TABS 1 bid P ROPRANOLOL HCL 20 MG TABS 518688 PROPRANOLOL HCL Inactive CLARITIN-D 24 HOUR 10-240 MG [id number] 1 po qd PRN Allergies 201 12/01/26 CLARITIN-D 24 HOUR 10-240 MG [id number] LORATADIN E-PSEUDOEPHEDRINE Inactive ONDANSETRON HCL 8 MG TABS 1 every8 hrs prn vomiting 08/10/08 ONDANSETRON HCL 8 MG TABS 392693 ONDANSETRON HCL Inactive CEFDINIR 300 MG CAPS 1 daily CEFDINIR 300 MG C APS 20021229 CEFDINIR Inactive CEFDINIR 300 MG CAPS 1 daily CEFDINIR 300 MG C APS 20021229 CEFDINIR Inactive FLUTICASONE PROPIONATE 50 MCG/ACT SUSP 1 puff in each nostril [place] FLUTICASONE PROPIONATE 50 MCG/ACT SUSP 361321 FLUTICASO NE PROPIONATE Inactive CEFTIN 500 MG TAB 1 po bid 10 days CEFTIN 500 M G TAB 854985 CEFUROXIME AXETIL Inactive ZIANA 1.2-0.025 % GEL apply pea size daily ZIANA 1.2-0.025 % GEL CLINDAMYCIN-TRETINOIN Inactive ONDANSETRON HCL 8 MG TABS 1 q 8 hours ON DANSETRON HCL 8 MG TABS 268841 ONDANSETRON HCL Inactive CEFTIN 500 MG TABS 1 bid CEFTIN 500 MG TABS 347252 CEFUROXIME AXETIL Inactive AZITHROMYCIN 250 MG TABS 2 pills day 1,1 pill day 2-5 AZITHROMYCIN 250 MG TABS 6874617 AZITHROMYCIN Inactive FLUTICASONE PROPIONATE 50 MCG/ACT SUSP 1 puff in each nostril [place] FLUTICASONE PROPIONATE 50 MCG/ACT SUSP 765495 FLUTICASO NE PROPIONATE Inactive Immunizations Vaccine Administration [...] Diphtheria, and acellular Per tussis Immunization) Adacel [[id number]] tetanus toxoid, reduced diph theria toxoid, and [...] Panel - Chemistry sodium, serum 141 mmol/L 978-688 1634/11/19 potassium, serum 4.4 mmol/L 3.5-5.2 chloride, serum [...] - Hematology platelet count 239 10^3/MM^3 10*3/mm3 339-006 8090/11/19 leukocyte count, blood 8.1 10^3/MM^3 10*3/mm3 4.6-10.2 [...] ve bilirubin, urine Negative Negative Lab Report: [facility] - Chemistry human chorionic gonadotropin , urine, qualitative (urine test) Negative Negative Encounters Code Encounter Date Provider Facility CPT-09715 Level 3 Est. Patient 09:47:44 RUBBER COMPOUNDER Keara Abreu MD [facility] CPT-63333 Level 3 Est. Patient 16:33:46 CDT Keara Abreu MD [facility] CPT-19407 Level 3 Est. Patient 16:38:32 CDT Dawson breen DO [facility] CPT-23692 Level 3 Est. Patient 15:58:59 RUBBER COMPOUNDER Keara Abreu MD [facility] CPT-16414 Level 3 Est. Patient 10:44:39 RUBBER COMPOUNDER Keara Abreu MD [facility] CPT-29011 Level 3 Est. Patient 10:09:23 CDT Keara Abreu MD [facility] CPT-03493 Level 3 Est. Patient 13:46:54 RUBBER COMPOUNDER Keara Abreu MD [facility] CPT-50073 Level 3 Est. Patient 16:25:27 CDT Keara Abreu MD [facility] CPT-38717 Level 3 Est. Patient 10:22:54 CDT Keara Abreu MD [facility] CPT-80658 Level 3 Est. Patient 16:02:28 RUBBER COMPOUNDER Keara Abreu MD [facility] Procedures Code Procedure Name Date Entry Date Standard Desc ription CPT-98779 Sono pelvis non OB uterus ovaries cervix 09:06:48 RUBBER COMPOUNDER CPT-32584 Sono retroperitoneal complete kidneys an d bladder 09:06:48 RUBBER COMPOUNDER CPT-70235 Abd compl w upright 15:32:02 RUBBER COMPOUNDER CPT-91086 Fluzone Quadrivalent Intramuscular Suspe nsion 0.5 ML 16:49:56 RUBBER COMPOUNDER CPT-02681 Breathing Tx 11:04:54 CDT CPT-73177 Chest 2V Frontal and Lat 10:32:02 CDT 03/19 CPT-02831 Breathing Tx 10:23:54 CDT CPT-42752 EKG Trac and Interp 16:18:28 RUBBER COMPOUNDER
--- OUTSIDE RECORDS SUMMARY | 2020-05-02 15:48 | XMS REPORT | Clinical Summary ---
Author Author Mario, Valerie Villegas Organization [facility] Address Unknown Phone Unavailable Allergies, Adverse Reactions, [...] 20 08/30/25 OTHER ABNORMAL GLUCOSE ICD-790.29 Inactive Agsuto Blum MD COUGH ICD-786.2 Inactive Keara Blum MD 20 09/01/22 G E REFLUX ICD-530.81 Inactive Keara kelly MD Sinusitis-Acute ICD-461.9 Inactive Keara kumar MD Other unspecified back disorders ICD-724.9 [place] ctive Keara Blum MD UTI ICD-599.0 Inactive Keara Blum MD 20 08/06/08 Otitis media, left ICD-382.9 Inactive Keara Blum MD Sinusitis-Acute ICD-461.9 Inactive Keara kumar MD Medication List Medication Instructions Start Date Stop Date Generic Name NDC Status Provider Patient Instruction CEFTIN 500 MG TABS 1 bid CEFUROXIME AXETIL 5 8300635513 No Longer Active Keara Blum MD Active FLUTICASONE PROPIONATE 50 MCG/ACT SUSP 1 puff in each nostril [place] FLUTICASONE PROPIONATE 35340009868 Active Keara Blum MD Active ONDANSETRON HCL 8 MG TABS 1 q 8 hours ONDANSETR ON HCL 76465926186 No Longer Active Keara Blum MD Active ZIANA 1.2-0.025 % GEL apply pea size daily CLIN DAMYCIN-TRETINOIN 74592335509 No Longer Active Keara Blum MD Active CEFTIN 500 MG TAB 1 po bid 10 days CEFUROXIME A XETIL 00431518589 No Longer Active Keara Blum MD Active FLUTICASONE PROPIONATE 50 MCG/ACT SUSP 1 puff in each nostril [place] FLUTICASONE PROPIONATE 02136582198 No Longer Active Dawson Gresham DO Active CEFDINIR 300 MG CAPS 1 daily CEFDINIR 8787819 3010 No Longer Active Dawson Gresham DO Active CEFDINIR 300 MG CAPS 1 daily CEFDINIR 8053858 3010 No Longer Active Keara Blum MD Active ONDANSETRON HCL 8 MG TABS 1 every8 hrs prn vomiting 20 08/10/08 ONDANSETRON HCL 15597084885 No Longer Active Keara Blum MD Active CLARITIN-D 24 HOUR 10-240 MG [id number] 1 po qd PRN Allergies 201 12/01/26 LORATADINE-PSEUDOEPHEDRINE 76657769386 No Longer Active Danielle Blum MD Active PROPRANOLOL HCL 20 MG TABS 1 bid PROPRANOL OL HCL 18739658136 No Longer Active Keara Blum MD Active PROAIR HFA 108 (90 BASE) MCG/ACT AERS 1-2 puffs 2-4 times a day as needed ALBUTEROL SULFATE 30811734311 No Longer Active Keara Blum MD Active PRILOSEC 20 MG CPDR 1 daily OMEPRAZOLE 64758020593 Ac tive Keara Blum MD Active FLOVENT HFA 110 MCG/ACT AERO 1 puff bid, rinse and spit FLUTICASONE PROPIONATE HFA 31799909164 No Longer Active Keara Blum MD Active FLUTICASONE PROPIONATE 50 MCG/ACT SUSP 1 puff in each nostril [place] FLUTICASONE PROPIONATE 17828879189 No Longer Active Keara Blum MD Active ZYRTEC ALLERGY 10 MG TABS 1 tablet po daily CET IRIZINE HCL 22049270551 No Longer Active Keara Blum MD Active AZITHROMYCIN 250 MG TABS 2 pills day 1,1 pill day 2-5 AZITHROMYCIN 78143792082 No Longer Active Keara Blum MD Act [place] ZYRTEC ALLERGY 10 MG TABS 1 tablet po daily ZYRTEC ALLERGY 10 MG TABS 9764767 CETIRIZINE HCL Inactive FLOVENT HFA 110 MCG/ACT AERO 1 puff bid, rinse and spit FLOVENT HFA 110 MCG/ACT AERO FLUTICASONE PROPIONATE HFA [place] ctive PROAIR HFA 108 (90 BASE) MCG/ACT AERS 1-2 puffs 2-4 times a day as needed PROAIR HFA 108 (90 BASE) MCG/ACT AERS ALB UTEROL SULFATE Inactive PROPRANOLOL HCL 20 MG TABS 1 bid P ROPRANOLOL HCL 20 MG TABS 895192 PROPRANOLOL HCL Inactive CLARITIN-D 24 HOUR 10-240 MG [id number]-JRF 1 po qd PRN Allergies 201 12/01/26 CLARITIN-D 24 HOUR 10-240 MG [id number] LORATADIN E-PSEUDOEPHEDRINE Inactive ONDANSETRON HCL 8 MG TABS 1 every8 hrs prn vomiting 20 08/10/08 ONDANSETRON HCL 8 MG TABS 105185 ONDANSETRON HCL Inactive CEFDINIR 300 MG CAPS 1 daily CEFDINIR 300 MG C APS 20021229 CEFDINIR Inactive CEFDINIR 300 MG CAPS 1 daily CEFDINIR 300 MG C APS 20021229 CEFDINIR Inactive FLUTICASONE PROPIONATE 50 MCG/ACT SUSP 1 puff in each nostril [place] FLUTICASONE PROPIONATE 50 MCG/ACT SUSP 478241 FLUTICASO NE PROPIONATE Inactive CEFTIN 500 MG TAB 1 po bid 10 days CEFTIN 500 M G TAB 577658 CEFUROXIME AXETIL Inactive ZIANA 1.2-0.025 % GEL apply pea size daily ZIANA 1.2-0.025 % GEL CLINDAMYCIN-TRETINOIN Inactive ONDANSETRON HCL 8 MG TABS 1 q 8 hours ON DANSETRON HCL 8 MG TABS 654488 ONDANSETRON HCL Inactive CEFTIN 500 MG TABS 1 bid CEFTIN 500 MG TABS 646152 CEFUROXIME AXETIL Inactive AZITHROMYCIN 250 MG TABS 2 pills day 1,1 pill day 2-5 AZITHROMYCIN 250 MG TABS 4434679 AZITHROMYCIN Inactive FLUTICASONE PROPIONATE 50 MCG/ACT SUSP 1 puff in each nostril [place] FLUTICASONE PROPIONATE 50 MCG/ACT SUSP 168554 FLUTICASO NE PROPIONATE Inactive Immunizations Vaccine Administration [...] meningococcal polysaccharide vaccine (MPSV4) Adacel immunization Adacel [[id number]] tetanus toxo id, reduced diphtheria toxoid, and [...] Panel - Chemistry sodium, serum 141 mmol/L 156-459 4899/11/19 potassium, serum 4.4 mmol/L 3.5-5.2 chloride, serum [...] ve bilirubin, urine Negative Negative Lab Report: [facility] [place] [place] - Chemistry human chorionic gonadotropin , urine, qualitative (urine test) Negative Negative Encounters Code Encounter Date Provider Facility CPT-18972 Level 3 Est. Patient 09:47:44 MOTOR COACH DRIVER Keara Abreu MD [facility] CPT-62323 Level 3 Est. Patient 16:33:46 CDT Keara Abreu MD [facility] CPT-26311 Level 3 Est. Patient 16:38:32 CDT Dawson breen DO [facility] CPT-71570 Level 3 Est. Patient 15:58:59 MOTOR COACH DRIVER Keara Abreu MD [facility] CPT-85203 Level 3 Est. Patient 10:44:39 MOTOR COACH DRIVER Keara Abreu MD [facility] CPT-25249 Level 3 Est. Patient 10:09:23 CDT Keara Abreu MD [facility] CPT-91835 Level 3 Est. Patient 13:46:54 MOTOR COACH DRIVER Keara Abreu MD [facility] CPT-95540 Level 3 Est. Patient 16:25:27 CDT Keara Abreu MD [facility] CPT-29614 Level 3 Est. Patient 10:22:54 CDT Keara Abreu MD [facility] CPT-69326 Level 3 Est. Patient 16:02:28 MOTOR COACH DRIVER Keara Abreu MD [facility] Procedures Code Procedure Name Date Entry Date Standard Desc ription CPT-66097 Abd compl w upright 15:32:02 MOTOR COACH DRIVER CPT-09658 Fluzone Quadrivalent Intramuscular Suspe nsion 0.5 ML 16:49:56 MOTOR COACH DRIVER CPT-70159 Breathing Tx 11:04:54 CDT CPT-00360 Chest 2V Frontal and Lat 10:32:02 CDT 03/19 CPT-88526 Breathing Tx 10:23:54 CDT CPT-14456 EKG Trac and Interp 16:18:28 MOTOR COACH DRIVER
--- OUTSIDE RECORDS SUMMARY | 2020-05-02 15:48 | XMS REPORT | Clinical Summary ---
Author Author Mario, Valerie Villegas Organization [facility] Address Unknown Phone Unavailable Allergies, Adverse Reactions, [...] kumar MD Other unspecified back disorders ICD-724.9 [place] ctive Keara Blum MD UTI ICD-599.0 Inactive Keara Blum MD 20 08/06/08 Otitis media, left ICD-382.9 Inactive Keara Blum MD Sinusitis-Acute ICD-461.9 Inactive Keara kumar MD Medication List Medication Instructions Start Date Stop Date Generic Name NDC Status Provider Patient Instruction CEFTIN 500 MG TABS 1 bid CEFUROXIME AXETIL 5 8536742668 No Longer Active Keara Blum MD Active FLUTICASONE PROPIONATE 50 MCG/ACT SUSP 1 puff in each nostril [place] FLUTICASONE PROPIONATE 14412204097 Active Keara Blum MD Active ONDANSETRON HCL 8 MG TABS 1 q 8 hours ONDANSETR ON HCL 71381509440 No Longer Active Keara Blum MD Active ZIANA 1.2-0.025 % GEL apply pea size daily CLIN DAMYCIN-TRETINOIN 56200620018 No Longer Active Keara Blum MD Active CEFTIN 500 MG TAB 1 po bid 10 days CEFUROXIME A XETIL 94663246424 No Longer Active Keara Blum MD Active FLUTICASONE PROPIONATE 50 MCG/ACT SUSP 1 puff in each nostril [place] FLUTICASONE PROPIONATE 21060599349 No Longer Active Dawson Gresham DO Active CEFDINIR 300 MG CAPS 1 daily CEFDINIR 7506135 3010 No Longer Active Dawson Gresham DO Active CEFDINIR 300 MG CAPS 1 daily CEFDINIR 4570941 3010 No Longer Active Keara Blum MD Active ONDANSETRON HCL 8 MG TABS 1 every8 hrs prn vomiting 20 08/10/08 ONDANSETRON HCL 25554227831 No Longer Active Keara Blum MD Active CLARITIN-D 24 HOUR 10-240 MG [id number]-MNS 1 po qd PRN Allergies 201 12/01/26 LORATADINE-PSEUDOEPHEDRINE 71210864248 No Longer Active Danielle Blum MD Active PROPRANOLOL HCL 20 MG TABS 1 bid PROPRANOL OL HCL 31808378068 No Longer Active Keara Blum MD Active PROAIR HFA 108 (90 BASE) MCG/ACT AERS 1-2 puffs 2-4 times a day as needed ALBUTEROL SULFATE 52499175741 No Longer Active Keara Blum MD Active PRILOSEC 20 MG CPDR 1 daily OMEPRAZOLE 85446197428 Ac tive Keara Blum MD Active FLOVENT HFA 110 MCG/ACT AERO 1 puff bid, rinse and spit FLUTICASONE PROPIONATE HFA 25219431764 No Longer Active Keara Blum MD Active FLUTICASONE PROPIONATE 50 MCG/ACT SUSP 1 puff in each nostril [place] FLUTICASONE PROPIONATE 24302611850 No Longer Active Keara Blum MD Active ZYRTEC ALLERGY 10 MG TABS 1 tablet po daily CET IRIZINE HCL 92954220569 No Longer Active Keara Blum MD Active AZITHROMYCIN 250 MG TABS 2 pills day 1,1 pill day 2-5 AZITHROMYCIN 48275909813 No Longer Active Keara Blum MD Act [place] ZYRTEC ALLERGY 10 MG TABS 1 tablet po daily ZYRTEC ALLERGY 10 MG TABS 0937234 CETIRIZINE HCL Inactive FLOVENT HFA 110 MCG/ACT AERO 1 puff bid, rinse and spit FLOVENT HFA 110 MCG/ACT AERO FLUTICASONE PROPIONATE HFA [place] ctive PROAIR HFA 108 (90 BASE) MCG/ACT AERS 1-2 puffs 2-4 times a day as needed PROAIR HFA 108 (90 BASE) MCG/ACT AERS ALB UTEROL SULFATE Inactive PROPRANOLOL HCL 20 MG TABS 1 bid P ROPRANOLOL HCL 20 MG TABS 695363 PROPRANOLOL HCL Inactive CLARITIN-D 24 HOUR 10-240 MG [id number] 1 po qd PRN Allergies 201 12/01/26 CLARITIN-D 24 HOUR 10-240 MG [id number]-ADY LORATADIN E-PSEUDOEPHEDRINE Inactive ONDANSETRON HCL 8 MG TABS 1 every8 hrs prn vomiting 20 08/10/08 ONDANSETRON HCL 8 MG TABS 494541 ONDANSETRON HCL Inactive CEFDINIR 300 MG CAPS 1 daily CEFDINIR 300 MG C APS 20021229 CEFDINIR Inactive CEFDINIR 300 MG CAPS 1 daily CEFDINIR 300 MG C APS 20021229 CEFDINIR Inactive FLUTICASONE PROPIONATE 50 MCG/ACT SUSP 1 puff in each nostril [place] FLUTICASONE PROPIONATE 50 MCG/ACT SUSP 627520 FLUTICASO NE PROPIONATE Inactive CEFTIN 500 MG TAB 1 po bid 10 days CEFTIN 500 M G TAB 847580 CEFUROXIME AXETIL Inactive ZIANA 1.2-0.025 % GEL apply pea size daily ZIANA 1.2-0.025 % GEL CLINDAMYCIN-TRETINOIN Inactive ONDANSETRON HCL 8 MG TABS 1 q 8 hours ON DANSETRON HCL 8 MG TABS 969182 ONDANSETRON HCL Inactive CEFTIN 500 MG TABS 1 bid CEFTIN 500 MG TABS 430947 CEFUROXIME AXETIL Inactive AZITHROMYCIN 250 MG TABS 2 pills day 1,1 pill day 2-5 AZITHROMYCIN 250 MG TABS 6265081 AZITHROMYCIN Inactive FLUTICASONE PROPIONATE 50 MCG/ACT SUSP 1 puff in each nostril [place] FLUTICASONE PROPIONATE 50 MCG/ACT SUSP 337598 FLUTICASO NE PROPIONATE Inactive Immunizations Vaccine Administration [...] meningococcal polysaccharide vaccine (MPSV4) Adacel immunization Adacel [ZCX712] tetanus toxo id, reduced diphtheria toxoid, and [...] protein, total urine random Trace mg/dL Negative Lab Report: UADIP W/MICRO, AUTO - Urinal ysis pH, urine, semiquantitative 6.5 5.0-8.5 specific gravity, [...] Trace Negati ve bilirubin, urine Negative Negative Encounters Code Encounter Date Provider Facility CPT-74246 Level 3 Est. Patient 09:47:44 TECHNICIAN TELECOMMUNICATION SYSTEMS Keara Abreu MD [facility] CPT-88767 Level 3 Est. Patient 16:33:46 CDT Keara Abreu MD [facility] CPT-37616 Level 3 Est. Patient 16:38:32 CDT Dawson breen DO [facility] CPT-71182 Level 3 Est. Patient 15:58:59 TECHNICIAN TELECOMMUNICATION SYSTEMS Keara Abreu MD [facility] CPT-23803 Level 3 Est. Patient 10:44:39 TECHNICIAN TELECOMMUNICATION SYSTEMS Keara Abreu MD [facility] CPT-38128 Level 3 Est. Patient 10:09:23 CDT Keara Abreu MD [facility] CPT-04756 Level 3 Est. Patient 13:46:54 TECHNICIAN TELECOMMUNICATION SYSTEMS Keara Abreu MD [facility] CPT-41531 Level 3 Est. Patient 16:25:27 CDT Keara Abreu MD [facility] CPT-95442 Level 3 Est. Patient 10:22:54 CDT Keara Abreu MD [facility] CPT-53250 Level 3 Est. Patient 16:02:28 TECHNICIAN TELECOMMUNICATION SYSTEMS Keara Abreu MD [facility] Procedures Code Procedure Name Date Entry Date Standard Desc ription CPT-80635 Breathing Tx 11:04:54 CDT CPT-89918 Chest 2V Frontal and Lat 10:32:02 CDT 03/19 CPT-39660 Breathing Tx 10:23:54 CDT CPT-84403 EKG Trac and Interp 16:18:28 TECHNICIAN TELECOMMUNICATION SYSTEMS
--- OUTSIDE RECORDS SUMMARY | 2020-05-02 15:48 | XMS REPORT | Clinical Summary ---
Author Author Mario, Valerie Villegas Organization [facility] Address Unknown Phone Unavailable Allergies, Adverse [...] kumar MD Other unspecified back disorders ICD-724.9 [place] [address] Keara Blum MD UTI ICD-599.0 Inactive Keara Blum MD 20 08/06/08 Otitis media, left ICD-382.9 Inactive Keara Blum MD Sinusitis-Acute ICD-461.9 Inactive Keara kumar MD Medication List Medication Instructions Start Date Stop Date Generic Name NDC Status Provider Patient Instruction CEFTIN 500 MG TABS 1 bid CEFUROXIME AXETIL 5 [id number] No Longer Active Keara Blum MD Active FLUTICASONE PROPIONATE 50 MCG/ACT SUSP 1 puff in each nostril [place] FLUTICASONE PROPIONATE 75335207441 Active Keara Blum MD Active ONDANSETRON HCL 8 MG TABS 1 q 8 hours ONDANSETR ON HCL 81303785144 No Longer Active Keara Blum MD Active ZIANA 1.2-0.025 % GEL apply pea size daily CLIN DAMYCIN-TRETINOIN 21414416226 No Longer Active Keara Blum MD Active CEFTIN 500 MG TAB 1 po bid 10 days CEFUROXIME A XETIL 64662496342 No Longer Active Keara Blum MD Active FLUTICASONE PROPIONATE 50 MCG/ACT SUSP 1 puff in each nostril [place] FLUTICASONE PROPIONATE 44183669146 No Longer Active Dawson Gresham DO Active CEFDINIR 300 MG CAPS 1 daily CEFDINIR 9264636 3010 No Longer Active Dawson Gresham DO Active CEFDINIR 300 MG CAPS 1 daily CEFDINIR 8152982 3010 No Longer Active Keara Blum MD Active ONDANSETRON HCL 8 MG TABS 1 every8 hrs prn vomiting 20 08/10/08 ONDANSETRON HCL 69868156224 No Longer Active Keara Blum MD Active CLARITIN-D 24 HOUR 10-240 MG [id number] 1 po qd PRN Allergies 201 12/01/26 LORATADINE-PSEUDOEPHEDRINE 83225499794 No Longer Active Danielle Blum MD Active PROPRANOLOL HCL 20 MG TABS 1 bid PROPRANOL OL HCL 37570854760 No Longer Active Keara Blum MD Active PROAIR HFA 108 (90 BASE) MCG/ACT AERS 1-2 puffs 2-4 times a day as needed ALBUTEROL SULFATE 99086385166 No Longer Active Keara Blum MD Active PRILOSEC 20 MG CPDR 1 daily OMEPRAZOLE 18649916088 Ac tive Keara Blum MD Active FLOVENT HFA 110 MCG/ACT AERO 1 puff bid, rinse and spit FLUTICASONE PROPIONATE HFA 65909592445 No Longer Active Keara Blum MD Active FLUTICASONE PROPIONATE 50 MCG/ACT SUSP 1 puff in each nostril [place] FLUTICASONE PROPIONATE 60591670998 No Longer Active Keara Blum MD Active ZYRTEC ALLERGY 10 MG TABS 1 tablet po daily CET IRIZINE HCL 59987982474 No Longer Active Keara Blum MD Active AZITHROMYCIN 250 MG TABS 2 pills day 1,1 pill day 2-5 AZITHROMYCIN 10629866048 No Longer Active Keara Blum MD Act [place] ZYRTEC ALLERGY 10 MG TABS 1 tablet po daily ZYRTEC ALLERGY 10 MG TABS 7354728 CETIRIZINE HCL Inactive FLOVENT HFA 110 MCG/ACT AERO 1 puff bid, rinse and spit FLOVENT HFA 110 MCG/ACT AERO FLUTICASONE PROPIONATE HFA [place] ctive PROAIR HFA 108 (90 BASE) MCG/ACT AERS 1-2 puffs 2-4 times a day as needed PROAIR HFA 108 (90 BASE) MCG/ACT AERS ALB UTEROL SULFATE Inactive PROPRANOLOL HCL 20 MG TABS 1 bid P ROPRANOLOL HCL 20 MG TABS 936991 PROPRANOLOL HCL Inactive CLARITIN-D 24 HOUR 10-240 MG [id number] 1 po qd PRN Allergies 201 12/01/26 CLARITIN-D 24 HOUR 10-240 MG [id number] LORATADIN E-PSEUDOEPHEDRINE Inactive ONDANSETRON HCL 8 MG TABS 1 every8 hrs prn vomiting 20 08/10/08 ONDANSETRON HCL 8 MG TABS 454621 ONDANSETRON HCL Inactive CEFDINIR 300 MG CAPS 1 daily CEFDINIR 300 MG C APS 20021229 CEFDINIR Inactive CEFDINIR 300 MG CAPS 1 daily CEFDINIR 300 MG C APS 20021229 CEFDINIR Inactive FLUTICASONE PROPIONATE 50 MCG/ACT SUSP 1 puff in each nostril [place] FLUTICASONE PROPIONATE 50 MCG/ACT SUSP 920145 FLUTICASO NE PROPIONATE Inactive CEFTIN 500 MG TAB 1 po bid 10 days CEFTIN 500 M G TAB 703687 CEFUROXIME AXETIL Inactive ZIANA 1.2-0.025 % GEL apply pea size daily ZIANA 1.2-0.025 % GEL CLINDAMYCIN-TRETINOIN Inactive ONDANSETRON HCL 8 MG TABS 1 q 8 hours ON DANSETRON HCL 8 MG TABS 922997 ONDANSETRON HCL Inactive CEFTIN 500 MG TABS 1 bid CEFTIN 500 MG TABS 398531 CEFUROXIME AXETIL Inactive AZITHROMYCIN 250 MG TABS 2 pills day 1,1 pill day 2-5 AZITHROMYCIN 250 MG TABS 1235844 AZITHROMYCIN Inactive FLUTICASONE PROPIONATE 50 MCG/ACT SUSP 1 puff in each nostril [place] FLUTICASONE PROPIONATE 50 MCG/ACT SUSP 530258 FLUTICASO NE PROPIONATE Inactive Immunizations Vaccine Administration [...] meningococcal polysaccharide vaccine (MPSV4) Adacel immunization Adacel [[id number]] tetanus toxo id, reduced diphtheria toxoid, and [...] pH, urine, semiquantitative 6.5 5.0-8.5 [place] [facility] [place] human chorionic gonadotropin , urine, qualitative (urine test) Negative Negative Encounters Code Encounter Date Provider Facility CPT-67975 Level 3 Est. Patient 09:47:44 DISPATCHER RELAY Keara Abreu MD [facility] CPT-83494 Level 3 Est. Patient 16:33:46 CDT Keara Abreu MD [facility] CPT-26583 Level 3 Est. Patient 16:38:32 CDT Dawson breen DO [facility] CPT-91509 Level 3 Est. Patient 15:58:59 DISPATCHER RELAY Keara Abreu MD [facility] CPT-56503 Level 3 Est. Patient 10:44:39 DISPATCHER RELAY Keara Abreu MD [facility] CPT-93650 Level 3 Est. Patient 10:09:23 CDT Keara Abreu MD [facility] CPT-84688 Level 3 Est. Patient 13:46:54 DISPATCHER RELAY Keara Abreu MD [facility] CPT-79362 Level 3 Est. Patient 16:25:27 CDT Keara Abreu MD [facility] CPT-02256 Level 3 Est. Patient 10:22:54 CDT Keara Abreu MD [facility] CPT-19306 Level 3 Est. Patient 16:02:28 DISPATCHER RELAY Keara Abreu MD [facility] Procedures Code Procedure Name Date Entry Date Standard Desc ription CPT-11877 Breathing Tx 11:04:54 CDT CPT-09886 Chest 2V Frontal and Lat 10:32:02 CDT 03/19 CPT-32069 Breathing Tx 10:23:54 CDT CPT-88686 EKG Trac and Interp 16:18:28 DISPATCHER RELAY
--- OUTSIDE RECORDS SUMMARY | 2020-05-02 15:48 | XMS REPORT | Clinical Summary ---
Author Author Mario, Valerie Villegas Organization [facility] Address Unknown Phone Unavailable Allergies, Adverse [...] not specified Otitis media, left 382.9 Resolved eKara Campa Unspecified otitis media Sinusitis-Acute 461.9 Active Keara Blum MD Acute sinusitis, unspecified COUGH ICD-786.2 Inactive Keara Blum MD 20 08/30/25 OTHER ABNORMAL GLUCOSE ICD-790.29 Inactive Agusto Blum MD COUGH ICD-786.2 Inactive Keara Blum MD 20 09/01/22 G E REFLUX ICD-530.81 Inactive Keara kelly MD Sinusitis-Acute ICD-461.9 Inactive Keara kumar MD Other unspecified back disorders ICD-724.9 [place] [address] Keara Blum MD UTI ICD-599.0 Inactive Keara Blum MD 20 08/06/08 Otitis media, left ICD-382.9 Inactive Keara Blum MD Medication List Medication Instructions Start Date Stop Date Generic Name NDC Status Provider Patient Instruction CEFTIN 500 MG TABS 1 bid CEFUROXIME AXETIL 05638724 210 Active Keara Blum MD Active FLUTICASONE PROPIONATE 50 MCG/ACT SUSP 1 puff in each nostril [place] FLUTICASONE PROPIONATE 65529402489 Active Keara Blum MD Active ONDANSETRON HCL 8 MG TABS 1 q 8 hours ONDANSETR ON HCL 82431408629 No Longer Active Keara Blum MD Active ZIANA 1.2-0.025 % GEL apply pea size daily CLIN DAMYCIN-TRETINOIN 14099794248 No Longer Active Keara Blum MD Active CEFTIN 500 MG TAB 1 po bid 10 days CEFUROXIME A XETIL 22951585341 No Longer Active Keara Blum MD Active FLUTICASONE PROPIONATE 50 MCG/ACT SUSP 1 puff in each nostril [place] FLUTICASONE PROPIONATE 05232426721 No Longer Active Dawson Gresham DO Active CEFDINIR 300 MG CAPS 1 daily CEFDINIR 2298162 3010 No Longer Active Dawson Gresham DO Active CEFDINIR 300 MG CAPS 1 daily CEFDINIR 4501615 3010 No Longer Active Keara Blum MD Active ONDANSETRON HCL 8 MG TABS 1 every8 hrs prn vomiting 20 08/10/08 ONDANSETRON HCL 55343868290 No Longer Active Keara Blum MD Active CLARITIN-D 24 HOUR 10-240 MG [id number] 1 po qd PRN Allergies 201 12/01/26 LORATADINE-PSEUDOEPHEDRINE 32744162637 No Longer Active Danielle Blum MD Active PROPRANOLOL HCL 20 MG TABS 1 bid PROPRANOL OL HCL 97329027788 No Longer Active Keara Blum MD Active PROAIR HFA 108 (90 BASE) MCG/ACT AERS 1-2 puffs 2-4 times a day as needed ALBUTEROL SULFATE 65903273872 No Longer Active Kaera Blum MD Active PRILOSEC 20 MG CPDR 1 daily OMEPRAZOLE 21055880930 Ac tive Keara Blum MD Active FLOVENT HFA 110 MCG/ACT AERO 1 puff bid, rinse and spit FLUTICASONE PROPIONATE HFA 30657046520 No Longer Active Keara Blum MD Active FLUTICASONE PROPIONATE 50 MCG/ACT SUSP 1 puff in each nostril [place] FLUTICASONE PROPIONATE 11501515656 No Longer Active Keara Blum MD Active ZYRTEC ALLERGY 10 MG TABS 1 tablet po daily CET IRIZINE HCL 29343198928 No Longer Active Keara Blum MD Active AZITHROMYCIN 250 MG TABS 2 pills day 1,1 pill day 2-5 AZITHROMYCIN 54126355153 No Longer Active Keara Blum MD Act [place] ZYRTEC ALLERGY 10 MG TABS 1 tablet po daily ZYRTEC ALLERGY 10 MG TABS 1861185 CETIRIZINE HCL Inactive FLOVENT HFA 110 MCG/ACT AERO 1 puff bid, rinse and spit FLOVENT HFA 110 MCG/ACT AERO FLUTICASONE PROPIONATE HFA [place] ctive PROAIR HFA 108 (90 BASE) MCG/ACT AERS 1-2 puffs 2-4 times a day as needed PROAIR HFA 108 (90 BASE) MCG/ACT AERS ALB UTEROL SULFATE Inactive PROPRANOLOL HCL 20 MG TABS 1 bid P ROPRANOLOL HCL 20 MG TABS 658413 PROPRANOLOL HCL Inactive CLARITIN-D 24 HOUR 10-240 MG [id number] 1 po qd PRN Allergies 201 12/01/26 CLARITIN-D 24 HOUR 10-240 MG [id number] LORATADIN E-PSEUDOEPHEDRINE Inactive ONDANSETRON HCL 8 MG TABS 1 every8 hrs prn vomiting 20 08/10/08 ONDANSETRON HCL 8 MG TABS 321408 ONDANSETRON HCL Inactive CEFDINIR 300 MG CAPS 1 daily CEFDINIR 300 MG C APS 20021229 CEFDINIR Inactive CEFDINIR 300 MG CAPS 1 daily CEFDINIR 300 MG C APS 20021229 CEFDINIR Inactive FLUTICASONE PROPIONATE 50 MCG/ACT SUSP 1 puff in each nostril [place] FLUTICASONE PROPIONATE 50 MCG/ACT SUSP 906884 FLUTICASO NE PROPIONATE Inactive CEFTIN 500 MG TAB 1 po bid 10 days CEFTIN 500 M G TAB 961080 CEFUROXIME AXETIL Inactive ZIANA 1.2-0.025 % GEL apply pea size daily ZIANA 1.2-0.025 % GEL CLINDAMYCIN-TRETINOIN Inactive ONDANSETRON HCL 8 MG TABS 1 q 8 hours ON DANSETRON HCL 8 MG TABS 727908 ONDANSETRON HCL Inactive AZITHROMYCIN 250 MG TABS 2 pills day 1,1 pill day 2-5 AZITHROMYCIN 250 MG TABS 7656479 AZITHROMYCIN Inactive FLUTICASONE PROPIONATE 50 MCG/ACT SUSP 1 puff in each nostril [place] FLUTICASONE PROPIONATE 50 MCG/ACT SUSP 386677 FLUTICASO NE PROPIONATE Inactive Immunizations Vaccine Administration [...] meningococcal polysaccharide vaccine (MPSV4) Adacel immunization Adacel [[id number]] tetanus toxo id, reduced diphtheria toxoid, and [...] Value Unit Range Description blood pressure, diastolic 60 mm[Hg] BP horner [...] 5.0-8.5 Encounters Code Encounter Date Provider Facility CPT-49204 Level 3 Est. Patient 16:33:46 CDT Keara Abreu MD [facility] CPT-41027 Level 3 Est. Patient 16:38:32 CDT Dawson breen DO [facility] CPT-30187 Level 3 Est. 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 Patient 10:44:39 [employer]ONG[employer] AND [employer] MACHINE FEEDER Keara Abreu MD [facility] CPT-41218 Level 3 Est. Patient 10:09:23 CDT Keara Abreu MD [facility] CPT-05865 Level 3 Est. Patient 13:46:54 [employer]ONG[employer] MACHINE FEEDER Keara Abreu MD [facility] CPT-39587 Level 3 Est. Patient 16:25:27 CDT Keara Abreu MD [facility] CPT-50209 Level 3 Est. Patient 10:22:54 CDT Keara Abreu MD [facility] CPT-90350 Level 3 Est. Patient 16:02:28 [employer]ONG[employer] MACH[employer] FEEDER Keara Abreu MD [facility] Procedures Code Procedure Name Date Entry Date Standard Desc ription CPT-92606 Breathing Tx 11:04:54 CDT CPT-60641 Chest 2V Frontal and Lat 10:32:02 CDT 03/19 CPT-58999 Breathing Tx 10:23:54 CDT CPT-64464 EKG Trac and Interp 16:18:28 TONGUE AND [employer]OOVE MACHINE FEEDER
--- OUTSIDE RECORDS SUMMARY | 2020-05-02 15:48 | XMS REPORT | Clinical Summary ---
Author Author Mario, Valerie Villegas Organization [facility] Address Unknown Phone Unavailable Allergies, Adverse [...] kumar MD Other unspecified back disorders ICD-724.9 [place] [address]ive Keara Blum MD UTI ICD-599.0 Inactive Keara Blum MD 20 08/06/08 Otitis media, left ICD-382.9 Inactive Keara Blum MD Sinusitis-Acute ICD-461.9 Inactive Keara kumar MD Medication List Medication Instructions Start Date Stop Date Generic Name NDC Status Provider Patient Instruction CEFTIN 500 MG TABS 1 bid CEFUROXIME AXETIL 5 1948127867 No Longer Active Keara Blum MD Active FLUTICASONE PROPIONATE 50 MCG/ACT SUSP 1 puff in each nostril [place] FLUTICASONE PROPIONATE 71481444489 Active Kaera Blum MD Active ONDANSETRON HCL 8 MG TABS 1 q 8 hours ONDANSETR ON HCL 77920885826 No Longer Active Keara Blum MD Active ZIANA 1.2-0.025 % GEL apply pea size daily CLIN DAMYCIN-TRETINOIN 19849513213 No Longer Active Keara Blum MD Active CEFTIN 500 MG TAB 1 po bid 10 days CEFUROXIME A XETIL 32919637803 No Longer Active Keara Blum MD Active FLUTICASONE PROPIONATE 50 MCG/ACT SUSP 1 puff in each nostril [place] FLUTICASONE PROPIONATE 32086528563 No Longer Active Dawson Gresham DO Active CEFDINIR 300 MG CAPS 1 daily CEFDINIR 3233101 3010 No Longer Active Dawson Gresham DO Active CEFDINIR 300 MG CAPS 1 daily CEFDINIR 7146733 3010 No Longer Active Keara Blum MD Active ONDANSETRON HCL 8 MG TABS 1 every8 hrs prn vomiting 20 08/10/08 ONDANSETRON HCL 96178690512 No Longer Active Keara Blum MD Active CLARITIN-D 24 HOUR 10-240 MG [id number] 1 po qd PRN Allergies 201 12/01/26 LORATADINE-PSEUDOEPHEDRINE 31338520051 No Longer Active Danielle Blum MD Active PROPRANOLOL HCL 20 MG TABS 1 bid PROPRANOL OL HCL 76592850987 No Longer Active Keara Blum MD Active PROAIR HFA 108 (90 BASE) MCG/ACT AERS 1-2 puffs 2-4 times a day as needed ALBUTEROL SULFATE 64552344619 No Longer Active Keara Blum MD Active PRILOSEC 20 MG CPDR 1 daily OMEPRAZOLE 31346523809 Ac tive Keara Blum MD Active FLOVENT HFA 110 MCG/ACT AERO 1 puff bid, rinse and spit FLUTICASONE PROPIONATE HFA 84049170559 No Longer Active Keara Blum MD Active FLUTICASONE PROPIONATE 50 MCG/ACT SUSP 1 puff in each nostril [place] FLUTICASONE PROPIONATE 30536582076 No Longer Active Keara Blum MD Active ZYRTEC ALLERGY 10 MG TABS 1 tablet po daily CET IRIZINE HCL 59730794654 No Longer Active Keara Blum MD Active AZITHROMYCIN 250 MG TABS 2 pills day 1,1 pill day 2-5 AZITHROMYCIN 12473227961 No Longer Active Keara Blum MD Act [place] ZYRTEC ALLERGY 10 MG TABS 1 tablet po daily ZYRTEC ALLERGY 10 MG TABS 5137362 CETIRIZINE HCL Inactive FLOVENT HFA 110 MCG/ACT AERO 1 puff bid, rinse and spit FLOVENT HFA 110 MCG/ACT AERO FLUTICASONE PROPIONATE HFA [place] ctive PROAIR HFA 108 (90 BASE) MCG/ACT AERS 1-2 puffs 2-4 times a day as needed PROAIR HFA 108 (90 BASE) MCG/ACT AERS ALB UTEROL SULFATE Inactive PROPRANOLOL HCL 20 MG TABS 1 bid P ROPRANOLOL HCL 20 MG TABS 571959 PROPRANOLOL HCL Inactive CLARITIN-D 24 HOUR 10-240 MG [id number] 1 po qd PRN Allergies 201 12/01/26 CLARITIN-D 24 HOUR 10-240 MG [id number]-RAC LORATADIN E-PSEUDOEPHEDRINE Inactive ONDANSETRON HCL 8 MG TABS 1 every8 hrs prn vomiting 20 08/10/08 ONDANSETRON HCL 8 MG TABS 359928 ONDANSETRON HCL Inactive CEFDINIR 300 MG CAPS 1 daily CEFDINIR 300 MG C APS 20021229 CEFDINIR Inactive CEFDINIR 300 MG CAPS 1 daily CEFDINIR 300 MG C APS 20021229 CEFDINIR Inactive FLUTICASONE PROPIONATE 50 MCG/ACT SUSP 1 puff in each nostril [place] FLUTICASONE PROPIONATE 50 MCG/ACT SUSP 123720 FLUTICASO NE PROPIONATE Inactive CEFTIN 500 MG TAB 1 po bid 10 days CEFTIN 500 M G TAB 010886 CEFUROXIME AXETIL Inactive ZIANA 1.2-0.025 % GEL apply pea size daily ZIANA 1.2-0.025 % GEL CLINDAMYCIN-TRETINOIN Inactive ONDANSETRON HCL 8 MG TABS 1 q 8 hours ON DANSETRON HCL 8 MG TABS 296445 ONDANSETRON HCL Inactive CEFTIN 500 MG TABS 1 bid CEFTIN 500 MG TABS 645739 CEFUROXIME AXETIL Inactive AZITHROMYCIN 250 MG TABS 2 pills day 1,1 pill day 2-5 AZITHROMYCIN 250 MG TABS 8465678 AZITHROMYCIN Inactive FLUTICASONE PROPIONATE 50 MCG/ACT SUSP 1 puff in each nostril [place] FLUTICASONE PROPIONATE 50 MCG/ACT SUSP 532689 FLUTICASO NE PROPIONATE Inactive Immunizations Vaccine Administration [...] meningococcal polysaccharide vaccine (MPSV4) Adacel immunization Adacel [[id number]] tetanus toxo id, reduced diphtheria toxoid, and [...] Panel - Chemistry sodium, serum 141 mmol/L 434-732 4422/11/19 potassium, serum 4.4 mmol/L 3.5-5.2 chloride, serum [...] ve bilirubin, urine Negative Negative Lab Report: [facility] – [place] - Chemistry human chorionic gonadotropin , urine, qualitative (urine test) Negative Negative Encounters Code Encounter Date Provider Facility CPT-43749 Level 3 Est. Patient 09:47:44 CARPENTER MAINTENANCE Keara Abreu MD [facility] CPT-64684 Level 3 Est. Patient 16:33:46 CDT Keara Abreu MD [facility] CPT-67662 Level 3 Est. Patient 16:38:32 CDT Dawson breen DO [facility] CPT-22872 Level 3 Est. Patient 15:58:59 CARPENTER MAINTENANCE Keara Abreu MD [facility] CPT-32733 Level 3 Est. Patient 10:44:39 CARPENTER MAINTENANCE Keara Abreu MD [facility] CPT-97137 Level 3 Est. Patient 10:09:23 CDT Keara Aberu MD [facility] CPT-60254 Level 3 Est. Patient 13:46:54 CARPENTER MAINTENANCE Keara Abreu MD [facility] CPT-55634 Level 3 Est. Patient 16:25:27 CDT Keara Abreu MD [facility] CPT-93449 Level 3 Est. Patient 10:22:54 CDT Keara Abreu MD [facility] CPT-87217 Level 3 Est. Patient 16:02:28 CARPENTER MAINTENANCE Keara Abreu MD [facility] Procedures Code Procedure Name Date Entry Date Standard Desc ription CPT-28855 Abd compl w upright 15:32:02 CARPENTER MAINTENANCE CPT-22768 Fluzone Quadrivalent Intramuscular Suspe nsion 0.5 ML 16:49:56 CARPENTER MAINTENANCE CPT-55388 Breathing Tx 11:04:54 CDT CPT-99477 Chest 2V Frontal and Lat 10:32:02 CDT 03/19 CPT-44702 Breathing Tx 10:23:54 CDT CPT-19179 EKG Trac and Interp 16:18:28 CARPENTER MAINTENANCE
--- OUTSIDE RECORDS SUMMARY | 2020-05-02 15:49 | XMS REPORT | Clinical Summary ---
Author Author Mario, Valerie Villegas Organization [facility] Address Unknown Phone Unavailable Allergies, Adverse [...] Cough G E REFLUX 530.81 Resolved Keara Bulm MD Esophageal reflux Sinusitis-Acute 461.9 Resolved Keara [...] Active Hortensia Marr MD O ther acne COUGH ICD-786.2 Inactive Keara Blum MD 20 08/30/25 OTHER ABNORMAL GLUCOSE ICD-790.29 Inactive Agusto Blum MD COUGH ICD-786.2 Inactive Keara Blum MD 20 09/01/22 G E REFLUX ICD-530.81 Inactive Keara kelly MD Sinusitis-Acute ICD-461.9 Inactive Keara kumar MD Other unspecified back disorders ICD-724.9 [place] ctive Keara Blum MD UTI ICD-599.0 Inactive Keara Blum MD 20 08/06/08 Otitis media, left ICD-382.9 Inactive Keara Blum MD Sinusitis-Acute ICD-461.9 Inactive Keara kumar MD Medication List Medication Instructions Start Date Stop Date Generic Name NDC Status Provider Patient Instruction TRI-SPRINTEC 0.18/0.215/0.25 MG-35 MCG TABS 1 po qd as directed 201 01/23/05 NORGESTIM-ETH ESTRAD TRIPHASIC 93944584536 Active Hortensia Marr MD Active ACZONE 5 % EXT GEL DAPSONE 27064604202 Active Agustina Marr MD Active FLUTICASONE PROPIONATE 50 MCG/ACT SUSP 1 puff in each nostril [place] FLUTICASONE PROPIONATE 09035300164 No Longer Active Hortensia Marr MD Active PRILOSEC 20 MG CPDR 1 daily OMEPRAZOLE 2498972 3614 No Longer Active Hortensia Marr MD Active CEFTIN 500 MG TABS 1 bid CEFUROXIME AXETIL 5 6332776954 No Longer Active Keara Blum MD Active ONDANSETRON HCL 8 MG TABS 1 q 8 hours ONDANSETR ON HCL 66117170011 No Longer Active Keara Blum MD Active ZIANA 1.2-0.025 % GEL apply pea size daily CLIN DAMYCIN-TRETINOIN 34961636861 No Longer Active Keara Blum MD Active CEFTIN 500 MG TAB 1 po bid 10 days CEFUROXIME A XETIL 90997754510 No Longer Active Keara Blum MD Active FLUTICASONE PROPIONATE 50 MCG/ACT SUSP 1 puff in each nostril [place] blaine FLUTICASONE PROPIONATE 74072818060 No Longer Active Dawson Gresham DO Active CEFDINIR 300 MG CAPS 1 daily CEFDINIR 0999480 3010 No Longer Active Dawson Gresham DO Active CEFDINIR 300 MG CAPS 1 daily CEFDINIR 7146741 3010 No Longer Active Keara Blum MD Active ONDANSETRON HCL 8 MG TABS 1 every8 hrs prn vomiting 20 08/10/08 ONDANSETRON HCL 28675106112 No Longer Active Keara Blum MD Active CLARITIN-D 24 HOUR 10-240 MG [id number] 1 po qd PRN Allergies 201 12/01/26 LORATADINE-PSEUDOEPHEDRINE 45868289438 No Longer Active Danielle Blum MD Active PROPRANOLOL HCL 20 MG TABS 1 bid PROPRANOL OL HCL 64068869929 No Longer Active Keara Blum MD Active PROAIR HFA 108 (90 BASE) MCG/ACT AERS 1-2 puffs 2-4 times a day as needed ALBUTEROL SULFATE 13111003752 No Longer Active Keara Blum MD Active FLOVENT HFA 110 MCG/ACT AERO 1 puff bid, rinse and spit FLUTICASONE PROPIONATE HFA 88141424791 No Longer Active Keara Blum MD Active FLUTICASONE PROPIONATE 50 MCG/ACT SUSP 1 puff in each nostril [place] blaine FLUTICASONE PROPIONATE 32452223486 No Longer Active Keara Blum MD Active ZYRTEC ALLERGY 10 MG TABS 1 tablet po daily CET IRIZINE HCL 96541529609 No Longer Active Keara Blum MD Active AZITHROMYCIN 250 MG TABS 2 pills day 1,1 pill day 2-5 AZITHROMYCIN 48473910715 No Longer Active Keara Blum MD Act [place] ZYRTEC ALLERGY 10 MG TABS 1 tablet po daily ZYRTEC ALLERGY 10 MG TABS 4316315 CETIRIZINE HCL Inactive FLOVENT HFA 110 MCG/ACT AERO 1 puff bid, rinse and spit FLOVENT HFA 110 MCG/ACT AERO FLUTICASONE PROPIONATE HFA Marysol ctive PROAIR HFA 108 (90 BASE) MCG/ACT AERS 1-2 puffs 2-4 times a day as needed PROAIR HFA 108 (90 BASE) MCG/ACT AERS ALB UTEROL SULFATE Inactive PROPRANOLOL HCL 20 MG TABS 1 bid P ROPRANOLOL HCL 20 MG TABS 229898 PROPRANOLOL HCL Inactive CLARITIN-D 24 HOUR 10-240 MG [id number] 1 po qd PRN Allergies 201 12/01/26 CLARITIN-D 24 HOUR 10-240 MG [id number] LORATADIN E-PSEUDOEPHEDRINE Inactive ONDANSETRON HCL 8 MG TABS 1 every8 hrs prn vomiting 20 08/10/08 ONDANSETRON HCL 8 MG TABS 887825 ONDANSETRON HCL Inactive CEFDINIR 300 MG CAPS 1 daily CEFDINIR 300 MG C APS 20021229 CEFDINIR Inactive CEFDINIR 300 MG CAPS 1 daily CEFDINIR 300 MG C APS 20021229 CEFDINIR Inactive FLUTICASONE PROPIONATE 50 MCG/ACT SUSP 1 puff in each nostril [place] bl[place] FLUTICASONE PROPIONATE 50 MCG/ACT SUSP 869919 FLUTICASO NE PROPIONATE Inactive CEFTIN 500 MG TAB 1 po bid 10 days CEFTIN 500 M G TAB 816422 CEFUROXIME AXETIL Inactive ZIANA 1.2-0.025 % GEL apply pea size daily ZIANA 1.2-0.025 % GEL CLINDAMYCIN-TRETINOIN Inactive ONDANSETRON HCL 8 MG TABS 1 q 8 hours ON DANSETRON HCL 8 MG TABS 595266 ONDANSETRON HCL Inactive CEFTIN 500 MG TABS 1 bid CEFTIN 500 MG TABS 411990 CEFUROXIME AXETIL Inactive PRILOSEC 20 MG CPDR 1 daily PRILOSEC 20 MG CPD R 548004 OMEPRAZOLE Inactive FLUTICASONE PROPIONATE 50 MCG/ACT SUSP 1 puff in each nostril [place] FLUTICASONE PROPIONATE 50 MCG/ACT SUSP 928665 FLUTICASO NE PROPIONATE Inactive AZITHROMYCIN 250 MG TABS 2 pills day 1,1 pill day 2-5 AZITHROMYCIN 250 MG TABS 9997065 AZITHROMYCIN Inactive FLUTICASONE PROPIONATE 50 MCG/ACT SUSP 1 puff in each nostril [place] FLUTICASONE PROPIONATE 50 MCG/ACT SUSP 518333 FLUTICASO NE PROPIONATE Inactive Immunizations Vaccine Administration [...] Diphtheria, and acellular Per tussis Immunization) Adacel [[id number]] tetanus toxoid, reduced diph theria toxoid, and [...] - 3141-9 209 [lb_av] Weigh t Measured Diagnostic Results Date Name Value Unit Range Description Lab Report: CBC W/DIFF, Comp. Metabolic Panel - Chemistry sodium, serum 141 mmol/L 111-797 6199/11/19 potassium, serum 4.4 mmol/L 3.5-5.2 chloride, serum [...] ve bilirubin, urine Negative Negative [place] [facility] [place] human chorionic gonadotropin , urine, qualitative (urine test) Negative Negative Encounters Code Encounter Date Provider Facility CPT-06885 Level 3 Est. Patient 09:47:44 FAMILY SERVICE WORKER Keara Abreu MD [facility] CPT-93225 Level 3 Est. Patient 16:33:46 CDT Keara Abreu MD [facility] CPT-38297 Level 3 Est. Patient 16:38:32 CDT Dawson breen DO [facility] CPT-99018 Level 3 Est. Patient 15:58:59 FAMILY SERVICE WORKER Keara Abreu MD [facility] CPT-38518 Level 3 Est. Patient 10:44:39 FAMILY SERVICE WORKER Keara Abreu MD [facility] CPT-70901 Level 3 Est. Patient 10:09:23 CDT Keara Abreu MD [facility] CPT-63398 Level 3 Est. Patient 13:46:54 FAMILY SERVICE WORKER Keara Abreu MD [facility] CPT-86496 Level 3 Est. Patient 16:25:27 CDT Keara Arbeu MD [facility] CPT-27716 Level 3 Est. Patient 10:22:54 CDT Keara Abreu MD [facility] CPT-08381 Level 3 Est. Patient 16:02:28 FAMILY SERVICE WORKER Keara Abreu MD [facility] Procedures Code Procedure Name Date Entry Date Standard Desc ription CPT-OV Office Visit 16:48:59 FAMILY SERVICE WORKER CPT-36854 Sono pelvis non OB uterus ovaries cervix 09:06:48 FAMILY SERVICE WORKER CPT-64974 Sono retroperitoneal complete kidneys an d bladder 09:06:48 FAMILY SERVICE WORKER CPT-30330 Abd compl w upright 15:32:02 FAMILY SERVICE WORKER CPT-29665 Fluzone Quadrivalent Intramuscular Suspe nsion 0.5 ML 16:49:56 FAMILY SERVICE WORKER CPT-45262 Breathing Tx 11:04:54 CDT CPT-38975 Chest 2V Frontal and Lat 10:32:02 CDT 03/19 CPT-91189 Breathing Tx 10:23:54 CDT CPT-22428 EKG Trac and Interp 16:18:28 FAMILY SERVICE WORKER
--- OUTSIDE RECORDS SUMMARY | 2020-05-02 15:49 | XMS REPORT | Clinical Summary ---
[...] one tab PO daily LEVONORGEST-ETH ESTRAD - 38523496365 Active Hortensia Marr MD Active TRI-SPRINTEC 0.18/0.215/0.25 MG-35 MCG TABS 1 po qd as directed NORGESTIM-ETH ESTRAD TRIPHASIC 86780582308 No Longer Active Hortensia Marr MD Active ACZONE 5 % EXT GEL DAPSONE 15924313273 Active Agustina Marr MD Active FLUTICASONE PROPIONATE 50 MCG/ACT SUSP 1 puff in each nostril [place] FLUTICASONE PROPIONATE 47036772624 No Longer Active Hortensia Marr MD Active PRILOSEC 20 MG CPDR 1 daily OMEPRAZOLE 0183208 3614 No Longer Active Hortensia Marr MD Active CEFTIN 500 MG TABS 1 bid CEFUROXIME AXETIL 5 1140479660 No Longer Active Keara Blum MD Active ONDANSETRON HCL 8 MG TABS 1 q 8 hours ONDANSETR ON HCL 93185138453 No Longer Active Keara Blum MD Active ZIANA 1.2-0.025 % GEL apply pea size daily CLIN DAMYCIN-TRETINOIN 80866924619 No Longer Active Keara Blum MD Active CEFTIN 500 MG TAB 1 po bid 10 days CEFUROXIME A XETIL 86486948042 No Longer Active Keara Blum MD Active FLUTICASONE PROPIONATE 50 MCG/ACT SUSP 1 puff in each nostril [place] blaine FLUTICASONE PROPIONATE 79203968463 No Longer Active Dawson Gresham DO Active CEFDINIR 300 MG CAPS 1 daily CEFDINIR 2530444 3010 No Longer Active Dawson Gresham DO Active CEFDINIR 300 MG CAPS 1 daily CEFDINIR 8345478 3010 No Longer Active Keara Blum MD Active ONDANSETRON HCL 8 MG TABS 1 every8 hrs prn vomiting 20 08/10/08 ONDANSETRON HCL 55355169037 No Longer Active Keara Blum MD Active CLARITIN-D 24 HOUR 10-240 MG [id number] 1 po qd PRN Allergies 201 12/01/26 LORATADINE-PSEUDOEPHEDRINE 68061993952 No Longer Active Danielle Blum MD Active PROPRANOLOL HCL 20 MG TABS 1 bid PROPRANOL OL HCL 52904815019 No Longer Active Keara Blum MD Active PROAIR HFA 108 (90 BASE) MCG/ACT AERS 1-2 puffs 2-4 times a day as needed ALBUTEROL SULFATE 11839268343 No Longer Active Keara Blum MD Active FLOVENT HFA 110 MCG/ACT AERO 1 puff bid, rinse and spit FLUTICASONE PROPIONATE HFA 19164593446 No Longer Active Keara Blum MD Active FLUTICASONE PROPIONATE 50 MCG/ACT SUSP 1 puff in each nostril da blaine FLUTICASONE PROPIONATE 61537492749 No Longer Active Keara Blum MD Active ZYRTEC ALLERGY 10 MG TABS 1 tablet po daily CET IRIZINE HCL 04934123931 No Longer Active Keara Blum MD Active AZITHROMYCIN 250 MG TABS 2 pills day 1,1 pill day 2-5 AZITHROMYCIN 53934729001 No Longer Active Keara Blum MD Act [place] ZYRTEC ALLERGY 10 MG TABS 1 tablet po daily ZYRTEC ALLERGY 10 MG TABS 8834844 CETIRIZINE HCL Inactive FLOVENT HFA 110 MCG/ACT AERO 1 puff bid, rinse and spit FLOVENT HFA 110 MCG/ACT AERO FLUTICASONE PROPIONATE HFA Marysol ctive PROAIR HFA 108 (90 BASE) MCG/ACT AERS 1-2 puffs 2-4 times a day as needed PROAIR HFA 108 (90 BASE) MCG/ACT AERS ALB UTEROL SULFATE Inactive PROPRANOLOL HCL 20 MG TABS 1 bid P ROPRANOLOL HCL 20 MG TABS 789230 PROPRANOLOL HCL Inactive CLARITIN-D 24 HOUR 10-240 MG [id number] 1 po qd PRN Allergies 201 12/01/26 CLARITIN-D 24 HOUR 10-240 MG [id number] LORATADIN E-PSEUDOEPHEDRINE Inactive ONDANSETRON HCL 8 MG TABS 1 every8 hrs prn vomiting 20 08/10/08 ONDANSETRON HCL 8 MG TABS 904984 ONDANSETRON HCL Inactive CEFDINIR 300 MG CAPS 1 daily CEFDINIR 300 MG C APS 964366 CEFDINIR Inactive CEFDINIR 300 MG CAPS 1 daily CEFDINIR 300 MG C APS 326818 CEFDINIR Inactive FLUTICASONE PROPIONATE 50 MCG/ACT SUSP 1 puff in each nostril [place] bl[place] FLUTICASONE PROPIONATE 50 MCG/ACT SUSP 363651 FLUTICASO NE PROPIONATE Inactive CEFTIN 500 MG TAB 1 po bid 10 days CEFTIN 500 M G TAB 332885 CEFUROXIME AXETIL Inactive ZIANA 1.2-0.025 % GEL apply pea size daily ZIANA 1.2-0.025 % GEL CLINDAMYCIN-TRETINOIN Inactive ONDANSETRON HCL 8 MG TABS 1 q 8 hours ON DANSETRON HCL 8 MG TABS 590051 ONDANSETRON HCL Inactive CEFTIN 500 MG TABS 1 bid CEFTIN 500 MG TABS 047529 CEFUROXIME AXETIL Inactive PRILOSEC 20 MG CPDR 1 daily PRILOSEC 20 MG CPD R 153824 OMEPRAZOLE Inactive FLUTICASONE PROPIONATE 50 MCG/ACT SUSP 1 puff in each nostril da blaine FLUTICASONE PROPIONATE 50 MCG/ACT SUSP 279412 FLUTICASO NE PROPIONATE Inactive TRI-SPRINTEC 0.18/0.215/0.25 MG-35 MCG TABS 1 po qd as directed TRI-SPRINTEC 0.18/0.215/0.25 MG-35 MCG TABS 256686 NORGESTIM-ETH ESTRAD TRIPHASIC Inactive AZITHROMYCIN 250 MG TABS 2 pills day 1,1 pill day 2-5 AZITHROMYCIN 250 MG TABS 0204918 AZITHROMYCIN Inactive FLUTICASONE PROPIONATE 50 MCG/ACT SUSP 1 puff in each nostril da blaine FLUTICASONE PROPIONATE 50 MCG/ACT SUSP 859843 FLUTICASO NE PROPIONATE Inactive Immunizations Vaccine Administration [...] Diphtheria, and acellular Per tussis Immunization) Adacel [[id number]] tetanus toxoid, reduced diph theria toxoid, and [...] Panel - Chemistry sodium, serum 141 mmol/L 020-878 8931/11/19 potassium, serum 4.4 mmol/L 3.5-5.2 chloride, serum [...] pH, urine, semiquantitative 8.0 5.0-8.5 Lab Report: [facility] [place] Chemistry human chorionic gonadotropin , urine, qualitative (urine test) Negative Negative Encounters Code Encounter Date Provider Facility CPT-91542 Level 3 Est. 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 Patient 16:33:46 CDT Keara Abreu MD [facility] CPT-52217 Level 3 Est. Patient 16:38:32 CDT Dawson breen DO [facility] CPT-42026 Level 3 Est. Patient 15:58:59 WELDING MACHINE OPERATOR PLASMA ARC Keara Abreu MD [facility] CPT-98106 Level 3 Est. Patient 10:44:39 WELDING MACHINE OPERATOR PLASMA ARC Keara Abreu MD [facility] CPT-95996 Level 3 Est. Patient 10:09:23 CDT Keara Abreu MD [facility] CPT-64928 Level 3 Est. Patient 13:46:54 WELDING MACHINE OPERATOR PLASMA ARC Keara Abreu MD [facility] CPT-53500 Level 3 Est. Patient 16:25:27 CDT Keara bAreu MD [facility] CPT-32026 Level 3 Est. Patient 10:22:54 CDT Keara Abreu MD [facility] CPT-18374 Level 3 Est. Patient 16:02:28 WELDING MACHINE OPERATOR PLASMA ARC Keara Abreu MD [facility] Procedures Code Procedure Name Date Entry Date Standard Desc ription CPT-12058 Sono pelvis non OB uterus ovaries cervix 15:52:59 CDT CPT-OV Office Visit 14:04:10 WELDING MACHINE OPERATOR [employer]ASMA ARC CPT-OV Office Visit 16:48:59 WELDING MACHINE OPERATOR [employer]ASMA ARC CPT-39416 Sono pelvis non OB uterus ovaries cervix 09:06:48 WELDING MACHINE OPERATOR PLASMA ARC CPT-56557 Sono retroperitoneal complete kidneys an d bladder 09:06:48 WELDING MACHINE OPERATOR PLASMA ARC CPT-71934 Abd compl w upright 15:32:02 WELDING MACHINE OPERATOR PLASMA ARC CPT-83265 Fluzone Quadrivalent Intramuscular Suspe nsion 0.5 ML 16:49:56 WELDING MACHINE OPERATOR PLASMA ARC CPT-96665 Breathing Tx 11:04:54 CDT CPT-40853 Chest 2V Frontal and Lat 10:32:02 CDT 03/19 CPT-55416 Breathing Tx 10:23:54 CDT CPT-62977 EKG Trac and Interp 16:18:28 WELDING MACHINE OPERATOR PLASMA ARC
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
--- OUTSIDE RECORDS SUMMARY | 2020-05-02 15:49 | XMS REPORT | Clinical Summary ---
Author Author Mario, Valerie Villegas Organization [facility] Address Unknown Phone Unavailable Allergies, [...] one tab PO daily LEVONORGEST-ETH ESTRAD - 38558051918 Active Hortensia Marr MD Active TRI-SPRINTEC 0.18/0.215/0.25 MG-35 MCG TABS 1 po qd as directed NORGESTIM-ETH ESTRAD TRIPHASIC 22804879035 No Longer Active Hortensia Marr MD Active ACZONE 5 % EXT GEL DAPSONE 56429967059 Active Agustina Marr MD Active FLUTICASONE PROPIONATE 50 MCG/ACT SUSP 1 puff in each nostril [place] FLUTICASONE PROPIONATE 60092793580 No Longer Active Hortensia Marr MD Active PRILOSEC 20 MG CPDR 1 daily OMEPRAZOLE 2054217 3614 No Longer Active Hortensia Marr MD Active CEFTIN 500 MG TABS 1 bid CEFUROXIME AXETIL 5 0287078482 No Longer Active Keara Blum MD Active ONDANSETRON HCL 8 MG TABS 1 q 8 hours ONDANSETR ON HCL 56259418817 No Longer Active Keara Blum MD Active ZIANA 1.2-0.025 % GEL apply pea size daily CLIN DAMYCIN-TRETINOIN 49855952517 No Longer Active Keara Blum MD Active CEFTIN 500 MG TAB 1 po bid 10 days CEFUROXIME A XETIL 62271309353 No Longer Active Keara Blum MD Active FLUTICASONE PROPIONATE 50 MCG/ACT SUSP 1 puff in each nostril [place] blaine FLUTICASONE PROPIONATE 64549755752 No Longer Active Dawson Gresham DO Active CEFDINIR 300 MG CAPS 1 daily CEFDINIR 0565768 3010 No Longer Active Dawson Gresham DO Active CEFDINIR 300 MG CAPS 1 daily CEFDINIR 3573682 3010 No Longer Active Keara Blum MD Active ONDANSETRON HCL 8 MG TABS 1 every8 hrs prn vomiting 20 08/10/08 ONDANSETRON HCL 05673839520 No Longer Active Keara Blum MD Active CLARITIN-D 24 HOUR 10-240 MG LE06D-[place] 1 po qd PRN Allergies 201 12/01/26 LORATADINE-PSEUDOEPHEDRINE 63744743861 No Longer Active Danielle Blum MD Active PROPRANOLOL HCL 20 MG TABS 1 bid PROPRANOL OL HCL 92162428763 No Longer Active Keara Blum MD Active PROAIR HFA 108 (90 BASE) MCG/ACT AERS 1-2 puffs 2-4 times a day as needed ALBUTEROL SULFATE 95690660979 No Longer Active Keara Blum MD Active FLOVENT HFA 110 MCG/ACT AERO 1 puff bid, rinse and spit FLUTICASONE PROPIONATE HFA 28348362219 No Longer Active Keara Blum MD Active FLUTICASONE PROPIONATE 50 MCG/ACT SUSP 1 puff in each nostril [place] blaine FLUTICASONE PROPIONATE 80667456611 No Longer Active Keara Blum MD Active ZYRTEC ALLERGY 10 MG TABS 1 tablet po daily CET IRIZINE HCL 80478291891 No Longer Active Keara Blum MD Active AZITHROMYCIN 250 MG TABS 2 pills day 1,1 pill day 2-5 AZITHROMYCIN 72448435681 No Longer Active Keara Blum MD Act verona ZYRTEC ALLERGY 10 MG TABS 1 tablet po daily ZYRTEC ALLERGY 10 MG TABS 4151589 CETIRIZINE HCL Inactive FLOVENT HFA 110 MCG/ACT AERO 1 puff bid, rinse and spit FLOVENT HFA 110 MCG/ACT AERO FLUTICASONE PROPIONATE HFA [place] ctive PROAIR HFA 108 (90 BASE) MCG/ACT AERS 1-2 puffs 2-4 times a day as needed PROAIR HFA 108 (90 BASE) MCG/ACT AERS ALB UTEROL SULFATE Inactive PROPRANOLOL HCL 20 MG TABS 1 bid P ROPRANOLOL HCL 20 MG TABS 579311 PROPRANOLOL HCL Inactive CLARITIN-D 24 HOUR 10-240 MG [id number] 1 po qd PRN Allergies 201 12/01/26 CLARITIN-D 24 HOUR 10-240 MG [id number] LORATADIN E-PSEUDOEPHEDRINE Inactive ONDANSETRON HCL 8 MG TABS 1 every8 hrs prn vomiting 20 08/10/08 ONDANSETRON HCL 8 MG TABS 413481 ONDANSETRON HCL Inactive CEFDINIR 300 MG CAPS 1 daily CEFDINIR 300 MG C APS 638895 CEFDINIR Inactive CEFDINIR 300 MG CAPS 1 daily CEFDINIR 300 MG C APS 216840 CEFDINIR Inactive FLUTICASONE PROPIONATE 50 MCG/ACT SUSP 1 puff in each nostril [place] FLUTICASONE PROPIONATE 50 MCG/ACT SUSP 794823 FLUTICASO NE PROPIONATE Inactive CEFTIN 500 MG TAB 1 po bid 10 days CEFTIN 500 M G TAB 383640 CEFUROXIME AXETIL Inactive ZIANA 1.2-0.025 % GEL apply pea size daily ZIANA 1.2-0.025 % GEL CLINDAMYCIN-TRETINOIN Inactive ONDANSETRON HCL 8 MG TABS 1 q 8 hours ON DANSETRON HCL 8 MG TABS 289793 ONDANSETRON HCL Inactive CEFTIN 500 MG TABS 1 bid CEFTIN 500 MG TABS 420990 CEFUROXIME AXETIL Inactive PRILOSEC 20 MG CPDR 1 daily PRILOSEC 20 MG CPD R 486322 OMEPRAZOLE Inactive FLUTICASONE PROPIONATE 50 MCG/ACT SUSP 1 puff in each nostril [place] bl[place] FLUTICASONE PROPIONATE 50 MCG/ACT SUSP 003539 FLUTICASO NE PROPIONATE Inactive TRI-SPRINTEC 0.18/0.215/0.25 MG-35 MCG TABS 1 po qd as directed TRI-SPRINTEC 0.18/0.215/0.25 MG-35 MCG TABS 398539 NORGESTIM-ETH ESTRAD TRIPHASIC Inactive AZITHROMYCIN 250 MG TABS 2 pills day 1,1 pill day 2-5 AZITHROMYCIN 250 MG TABS 1307198 AZITHROMYCIN Inactive FLUTICASONE PROPIONATE 50 MCG/ACT SUSP 1 puff in each nostril [place] FLUTICASONE PROPIONATE 50 MCG/ACT SUSP 267009 FLUTICASO NE PROPIONATE Inactive Immunizations Vaccine Administration [...] Diphtheria, and acellular Per tussis Immunization) Adacel [[id number]] tetanus toxoid, reduced diph theria toxoid, and [...] Panel - Chemistry sodium, serum 141 mmol/L 897-484 6179/11/19 potassium, serum 4.4 mmol/L 3.5-5.2 chloride, serum [...] pH, urine, semiquantitative 8.0 5.0-8.5 Lab Report: [facility] [place] Chemistry human chorionic gonadotropin , urine, qualitative (urine test) Negative Negative Encounters Code Encounter Date Provider Facility CPT-50704 Level 3 Est. Patient 09:47:44 MULTI PURPOSE MACHINE OPERATOR Keara Abreu MD [facility] CPT-62856 Level 3 Est. Patient 16:33:46 CDT Keara Abreu MD [facility] CPT-12086 Level 3 Est. Patient 16:38:32 CDT Dawson breen DO [facility] CPT-79582 Level 3 Est. Patient 15:58:59 MULTI PURPOSE MACHINE OPERATOR Keara Abreu MD [facility] CPT-70805 Level 3 Est. Patient 10:44:39 MULTI PURPOSE MACHINE OPERATOR Keara Abreu MD [facility] CPT-21238 Level 3 Est. Patient 10:09:23 CDT Keara Abreu MD [facility] CPT-11236 Level 3 Est. Patient 13:46:54 MULTI PURPOSE MACHINE OPERATOR Keara Abreu MD [facility] CPT-43079 Level 3 Est. Patient 16:25:27 CDT Keara Abreu MD [facility] CPT-55646 Level 3 Est. Patient 10:22:54 CDT Keara Abreu MD [facility] CPT-24576 Level 3 Est. Patient 16:02:28 MULTI PURPOSE MACHINE OPERATOR Keara Abreu MD [facility] Procedures Code Procedure Name Date Entry Date Standard Desc ription CPT-79139 Sono pelvis non OB uterus ovaries cervix 15:52:59 CDT CPT-OV Office Visit 14:04:10 MULTI PURPOSE MACHINE OPERATOR CPT-OV Office Visit 16:48:59 MULTI PURPOSE MACHINE OPERATOR CPT-13601 Sono pelvis non OB uterus ovaries cervix 09:06:48 MULTI PURPOSE MACHINE OPERATOR CPT-35776 Sono retroperitoneal complete kidneys an d bladder 09:06:48 MULTI PURPOSE MACHINE OPERATOR CPT-71131 Abd compl w upright 15:32:02 MULTI PURPOSE MACHINE OPERATOR CPT-60970 Fluzone Quadrivalent Intramuscular Suspe nsion 0.5 ML 16:49:56 MULTI PURPOSE MACHINE OPERATOR CPT-72260 Breathing Tx 11:04:54 CDT CPT-65059 Chest 2V Frontal and Lat 10:32:02 CDT 03/19 CPT-24714 Breathing Tx 10:23:54 CDT CPT-87543 EKG Trac and Interp 16:18:28 MULTI PURPOSE MACHINE OPERATOR
--- NOTE | 2020-05-02 16:10 | ED GU-Female ---
General Stated Complaint: BLOOD IN URINE/LOWER BACK PAIN/FEVER Source: patient Exam Limitations: no limitations History of Present Illness Date Seen by Provider: May 02, 2020 Time Seen by Provider: 16:05 Initial Comments On April [address] Fuller for respiratory illness, placed on doxycycline, albuterol, and prednisone x7 days. Was seen in on 04/26/20 for urinary complaints with flank pain and temp of 101.2, she was placed on Macrobid x 5 days for UTI, completed course apx 2 days ago. Today she is having increased bilateral flank pain, dysuria, and hematuria. Timing/Duration: getting worse Severity/Quality: moderate Location: generalized flank Radiation: none Activities at Onset: none Prior Genitourinary Problems: none Sexual Osmond History: not active Modifying Factors: Improves With Other (heating pad improves pain ) Associated Symptoms: fever/chills Allergies and Home Medications Allergies Coded Allergies: Penicillins (Verified Allergy, Intermediate, HIVES, 09/11/15) amoxicillin (Verified Allergy, Intermediate, HIVES, 09/11/15) azithromycin (Verified Allergy, Intermediate, HIVES, 09/11/15) sulfamethoxazole (Verified Allergy, Intermediate, HIVES, 09/11/15) trimethoprim (Verified Allergy, Intermediate, HIVES, 09/11/15) Patient Home Medication List Home Medication List Reviewed: Yes Review of Systems Review of Systems Constitutional: see HPI EENTM: no symptoms reported Respiratory: no symptoms reported Cardiovascular: no symptoms reported Gastrointestinal: see HPI Genitourinary: see HPI, dysuria, flank pain, hematuria Musculoskeletal: no symptoms reported Skin: no symptoms reported Psychiatric/Neurological: No Symptoms Reported Endocrine: No Symptoms Reported (elevated WBC of 22K on 05/01/20) Past Bggwsac-Aaibdo-Armvib Hx Patient Social History Recent Foreign Travel: No Contact w/Someone Who Travel: No Immunizations Up To Date Date of Pneumonia Vaccine: Sep 14, 2003 Date of Influenza Vaccine: Aug 12, 2015 Past Medical History Surgeries: Yes (WISDOM TEETH) Respiratory: Yes (RESOLVED WITH AGE) Asthma Cardiac: No Neurological: Yes Reproductive Disorders: No Female Reproductive Disorders: Ovarian Cyst Sexually Transmitted Disease: No HIV/AIDS: No Musculoskeletal: No Endocrine: No Loss of Vision: Denies Hearing Impairment: Denies Cancer: No Psychosocial: No Integumentary: Yes (NO RECENT PROBLEMS) Eczema Blood Disorders: No Adverse Reaction/Blood Tranf: No Physical Exam Vital Signs Vital Signs - First Documented 05/02/20 15:50 Temp 37.0 Pulse 116 Resp 18 B/P (MAP) 132/77 (95) Pulse Ox 98 Capillary Refill : Height, Weight, BMI Height: 5'10.00" Weight: 280lbs. oz. 127.343851cx; BMI Method:Estimated General Appearance: WD/WN, no apparent distress HEENT: PERRL/EOMI, pharynx normal Neck: full range of motion, normal inspection Cardiovascular: normal peripheral pulses, regular rate, rhythm, no murmur Respiratory: normal breath sounds, no respiratory distress Gastrointestinal: normal bowel sounds, non tender, soft Pelvic: normal external exam, vaginal bleeding Back: normal inspection, no CVA tenderness Extremities: normal range of motion, non-tender Neurologic/Psychiatric: alert, oriented x 3 Skin: normal color, warm/dry Focused Exam Lactate Level 05/02/20 16:07: Lactic Acid Level 1.97 Lactic Acid Level Laboratory Tests Test 05/02/20 16:07 Lactic Acid Level 1.97 MMOL/L (0.50-2.00) Progress/Results/Core Measures Suspected Sepsis SIRS Temperature: Pulse: Respiratory Rate: Laboratory Tests 05/02/20 16:07: White Blood Count 14.1H Blood Pressure / Mean: 05/02/20 16:07: Lactic Acid Level 1.97 Laboratory Tests 05/02/20 16:07: Creatinine 0.77, Platelet Count 339, Total Bilirubin 0.3 Results/Orders Lab Results Laboratory Tests Test 05/02/20 16:07 05/02/20 16:40 Range/Units White Blood Count 14.1 H 4.3-11.0 10^3/uL Red Blood Count 5.21 4.35-5.85 10^6/uL Hemoglobin 13.1 11.5-16.0 G/DL Hematocrit 40 35-52 % Mean Corpuscular Volume 77 L 80-99 FL Mean Corpuscular Hemoglobin 25 25-34 PG Mean Corpuscular Hemoglobin Concent 33 32-36 G/DL Red Cell Distribution Width 15.8 H 10.0-14.5 % Platelet Count 339 130-400 10^3/uL Mean Platelet Volume 11.9 H 7.4-10.4 FL Neutrophils (%) (Auto) 65 42-75 % Lymphocytes (%) (Auto) 25 12-44 % Monocytes (%) (Auto) 8 0-12 % Eosinophils (%) (Auto) 2 0-10 % Basophils (%) (Auto) 0 0-10 % Neutrophils # (Auto) 9.2 H 1.8-7.8 X 10^3 Lymphocytes # (Auto) 3.5 1.0-4.0 X 10^3 Monocytes # (Auto) 1.1 H 0.0-1.0 X 10^3 Eosinophils # (Auto) 0.3 0.0-0.3 10^3/uL Basophils # (Auto) 0.1 0.0-0.1 10^3/uL Neutrophils % (Manual) 63 % Lymphocytes % (Manual) 27 % Monocytes % (Manual) 8 % Eosinophils % (Manual) 2 % Microcytosis SLIGHT Blood Morphology Comment NORMAL Sodium Level 141 135-145 MMOL/L Potassium Level 3.9 3.6-5.0 MMOL/L Chloride Level 107 98-107 MMOL/L Carbon Dioxide Level 22 21-32 MMOL/L Anion Gap 12 5-14 MMOL/L Blood Urea Nitrogen 12 7-18 MG/DL Creatinine 0.77 0.60-1.30 MG/DL Estimat Glomerular Filtration Rate > 60 BUN/Creatinine Ratio 16 Glucose Level 135 H 70-105 MG/DL Lactic Acid Level 1.97 0.50-2.00 MMOL/L Calcium Level 9.1 8.5-10.1 MG/DL Corrected Calcium 9.1 8.5-10.1 MG/DL Total Bilirubin 0.3 0.1-1.0 MG/DL Aspartate Amino Transf (AST/SGOT) 28 5-34 U/L Alanine Aminotransferase (ALT/SGPT) 34 0-55 U/L Alkaline Phosphatase 113 40-136 U/L Total Protein 6.7 6.4-8.2 GM/DL Albumin 4.0 3.2-4.5 GM/DL Procalcitonin 0.02 <0.10 NG/ML Serum Test, Qualitative NEGATIVE NEGATIVE Urine Color YELLOW Urine Clarity SL CLOUDY Urine pH 5.5 5-9 Urine Specific [place] >=1.030 1.016-1.022 Urine Protein TRACE H NEGATIVE Urine Glucose (UA) NEGATIVE NEGATIVE Urine Ketones NEGATIVE NEGATIVE Urine Nitrite NEGATIVE NEGATIVE Urine Bilirubin NEGATIVE NEGATIVE Urine Urobilinogen 0.2 < = 1.0 MG/DL Urine Leukocyte Esterase 1+ H NEGATIVE Urine RBC (Auto) 3+ H NEGATIVE Urine RBC TNTC H /HPF Urine WBC NONE /HPF Urine Squamous Epithelial Cells 0-2 /HPF Urine Crystals NONE /LPF Urine Bacteria NEGATIVE /HPF Urine Casts NONE /LPF Urine Mucus NEGATIVE /LPF Urine Culture Indicated NO My Orders Orders - BALDEMAR TUCKER APRN Cbc With Automated Diff (05/02/20 15:48) Comprehensive Metabolic Panel (05/02/20 15:48) Hcg,Qualitative Serum (05/02/20 15:48) Lactic Acid Analyzer (05/02/20 15:48) Blood Culture (05/02/20 15:48) Manual Differential (05/02/20 16:07) Ct Abdomen/Pelvis W (05/02/20 16:30) Iohexol Injection (Omnipaque 350 Mg/Ml 1 (05/02/20 16:45) Received Contrast (Hold Metformin- Contr (05/02/20 16:45) Ns (Ivpb) (Sodium Chloride 0.9% Ivpb Bag (05/02/20 16:45) Procalcitonin (Pct) (05/02/20 16:44) Medications Given in ED Current Medications Medications Dose Ordered Sig/Alesha Route Start Time Stop Time Status Last Admin Dose Admin Iohexol 100 ml ONCE ONCE IV 05/02/20 16:45 05/02/20 16:46 DC 05/02/20 17:07 100 ML Sodium Chloride 100 ml ONCE ONCE IV 05/02/20 16:45 05/02/20 16:46 DC 05/02/20 17:07 80 ML Vital Signs/I&O 05/02/20 15:50 Temp 37.0 Pulse 116 Resp 18 B/P (MAP) 132/77 (95) Pulse Ox 98 Capillary Refill : Departure Impression Primary Impression: Fever Additional Impressions: Vaginal bleeding Viral syndrome Disposition: 01 HOME, SELF-CARE Condition: Stable Departure-Patient Inst. Decision time for Depature: 17:44 Referrals: FREDERICK FULLER MD (PCP/Family) Primary Care Physician Add. Discharge Instructions: Continue current treatment plan. Follow up with Dr. Fuller or Dr. Tejeda for vaginal bleeding. Return to ER for any new or concerning problems. Copy Copies To 1: FREDERICK FULLER MD, PETER J LACING CUTTER May 02, 2020 16:10
[2020-05-02 16:19] LABS: BASOPHILS # (AUTO) 0.1 10^3/uL (0.0-0.1); BASOPHILS % (AUTO) 0 % (0-10); EOSINOPHILS # (AUTO) 0.3 10^3/uL (0.0-0.3); EOSINOPHILS % (AUTO) 2 % (0-10); HEMATOCRIT 40 % (35-52); HEMOGLOBIN 13.1 G/DL (11.5-16.0); LYMPHOCYTES # (AUTO) 3.5 X 10^3 (1.0-4.0); LYMPHOCYTES % (AUTO) 25 % (12-44); MEAN CORPUSCULAR HEMOGLOBIN 25 PG (25-34); MEAN CORPUSCULAR HGB CONC 33 G/DL (32-36); MEAN CORPUSCULAR VOLUME 77 FL (80-99); MEAN PLATELET VOLUME 11.9 FL (7.4-10.4); MONOCYTES # (AUTO) 1.1 X 10^3 (0.0-1.0); MONOCYTES % (AUTO) 8 % (0-12); NEUTROPHILS # (AUTO) 9.2 X 10^3 (1.8-7.8); NEUTROPHILS % (AUTO) 65 % (42-75); PLATELET COUNT 339 10^3/uL (130-400); RED CELL DISTRIBUTION WIDTH 15.8 % (10.0-14.5); WHITE BLOOD COUNT 14.1 10^3/uL (4.3-11.0)
[2020-05-02] MEDS ORDERED: DOXY100T2 (16:24)
[2020-05-02] MEDS ORDERED: LEVO500T80 (16:24)
[2020-05-02 16:37] LABS: ALANINE AMINOTRANSFERASE 34 U/L (0-55); ALKALINE PHOSPHATASE 113 U/L (40-136); BILIRUBIN,TOTAL 0.3 MG/DL (0.1-1.0); BUN/CREATININE RATIO 16; CALCIUM 9.1 MG/DL (8.5-10.1); CARBON DIOXIDE 22 MMOL/L (21-32); CHLORIDE 107 MMOL/L (98-107); CREATININE SERUM 0.77 MG/DL (0.60-1.30); GFR ESTIMATED > 60; GLUCOSE 135 MG/DL (70-105); POTASSIUM 3.9 MMOL/L (3.6-5.0); SODIUM 141 MMOL/L (135-145); TOTAL PROTEIN 6.7 GM/DL (6.4-8.2)
[2020-05-02] MEDS ORDERED: NS 100 ML (IVPB) BAG IV ONE (16:45)
[2020-05-02] MEDS ORDERED: IOHEXOL 350 MG/ML 100 ML (OMNIPAQUE 350) VIAL IV ONE (16:45)
[2020-05-02] MEDS ORDERED: HOLD METFORMIN - RECEIVED CONTRAST 20 ML VIAL IV SCH (16:45)
[2020-05-02 17:00] LABS: BILIRUBIN,URINE NEGATIVE (NEGATIVE); CLARITY,URINE SL CLOUDY; COLOR,URINE YELLOW; GLUCOSE, URINE (UA) NEGATIVE (NEGATIVE); KETONES,URINE NEGATIVE (NEGATIVE); LEUKOCYTE ESTERASE ,URINE 1+ (NEGATIVE); NITRITE,URINE NEGATIVE (NEGATIVE); PH,URINE 5.5 (5-9); PROTEIN,URINE TRACE (NEGATIVE)
[2020-05-02 17:03] LABS: EOSINOPHILS % (MANUAL) 2 %; LYMPHOCYTES % (MANUAL) 27 %; MICROCYTOSIS SLIGHT; MONOCYTES % (MANUAL) 8 %; NEUTROPHILS % (MANUAL) 63 %; RBC MORPH NORMAL
--- NOTE | 2020-05-02 17:15 | Diagnostic Imaging Report ---
PROCEDURE: CT abdomen and pelvis with contrast. TECHNIQUE: Multiple contiguous axial images were obtained through the abdomen and pelvis after administration of intravenous contrast. Auto Exposure Controls were utilized during the CT exam to meet ALARA standards for radiation dose reduction. INDICATION: Flank pain, abdominal pain. COMPARISON: None. FINDINGS: Please note the superior aspect of the liver was omitted from this series. The lung bases are clear. The visualized liver, gallbladder, spleen, pancreas, adrenal glands, kidneys and vascular structures are unremarkable. There is a benign cortical cyst measuring 10 mm in the mid aspect of the left kidney. There is no hydronephrosis or mass. No obvious renal calculi are seen. The course and caliber of the large and small bowel is normal. The appendix is normal. There is no free air, free fluid or inflammation. The uterus is intact. Distal ureters and urinary bladder are grossly unremarkable. There is no hernia. Osseous structures are age-appropriate. IMPRESSION: Negative CT abdomen and oblique views of pelvis. Dictated by: Dictated on workstation # [id number]
[2020-05-02 17:39] LABS: BACTERIA,URINE NEGATIVE /HPF; RBC,URINE TNTC /HPF
[2020-05-02 17:40] LABS: SQUAMOUS EPITHELIAL CELL,UR 0-2 /HPF
[2020-05-02 17:55] VITALS: BP 128/77
== END 2020-05-02 17:55 | disposition home or self-care (01) ==
LOC: EDUNIT# 15:36 → ER 15:37
DX: N93.9 Abnormal uterine and vaginal bleeding, unspecified (principal); B34.9 Viral infection, unspecified; Z88.0 Allergy status to penicillin; Z88.1 Allergy status to other antibiotic agents; Z88.2 Allergy status to sulfonamides
CPT/HCPCS: 36415; 74177; 80053; 81000; 83605; 84145; 84703; 85007; 85027; 87040

== ENCOUNTER → 2020-08-26 | Outpatient (CLI) | payer BC ==
[~2020-08-26] MED LIST changes: +DOXY100T2; +LEVO500T80
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
== END ==
LOC: RAD 13:15
PROVIDERS: ATTEND Family Medicine
DX: M25.512 Pain in left shoulder (principal); M25.511 Pain in right shoulder

== ENCOUNTER → 2020-09-10 | Outpatient (CLI) | payer BC ==
--- NOTE | 2020-09-10 20:34 | Diagnostic Imaging Report ---
INDICATION: Redness and pain in the left breast. EXAMINATION: Sonographic interrogation of the area of redness and pain in the left breast was performed. FINDINGS: No sonographic abnormality is detected. No solid or cystic mass is detected. There is no fluid collection. IMPRESSION: No sonographic abnormality is detected. ACR BI-RADS Category 1: Negative. Result letter will be mailed to the patient. Note: At least 10% of breast cancer is not imaged by mammography. Dictated by: Dictated on workstation # [id number]
== END ==
LOC: RAD 14:15
PROVIDERS: ATTEND Nurse Practitioner Family
DX: N64.4 Mastodynia (principal); Z80.3 Family history of malignant neoplasm of breast
CPT/HCPCS: 76641

== ENCOUNTER 2020-12-11 15:42 | Outpatient (RCR) | payer BC ==
[~2020-12-11 15:42] MED LIST changes: +SERT-414; -SERT100T8
== END 2020-12-28 09:33 | disposition home or self-care (01) ==
PROVIDERS: ATTEND Orthopaedic Surgery
DX: M75.21 Bicipital tendinitis, right shoulder (principal)

== ENCOUNTER 2021-04-30 14:57 | Outpatient (RCR) | payer BC, OTHER | END 2021-05-02 | disposition home or self-care (01) | PROVIDERS: ATTEND Physician Assistant Medical | DX: M67.813 Other specified disorders of tendon, right shoulder (principal); Z98.890 Other specified postprocedural states ==

== ENCOUNTER 2021-06-24 15:44 | Outpatient (RCR) | payer BC, OTHER | END 2021-06-24 16:45 | disposition home or self-care (01) | PROVIDERS: ATTEND Physician Assistant Medical | DX: M67.813 Other specified disorders of tendon, right shoulder (principal); Z98.890 Other specified postprocedural states ==